=== PATIENT | male | born 1950 | race Caucasian/White ===

== ENCOUNTER 2020-07-20 12:20 | Outpatient (REF) | payer MEDICARE, SELFPAY ==
[2020-07-20 13:53] LABS: MANUAL DIFF FLAG NO
[2020-07-20 14:04] LABS: Basophils Absolute Auto 0.1 X10*3/uL (0.0-0.2); Eosinophils Absolute Auto 0.2 X10*3/uL (0.0-0.4); Eosinophils Percent Auto 3.1 % (0-4); Hematocrit 42.1 % (42-52); Hemoglobin 14.1 g/dl (14.0-18.0); Imm Gran Abs Auto 0.02 X10*3/uL (0.00-0.03); Imm Gran Pct Auto 0.3 % (0.0-0.4); Lymphocytes Absolute Auto 1.7 X10*3/uL (1.2-4.9); Lymphocytes Percent Auto 27.8 % (20-40); Mean Corpuscular HGB Conc 33.5 g/dl (31.0-36.0); Mean Corpuscular Hemoglobin 30.9 pg (27.0-33.0); Mean Corpuscular Volume 92.1 fL (80-98); Mean Platelet Volume 10.7 fL (9.4-12.4); Monocytes Absolute Auto 0.5 X10*3/uL (0.1-1.2); Monocytes Percent Auto 7.8 % (2-11); Neutrophils Absolute Auto 3.7 X10*3/uL (2.0-8.3); Platelet Count 205 X10*3/uL (160-400); Red Blood Count 4.57 X10*6/uL (4.60-5.80); White Blood Count 6.1 X10*3/uL (4.8-10.8)
[2020-07-20 14:38] LABS: Alanine Aminotransferase 12 U/L (0-40); Albumin Level 4.2 g/dL (3.5-5.0); Alkaline Phosphatase 73 U/L (39-117); Anion Gap 13 (12-20); Aspartate Amino Transferase 16 U/L (5-37); Bilirubin Total 0.8 mg/dL (0.0-1.0); Blood Urea Nitrogen 15 mg/dL (9-16); Carbon Dioxide 27 mmol/L (22-29); Chloride 105 mmol/L (96-108); Cholesterol 182 mg/dL; Estimated Glomerular Filt Rate > 60; Glucose Fasting 88 mg/dL (60-99); HDL Cholesterol 40 mg/dL; LDL Cholesterol Calculated 109 mg/dl; Potassium 4.2 mmol/l (3.3-5.1); Sodium 141 mmol/L (135-145); Total Protein 6.3 g/dL (6.5-8.0); Triglycerides 169 mg/dL
== END 2020-07-20 12:21 | disposition home or self-care (01) ==
LOC: HO.HMGCLDS 12:20
PROVIDERS: PCP Internal Medicine Medical Oncology; Visit Provider Internal Medicine Medical Oncology
DX: E78.5 Hyperlipidemia, unspecified (principal); E66.9 Obesity, unspecified
CPT/HCPCS: 36415; 80053; 80061; 84153; 85025

== ENCOUNTER 2020-11-21 12:39 | Outpatient (REF) | payer MEDICARE, SELFPAY ==
[2020-11-21 13:50] LABS: MANUAL DIFF FLAG NO
[2020-11-21 13:56] LABS: Basophils Absolute Auto 0.1 X10*3/uL (0.0-0.2); Basophils Percent Auto 0.9 % (0-2); Eosinophils Absolute Auto 0.3 X10*3/uL (0.0-0.4); Eosinophils Percent Auto 4.4 % (0-4); Hematocrit 42.7 % (42-52); Imm Gran Abs Auto 0.02 X10*3/uL (0.00-0.03); Imm Gran Pct Auto 0.4 % (0.0-0.4); Lymphocytes Absolute Auto 1.8 X10*3/uL (1.2-4.9); Lymphocytes Percent Auto 31.3 % (20-40); Mean Corpuscular HGB Conc 32.8 g/dl (31.0-36.0); Mean Corpuscular Hemoglobin 29.9 pg (27.0-33.0); Mean Corpuscular Volume 91.2 fL (80-98); Mean Platelet Volume 10.2 fL (9.4-12.4); Monocytes Absolute Auto 0.4 X10*3/uL (0.1-1.2); Monocytes Percent Auto 7.2 % (2-11); Neutrophils Absolute Auto 3.2 X10*3/uL (2.0-8.3); Neutrophils Percent Auto 55.8 % (45-73); Platelet Count 213 X10*3/uL (160-400); Red Blood Count 4.68 X10*6/uL (4.60-5.80); White Blood Count 5.7 X10*3/uL (4.8-10.8)
[2020-11-21 15:08] LABS: Alanine Aminotransferase 14 U/L (0-40); Albumin Level 4.3 g/dL (3.5-5.0); Alkaline Phosphatase 72 U/L (39-117); Anion Gap 11 (12-20); Aspartate Amino Transferase 18 U/L (5-37); Bilirubin Total 0.9 mg/dL (0.0-1.0); Blood Urea Nitrogen 14 mg/dL (9-16); Calcium 9.2 mg/dL (8.4-10.2); Carbon Dioxide 28 mmol/L (22-29); Chloride 106 mmol/L (96-108); Cholesterol 200 mg/dL; Estimated Glomerular Filt Rate > 60; Glucose Fasting 99 mg/dL (60-99); HDL Cholesterol 41 mg/dL; LDL Cholesterol Calculated 128 mg/dl; Potassium 4.3 mmol/L (3.3-5.1); Sodium 141 mmol/L (135-145); Total Protein 6.4 g/dL (6.5-8.0); Triglycerides 156 mg/dL
[2020-11-21 15:11] LABS: Prostate Specific Antigen 0.58 ng/mL (<0.05-4.0); Vitamin D 25-OH Total 27.2 ng/mL (>30)
== END 2020-11-21 12:40 | disposition home or self-care (01) ==
LOC: HO.HMGCLDS 12:39
PROVIDERS: PCP Internal Medicine Medical Oncology; Visit Provider Internal Medicine Medical Oncology
DX: E78.5 Hyperlipidemia, unspecified (principal); I10 Essential (primary) hypertension; E66.9 Obesity, unspecified; Z12.5 Encounter for screening for malignant neoplasm of prostate
CPT/HCPCS: 36415; 80053; 80061; 82306; 84153; 85025

== ENCOUNTER 2021-03-23 12:11 | Outpatient (REF) | payer MEDICARE, SELFPAY ==
[2021-03-23 13:59] LABS: MANUAL DIFF FLAG NO
[2021-03-23 14:14] LABS: Basophils Absolute Auto 0.1 X10*3/uL (0.0-0.2); Eosinophils Absolute Auto 0.2 X10*3/uL (0.0-0.4); Eosinophils Percent Auto 3.4 % (0-4); Hematocrit 42.2 % (42-52); Hemoglobin 14.1 g/dl (14.0-18.0); Imm Gran Abs Auto 0.03 X10*3/uL (0.00-0.03); Imm Gran Pct Auto 0.5 % (0.0-0.4); Lymphocytes Absolute Auto 1.7 X10*3/uL (1.2-4.9); Lymphocytes Percent Auto 28.9 % (20-40); Mean Corpuscular HGB Conc 33.4 g/dl (31.0-36.0); Mean Corpuscular Volume 92.7 fL (80-98); Mean Platelet Volume 10.6 fL (9.4-12.4); Monocytes Absolute Auto 0.5 X10*3/uL (0.1-1.2); Monocytes Percent Auto 8.9 % (2-11); Neutrophils Absolute Auto 3.4 X10*3/uL (2.0-8.3); Neutrophils Percent Auto 57.3 % (45-73); Platelet Count 217 X10*3/uL (160-400); Red Blood Count 4.55 X10*6/uL (4.60-5.80); Red Cell Distribution Width 14.5 % (11.0-16.0)
[2021-03-23 14:26] LABS: Alanine Aminotransferase 13 U/L (0-40); Albumin Level 4.2 g/dL (3.5-5.0); Alkaline Phosphatase 76 U/L (39-117); Anion Gap 14 (12-20); Aspartate Amino Transferase 22 U/L (5-37); Blood Urea Nitrogen 15 mg/dL (9-16); Calcium 9.4 mg/dL (8.4-10.2); Carbon Dioxide 26 mmol/L (22-29); Chloride 105 mmol/L (96-108); Cholesterol 216 mg/dL; Estimated Glomerular Filt Rate > 60; Glucose Fasting 96 mg/dL (60-99); HDL Cholesterol 44 mg/dL; LDL Cholesterol Calculated 140 mg/dl; Potassium 4.6 mmol/L (3.3-5.1); Sodium 140 mmol/L (135-145); Total Protein 6.5 g/dL (6.5-8.0); Triglycerides 161 mg/dL
[2021-03-23 14:36] LABS: Vitamin D 25-OH Total 31.5 ng/mL (>30)
== END 2021-03-23 12:12 | disposition home or self-care (01) ==
LOC: HO.HMGCLDS 12:11
PROVIDERS: PCP Internal Medicine Medical Oncology; Visit Provider Internal Medicine Medical Oncology
DX: E78.5 Hyperlipidemia, unspecified (principal); E66.9 Obesity, unspecified; I10 Essential (primary) hypertension
CPT/HCPCS: 36415; 80053; 80061; 82306; 85025

== ENCOUNTER 2021-06-23 11:32 | Outpatient (REF) | payer MEDICARE, SELFPAY ==
[2021-06-23 13:59] LABS: MANUAL DIFF FLAG NO
[2021-06-23 14:04] LABS: Basophils Absolute Auto 0.1 X10*3/uL (0.0-0.2); Basophils Percent Auto 0.9 % (0-2); Eosinophils Absolute Auto 0.2 X10*3/uL (0.0-0.4); Eosinophils Percent Auto 4.1 % (0-4); Hemoglobin 14.5 g/dl (14.0-18.0); Imm Gran Abs Auto 0.02 X10*3/uL (0.00-0.03); Imm Gran Pct Auto 0.3 % (0.0-0.4); Lymphocytes Absolute Auto 1.7 X10*3/uL (1.2-4.9); Lymphocytes Percent Auto 29.4 % (20-40); Mean Corpuscular HGB Conc 33.7 g/dl (31.0-36.0); Mean Corpuscular Volume 92.1 fL (80-98); Mean Platelet Volume 10.4 fL (9.4-12.4); Monocytes Absolute Auto 0.5 X10*3/uL (0.1-1.2); Monocytes Percent Auto 8.6 % (2-11); Neutrophils Absolute Auto 3.3 X10*3/uL (2.0-8.3); Neutrophils Percent Auto 56.7 % (45-73); Platelet Count 209 X10*3/uL (160-400); Red Blood Count 4.67 X10*6/uL (4.60-5.80); Red Cell Distribution Width 14.2 % (11.0-16.0); White Blood Count 5.8 X10*3/uL (4.8-10.8)
[2021-06-23 14:21] LABS: Alanine Aminotransferase 16 U/L (0-40); Albumin Level 4.2 g/dL (3.5-5.0); Alkaline Phosphatase 67 U/L (39-117); Anion Gap 15 (12-20); Aspartate Amino Transferase 18 U/L (5-37); Blood Urea Nitrogen 14 mg/dL (9-16); Calcium 9.1 mg/dL (8.4-10.2); Carbon Dioxide 25 mmol/L (22-29); Chloride 108 mmol/L (96-108); Cholesterol 197 mg/dL; Estimated Glomerular Filt Rate > 60; Glucose Random 100 mg/dL (60-115); HDL Cholesterol 41 mg/dL; LDL Cholesterol Calculated 122 mg/dl; Lactate Dehydrogenase 172 U/L (118-273); Potassium 4.5 mmol/L (3.3-5.1); Sodium 143 mmol/L (135-145); Total Protein 6.3 g/dL (6.5-8.0); Triglycerides 171 mg/dL
== END 2021-06-23 11:33 | disposition home or self-care (01) ==
LOC: HO.HMGCLDS 11:32
PROVIDERS: PCP Internal Medicine Medical Oncology; Visit Provider Internal Medicine Medical Oncology
DX: E78.5 Hyperlipidemia, unspecified (principal); I10 Essential (primary) hypertension; K21.9 Gastro-esophageal reflux disease without esophagitis
CPT/HCPCS: 36415; 80053; 80061; 82550; 83615; 85025

== ENCOUNTER 2021-10-23 11:26 | Outpatient (REF) | payer MEDICARE, SELFPAY ==
[2021-10-23 13:59] LABS: MANUAL DIFF FLAG NO
[2021-10-23 14:02] LABS: Basophils Percent Auto 0.7 % (0-2); Eosinophils Absolute Auto 0.2 X10*3/uL (0.0-0.4); Eosinophils Percent Auto 4.2 % (0-4); Hematocrit 43.3 % (42.0-52.0); Hemoglobin 14.5 g/dl (14.0-18.0); Lymphocytes Absolute Auto 1.6 X10*3/uL (1.2-4.9); Lymphocytes Percent Auto 27.7 % (20-40); Mean Corpuscular HGB Conc 33.5 g/dl (31.0-36.0); Mean Corpuscular Hemoglobin 30.8 pg (27.0-33.0); Mean Corpuscular Volume 91.9 fL (80.0-98.0); Mean Platelet Volume 10.8 fL (9.4-12.4); Monocytes Absolute Auto 0.4 X10*3/uL (0.1-1.2); Monocytes Percent Auto 7.7 % (2-11); Neutrophils Absolute Auto 3.4 x10*3/uL (2.0-8.3); Neutrophils Percent Auto 59.7 % (45-73); Platelet Count 224 X10*3/uL (160-400); Red Blood Count 4.71 X10*6/uL (4.60-5.80); Red Cell Distribution Width 13.6 % (11.0-16.0); White Blood Count 5.7 X10*3/uL (4.8-10.8)
[2021-10-23 14:21] LABS: Alanine Aminotransferase 16 U/L (0-40); Albumin Level 4.3 g/dL (3.5-5.0); Alkaline Phosphatase 76 U/L (39-117); Anion Gap 14 (12-20); Aspartate Amino Transferase 17 U/L (5-37); Bilirubin Total 0.8 mg/dL (0.0-1.0); Blood Urea Nitrogen 12 mg/dL (9-16); Calcium 9.3 mg/dL (8.4-10.2); Carbon Dioxide 26 mmol/L (22-29); Chloride 106 mmol/L (96-108); Cholesterol 180 mg/dL; Estimated Glomerular Filt Rate > 60; Glucose Fasting 92 mg/dL (60-99); HDL Cholesterol 36 mg/dL; LDL Cholesterol Calculated 106 mg/dl; Potassium 4.2 mmol/L (3.3-5.1); Sodium 142 mmol/L (135-145); Total Protein 6.5 g/dL (6.5-8.0); Triglycerides 194 mg/dL
== END 2021-10-23 11:27 | disposition home or self-care (01) ==
LOC: HO.HMGCLDS 11:26
PROVIDERS: PCP Internal Medicine Medical Oncology; Visit Provider Internal Medicine Medical Oncology
DX: Z00.00 Encounter for general adult medical examination without abnormal findings (principal); E66.9 Obesity, unspecified; I10 Essential (primary) hypertension
CPT/HCPCS: 36415; 80053; 80061; 85025

== ENCOUNTER 2021-12-25 11:36 | Outpatient (REF) | payer MEDICARE, SELFPAY ==
--- NOTE | ~2021-12-25 | XR_ITS ---
EXAMINATION: XR LUMBOSACRAL SPINE CLINICAL INFORMATION: Lower back pain. COMPARISON: None. TECHNIQUE: Three views of the lumbosacral spine. FINDINGS: No acute compression deformities. Very minimal up to 2 mm of retrolisthesis of L5 on S1. Otherwise, anatomic alignment. Moderate multilevel lumbar spondylosis with disc space narrowing, osteophytes and facet arthropathy. Sacroiliac joints are symmetric. Nonobstructive bowel gas pattern. XR/XR lumbar spine 2-3V IMPRESSION: No acute compression deformities. Very minimal retrolisthesis of L5 on S1, likely degenerative in etiology. Moderate multilevel lumbar spondylosis which could be further assessed with an MR of the lumbar spine to evaluate for the degree of neural impingement and canal narrowing if indicated.
== END 2021-12-25 11:37 | disposition home or self-care (01) ==
LOC: HO.HMGCX 11:36
PROVIDERS: Visit Provider Internal Medicine Medical Oncology
DX: M54.9 Dorsalgia, unspecified (principal)
CPT/HCPCS: 72100

== ENCOUNTER 2022-02-22 10:39 | Outpatient (REF) | payer MEDICARE, SELFPAY ==
--- NOTE | ~2022-02-22 | US_ITS ---
EXAMINATION: US RETROPERITONEAL COMPLETE (RENAL) CLINICAL INFORMATION: Kidney stone. COMPARISON: None TECHNIQUE: Real-time imaging of the kidneys and bladder. FINDINGS: RIGHT KIDNEY: 11.9 x 5.1 x 5.9 cm (SAG x AP x TRV). The kidney is normal in size, contour, and echogenicity. Renal cortical thickness is normal. No calculi or focal parenchymal lesions. No hydronephrosis. LEFT KIDNEY: 11.7 x 6.0 x 6.3 cm (SAG x AP x TRV). The kidney is normal in size, contour, and echogenicity. Renal cortical thickness is normal. No calculi or focal parenchymal lesions. No hydronephrosis. BLADDER: Well distended and normal. Bilateral ureteral jets are demonstrated. Prevoid bladder volume is 432 mL. Postvoid bladder volume is 34.3 mL. PROSTATE: The prostate gland measures 4 x 5.2 x 3.4 cm, volume 37 mL. US/US retroperitoneal comp IMPRESSION: Normal renal ultrasound. Slightly enlarged prostate gland.
[2022-02-22 13:58] LABS: MANUAL DIFF FLAG NO
[2022-02-22 14:01] LABS: Basophils Absolute Auto 0.1 X10*3/uL (0.0-0.2); Basophils Percent Auto 0.8 % (0-2); Eosinophils Absolute Auto 0.3 X10*3/uL (0.0-0.4); Eosinophils Percent Auto 4.1 % (0-4); Hematocrit 43.4 % (42.0-52.0); Hemoglobin 14.5 g/dl (14.0-18.0); Imm Gran Abs Auto 0.02 X10*3/uL (0.00-0.03); Imm Gran Pct Auto 0.3 % (0.0-0.4); Lymphocytes Absolute Auto 1.6 X10*3/uL (1.2-4.9); Lymphocytes Percent Auto 26.1 % (20-40); Mean Corpuscular HGB Conc 33.4 g/dl (31.0-36.0); Mean Corpuscular Hemoglobin 30.9 pg (27.0-33.0); Mean Corpuscular Volume 92.5 fL (80.0-98.0); Mean Platelet Volume 10.5 fL (9.4-12.4); Monocytes Absolute Auto 0.6 X10*3/uL (0.1-1.2); Monocytes Percent Auto 9.1 % (2-11); Neutrophils Absolute Auto 3.7 x10*3/uL (2.0-8.3); Neutrophils Percent Auto 59.6 % (45-73); Platelet Count 239 X10*3/uL (160-400); Red Blood Count 4.69 X10*6/uL (4.60-5.80); Red Cell Distribution Width 14.8 % (11.0-16.0); White Blood Count 6.3 X10*3/uL (4.8-10.8)
[2022-02-22 14:16] LABS: Alanine Aminotransferase 18 U/L (0-40); Albumin Level 4.1 g/dL (3.5-5.0); Alkaline Phosphatase 74 U/L (39-117); Anion Gap 14 (12-20); Aspartate Amino Transferase 18 U/L (5-37); Bilirubin Total 0.9 mg/dL (0.0-1.0); Blood Urea Nitrogen 13 mg/dL (9-16); Calcium 9.4 mg/dL (8.4-10.2); Carbon Dioxide 26 mmol/L (22-29); Chloride 105 mmol/L (96-108); Cholesterol 210 mg/dL; Estimated Glomerular Filt Rate > 60; Glucose Fasting 91 mg/dL (60-99); HDL Cholesterol 41 mg/dL; LDL Cholesterol Calculated 138 mg/dl; Potassium 4.7 mmol/L (3.3-5.1); Sodium 140 mmol/L (135-145); Total Protein 6.4 g/dL (6.5-8.0); Triglycerides 158 mg/dL
[2022-02-22 14:38] LABS: Free T4 (Free Thyroxine) 0.81 ng/dL (0.71-1.85)
== END 2022-02-22 10:40 | disposition home or self-care (01) ==
LOC: HO.HMGCX 10:39
PROVIDERS: Visit Provider Internal Medicine Medical Oncology
DX: N20.0 Calculus of kidney (principal); E78.5 Hyperlipidemia, unspecified; E66.9 Obesity, unspecified
CPT/HCPCS: 36415; 76770; 80053; 80061; 84439; 84443; 85025

== ENCOUNTER 2022-06-27 10:42 | Outpatient (REF) | payer MEDICARE, SELFPAY ==
[2022-06-27 13:59] LABS: MANUAL DIFF FLAG NO
[2022-06-27 14:03] LABS: Basophils Absolute Auto 0.1 X10*3/uL (0.0-0.2); Basophils Percent Auto 1.1 % (0-2); Eosinophils Absolute Auto 0.2 X10*3/uL (0.0-0.4); Eosinophils Percent Auto 4.3 % (0-4); Hematocrit 41.3 % (42.0-52.0); Hemoglobin 13.9 g/dl (14.0-18.0); Imm Gran Abs Auto 0.02 X10*3/uL (0.00-0.03); Imm Gran Pct Auto 0.4 % (0.0-0.4); Lymphocytes Absolute Auto 1.6 X10*3/uL (1.2-4.9); Lymphocytes Percent Auto 29.3 % (20-40); Mean Corpuscular HGB Conc 33.7 g/dl (31.0-36.0); Mean Corpuscular Hemoglobin 30.8 pg (27.0-33.0); Mean Corpuscular Volume 91.6 fL (80.0-98.0); Mean Platelet Volume 10.7 fL (9.4-12.4); Monocytes Absolute Auto 0.4 X10*3/uL (0.1-1.2); Monocytes Percent Auto 7.7 % (2-11); Neutrophils Percent Auto 57.2 % (45-73); Platelet Count 199 X10*3/uL (160-400); Red Blood Count 4.51 X10*6/uL (4.60-5.80); Red Cell Distribution Width 14.2 % (11.0-16.0); White Blood Count 5.3 X10*3/uL (4.8-10.8)
[2022-06-27 14:41] LABS: Alanine Aminotransferase 15 U/L (0-40); Albumin Level 4.3 g/dL (3.5-5.0); Alkaline Phosphatase 70 U/L (39-117); Anion Gap 18 (12-20); Aspartate Amino Transferase 17 U/L (5-37); Bilirubin Total 0.9 mg/dL (0.0-1.0); Blood Urea Nitrogen 12 mg/dL (9-16); Carbon Dioxide 21 mmol/L (22-29); Chloride 106 mmol/L (96-108); Cholesterol 208 mg/dL; Estimated Glomerular Filt Rate > 60; Glucose Fasting 100 mg/dL (60-99); HDL Cholesterol 41 mg/dL; LDL Cholesterol Calculated 132 mg/dl; Sodium 141 mmol/L (135-145); Total Protein 6.3 g/dL (6.5-8.0); Triglycerides 175 mg/dL; Uric Acid 6.1 mg/dL (3.4-7.0)
[2022-06-27 15:03] LABS: Prostate Specific Antigen 0.51 ng/mL (<0.05-4.0)
== END 2022-06-27 10:43 | disposition home or self-care (01) ==
LOC: HO.HMGCLDS 10:42
PROVIDERS: PCP Internal Medicine Medical Oncology; Visit Provider Internal Medicine Medical Oncology
DX: Z12.5 Encounter for screening for malignant neoplasm of prostate (principal); E78.5 Hyperlipidemia, unspecified; I10 Essential (primary) hypertension; K21.9 Gastro-esophageal reflux disease without esophagitis; R35.1 Nocturia
CPT/HCPCS: 36415; 80053; 80061; 84153; 84550; 85025

== ENCOUNTER 2022-11-29 12:16 | Outpatient (REF) | payer MEDICARE, SELFPAY ==
[2022-11-29 13:58] LABS: MANUAL DIFF FLAG NO
[2022-11-29 14:21] LABS: Basophils Percent Auto 0.7 % (0-2); Eosinophils Absolute Auto 0.3 X10*3/uL (0.0-0.4); Hematocrit 43.5 % (42.0-52.0); Hemoglobin 14.7 g/dl (14.0-18.0); Imm Gran Abs Auto 0.02 X10*3/uL (0.00-0.03); Imm Gran Pct Auto 0.4 % (0.0-0.4); Lymphocytes Absolute Auto 1.6 X10*3/uL (1.2-4.9); Lymphocytes Percent Auto 28.7 % (20-40); Mean Corpuscular HGB Conc 33.8 g/dl (31.0-36.0); Mean Corpuscular Hemoglobin 30.9 pg (27.0-33.0); Mean Corpuscular Volume 91.6 fL (80.0-98.0); Mean Platelet Volume 10.6 fL (9.4-12.4); Monocytes Absolute Auto 0.5 X10*3/uL (0.1-1.2); Monocytes Percent Auto 8.3 % (2-11); Neutrophils Absolute Auto 3.2 x10*3/uL (2.0-8.3); Neutrophils Percent Auto 56.9 % (45-73); Platelet Count 216 X10*3/uL (160-400); Red Blood Count 4.75 X10*6/uL (4.60-5.80); Red Cell Distribution Width 14.3 % (11.0-16.0); White Blood Count 5.6 X10*3/uL (4.8-10.8)
[2022-11-29 16:29] LABS: Alanine Aminotransferase 16 U/L (0-40); Albumin Level 4.1 g/dL (3.5-5.0); Alkaline Phosphatase 70 U/L (39-117); Anion Gap 13 (12-20); Aspartate Amino Transferase 18 U/L (5-37); Bilirubin Total 0.9 mg/dL (0.0-1.0); Blood Urea Nitrogen 13 mg/dL (9-16); Calcium 9.4 mg/dL (8.4-10.2); Carbon Dioxide 27 mmol/L (22-29); Chloride 107 mmol/L (96-108); Cholesterol 199 mg/dL; Estimated Glomerular Filt Rate > 60; Glucose Fasting 108 mg/dL (60-99); HDL Cholesterol 39 mg/dL; LDL Cholesterol Calculated 125 mg/dl; Potassium 4.8 mmol/L (3.3-5.1); Sodium 142 mmol/L (135-145); Total Protein 6.2 g/dL (6.5-8.0); Triglycerides 176 mg/dL
== END 2022-11-29 12:17 | disposition home or self-care (01) ==
LOC: HO.HMGCLDS 12:16
PROVIDERS: PCP Internal Medicine Medical Oncology; Visit Provider Internal Medicine Medical Oncology
DX: I10 Essential (primary) hypertension (principal); E78.5 Hyperlipidemia, unspecified; E66.9 Obesity, unspecified
CPT/HCPCS: 36415; 80053; 80061; 85025

== ENCOUNTER 2023-02-28 10:47 | Outpatient (REF) | payer MEDICARE, SELFPAY ==
[2023-02-28 14:25] LABS: MANUAL DIFF FLAG NO
[2023-02-28 14:42] LABS: Basophils Absolute Auto 0.1 X10*3/uL (0.0-0.2); Basophils Percent Auto 0.9 % (0-2); Eosinophils Absolute Auto 0.3 X10*3/uL (0.0-0.4); Eosinophils Percent Auto 4.6 % (0-4); Hematocrit 42.7 % (42.0-52.0); Hemoglobin 14.2 g/dl (14.0-18.0); Imm Gran Abs Auto 0.02 X10*3/uL (0.00-0.03); Imm Gran Pct Auto 0.4 % (0.0-0.4); Lymphocytes Absolute Auto 1.7 X10*3/uL (1.2-4.9); Lymphocytes Percent Auto 30.1 % (20-40); Mean Corpuscular HGB Conc 33.3 g/dl (31.0-36.0); Mean Corpuscular Hemoglobin 31.1 pg (27.0-33.0); Mean Corpuscular Volume 93.6 fL (80.0-98.0); Mean Platelet Volume 10.8 fL (9.4-12.4); Monocytes Absolute Auto 0.4 X10*3/uL (0.1-1.2); Monocytes Percent Auto 7.7 % (2-11); Neutrophils Absolute Auto 3.2 x10*3/uL (2.0-8.3); Neutrophils Percent Auto 56.3 % (45-73); Platelet Count 222 X10*3/uL (160-400); Red Blood Count 4.56 X10*6/uL (4.60-5.80); Red Cell Distribution Width 14.3 % (11.0-16.0); White Blood Count 5.6 X10*3/uL (4.8-10.8)
[2023-02-28 15:03] LABS: Alanine Aminotransferase 17 U/L (0-40); Alkaline Phosphatase 73 U/L (39-117); Anion Gap 12 (12-20); Aspartate Amino Transferase 20 U/L (5-37); Bilirubin Total 0.9 mg/dL (0.0-1.0); Blood Urea Nitrogen 12 mg/dL (9-16); Calcium 9.2 mg/dL (8.4-10.2); Carbon Dioxide 25 mmol/L (22-29); Chloride 106 mmol/L (96-108); Cholesterol 226 mg/dL; Estimated Glomerular Filt Rate > 60; Glucose Fasting 101 mg/dL (60-99); HDL Cholesterol 43 mg/dL; LDL Cholesterol Calculated 140 mg/dl; Potassium 4.2 mmol/L (3.3-5.1); Sodium 139 mmol/L (135-145); Total Protein 6.2 g/dL (6.5-8.0); Triglycerides 215 mg/dL
== END 2023-02-28 10:48 | disposition home or self-care (01) ==
LOC: HO.HMGCLDS 10:47
PROVIDERS: PCP Internal Medicine Medical Oncology; Visit Provider Internal Medicine Medical Oncology
DX: I10 Essential (primary) hypertension (principal); E78.5 Hyperlipidemia, unspecified; K21.9 Gastro-esophageal reflux disease without esophagitis
CPT/HCPCS: 36415; 80053; 80061; 85025

== ENCOUNTER 2023-07-01 11:09 | Outpatient (REF) | payer MEDICARE, SELFPAY ==
[2023-07-01 13:28] LABS: MANUAL DIFF FLAG NO
[2023-07-01 13:44] LABS: Basophils Absolute Auto 0.1 X10*3/uL (0.0-0.2); Basophils Percent Auto 1.2 % (0-2); Eosinophils Absolute Auto 0.3 X10*3/uL (0.0-0.4); Eosinophils Percent Auto 5.1 % (0-4); Hematocrit 43.3 % (42.0-52.0); Hemoglobin 14.4 g/dl (14.0-18.0); Imm Gran Abs Auto 0.01 X10*3/uL (0.00-0.03); Imm Gran Pct Auto 0.2 % (0.0-0.4); Lymphocytes Absolute Auto 1.7 X10*3/uL (1.2-4.9); Lymphocytes Percent Auto 30.2 % (20-40); Mean Corpuscular HGB Conc 33.3 g/dl (31.0-36.0); Mean Corpuscular Hemoglobin 30.9 pg (27.0-33.0); Mean Corpuscular Volume 92.9 fL (80.0-98.0); Mean Platelet Volume 10.6 fL (9.4-12.4); Monocytes Absolute Auto 0.5 X10*3/uL (0.1-1.2); Monocytes Percent Auto 9.5 % (2-11); Neutrophils Absolute Auto 3.1 x10*3/uL (2.0-8.3); Neutrophils Percent Auto 53.8 % (45-73); Platelet Count 205 X10*3/uL (160-400); Red Blood Count 4.66 X10*6/uL (4.60-5.80); Red Cell Distribution Width 14.2 % (11.0-16.0); White Blood Count 5.7 X10*3/uL (4.8-10.8)
[2023-07-01 13:52] LABS: Alanine Aminotransferase 13 U/L (0-40); Albumin Level 4.2 g/dL (3.5-5.0); Alkaline Phosphatase 72 U/L (39-117); Anion Gap 14 (12-20); Aspartate Amino Transferase 18 U/L (5-37); Bilirubin Total 0.8 mg/dL (0.0-1.0); Blood Urea Nitrogen 15 mg/dL (9-16); Calcium 9.7 mg/dL (8.4-10.2); Carbon Dioxide 27 mmol/L (22-29); Chloride 105 mmol/L (96-108); Cholesterol 220 mg/dL (<200); Estimated Glomerular Filt Rate > 60; Glucose Fasting 93 mg/dL (60-99); HDL Cholesterol 43 mg/dL (>40); LDL Cholesterol Calculated 143 mg/dL (<100); Potassium 4.2 mmol/L (3.3-5.1); Sodium 142 mmol/L (135-145); Total Protein 6.7 g/dL (6.5-8.0); Triglycerides 172 mg/dL (<150)
== END 2023-07-01 11:10 | disposition home or self-care (01) ==
LOC: HO.HMGCLDS 11:09
PROVIDERS: PCP Internal Medicine Medical Oncology; Visit Provider Internal Medicine Medical Oncology
DX: E78.5 Hyperlipidemia, unspecified (principal); I10 Essential (primary) hypertension; E66.9 Obesity, unspecified
CPT/HCPCS: 36415; 80053; 80061; 85025

== ENCOUNTER 2023-10-31 10:30 | Outpatient (REF) | payer MEDICARE, SELFPAY ==
[2023-10-31 13:08] LABS: MANUAL DIFF FLAG NO
[2023-10-31 13:24] LABS: Basophils Absolute Auto 0.1 X10*3/uL (0.0-0.2); Basophils Percent Auto 1.2 % (0-2); Eosinophils Absolute Auto 0.4 X10*3/uL (0.0-0.4); Eosinophils Percent Auto 5.5 % (0-4); Hematocrit 43.3 % (42.0-52.0); Hemoglobin 14.7 g/dl (14.0-18.0); Imm Gran Abs Auto 0.01 X10*3/uL (0.00-0.03); Imm Gran Pct Auto 0.1 % (0.0-0.4); Lymphocytes Absolute Auto 2.2 X10*3/uL (1.2-4.9); Lymphocytes Percent Auto 31.7 % (20-40); Mean Corpuscular HGB Conc 33.9 g/dl (31.0-36.0); Mean Corpuscular Hemoglobin 30.4 pg (27.0-33.0); Mean Corpuscular Volume 89.6 fL (80.0-98.0); Mean Platelet Volume 10.6 fL (9.4-12.4); Monocytes Absolute Auto 0.6 X10*3/uL (0.1-1.2); Monocytes Percent Auto 8.4 % (2-11); Neutrophils Absolute Auto 3.7 x10*3/uL (2.0-8.3); Neutrophils Percent Auto 53.1 % (45-73); Platelet Count 211 X10*3/uL (160-400); Red Blood Count 4.83 X10*6/uL (4.60-5.80); Red Cell Distribution Width 13.8 % (11.0-16.0); White Blood Count 6.9 X10*3/uL (4.8-10.8)
[2023-10-31 13:38] LABS: Alanine Aminotransferase 15 U/L (0-40); Albumin Level 4.1 g/dL (3.5-5.0); Alkaline Phosphatase 77 U/L (39-117); Anion Gap 12 (12-20); Aspartate Amino Transferase 19 U/L (5-37); Bilirubin Total 0.7 mg/dL (0.0-1.0); Blood Urea Nitrogen 15 mg/dL (9-16); Calcium 9.4 mg/dL (8.4-10.2); Carbon Dioxide 27 mmol/L (22-29); Chloride 105 mmol/L (96-108); Cholesterol 216 mg/dL (<200); Estimated Glomerular Filt Rate > 60; Glucose Fasting 97 mg/dL (60-99); HDL Cholesterol 40 mg/dL (>40); LDL Cholesterol Calculated 128 mg/dL (<100); Potassium 3.8 mmol/L (3.3-5.1); Sodium 140 mmol/L (135-145); Total Protein 6.8 g/dL (6.5-8.0); Triglycerides 242 mg/dL (<150)
== END 2023-10-31 10:31 | disposition home or self-care (01) ==
LOC: HO.HMGCLDS 10:30
PROVIDERS: PCP Internal Medicine Medical Oncology; Visit Provider Internal Medicine Medical Oncology
DX: E66.9 Obesity, unspecified (principal); E78.5 Hyperlipidemia, unspecified
CPT/HCPCS: 36415; 80053; 80061; 85025

== ENCOUNTER 2023-12-16 06:12 | Day surgery (SDC) | payer MEDICARE, SELFPAY ==
[2023-12-16 06:41] VITALS: BMI 38.4
--- NOTE | 2023-12-16 06:58 | ECG_ITS ---
Test Reason : preop Blood Pressure : / mmHG Vent. Rate : 070 BPM Atrial Rate : 070 BPM P-R Int : 148 ms QRS Dur : 092 ms QT Int : 432 ms P-R-T Axes : 000 026 017 degrees QTc Int : 466 ms Normal sinus rhythm Nonspecific ST abnormality Abnormal ECG No previous ECGs available Referred By: Jake Figueroa Electronically Signed By:UMBERTO FIELDS
[2023-12-16 07:04] VITALS: BP 123/87; PULSE 67; RESP 18; TEMP 36.6; O2SAT 97
[2023-12-16] MEDS: Lactated Ringers 1,000 ML 80 ML IVCONT (07:10)
--- NOTE | 2023-12-16 07:14 | PC.NURSE ---
upon arrival on monitor patient showed bigeminy pvc. no EKG on file. per dr. birto EKG completed and showed nsr. nsr continues showing on monitor post ekg with occ. pvc now. small fluid bolus being given.
--- NOTE | 2023-12-16 07:17 | HO.ANESPROP2 ---
HPI - Anesthesia Eval Consult details Narrative: 73 yo male patient for EGD, Colonoscopy PMFSH Active Problems Active Problems: HTN GERD Anxiety/ Depression Hypercholesterolaemia PVCs on EKG. Patient denies h/o chest pain. Good exercise tolerance Obesity BMI 38.4 Tremors- patient states due to being nervous Past Medical History Medical History (Updated 12/16/23 @ 07:49 by Yeni Renae MD) History of stress test Detached retina, right Hypercholesteremia GERD (gastroesophageal reflux disease) Depression Anxiety Hypertension Family History Family history of problems with anesthesia: No Surgical History Surgical History (Updated 12/16/23 @ 07:06 by Radha Sue RN) Hx of eye surgery Hx of esophagogastroduodenoscopy Hx of colonoscopy History of Problems with Anesthesia: No Social History Social History Patient Tobacco Use Status: Never used Tobacco Are you DNR?: No Advance Directives: No Advance Directives Information Provided: Yes Nutrition Risks: No Nutritional Risk Meds Allergies Allergy/AdvReac Type Severity Reaction Status Date / Time No Known Allergies Allergy Verified 12/16/23 06:45 Active Medications: Current Medications Lactated Ringer's (Lr) 1,000 mls @ 80 mls/hr IVCONT .[id number] ANA Last Admin: 12/16/23 07:10 Dose: 80 mls/hr Sodium Biphosphate/Sodium Phosphate (Sodium Phosphate,[place]-Dibasic 133 Ml Enema) 133 ml TX ONCE PRN PRN Reason: Poor Colonoscopy Prep Results Home Medications Medication Instructions Recorded Confirmed Last Taken Type citalopram 40 mg tablet 40 mg PO DAILY 12/13/23 12/13/23 Unknown History felodipine 10 mg tablet,extended 10 mg PO DAILY 12/13/23 12/13/23 12/16/23 History release 24 hr lansoprazole 30 mg capsule,delayed 30 mg PO DAILY 12/13/23 12/13/23 Unknown History release metoprolol succinate 25 mg 25 mg PO DAILY 12/13/23 12/13/23 12/16/23 History tablet,extended release 24 hr simvastatin 40 mg tablet 40 mg PO BEDTIME 12/13/23 12/13/23 Unknown History Exam Height,Weight and Vital Signs: Height 6 ft 1 in Weight 131.905 kg Last Vital Signs Temp 97.9 F 12/16/23 07:04 Pulse 67 12/16/23 07:04 Resp 18 12/16/23 07:04 BP 123/87 12/16/23 07:04 Pulse Ox 97 12/16/23 07:04 O2 Del Method Room Air 12/16/23 07:04 Narrative Narrative: 12 lead EKG 12/16/23: NSR 70. NS-ST abnormality Airway Mallampati Class: III TM Dist: >3cm Neck ROM: Full Partial: Upper Loose/Missing/Broken Teeth: Yes (Partial uppers. Denies broken or loose teeth. Teeth look ground down) Heart: RRR Lungs: CTAB Assessment and Plan Assessment Anesthesia Assessment: Anesthesia Plan Discussed and Chart Reviewed Final Anesthetic Review Family History of Problems with Anesthesia: No History of Problems with Anesthesia: No NPO: Yes ASA Class: III Final Preanesthetic Review: No Changes in Pt Med Stat, Meds/Allgs Chart Reviewed, Consent Obtained/Reviewed and Anes Risks/Benef Reviewed Patient Risk: Intermediate Procedure Risk: Low Assessment/Block/Sedation in SS: Assess/Block/Sedation-SS Anesthetic Plan Anesthetic Plan: MAC: and TIVA Disposition: Standard PACU
[2023-12-16 08:26] VITALS: BP 129/62; PULSE 70; RESP 16; TEMP 36.4; O2SAT 96
--- NOTE | 2023-12-16 08:31 | PM.OP ---
Brief Operative Note Date of Service: 12/16/23 Pre-op diagnosis: GERD, Screening Post-op diagnosis: other (Hiatal hernia, Colon polyp) Procedure: EGD with biopsies, Colonoscopy to the cecum and TI with biopsy/removal of polyp Surgeon: Ricky Martinez MD Anesthesia: MAC Was an Electric Cutter Operator used for this Procedure?: No Estimated blood loss (mL): 2.0 Pathology: other (A. EG Junction at 38cm B. Colon polyp at 50cm) Condition: stable Disposition: PACU
--- NOTE | 2023-12-16 09:56 | OP_ITS ---
DATE OF SERVICE: 12/16/2023 SURGEON: Ricky Martinez MD INDICATIONS: The patient presents for evaluation of gastroesophageal reflux and colorectal cancer screening. Full consent has been obtained from him for this, including risks of bleeding and perforation. PREOPERATIVE DIAGNOSIS: Gastroesophageal reflux and colorectal cancer screening. POSTOPERATIVE DIAGNOSIS: PROCEDURE PERFORMED: Esophagogastroduodenoscopy with biopsies, and colonoscopy to the cecum and terminal ileum with biopsy and removal of polyp. ESTIMATED BLOOD LOSS: COMPLICATIONS: ANESTHESIA: Monitored anesthesia care. ASSISTANTS: SPECIMENS: POSTOPERATIVE DIAGNOSES: Gastroesophageal reflux and colorectal cancer screening, small hiatal hernia, small colon polyp, diverticulosis, and internal hemorrhoids. DESCRIPTION OF PROCEDURE: The patient was placed in the left lateral decubitus position. The Olympus video gastroscope was passed in the posterior oropharynx and upper esophagus under direct vision. The scope was passed slowly into the distal esophagus. The gastroesophageal junction appeared at 38 cm. There was some minimal irregularity consistent with some reflux but no evidence of any esophagitis nor any gross evidence of Hernandez mucosa. The scope entered the stomach. There was a small hiatal hernia. The scope was advanced to the pylorus, and the duodenum was cannulated to the descending portion. The duodenum including the bulb appeared normal without mass or ulceration. The scope was withdrawn back in the stomach. The gastric antrum and body appeared normal with good peristalsis. The scope was retroflexed visualizing the proximal stomach carefully, which appeared normal, without any sign of mass or ulceration. Scope was straightened and withdrawn back to the esophagus. Biopsies were obtained at the EG junction at 38 cm. Proximal to this, the esophageal mucosa appeared normal. The scope was withdrawn from the patient. He was turned around for the colonoscopy. The digital rectal exam revealed no abnormalities. The Olympus video pediatric colonoscope was entered into the rectum and advanced easily to the cecum. Once in the cecum, I did identify normal-appearing cecal pouch with appendiceal orifice and a normal-appearing ileocecal valve. The terminal ileum was cannulated and appeared normal. The scope was withdrawn back in the colon. The entire cecum and ileocecal valve appeared normal. The scope was slowly withdrawn assessing all mucosal surfaces carefully. Preparation was excellent. At 50 cm was a flat, 2 or 3 mm polyp, which was biopsied and completely removed with a cold biopsy forceps. I did not visualize any other polyps, colitis, nor angiodysplasia. There was a mild amount of sigmoid diverticulosis. In the rectum, scope was retroflexed visualizing internal hemorrhoids, but no other pathology. The rectal mucosa appeared normal. The scope was straightened and withdrawn from the patient. He tolerated both procedures well and was returned to the recovery area in stable condition. IMPRESSION: 1. Small hiatal hernia, gastroesophageal reflux. 2. Small colon polyp. 3. Diverticulosis. 4. Internal hemorrhoids. PLAN: The results of the biopsies will be checked. Given these minimal findings and his age, I do not think, he would need any further followup endoscopy nor colonoscopy. He was advised to continue his daily lansoprazole 30 mg per day and to use [id number] antacids such as Tums on a p.r.n. basis. He was advised to try to watch his diet and weight carefully. He was advised not to use any aspirin and NSAIDs for 1 week. He had also been instructed to use some fiber supplements with plenty of water for any constipation. This has all been discussed with his . He will see me on a p.r.n. basis. MD TANNER Lopez/ETHAN / [phone]
== END 2023-12-16 09:07 | disposition home or self-care (01) ==
PROVIDERS: PCP Internal Medicine Medical Oncology; Visit Provider Internal Medicine
PROC: (CPT 43239; principal; 2023-12-16 07:30)
DX: K44.9 Diaphragmatic hernia without obstruction or gangrene (principal); K21.9 Gastro-esophageal reflux disease without esophagitis; Z12.11 Encounter for screening for malignant neoplasm of colon; K57.30 Diverticulosis of large intestine without perforation or abscess without bleeding; K64.8 Other hemorrhoids; I10 Essential (primary) hypertension; E78.5 Hyperlipidemia, unspecified; Z79.02 Long term (current) use of antithrombotics/antiplatelets; Z79.899 Other long term (current) drug therapy
CPT/HCPCS: 43239; 45380; 88305; 88313; 93005; J2704; J3010

== ENCOUNTER → 2023-12-16 06:58 | Outpatient (BNV) | payer MEDICARE, SELFPAY | PROVIDERS: PCP Internal Medicine Medical Oncology; Visit Provider Internal Medicine | DX: K21.9 Gastro-esophageal reflux disease without esophagitis (principal); Z01.810 Encounter for preprocedural cardiovascular examination | CPT/HCPCS: 93010 ==

== ENCOUNTER 2024-03-16 13:48 | Outpatient (REF) | payer MEDICARE, SELFPAY ==
[2024-03-16 16:03] LABS: MANUAL DIFF FLAG NO
[2024-03-16 16:10] LABS: Basophils Percent Auto 0.6 % (0-2); Eosinophils Absolute Auto 0.2 X10*3/uL (0.0-0.4); Eosinophils Percent Auto 3.7 % (0-4); Hematocrit 42.5 % (42.0-52.0); Hemoglobin 14.2 g/dl (14.0-18.0); Imm Gran Abs Auto 0.04 X10*3/uL (0.00-0.03); Imm Gran Pct Auto 0.6 % (0.0-0.4); Lymphocytes Absolute Auto 1.7 X10*3/uL (1.2-4.9); Lymphocytes Percent Auto 25.6 % (20-40); Mean Corpuscular HGB Conc 33.4 g/dl (31.0-36.0); Mean Corpuscular Hemoglobin 31.1 pg (27.0-33.0); Mean Platelet Volume 10.5 fL (9.4-12.4); Monocytes Absolute Auto 0.4 X10*3/uL (0.1-1.2); Neutrophils Absolute Auto 4.1 x10*3/uL (2.0-8.3); Neutrophils Percent Auto 63.5 % (45-73); Platelet Count 213 X10*3/uL (160-400); Red Blood Count 4.57 X10*6/uL (4.60-5.80); Red Cell Distribution Width 14.4 % (11.0-16.0); White Blood Count 6.5 X10*3/uL (4.8-10.8)
[2024-03-16 16:32] LABS: Alanine Aminotransferase 14 U/L (0-40); Alkaline Phosphatase 70 U/L (39-117); Anion Gap 13 (12-20); Aspartate Amino Transferase 16 U/L (5-37); Bilirubin Total 0.8 mg/dL (0.0-1.0); Blood Urea Nitrogen 14 mg/dL (9-16); Calcium 9.2 mg/dL (8.4-10.2); Carbon Dioxide 26 mmol/L (22-29); Chloride 109 mmol/L (96-108); Cholesterol 202 mg/dL (<200); Estimated Glomerular Filt Rate > 60; Glucose Fasting 104 mg/dL (60-99); HDL Cholesterol 38 mg/dL (>40); LDL Cholesterol Calculated 123 mg/dL (<100); Sodium 144 mmol/L (135-145); Total Protein 6.6 g/dL (6.5-8.0); Triglycerides 206 mg/dL (<150)
== END 2024-03-16 13:49 | disposition home or self-care (01) ==
LOC: HO.HMGCLDS 13:48
PROVIDERS: Visit Provider Internal Medicine Medical Oncology
DX: E78.5 Hyperlipidemia, unspecified (principal); I10 Essential (primary) hypertension; E66.9 Obesity, unspecified
CPT/HCPCS: 36415; 80053; 80061; 85025

== ENCOUNTER 2024-07-20 07:49 | Outpatient (REF) | payer MEDICARE, SELFPAY ==
[2024-07-20 10:12] LABS: MANUAL DIFF FLAG NO
[2024-07-20 10:26] LABS: Basophils Absolute Auto 0.1 X10*3/uL (0.0-0.2); Eosinophils Absolute Auto 0.4 X10*3/uL (0.0-0.4); Eosinophils Percent Auto 4.9 % (0-4); Hematocrit 40.4 % (42.0-52.0); Hemoglobin 13.9 g/dl (14.0-18.0); Imm Gran Abs Auto 0.03 X10*3/uL (0.00-0.03); Imm Gran Pct Auto 0.4 % (0.0-0.4); Lymphocytes Absolute Auto 2.2 X10*3/uL (1.2-4.9); Lymphocytes Percent Auto 30.3 % (20-40); Mean Corpuscular HGB Conc 34.4 g/dl (31.0-36.0); Mean Corpuscular Hemoglobin 31.6 pg (27.0-33.0); Mean Corpuscular Volume 91.8 fL (80.0-98.0); Mean Platelet Volume 10.5 fL (9.4-12.4); Monocytes Absolute Auto 0.5 X10*3/uL (0.1-1.2); Monocytes Percent Auto 7.3 % (2-11); Neutrophils Percent Auto 56.1 % (45-73); Platelet Count 222 X10*3/uL (160-400); White Blood Count 7.1 X10*3/uL (4.8-10.8)
[2024-07-20 10:39] LABS: Alanine Aminotransferase 14 U/L (0-40); Albumin Level 4.1 g/dL (3.5-5.0); Alkaline Phosphatase 75 U/L (39-117); Anion Gap 11 (12-20); Bilirubin Total 0.7 mg/dL (0.0-1.0); Blood Urea Nitrogen 13 mg/dL (9-16); Calcium 9.5 mg/dL (8.4-10.2); Carbon Dioxide 28 mmol/L (22-29); Chloride 106 mmol/L (96-108); Cholesterol 206 mg/dL (<200); Estimated Glomerular Filt Rate > 60; Glucose Fasting 96 mg/dL (60-99); HDL Cholesterol 38 mg/dL (>40); LDL Cholesterol Calculated 117 mg/dL (<100); Potassium 4.3 mmol/L (3.3-5.1); Sodium 141 mmol/L (135-145); Total Protein 6.4 g/dL (6.5-8.0); Triglycerides 258 mg/dL (<150)
[2024-07-20 10:46] LABS: Estimated Average Glucose 111 mg/dL; Hemoglobin A1C 143.1642 umol/L; Hemoglobin A1c % 5.5 % (<6.0); Total Hemoglobin (HGBA1C) 3964.5942 umol/L
[2024-07-20 11:36] LABS: Prostate Specific Antigen 0.83 ng/mL (<0.05-4.0)
[2024-07-20 12:40] LABS: Aspartate Amino Transferase 22 U/L (5-37)
== END 2024-07-20 07:50 | disposition home or self-care (01) ==
LOC: HO.HMGCLDS 07:49
PROVIDERS: PCP Internal Medicine Medical Oncology; Visit Provider Internal Medicine Medical Oncology
DX: E78.5 Hyperlipidemia, unspecified (principal); E66.9 Obesity, unspecified; N40.0 Benign prostatic hyperplasia without lower urinary tract symptoms; Z12.5 Encounter for screening for malignant neoplasm of prostate; Z13.1 Encounter for screening for diabetes mellitus
CPT/HCPCS: 36415; 80053; 80061; 83036; 84153; 85025

== ENCOUNTER 2024-07-24 12:11 | Outpatient (REF) | payer MEDICARE, SELFPAY | END 2024-07-24 12:12 | disposition home or self-care (01) | LOC: HO.HMGCX 12:11 | PROVIDERS: PCP Internal Medicine Medical Oncology; Visit Provider Internal Medicine Medical Oncology | DX: M25.559 Pain in unspecified hip (principal); M54.50 Low back pain, unspecified | CPT/HCPCS: 72100; 73522 ==

== ENCOUNTER 2024-07-28 10:58 | Outpatient (REF) | payer MEDICARE, SELFPAY ==
[2024-07-28 13:23] LABS: MANUAL DIFF FLAG NO
[2024-07-28 13:50] LABS: Basophils Absolute Auto 0.1 X10*3/uL (0.0-0.2); Basophils Percent Auto 0.7 % (0-2); Eosinophils Absolute Auto 0.3 X10*3/uL (0.0-0.4); Hematocrit 41.8 % (42.0-52.0); Hemoglobin 14.2 g/dl (14.0-18.0); Imm Gran Abs Auto 0.03 X10*3/uL (0.00-0.03); Imm Gran Pct Auto 0.4 % (0.0-0.4); Lymphocytes Absolute Auto 1.6 X10*3/uL (1.2-4.9); Lymphocytes Percent Auto 22.3 % (20-40); Mean Corpuscular Hemoglobin 31.5 pg (27.0-33.0); Mean Corpuscular Volume 92.7 fL (80.0-98.0); Mean Platelet Volume 10.6 fL (9.4-12.4); Monocytes Absolute Auto 0.4 X10*3/uL (0.1-1.2); Monocytes Percent Auto 6.1 % (2-11); Neutrophils Absolute Auto 4.8 x10*3/uL (2.0-8.3); Neutrophils Percent Auto 66.5 % (45-73); Platelet Count 216 X10*3/uL (160-400); Red Blood Count 4.51 X10*6/uL (4.60-5.80); White Blood Count 7.3 X10*3/uL (4.8-10.8)
[2024-07-28 14:10] LABS: Alanine Aminotransferase 14 U/L (0-40); Albumin Level 3.9 g/dL (3.5-5.0); Alkaline Phosphatase 68 U/L (39-117); Anion Gap 13 (12-20); Aspartate Amino Transferase 29 U/L (5-37); Bilirubin Total 0.7 mg/dL (0.0-1.0); Blood Urea Nitrogen 13 mg/dL (9-16); Calcium 9.2 mg/dL (8.4-10.2); Carbon Dioxide 25 mmol/L (22-29); Chloride 108 mmol/L (96-108); Cholesterol 194 mg/dL (<200); Estimated Glomerular Filt Rate > 60; Glucose Fasting 101 mg/dL (60-99); HDL Cholesterol 35 mg/dL (>40); LDL Cholesterol Calculated 120 mg/dL (<100); Lactate Dehydrogenase 231 U/L (118-273); Sodium 142 mmol/L (135-145); Total Protein 6.4 g/dL (6.5-8.0); Triglycerides 199 mg/dL (<150)
== END 2024-07-28 10:59 | disposition home or self-care (01) ==
LOC: HO.HMGCLDS 10:58
PROVIDERS: PCP Internal Medicine Medical Oncology; Visit Provider Internal Medicine Medical Oncology
DX: E78.5 Hyperlipidemia, unspecified (principal); I10 Essential (primary) hypertension; E66.9 Obesity, unspecified
CPT/HCPCS: 36415; 80053; 80061; 82550; 83615; 85025

== ENCOUNTER 2024-09-11 08:43 | Outpatient (AMB) | payer MEDICARE, SELFPAY ==
--- NOTE | 2024-09-11 08:47 | MHC.OFFVIS ---
Intake Visit Reasons: New Pt - B/L hip pain Intake Note: Lev is a 74 year old male who presents today as a new patient for a evaluation of his bilateral hip pain. Pt states the left side is worse than his right. Pt denies any previous injury,treatment, or Surgery.Patient reports the pain stays in his hip and does not radiate. Allergies No Known Allergies Allergy (Verified 09/11/24 08:47) HPI HPI New Pt - B/L hip pain: Details: 74-year-old male who presents in the office today, as a new patient, for an evaluation of bilateral hip pain. The patient was seen by Dr. Ricky Aparicio and complained of bilateral hip pain and lower back pain. The patient has been slightly limping with ambulation. She reported difficulty bending down or lifting his lower extremities due to pain. Upon Ricky's examination, it was noted to have no cartilage in the right hip, leading to frfn-vq-gtpc contact. It was also observed that there was arthritis in the left hip with qidz-ri-kkwt rubbing. A bone spur between the patient?s 12th thoracic vertebra and first lumbar vertebra was also noted.? While in the office today, the patient reports experiencing bilateral hip pain, with the left hip worse than the right hip. He mentions localized pain in the hip that does not radiate. He denies any previous injury, treatment, or surgery to the bilateral hips. FORMERLY [facility], [facility] Medical History (Updated 09/11/24 @ 09:19 by Savannah Coats) History of stress test Detached retina, right Hypercholesteremia GERD (gastroesophageal reflux disease) Depression Anxiety Hypertension Surgical History (Updated 12/16/23 @ 07:06 by Radha Sue RN) Hx of eye surgery Hx of esophagogastroduodenoscopy Hx of colonoscopy Social History Patient Tobacco Use Status: Never used Tobacco Review of Systems Const All systems reviewed & are unremarkable except as noted in HPI and below Physical Exam Const General: cooperative and no acute distress Orientation/consciousness: patient oriented x3 Resp Effort & Inspection: normal respiratory effort and able to speak in complete sentences Cardio Peripheral pulses: Peripheral pulses 2+ throughout Skin General skin exam: no rashes or lesions noted Neuro General: patient oriented x3 Extrem Other: Bilateral hip: Normal to inspection. No ecchymosis, erythema, or edema. Full hip ROM in all planes and denies groind pain with ROM. Slight tenderness to palpation over the left greater trochanteric bursa. 4/5 strength with resisted hip flexion, knee extension, abduction, and abduction. Able to perform straight leg raise bilaterally with radiation of pain from lower back to lateral hip on the left. NVI. Assessment & Plan Assessment & Plan (1) Osteoarthritis, hip, bilateral: Code(s): M16.0 - Bilateral primary osteoarthritis of hip Category: Medical (2) Lumbar spondylosis: Code(s): M47.816 - Spondylosis without myelopathy or radiculopathy, lumbar region Category: Medical Plan Mr. Cosme is a 74-year-old male who presents in the office today, as a new patient, for an evaluation of bilateral hip pain. The patient was seen by Dr. Ricky Aparicio and complained of bilateral hip pain and lower back pain. The patient has been slightly limping with ambulation. She reported difficulty bending down or lifting his lower extremities due to pain. Upon Ricky's examination, it was noted to have no cartilage in the right hip, leading to bthw-rj-xlyp contact. It was also observed that there was arthritis in the left hip with gruj-yu-jwnw rubbing. A bone spur between the patient?s 12th thoracic vertebra and first lumbar vertebra was also noted. While in the office today, the patient reports experiencing bilateral hip pain, with the left hip worse than the right hip. He mentions localized pain in the hip that does not radiate. He denies any previous injury, treatment, or surgery to the bilateral hips. The patient denies any groin pain currently. He does exhibit mild palpation over the left greater troch which could be indicative of greater troch bursitis. We discussed the role of cortisone injection; however, elevated to hold off at this time. The majority of his symptoms are located in his lower back and anterior thigh pain radiating down to his knees. I have placed an order for physical therapy today. He will follow-up with Dr. Tran for further evaluation and treatment of L-spine. Follow-up will be with Dr. Tran for further evaluation and treatment of L-spine. Follow-up with me will be PRN, or sooner if needed. X-rays of the bilateral hip, obtained on 07/24/24, revealed: Bilateral hip osteoarthritis. X-rays of the lumbar spine, obtained on 07/24/24, revealed: Evidence of degenerative changes in spondylosis. Patient Instructions: Scribed by Savannah Coats, medical research scientist, for Halley Flowers PA-C on 09/11/24 at 9:10 am EST. Coding Level of Care Code New Pt Level 4 (60008) Diagnoses Osteoarthritis, hip, bilateral M16.0 Lumbar spondylosis M47.816
--- OUTSIDE RECORDS SUMMARY | 2024-09-11 08:48 | XMS_ITS | Patient Health Record ---
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 Name Role Phone Ricky Levine MD Primary Care Provider UnavailRicky Beavers Unavailable [phone] ALLERGIES No Known Allergies RESULTS Component Value Reference Range Notes Pathology (Not yet reviewed by provider) Interpretation: Performing Lab:[facility], [address] [place] [id number] Notes/Report: REASON FOR REFERRAL No Information MEDICATIONS Medication SIG (Take, Route, Frequency, Duration) Notes Start Date End Date Status Metoprolol Succinate ER 25 MG Oral for 90 Active Citalopram Hydrobromide 40 MG Oral for 90 Active Lansoprazole 30 MG Oral for 90 Active Felodipine ER 10mg A ctive Centrum Silver - as directed Orally Active Simvastatin 40 MG 1 tablet in the even ing Orally Once a day for 30 day(s) Active SOCIAL HISTORY Sex Assigned At : Social History Observation Description Sex Assigned At Unknown Alcohol Screen Question Answer Notes Did you have a drink contain ing alcohol in the past year? Yes How often did you have a dri nk containing alcohol in the past year? Monthly or less (1 point) How many drinks did you have on a typical day when you were drinking in the past year? 1 or 2 drinks (0 point) How often did you have 6 or more drinks on one occasion in the past year? Never (0 point) Points 1 Interpretation Negative PROBLEMS Problem Type ICD Code Onset Dates Problem Status W/U Status Risk SNOMED Code Notes Problem Colon cancer screening (Z12.11) Active confirmed 352619780 Problem Diverticulosis of large intestine without perforation or abscess without bleeding (K57.30) Active confirmed Diverticul ar disease of colon (845946884) Problem Gastroesophageal reflux disease without esophagitis (K21.9) Active confirmed Gastroesophagea l reflux disease without esophagitis (929769684) Problem Constipation, unspecified constipation type (K59.00) Active confirmed 37843231 Problem Gastroesophageal reflux disease, unspecified whether esophagitis present (K21.9) Active confirmed 570947861 VITAL SIGNS Temperature 96.8 degrees Fahrenheit 09/12/2023 Blood pressure diastolic 00 mm Hg 09/12/2023 Height 73 in 09/12/2023 Blood pressure systolic 00 mm Hg 09/12/2023 Weight 293 lbs 09/12/2023 BMI 38.65 kg/m2 09/12/2023 Encounters Encounter Location Date Provider Diagnosis [facility] [address] [place], [place] [id number] 12/16/2023 Ricky Martinez Encounter for screen ing colonoscopy Z12.11 ; Colon polyps K63.5 ; Diverticulosis of large intestine without perforation or abscess without bleeding K57.30 ; Other hemorrhoids K64.8 ; Gastroesophageal reflux disease without esophagitis K21.9 and Hiatal hernia K44.9 [facility] [address] [place] [address] 09/12/2023 Ricky Martinez Constipation, unspecified constipation type K59.00 ; Gastroesophageal reflux disease, unspecified whether esophagitis present K21.9 and Colon cancer screening Z12.11 ASSESSMENTS Encounter Date Diagnosis Assessment Notes Treatment Notes Treatment Clinical Notes 12/16/2023 Encounter for screening colonoscopy (ICD-10 - Z12.11) 12/16/2023 Colon polyps (ICD-10 - K63.5) 09/12/2023 Constipation, unspecified constipation type (ICD-10 - K59.00) Start using 2 Metamucil fiber pills with a lot of water once or twice a day to help with the constipation. You can use some daily Miralax to help with the constipation as well. 09/12/2023 Gastroesophageal reflux disease, unspecified whether esophagitis present (ICD-10 - K21.9) Check with Dr. Sylvester about cancelling the Barium swallow since you will be having the upper endoscopy with ok 12/16/2023 Diverticulosis of large intestine without perforation or abscess without bleeding (ICD-10 - K57.30) 09/12/2023 Colon cancer screeni ng (ICD-10 - Z12.11) 12/16/2023 Other hemorrhoids (ICD-10 - K64.8) 12/16/2023 Gastroesophageal reflux disease without esophagitis (ICD-10 - K21.9) 12/16/2023 Hiatal hernia (ICD-1 0 - K44.9) PLAN OF TREATMENT Pending Test Test Name Order Date Pathology 12/16/2023 Future Test Test Name Order Date COLONOSCOPY 12/09/2013 UPPER GI ENDOSCOPY 09/12/2023 COLONOSCOPY 09/12/2023 Insurance Providers Payer Name Payer Address Payer Phone Subscriber Number Group Number Insured Name Patient Relationship to Insured Coverage Start Date Coverage End Date [address] [place] [phone] [id number] MARISA CHAMPION Self - patient is the insured MEDICAL (GENERAL) HISTORY Medical History History ICD Code Hypertension Denies [place],DM,CVA,Lung disease,renal dise ase Bleeding ulcer > 30 yrs ago--treated med ic[facility] Hyperlipidemia Neg colonoscopy in 07/[address] Schulz en Negative colonoscopy in 01/2014 except fo r a hyperplastic polyp Surgical History Surgery Date(Month/Year) Several eye surgeries on the right
--- OUTSIDE RECORDS SUMMARY | 2024-09-11 08:48 | XMS_ITS ---
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 Name Role Phone Ricky Levine MD Primary Care Provider UnavailRicky Beavers Unavailable [phone] ALLERGIES No Known Allergies REASON FOR VISIT Patient presents today for a colon screening MEDICATIONS Medication SIG (Take, Route, Frequency, Duration) [...] day for 30 day(s) Active SOCIAL HISTORY Tobacco Use: Social History Observation Description Date Details (start date - stop date) Never Smoker NA - NA Sex Assigned At : Social History Observation Description Sex Assigned At Unknown Tobacco Use/Smoking Question Answer Notes Patient is a nonsmoker Alcohol Screen Question Answer Notes Did you [...] W/U Status Risk SNOMED Code Notes Problem Constipation, unspecified constipation type (K59.00) Active confirmed 85134818 Problem Gastroesophageal reflux disease, unspecified whether esophagitis present (K21.9) Active confirmed 011010353 Problem Colon cancer screening (Z12.11) Active confirmed 544089613 VITAL SIGNS BMI 38.65 kg/m2 09/12/2023 Blood pressure systolic 00 mm Hg 09/12/20 23 Blood pressure diastolic 00 mm Hg 023 Height 73 in 09/12/2023 Temperature 96.8 degrees Fahrenheit 09/12/20 23 Weight 293 lbs 09/12/2023 Encounters Encounter Location Date Provider Diagnosis [facility] [address] [place] [address] 09/12/2023 Ricky Martinez Constipation, unspec ified constipation type K59.00 ; Gastroesophageal reflux disease, unspecified whether esophagitis present K21.9 and Colon cancer screening Z12.11 ASSESSMENTS Encounter Date Diagnosis Assessment Notes Treatment Notes Treatment Clinical Notes 09/12/2023 Constipation, unspecified constipation type (ICD-10 - [...] will be having the upper endoscopy with nh 09/12/2023 Colon cancer screeni ng (ICD-10 - Z12.11) PLAN OF TREATMENT Treatment Notes Assessment Notes Constipation, unspecified constipation t ype Start using 2 Metamucil fiber pills with a lot of water once or twice a day to help with the constipation. You can use some daily Miralax to help with the constipation as well. Gastroesophageal reflux dise ase, unspecified whether esophagitis present Check with Dr. Sylvester about cancelling the Barium swallow since you will be having the upper endoscopy with nh Future Test Test Name Order Date UPPER GI ENDOSCOPY 09/12/2023 COLONOSCOPY 09/12/2023 Next Appt Details Follow Up: prn, Reason: Progress Notes * Examination Category Sub-Category Detail Notes General Examination GENERAL APPEARANCE: pleasant , well nourished, well developed, in no acute distress EYES: sclera non-icteric NECK/THYROID: no cervical lymphade nopathy, neck supple HEART: S1, S2 normal LUNGS: clear to auscultatio n bilaterally ABDOMEN: normal bowel sounds, no guarding or rigidity, no hepatosplenomegaly, no masses palpable, soft, nontender, nondistended. NEUROLOGIC: alert and oriented SKIN: nonjaundiced, no spi stephen angiomata. EXTREMITIES: no edema ORAL CAVITY: mucosa moist
--- OUTSIDE RECORDS SUMMARY | 2024-09-11 08:48 | XMS_ITS ---
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 REASON FOR VISIT Annual Exam Medications Medication [...] Date Provider Diagnosis Ricky Levine III, MD [address] [place] [address] [place] [phone] 07/24/2024 Ricky Levine Other and unspecifie d [...] His reflux symptoms are well controlled with [id number]-[id number] medication and no change in his regimen [...] TABLET BY HIRAL TH EVERYDAY AT BEDTIME Pending Test Test Name Order Date PROFILE, FASTING (COMPREHENSIVE METABOLI C) 07/24/2024 LDH 07/24/2024 CPK 07/24/2024 CBC WITH AUTO DIFF 07/24/2024 XR hips CLAUDIO min 3V 07/24/2024 XR lumbar spine 2-3V 07/24/2024 Next Appt Details Follow Up: 3 Weeks, 3 weeks, Reason: OV, To evaluate the results of the blood tests and X-rays and assess the effectiveness of the treatment for muscle aches and hip pain. Provider Name:Ricky Levine, 10/19/2024 10:45:00 AM, [address] [place] [address] [address], [place], [phone], Provider Name:Ricky Levine, 07/29/2025 10:00:00 AM, [address] [place] [address] [address], [place], [phone], Progress Notes * Lev CHAMPION SrDOB: [birth year] (74 yo M)Acc No.[id number]:07/24/2024 Progress Notes Patient:?Lev CHAMPION Sr Provider:?Ricky Levine MD :1950???Age:74 Y???Sex:Male Dustin e:07/24/2024 Address:[address] [place], [place] [id number] Subjective: * Chief Complaints: * ???Annual Exam * HPI: ???Depression Screening:?PHQ-9?Little interest or pleasure in doing things?Not at all ?Feeling down, depressed, or hopeless?Not at all ?Trouble falling or staying asleep, or sleeping too much?Not at all ?Feeling tired or having little energy?Not at all ?Poor appetite or overeating?Not at all ?Feeling bad about yourself or that you are a failure, or have let yourself or your family down?Not at all ?Trouble concentrating on things, such as reading the newspaper or watching television?Not at all ?Moving or speaking so slowly that other people could have noticed; or the opposite, being so fidgety or restless that you have been moving around a lot more than usual?Not at all ?Thoughts that you would be better off or of hurting yourself in some way?Not at all ?Total Score?0 ???COVID-19 Screening:?Questions?Have you experienced fever, chills, cough, sore throat, shortness of breath, difficulty breathing, muscle aches, loss of taste or smell??No ?Have you been exposed to the virus within the last 10 days??No ?Have you travelled internationally in the last 10 days??No ?Have you been exposed to COVID-19 in the past??No ???Fall Risk Screening:?Fall History?Have you had any falls with injury in the past year??No ?Have you had two or more falls in the past year??No ?Fall Risk Assessment:?No falls in the past year ???SDOH Questions:?SDOH Questions?In the past year have you been worried about losing your housing??No ?In the past year have you or any family members you live with been unable to get any of the following when it was really needed? Check all that apply:?Decline to answer ???:? The patient, a 74-year-old male, presented with [...] recent biopsy on his neck by a solar sales ambassador, which was diagnosed as basal cell carcinoma. Blood Sugar Level is Normal. * ROS:?General/Constitutional:?pain?Lumbar spine and both hips with weightbearing and walking.?Chills?denies.?Fatigue?admits.?Fever?denies.?Admits?Weight gain.?ENT:?Decreased hearing?mild.?Respiratory:?Cough?denies.?Cardiovascular:?Chest pain with exertion?denies.?Dyspnea on exertion?denies.?Shortness of breath?denies.?Gastrointestinal:?Constipation?occasional.?Decreased appetite?denies.?Diarrhea?denies.?Heartburn?denies.?Nausea?denies.?Rectal bleeding?denies.?Vomiting?denies.?Hematology:?bruising?denies.?petechiae?denies.?Swollen glands?none have been noted.?Genitourinary:?Frequent urination?once a night.?Musculoskeletal:?Muscle aches?denies.?Painful joints?denies.?Sciatica?denies.?Weakness?denies.?Skin:?Itching?denies.?Rash?denies.?Skin lesion(s)?denies.?Neurologic:?Difficulty speaking?denies.?Dizziness?denies.?Headache?denies.?Low back pain?denies.?Psychiatric:?Depressed mood?which is mild.? * Medical History:? * Surgical History:?Corneal tr ansplant right eye No history * Hospitalization/Major Diagno stic Procedure:?No history * Family History:?Father: dece ased 76 yrs, myocardial infarction.?Mother: 43 yrs, cerebral aneurysm.?1 brother(s) , 2 sister(s) . 1 son(s) - healthy. .? His siblings have had cardiac bypass surgery and hyperlipidemia. This patient has a personal history of anxiety and depression. He is not aware of any other family history of mental illness or substance use disorder or addiction. * Social History:?Tobacco Use:?Tobacco Use/Smoking?Patient is a?nonsmoker ?Additional Findings: Tobacco Non-User?Aggressive non-smoker ?Tobacco Control (Standard)?Tobacco use:?Nonsmoker ?Additional Findings: Tobacco non-user?Aggressive nonsmoker ???Drugs/Alcohol:?Drugs?Have you used drugs other than those for medical reasons in the past 12 months??No ???Miscellaneous:?Children: yes. ?Domestic violence: none. ?Exercise: occasional. ???Drug/Alcohol:?AUDIT-C (Standard)?Did you have a drink containing alcohol in the past year??No ?Points?0 ?Interpretation?Negative ???He has been to [place] for many years. He retired from the [employer] in [place] at age 61. He was born in [place], [place]. He has one son. {'Living situation': 'Lives alone', 'Physical activity': 'Limited due to muscle aches and hip pain', 'Diet': 'Possible high consumption of animal fat and red meat indicated by slightly high triglycerides'}. * Medications:?TakingSimvastat in 40 MG Tablet TAKE 1 TABLET BY [...] reviewed and reconciled with the patient * Allergies:?No Known Drug All ergyno[Allergies Verified] Objective: * Vitals:?Ht: 72, Wt:296, BMI: 40.14, BP:124/57, HR:80, Temp:97.9, Wt-k.26. * ???Past Orders: Lab:Complete Blood Count Aut o Diff * Collection Date 07/20/2024 03/16/2024 10/31/2023 Collection Time 08:17 AM 01:53 PM 10:41 AM Order Date 07/20/2024 03/16/2024 10/31/2023 White Blood Count 7.1 (Ref Range: 4.8-10.8 X10*3/uL) 6.5 (Ref Range: 4.8-10.8 X10*3/uL) 6.9 (Ref Range: 4.8-10.8 X10*3/uL) Red Blood Count 4.40?L (Ref Range: 4.60-5.80 X10*6/uL) 4.57?L (Ref Range: 4.60-5.80 X10*6/uL) 4.83 (Ref Range: 4.60-5.80 X10*6/uL) Hemoglobin 13.9?L (Ref Range: 14.0-18.0 g/dl) 14.2 (Ref Range: 14.0-18.0 g/dl) 14.7 (Ref Range: 14.0-18.0 g/dl) Hematocrit 40.4?L (Ref Range: 42.0-52.0 %) 42.5 (Ref Range: [...] Pct Auto 0.4 (Ref Range: 0.0-0.4 %) 0.6?H (Ref Range: 0.0-0.4 %) 0.1 (Ref Range: 0.0-0.4 %) Lymphocytes Percent Auto 30.3 (Ref Range: 20-40 %) 25.6 (Ref Range: 20-40 %) 31.7 (Ref Range: 20-40 %) Monocytes Percent Auto 7.3 (Ref Range: 2-11 %) 6.0 (Ref Range: 2-11 %) 8.4 (Ref Range: 2-11 %) Eosinophils Percent Auto 4.9?H (Ref Range: 0-4 %) 3.7 (Ref Range: 0-4 %) 5.5?H (Ref Range: 0-4 %) Basophils Percent Auto [...] Abs Auto 0.03 (Ref Range: 0.00-0.03 X10*3/uL) 0.04?H (Ref Range: 0.00-0.03 X10*3/uL) 0.01 (Ref Range: [...] AM)?ValueReference Range?Hemoglobin A1c %5.5<6.0 - %?Estimated Average [id number]- mg/dL * Lab:Prostate Specific Antige n * [...] AM Order Date 07/20/2024 03/16/2024 10/31/2023 Triglycerides 258?H (Ref Range: <150 mg/dL) 206?H (Ref Range: <150 mg/dL) 242?H (Ref Range: <150 mg/dL) Cholesterol 206?H (Ref Range: <200 mg/dL) 202?H (Ref Range: <200 mg/dL) 216?H (Ref Range: <200 mg/dL) LDL Cholesterol Calculated 117?H (Ref Range: <100 mg/dL) 123?H (Ref Range: <100 mg/dL) 128?H (Ref Range: <100 mg/dL) HDL Cholesterol 38?L (Ref Range: >40 mg/dL) 38?L (Ref Range: >40 mg/dL) 40?L (Ref Range: >40 mg/dL) * Lab:[facility] [place]. Pane l Fast * Collection Date 07/20/2024 [...] 15 (Ref Range: 0-40 U/L) Total Protein 6.4?L (Ref Range: 6.5-8.0 g/dL) 6.6 (Ref Range: [...] mmol/L) Chloride 106 (Ref Range: 96-108 mmol/L) 109?H (Ref Range: 96-108 mmol/L) 105 (Ref Range: 96-108 mmol/L) Carbon Dioxide 28 (Ref Range: 22-29 mmol/L) 26 (Ref Range: 22-29 mmol/L) 27 (Ref Range: 22-29 mmol/L) Anion Gap 11?L (Ref Range: 12-20) 13 (Ref Range: 12-20) 12 (Ref Range: 12-20) Blood Urea Nitrogen 13 (Ref Range: 9-16 mg/dL) 14 (Ref Range: 9-16 mg/dL) 15 (Ref Range: 9-16 mg/dL) Creatinine 0.92 (Ref Range: 0.5-1.4 mg/dL) 0.86 (Ref Range: 0.5-1.4 mg/dL) 0.95 (Ref Range: 0.5-1.4 mg/dL) Estimated Glomerular Filt Rate > 60 > 60 > 60 Glucose Fasting 96 (Ref Range: 60-99 mg/dL) 104?H (Ref Range: 60-99 mg/dL) 97 (Ref Range: 60-99 mg/dL) Calcium 9.5 (Ref Range: 8.4-10.2 mg/dL) 9.2 (Ref Range: 8.4-10.2 mg/dL) 9.4 (Ref Range: 8.4-10.2 mg/dL) * Examination: ???General Examination: ?GENERAL APPEARANCE:?pleasant, well nourished, well developed, in no acute distress, calm and relaxed, morbidly obese, man.?HEAD:?atraumatic, normocephalic.?EYES:?eomi, perrla, anicteric, conjugate, 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.?EARS:?normal.?NOSE:?septum intact.?ORAL CAVITY:?normal, unremarkable.?NECK/THYROID:?no jugular venous distention, no carotid bruit, thyroid normal.?LYMPH NODES:?no enlarged lymph nodes,spleen normal.?SKIN:?no suspicious lesions, anicteric.?HEART:?no clicks, gallops, murmurs, or rubs, regular rhythm, S1, S2 normal, no s3, or vascular bruits.?LUNGS:?clear to auscultation .?BREASTS:??no masses palpable bilaterally.?ABDOMEN:?bowel sounds normal, no ascites, no organomegaly, no mass, morbid obesity.?RECTAL EXAM:?not examined, Colonoscopy December 16, 2023.?MUSCULOSKELETAL:?extremities unremarkable, no clubbing, cyanosis or edema.?PERIPHERAL PULSES:?normal.?NEUROLOGIC:?alert and oriented, cranial nerves 2-12 grossly intact, deep tendon reflexes 2+ symmetrical, motor strength normal upper and lower extremities, sensory exam intact.?PSYCH:?alert, oriented.? : ???{'Muscle aches':'Increasing and spreading to various parts of the body', 'Hip pain': 'Severe, particularly in the left hip', 'Throat': 'Persistent scratchiness and dry cough', 'Neck': 'Recent biopsy diagnosed as basal cell carcinoma', 'Blood pressure': 'Normal', 'Blood cells and platelets': 'Normal', 'A1C': '5.5, indicating no diabetes', 'PSA': 'Very low, indicating no sign of prostate cancer', 'Cholesterol': 'At target level', 'Triglycerides': 'Slightly high'}. ??? Assessment: * Assessment: 1.?Morbid obesity - E66.01 ( Primary)???Notes :His body mass index is now slightly over 40 as he has gained 4 pounds.? We reviewed his diet and nutrition.? I recommended aggressive weight loss combined with sodium restriction.? We reviewed the elements of a weight reduction lipid reduction restricted sodium diet.???2.?Other and unspecified hyperlipidemia - E78.5???Notes :His triglycerides are elevated but his total cholesterol is acceptable at 209. ?I recommended a healthy diet and aggressive weight loss combined with exercise. No change in his medication was needed.???3.?Hip pain - M25.559???Notes :He has noted bilateral hip pain with weightbearing and walking which is moderate to severe.? This is a new finding.? X-rays of the joints have been ordered along with the lumbar spine.? He will try a course of ibuprofen.???4.?Lumbar back pain - M54.50???Notes :He has had a flare of lumbar back pain as well as hip pain.? X-rays are pending.? He will try ibuprofen 4 times a day.???5.?Essential hypertension - I10???Notes :His blood prressure is 124/57.? No change in his medication was made.? I recommended aggressive weight loss and sodium restriction combined with regular physical activity and a reduced calorie diet low in sodium and animal fat.???6.?BPH (benign prostatic hyperplasia) - N40.0???Notes :He rises from sleep once and sometimes twice a night to urinate. We have discussed lifestyle modification as a way to reduce nocturia.???7.?Chronic idiopathic constipation - K59.04???Notes :The constipation is well controlled with medications. 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 He says he has no vision in the right eye.???9.?GERD (gastroesophageal reflux disease) - K21.9???Notes :His reflux symptoms are well controlled with tchj-xjv-efjxoxa medication and no change in his regimen as needed.??? Plan: * Treatment: 2.?Hip pain?Imaging: XR hips CLAUDIO min 3V ?Imaging: XR lumbar spine 2-3V 3.?Lumbar back pain?Imaging: XR hips CLAUDIO min 3V ?Imaging: XR lumbar spine 2-3V 4.?Essential hypertension?LAB: PROFILE, FASTING (COMPREHENSIVE METABOLIC) ?LAB: LDH ?LAB: CPK ?LAB: CBC WITH AUTO DIFF ?LAB: Lipid Panel 5.?Others? Continue Citalopram Hydrobromide Tablet, 40 MG, TAKE 1 TABLET BY MOUTH EVERY DAY;?Continue Simvastatin Tablet, 40 MG, TAKE 1 TABLET BY MOUTH EVERYDAY AT BEDTIME;?Continue Felodipine ER Tablet Extended Release 24 Hour, 10 MG, TAKE 1 TABLET BY MOUTH EVERY DAY, Orally, Once a day;?Continue Centrum Silver Tablet, -, Orally;?Continue Triamterene-HCTZ Tablet, 37.5-25 MG, TAKE 1 TABLET BY MOUTH EVERY DAY IN THE MORNING FOR 30 DAYS;?Continue Lansoprazole Capsule Delayed Release, 30 MG, 1 capsule, Orally, twice a day;?Continue Metoprolol Succinate ER Tablet Extended Release 24 Hour, 25 MG, TAKE 1 TABLET BY MOUTH EVERY DAY FOR 90 DAYS.?? * Procedure Codes:? * Preventive Medicine:? ??Counseling:?Care goal follow-up plan:?Counseling for abnormal BMI given?Yes ?Above Normal BMI Follow-up?Dietary management education, guidance, and counseling, Dietary needs education, Exercise promotion: strength training, Exercise promotion: stretching, Feeding regime, Giving encouragement to exercise, Lifestyle education regarding diet, Nutrition / feeding management, Nutrition therapy, Prescribed activity/exercise education, Prescribed diet education, Prescribed dietary intake, Special diet education, Weight monitoring , Intervention, Order not done: Medical or Other reason not done * Follow Up:?3 Weeks, 3 weeks (Reason: OV, To evaluate the results of the blood tests and X-rays and assess the effectiveness of the treatment for muscle aches and hip pain.) * Images: * Sign off status: Completed true * Provider:?Ricky Levine MD Date:?07/01 Generated for Doris mayer/Cassia/eTransmitting on:?09/11/2024 08:47 AM EST History and Physical Notes * HPI (History [...] had two or more falls in the year?: No Fall Risk Assessment:: No falls in the p ast year COVID-19 Screening Questions Have you had any new onset fever, chills, cough, congestion, sore throat, shortness of breath, muscle aches?: No Have you been exposed to the virus withi n the last 10 days?: No Have you travelled internationally in [facility] last 10 days?: No Have you [...] no christa,spleen normal RECTAL EXAM: not examined, Yas knowles December 16, 2023 PSYCH: alert, oriented ORAL CAVITY: normal, unremarkable
--- OUTSIDE RECORDS SUMMARY | 2024-09-11 08:48 | XMS_ITS ---
Author Organization Ricky Levine III, MD Address [address] [address] Care Team Providers Care Commis Chef Name Role Phone Ricky Levine Primary Care [...] Provider Speciality Internal M edicine Referred Provider [facility], Orthopedic Surgeons Referred Provider Specialty Orthopedic [facility] General Notes Maya Castro 08/20/2024 10:44:43 AM > Referral and progress note faxed. Xrays are not read spoke with Radiology they will be trying to get a reading. Referral Priority Routine REASON FOR VISIT Arthritis, Depression, Hypertension, Hyperlipidemia, [...] ast year? No Points 0 Interpretation Negative Problems Problem Type SNOMED Code ICD Code Onset Dates Problem Status W/U Status Risk Notes Problem 704104153 Obesity (BMI 30-39.9) (E66.9) Active confirmed Problem 246387419 Multiple thyroid nodules (E04.2) Active confirmed Problem 136887723 Thyroid nodule (E04.1) Active confirmed This was noted last jenny ultrasound. A repeat ultrasound was ordered and an endocrine consult. Vital Signs Temperature 97.7 degrees Fahrenheit 08/17/20 24 Blood pressure systolic 132 mm Hg 08/17/20 24 Blood pressure diastolic 83 mm Hg 024 Heart Rate 53 /min 08/17/2024 Height 72 in 08/17/2024 Weight 292 lbs 08/17/2024 BMI 39.6 kg/m2 08/17/2024 Encounters Encounter Location Date Provider Diagnosis Ricky Levine III, MD [address] [place] [address] [place] [address] 08/17/2024 Ricky Levine Depressive disorder, not elsewhere [...] His reflux symptoms are well controlled with khog-hck-zebmffo medication and no change in his regimen as needed. 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 His vision is normal in the opposite eye and he sees the senior planner regularly. He reports today that his vision [...] and Treat Bilateral Hip Pain, [facility] Next Appt Details Follow Up: 2 Months, Early J anuary, Reason: OV, Follow up after orthopedist visit Provider Name:Ricky Levine, 10/19/2024 10:45:00 AM, [address] [place] [address] ANILA KULKARNI, [place], [address], Provider Name:Ricky Levine, 07/29/2025 10:00:00 AM, [address] [place] [address] ANILA KULKARNI, [place], [phone], Progress Notes * Lev CHAMPION SrDOB: [birth year] (74 yo M)Acc No.[id number]:08/17/2024 Progress Notes Patient:?Lev CHAMPION Sr Provider:?Ricky Levine MD :1950???Age:74 Y???Sex:Male Dustin e:08/17/2024 Address:[address] [place] [address] Subjective: * Chief Complaints: * ???ArthritisDepressionHypert ensionHyperlipidemiaVision loss right eyeThyroid nodule * HPI: ???COVID-19 Screening:?Questions?Have you experienced fever, chills, cough, sore throat, shortness of breath, difficulty breathing, muscle aches, loss of taste or smell??No ?Have you been exposed to the virus within the last 10 days??No ?Have you travelled internationally in the last 10 days??No ?Have you been exposed to COVID-19 in the past??No ???:?The patient, a 74-year-old male, presented with complaints [...] of medication. He has been diagnosed with age- related macular degeneration (AMD) and has had a [...] noted to have no cartilage, leading to [id number] contact. The doctor recommended the patient to an orthopedist for further evaluation and possible treatment. * ROS:?General/Constitutional:?Admits?pain,?only normal aches and pains.?Chills?denies.?Fatigue?admits.?Fever?denies.?ENT:?Decreased hearing?mild.?Respiratory:?Cough?denies.?Cardiovascular:?Chest pain with exertion?denies.?Dyspnea on exertion?denies.?Shortness of breath?denies.?Gastrointestinal:?Constipation?occasional.?Decreased appetite?denies.?Diarrhea?denies.?Heartburn?denies.?Nausea?denies.?Rectal bleeding?denies.?Vomiting?denies.?Hematology:?bruising?denies.?petechiae?denies.?Swollen glands?none have been noted.?Genitourinary:?Frequent urination?once a night.?Musculoskeletal:?Muscle aches?denies.?Painful joints?denies.?Sciatica?denies.?Weakness?denies.?Skin:?Itching?denies.?Rash?denies.?Skin lesion(s)?denies.?Neurologic:?Difficulty speaking?denies.?Dizziness?denies.?Headache?denies.?Low back pain?denies.?Psychiatric:?Depressed mood?denies.? * Medical History:? * Surgical History:?Corneal tr ansplant right eye No history Corneal transplant * Hospitalization/Major Diagno stic Procedure:?No history * [...] for many years. He retired from the [employer] in [place] at age 61. He was born in [place], [place]. He has one son. {'Living situation': 'Lives alone', 'Physical activity': 'Limited due to muscle aches and hip pain', 'Diet': 'Possible high consumption of animal fat and red meat indicated by slightly high triglycerides'} Drinking: Smoking: Drug use: Exercise: Work environment: Diet: Living situation:. * Medications:?TakingCitalopra m Hydrobromide 40 MG Tablet TAKE 1 TABLET [...] a meal Orally twice a day * Allergies:?No Known Drug All ergy Objective: * Vitals:?Ht: 72, Wt:292, BMI: 39.6, BP:132/83, HR:53, Temp:97.7, Wt-k.45. * ???Past Orders: Lab:Creatine Kinase Total * Collection Date 07/28/2024 06/23/2021 Collection Time 11:42 AM 11:38 AM Order Date 07/28/2024 06/23/2021 Creatine Kinase Total 69 (Ref Range: 38-174 U/L) 142 (Ref Range: 38-174 U/L) * Lab:Lipid Panel * Collection Date 07/28/2024 07/20/2024 03/16/2024 Collection Time 11:42 AM 08:17 AM 01:53 PM Order Date 07/24/2024 07/20/2024 03/16/2024 Triglycerides 199?H (Ref Range: <150 mg/dL) 258?H (Ref Range: <150 mg/dL) 206?H (Ref Range: <150 mg/dL) Cholesterol 194 (Ref Range: <200 mg/dL) 206?H (Ref Range: <200 mg/dL) 202?H (Ref Range: <200 mg/dL) LDL Cholesterol Calculated 120?H (Ref Range: <100 mg/dL) 117?H (Ref Range: <100 mg/dL) 123?H (Ref Range: <100 mg/dL) HDL Cholesterol 35?L (Ref Range: >40 mg/dL) 38?L (Ref Range: >40 mg/dL) 38?L (Ref Range: >40 mg/dL) Clinical Info: Please fast for 12-1 4 hours prior to having this labwork done. You may have black coffee or tea with no milk or sugar. May have water,PLEASE FAX COMPLETED RESULTS TO [phone] * Lab:Lactate Dehydrogenase * Collection Date 07/28/2024 06/23/2021 Collection Time 11:42 AM 11:38 AM Order Date 07/28/2024 06/23/2021 Lactate Dehydrogenase 231 (Ref Range: 118-273 U/L) 172 (Ref Range: 118-273 U/L) * Lab:[facility]. Pane l Fast * Collection Date 07/28/2024 [...] 14 (Ref Range: 0-40 U/L) Total Protein 6.4?L (Ref Range: 6.5-8.0 g/dL) 6.4?L (Ref Range: 6.5-8.0 g/dL) 6.6 (Ref [...] 96-108 mmol/L) 106 (Ref Range: 96-108 mmol/L) 109?H (Ref Range: 96-108 mmol/L) Carbon Dioxide 25 (Ref Range: 22-29 mmol/L) 28 (Ref Range: 22-29 mmol/L) 26 (Ref Range: 22-29 mmol/L) Anion Gap 13 (Ref Range: 12-20) 11?L (Ref Range: 12-20) 13 (Ref Range: 12-20) Blood Urea Nitrogen 13 (Ref Range: 9-16 mg/dL) 13 (Ref Range: 9-16 mg/dL) 14 (Ref Range: 9-16 mg/dL) Creatinine 1.11 (Ref Range: 0.5-1.4 mg/dL) 0.92 (Ref Range: 0.5-1.4 mg/dL) 0.86 (Ref Range: 0.5-1.4 mg/dL) Estimated Glomerular Filt Rate > 60 > 60 > 60 Glucose Fasting 101?H (Ref Range: 60-99 mg/dL) 96 (Ref Range: 60-99 mg/dL) 104?H (Ref Range: 60-99 mg/dL) Calcium 9.2 (Ref [...] (Ref Range: 4.8-10.8 X10*3/uL) Red Blood Count 4.51?L (Ref Range: 4.60-5.80 X10*6/uL) 4.40?L (Ref Range: 4.60-5.80 X10*6/uL) 4.57?L (Ref Range: 4.60-5.80 X10*6/uL) Hemoglobin 14.2 (Ref Range: 14.0-18.0 g/dl) 13.9?L (Ref Range: 14.0-18.0 g/dl) 14.2 (Ref Range: 14.0-18.0 g/dl) Hematocrit 41.8?L (Ref Range: 42.0-52.0 %) 40.4?L (Ref Range: 42.0-52.0 %) 42.5 (Ref [...] 0.0-0.4 %) 0.4 (Ref Range: 0.0-0.4 %) 0.6?H (Ref Range: 0.0-0.4 %) Lymphocytes Percent Auto 22.3 (Ref Range: 20-40 %) 30.3 (Ref Range: 20-40 %) 25.6 (Ref Range: 20-40 %) Monocytes Percent Auto 6.1 (Ref Range: 2-11 %) 7.3 (Ref Range: 2-11 %) 6.0 (Ref Range: 2-11 %) Eosinophils Percent Auto 4.0 (Ref Range: 0-4 %) 4.9?H (Ref Range: 0-4 %) 3.7 (Ref [...] 0.00-0.03 X10*3/uL) 0.03 (Ref Range: 0.00-0.03 X10*3/uL) 0.04?H (Ref Range: 0.00-0.03 X10*3/uL) Lymphocytes Absolute Auto [...] AM)?ValueReference Range?Hemoglobin A1c %5.5<6.0 - %?Estimated Average [id number]- mg/dL * Examination: ??? : ???Ears:Normal Femur:Normal Lumbar spine:Bone spur observed Neck:Normal Eyes:Cataract surgery observed, lens looks different Hip:Arthritis observed, cartilage worn away. ???General Examination: ?GENERAL APPEARANCE:?pleasant, well nourished, well developed, in no acute distress, calm and relaxed.?HEAD:?atraumatic, normocephalic.?EYES:?eomi, perrla, anicteric, conjugate.?EARS:?normal.?NOSE:?septum intact.?ORAL CAVITY:?normal, unremarkable.?NECK/THYROID:?no jugular venous distention, no carotid bruit, thyroid nodules not appreciated.?LYMPH NODES:?no enlarged lymph nodes,spleen normal.?SKIN:?no suspicious lesions, anicteric.?HEART:?no clicks, gallops, murmurs, or rubs, regular rhythm, S1, S2 normal, no s3, or vascular bruits.?LUNGS:?clear to auscultation .?BREASTS:??no masses palpable bilaterally.?ABDOMEN:?bowel sounds normal, no ascites, no organomegaly, no mass.?RECTAL EXAM:?not examined.?MUSCULOSKELETAL:?extremities unremarkable, no clubbing, cyanosis or edema.?PERIPHERAL PULSES:?normal.?NEUROLOGIC:?alert and oriented, cranial nerves 2-12 grossly intact, deep tendon reflexes 2+ symmetrical, motor strength normal upper and lower extremities, sensory exam intact.?PSYCH:?alert, oriented.? Assessment: * Assessment: 1.?Depressive disorder, not elsewhere classified - F32.9 (Primary)???Notes :He is tolerating citalopram well without side effects and will be continued. He feels discouraged about his difficulty losing weight and immobility. We discussed this at length today. He declined a referral to the weight loss program but I will continue in this direction.???2.?Obesity - E66.9???Notes :His body mass index is 39. He has lost 1 pound. We have discussed diet and nutrition. We reviewed his weight loss strategy.???3.?Essential hypertension - I10???Notes :His blood prressure is 124/57. No change in his medication was made. I recommended aggressive weight loss and sodium restriction combined with regular physical activity and a reduced calorie diet low in sodium and animal fat.???4.?Other and unspecified hyperlipidemia - E78.5???Notes :His triglycerides are elevated but his total cholesterol is acceptable at 194. I recommended a healthy diet and aggressive weight loss combined with exercise. 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 His vision is normal in the opposite eye and he sees the senior planner regularly. 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 He says he has no vision in the right eye.???8.?Thyroid nodule - E04.1???Notes :This was noted last jenny ultrasound. A repeat ultrasound was ordered and an endocrine consult.??? Plan: * Treatment: 2.?Others? Referral To:[facility]??Orthopedic Surgery ?Reason:Consult and Treat Bilateral Hip Pain * Procedure Codes:? * Preventive Medicine:? ??Counseling:?Care [...] or Other reason not done * Follow Up:?2 Months, Early J anuary (Reason: OV, Follow up after orthopedist visit) * Images: * Sign off status: Completed true * Provider:?Ricky Levine MD Date:?07/31 Generated for Doris mayer/Cassia/Daríoitting on:?09/11/2024 08:47 AM EST History and Physical Notes * HPI (History of Present Illness) Category Sub-Category Detail Notes COVID-19 Screening Questions Have you had any new onset fever, chills, cough, congestion, sore throat, shortness of breath, muscle aches?: No Have you been exposed to the virus withi n the last 10 days?: No Have you travelled internationally in e last 10 days?: No Have you been [...] Referral Date Referring Provider Referred Provider Not chase 08/17/2024 Ricky Levine [facility], Orthopedic Surgeons Consult and Treat Bilateral Hip Pain
--- OUTSIDE RECORDS SUMMARY | 2024-09-11 08:48 | XMS_ITS ---
Author Organization [facility] Address [address] [place] [address] Care Team Providers Care Editorial Clerk Name Role Phone Ricky Levine MD Primary Care Provider Unavailab Ricky Sheppard Unavailable [phone] REASON FOR VISIT screening,gerd PROBLEMS Problem Type ICD Code Onset Dates Problem Status W/U Status Risk SNOMED Code Notes Problem Diverticulosis of large intestine without perforation or abscess without bleeding (K57.30) Active confirmed Diverticul ar disease of colon (137961375) Problem Gastroesophageal reflux disease without esophagitis (K21.9) Active confirmed Gastroesophagea l reflux disease without esophagitis (460985918) Encounters Encounter Location Date Provider Diagnosis [facility] Outpatient [address] [place] [phone] 12/16/2023 Ricky Martinez Encounter for screen ing colonoscopy Z12.11 ; Colon polyps K63.5 ; Diverticulosis of large intestine without perforation or abscess without bleeding K57.30 ; Other hemorrhoids K64.8 ; Gastroesophageal reflux disease without esophagitis K21.9 and Hiatal hernia K44.9 ASSESSMENTS Encounter Date Diagnosis Assessment Notes Treatment Notes Treatment Clinical Notes 12/16/2023 Encounter for screen ing colonoscopy (ICD-10 - Z12.11) 12/16/2023 Colon polyps (ICD-10 - K63.5) 12/16/2023 Diverticulosis of la rge intestine without perforation or abscess without bleeding (ICD-10 - K57.30) 12/16/2023 Other hemorrhoids (ICD-10 - K64.8) 12/16/2023 Gastroesophageal ref lux disease without esophagitis (ICD-10 - K21.9) 12/16/2023 Hiatal hernia (ICD-1 0 - K44.9) PLAN OF TREATMENT No Information
--- OUTSIDE RECORDS SUMMARY | 2024-09-11 08:48 | XMS_ITS ---
Author Organization Ricky Levine III, MD Address [address] [place] [address] Care Team Providers Care Dip Unit Operator Name Role Phone Ricky Levine Primary Care Provider REASON FOR VISIT Annual Exam Social History Sex Assigned At : Social History Observation Description Sex Assigned At Male Encounters Encounter Location Date Provider Diagnosis Ricky Levine III, MD [address] [place] [address] [place] [address] 07/09/2024 Ricky Levine Plan Of Treatment Next Appt Details Provider Name:Ricky Levine, 10/19/2024 10:45:00 AM, [address] [place] [address] [place], [address], Provider Name:Ricky Levine, 07/29/2025 10:00:00 AM, [address] [place] [address] [place], [address], Progress Notes * Lev CHAMPION SrDOB: [birth year] (74 yo M)Acc No.[id number]:07/09/2024 Progress Notes Patient:?Lev CHAMPION Sr Provider:?Ricky Levine MD :1950???Age:74 Y???Sex:Male Dustin e:07/09/2024 Address:[address] [place], [place] [id number] Subjective: * Chief Complaints: * ???1. Annual Exam. * Medical History:? Objective: * Vitals:? Assessment: Plan: * Treatment: * Images: * The named appointment provid er may or may not be the originator of this progress note, and it is not deemed complete until electronically signed by the appointment provider. Sign off status: Pending * Provider:?Ricky Levine MD Date:?06/30 Generated for Doris mayer/Cassia/Daríoitting on:?09/11/2024 08:47 AM EST
--- OUTSIDE RECORDS SUMMARY | 2024-09-11 08:48 | XMS_ITS | Patient Health Record ---
Author Organization Ricky Levine III, MD Address [address] [place] [address] [place] [address] Care Team Providers Care Equipment Worker Name Role Phone Ricky Levine Primary Care Provider [phone] Allergies Allergen (clinical drug ingredient) Drug/Non Drug Allergy documented on EMR Reaction Allergy Type Onset Date Status No Known Drug Allergy Unknown Drug Allergy Active Results Component Value Reference Range Notes Lipid Panel Reviewed date:08/03/2024 05:36:17 AM Interpretation: Performing Lab:[facility], [address] [place] [phone] Notes/Report: Triglycerides 199 <150 mg/dL Desirable Triglyceride: [...] low results in patients with liver disease. Complete Blood Count Auto Di ff Reviewed date:11/03/2023 08:00:56 AM Interpretation: Performing Lab:[facility], [address] [place] [phone] Notes/Report: White Blood Count 6.9 4.8-10.8 X10*3/uL Red Blood Count 4.83 4.60-5.80 X10*6/uL Hemoglobin 14.7 14.0-18.0 g/dl Hematocrit 43.3 42.0-52.0 % Mean Corpuscular Volume 89.6 80.0-98.0 fL Mean Corpuscular Hemoglobin 30.4 27.0-33.0 pg Mean Corpuscular HGB Conc 33.9 31.0-36.0 g/dl Red Cell Distribution Width 13.8 11.0-16.0 % Platelet Count 211 160-400 X10*3/uL Mean Platelet Volume 10.6 9.4-12.4 fL Neutrophils Percent Auto 53.1 45-73 % Imm Gran Pct Auto 0.1 0.0-0.4 % Lymphocytes Percent Auto 31.7 20-40 % Monocytes Percent Auto 8.4 2-11 % Eosinophils Percent Auto 5.5 0-4 % Basophils Percent Auto 1.2 0-2 % NRBC Pct Auto 0.0 0.0-0.2 /100WBC Neutrophils Absolute Auto 3.7 2.0-8.3 x10*3/u L Imm Gran Abs Auto 0.01 0.00-0.03 X10*3/uL Lymphocytes Absolute Auto 2.2 1.2-4.9 X10*3/u L Monocytes Absolute Auto 0.6 0.1-1.2 X10*3/uL Eosinophils Absolute Auto 0.4 0.0-0.4 X10*3/u L Basophils Absolute Auto 0.1 0.0-0.2 X10*3/uL NRBC Abs Auto 0.000 0.0-0.012 X10*3/uL Comprehensive [place]. Panel Fa st Reviewed date:11/03/2023 08:00:56 AM Interpretation: Performing Lab:[facility], [address] [place] [phone] Notes/Report: Sodium 140 135-145 mmol/L Potassium 3.8 3.3-5.1 mmol/L Chloride 105 96-108 mmol/L Carbon Dioxide 27 22-29 mmol/L Anion Gap 12 12-20 Blood Urea Nitrogen 15 9-16 mg/dL Creatinine 0.95 0.5-1.4 mg/dL Estimated Glomerular Filt Rate > 60 NOTE: For -Gabonese individuals, multiply the result by 1.210. Chronic Kidney Disease: Estimated GFR < 60 mL/min/1.73m2 Severe Kidney Disease: Estimated GFR < 15 mL/min/1.73m2 Glucose Fasting 97 60-99 mg/dL Calcium 9.4 8.4-10.2 mg/dL Bilirubin Total 0.7 0.0-1.0 mg/dL Aspartate Amino Transferase 19 5-37 U/L Alanine Aminotransferase 15 0-40 U/L Total Protein 6.8 6.5-8.0 g/dL Albumin Level 4.1 3.5-5.0 g/dL Alkaline Phosphatase 77 39-117 U/L Lipid Panel Reviewed date:11/03/2023 08:00:56 AM Interpretation: Performing Lab:[facility], [address] [place] [phone] Notes/Report: Triglycerides 242 <150 mg/dL Desirable Triglyceride: less than 150 mg/dL Borderline High Triglyceride 150-199 mg/dL High Triglyceride: 200-499 mg/dL Very High Triglyceride: greater than or equal to 5OO mg/dL Cholesterol 216 <200 mg/dL Desirable Cholesterol: less than 200 mg/dL Borderline High Cholesterol: 200-239 mg/dL High Cholesterol: greater than 239 mg/dL LDL Cholesterol Calculated 128 <100 mg/dL Desirable LDL: less than 100 mg/dL Near Optimal/Above Optimal LDL: 110-129 mg/dL Borderline High LDL: 130-159 mg/dL High LDL: 160-189 mg/dL Very High LDL: greater than or equal to 190 mg/dL HDL Cholesterol 40 >40 mg/dL Desirable HDL: greater than 40 mg/dL Note: This HDL assay may give artificially low results in patients with liver disease. Pathology Reviewed date:12/21/2023 03:47:44 PM Interpretation: Performing Lab:[facility], [address] [place] [phone] Notes/Report: Name: Lev Cosme Age/Sex: 73/M [facility] 1950 [id number] [id number] Attend Dr: Ricky Martinez Re12/16/23 Status: [facility] Location: [facility] Disch: SPEC : [id number] RECD: 12/16/23-918 STATUS: [facility] NUM: [id number] [place]: 12/16/[address] [facility] [address]: Ricky Martinez ENTERED: 12/16/23 SP TYPE: Surgical OTHR DR: Ricky Levine MD ORDERED: HE Stain/6, Gross Micro L4/2, Special st. 2, AB/PAS Diagnosis A. EG junction, 38 cm, biopsy: - Cardiac-type mucosa with moderate chronic inactive inflammation; no intestinal metaplasia seen. - Squamous mucosa within normal limits. B. Colon, 50 cm, polypectomy: Colonic mucosa with prominent lymphoid aggregates. Clinical History Pre-Op Dx: GERD Post-Op Dx: Reflux, hiatal hernia, colon polyp, diverticulosis, hemorrhoids Microscopic Description A, B. Microscopic sections examined. No metaplastic changes are seen, supported by AB/PAS stains (A). Material Received A. EG junction biopsy at 38 cm B. Polyp at 50 cm Gross Description Received in 2 parts. A received in formalin labeled ?EG junction at 38 cm? are 3 fragments of pink white soft tissue ranging from 0.3-0.4 cm in greatest dimension which are wrapped in lens paper and entirely submitted for microscopic examination, 3 pieces in cassette A. B. Received in formalin labeled ?polyp at 50 cm? are 2 fragments of translucent white soft tissue measuring 0.2 and 0.4 cm in greatest dimension which are wrapped in lens paper and entirely submitted for microscopic examination, 2 pieces in cassette B. [facility] Special studies ordered and performed: AB/PAS stains on A Copies To: Ricky Levine MD [address] [place] [address], [address] [place] [id number] CONTINUED ON NEXT PAGE Name: Lev Cosme Age/Sex: 73/M : 1950 Unit#: [id number] Attend Dr: Ricky Martinez Re12/16/23 Status: [facility] Location: [facility] Disch: SPEC : [id number] RECD: 12/16/23 STATUS: [facility] NUM: [id number] [place]: 12/16/[address] [facility] [address]: Ricky Martinez ENTERED: 12/16/23 SP TYPE: Surgical OTHR DR: Ricky Levine MD ORDERED: HE Stain/6, Gross Micro L4/2, Special st. 2, AB/PAS Copies To: (Continued) Ricky Martinez [address] [place] [address] [id number] [place] [address] Signed (signature on file) Chandu Serna MD 12/18/23 1306 END OF REPORT SCREENING COLONOSCOPY Reviewed date:12/19/2023 09:55:32 AM Interpretation:undefined Performing Lab: Notes/Report: undefined Complete Blood Count Auto Di ff Reviewed date:03/20/2024 10:47:19 AM Interpretation: Performing Lab:[facility], [address] [place] [phone] Notes/Report: White Blood Count 6.5 4.8-10.8 X10*3/uL Red Blood Count 4.57 4.60-5.80 X10*6/uL Hemoglobin 14.2 14.0-18.0 g/dl Hematocrit 42.5 42.0-52.0 % Mean Corpuscular Volume 93.0 80.0-98.0 fL Mean Corpuscular Hemoglobin 31.1 27.0-33.0 pg Mean Corpuscular HGB Conc 33.4 31.0-36.0 g/dl Red Cell Distribution Width 14.4 11.0-16.0 % Platelet Count 213 160-400 X10*3/uL Mean Platelet Volume 10.5 9.4-12.4 fL Neutrophils Percent Auto 63.5 45-73 % Imm Gran Pct Auto 0.6 0.0-0.4 % Lymphocytes Percent Auto 25.6 20-40 % Monocytes Percent Auto 6.0 2-11 % Eosinophils Percent Auto 3.7 0-4 % Basophils Percent Auto 0.6 0-2 % NRBC Pct Auto 0.0 0.0-0.2 /100WBC Neutrophils Absolute Auto 4.1 2.0-8.3 x10*3/u L Imm Gran Abs Auto 0.04 0.00-0.03 X10*3/uL Lymphocytes Absolute Auto 1.7 1.2-4.9 X10*3/u L Monocytes Absolute Auto 0.4 0.1-1.2 X10*3/uL Eosinophils Absolute Auto 0.2 0.0-0.4 X10*3/u L Basophils Absolute Auto 0.0 0.0-0.2 X10*3/uL NRBC Abs Auto 0.000 0.0-0.012 X10*3/uL Comprehensive [place]. Panel Fa st Reviewed date:03/20/2024 10:47:19 AM Interpretation: Performing Lab:[facility], [address] [place] [phone] Notes/Report: Sodium 144 135-145 mmol/L Potassium 4.0 3.3-5.1 mmol/L Chloride 109 96-108 mmol/L Carbon Dioxide 26 22-29 mmol/L Anion Gap 13 12-20 Blood Urea Nitrogen 14 9-16 mg/dL Creatinine 0.86 0.5-1.4 mg/dL Estimated Glomerular Filt Rate > 60 NOTE: For -Gabonese individuals, multiply the result by 1.210. Chronic Kidney Disease: Estimated GFR < 60 mL/min/1.73m2 Severe Kidney Disease: Estimated GFR < 15 mL/min/1.73m2 Glucose Fasting 104 60-99 mg/dL A fasting glucose from 100-125 mg/dl is considered impaired (pre-diabetes). Calcium 9.2 8.4-10.2 mg/dL Bilirubin Total 0.8 0.0-1.0 mg/dL Aspartate Amino Transferase 16 5-37 U/L Alanine Aminotransferase 14 0-40 U/L Total Protein 6.6 6.5-8.0 g/dL Albumin Level 4.0 3.5-5.0 g/dL Alkaline Phosphatase 70 39-117 U/L Lipid Panel Reviewed date:03/20/2024 10:47:19 AM Interpretation: Performing Lab:[facility], [address] [place] [phone] Notes/Report: Triglycerides 206 <150 mg/dL Desirable Triglyceride: less than 150 mg/dL Borderline High Triglyceride 150-199 mg/dL High Triglyceride: 200-499 mg/dL Very High Triglyceride: greater than or equal to 5OO mg/dL Cholesterol 202 <200 mg/dL Desirable Cholesterol: less than 200 mg/dL Borderline High Cholesterol: 200-239 mg/dL High Cholesterol: greater than 239 mg/dL LDL Cholesterol Calculated 123 <100 mg/dL Desirable LDL: less than 100 mg/dL Near Optimal/Above Optimal LDL: 110-129 mg/dL Borderline High LDL: 130-159 mg/dL High LDL: 160-189 mg/dL Very High LDL: greater than or equal to 190 mg/dL HDL Cholesterol 38 >40 mg/dL Desirable HDL: greater than 40 mg/dL Note: This HDL assay may give artificially low results in patients with liver disease. Complete Blood Count Auto Di ff Reviewed date:07/24/2024 10:04:08 AM Interpretation: Performing Lab:[facility], [address] [place] [phone] Notes/Report: White Blood Count 7.1 4.8-10.8 X10*3/uL Red Blood Count 4.40 4.60-5.80 X10*6/uL Hemoglobin 13.9 14.0-18.0 g/dl Hematocrit 40.4 42.0-52.0 % Mean Corpuscular Volume 91.8 80.0-98.0 fL Mean Corpuscular Hemoglobin 31.6 27.0-33.0 pg Mean Corpuscular HGB Conc 34.4 31.0-36.0 g/dl Red Cell Distribution Width 14.0 11.0-16.0 % Platelet Count 222 160-400 X10*3/uL Mean Platelet Volume 10.5 9.4-12.4 fL Neutrophils Percent Auto 56.1 45-73 % Imm Gran Pct Auto 0.4 0.0-0.4 % Lymphocytes Percent Auto 30.3 20-40 % Monocytes Percent Auto 7.3 2-11 % Eosinophils Percent Auto 4.9 0-4 % Basophils Percent Auto 1.0 0-2 % NRBC Pct Auto 0.0 0.0-0.2 /100WBC Neutrophils Absolute Auto 4.0 2.0-8.3 x10*3/u L Imm Gran Abs Auto 0.03 0.00-0.03 X10*3/uL Lymphocytes Absolute Auto 2.2 1.2-4.9 X10*3/u L Monocytes Absolute Auto 0.5 0.1-1.2 X10*3/uL Eosinophils Absolute Auto 0.4 0.0-0.4 X10*3/u L Basophils Absolute Auto 0.1 0.0-0.2 X10*3/uL NRBC Abs Auto 0.000 0.0-0.012 X10*3/uL Comprehensive [place]. Panel Fa st Reviewed date:07/24/2024 10:04:08 AM Interpretation: Performing Lab:[facility], [address] [place] [phone] Notes/Report: Sodium 141 135-145 mmol/L Potassium 4.3 3.3-5.1 mmol/L Chloride 106 96-108 mmol/L Carbon Dioxide 28 22-29 mmol/L Anion Gap 11 12-20 Blood Urea Nitrogen 13 9-16 mg/dL Creatinine 0.92 0.5-1.4 mg/dL Estimated Glomerular Filt Rate > 60 NOTE: For -Gabonese individuals, multiply the result by 1.210. Chronic Kidney Disease: Estimated GFR < 60 mL/min/1.73m2 Severe Kidney Disease: Estimated GFR < 15 mL/min/1.73m2 Glucose Fasting 96 60-99 mg/dL Calcium 9.5 8.4-10.2 mg/dL Bilirubin Total 0.7 0.0-1.0 mg/dL Aspartate Amino Transferase 22 5-37 U/L Alanine Aminotransferase 14 0-40 U/L Total Protein 6.4 6.5-8.0 g/dL Albumin Level 4.1 3.5-5.0 g/dL Alkaline Phosphatase 75 39-117 U/L Lipid Panel Reviewed date:07/24/2024 10:04:08 AM Interpretation: Performing Lab:[facility], [address] [place] [phone] Notes/Report: Triglycerides 258 <150 mg/dL Desirable Triglyceride: less than 150 mg/dL Borderline High Triglyceride 150-199 mg/dL High Triglyceride: 200-499 mg/dL Very High Triglyceride: greater than or equal to 5OO mg/dL Cholesterol 206 <200 mg/dL Desirable Cholesterol: less than 200 mg/dL Borderline High Cholesterol: 200-239 mg/dL High Cholesterol: greater than 239 mg/dL LDL Cholesterol Calculated 117 <100 mg/dL Desirable LDL: less than 100 mg/dL Near Optimal/Above Optimal LDL: 110-129 mg/dL Borderline High LDL: 130-159 mg/dL High LDL: 160-189 mg/dL Very High LDL: greater than or equal to 190 mg/dL HDL Cholesterol 38 >40 mg/dL Desirable HDL: greater than 40 mg/dL Note: This HDL assay may give artificially low results in patients with liver disease. Prostate Specific Antigen Reviewed date:07/24/2024 10:04:08 AM Interpretation: Performing Lab:[address] [phone] Notes/Report: Prostate Specific Antigen 0.83 <0.05-4.0 ng/mL PSA methodology: Stark Alinity i Chemiluminescent Microparticle Immunoassay (CMIA) Hemoglobin A1c Reviewed date:07/24/2024 10:04:08 AM Interpretation: Performing Lab:[address] [phone] Notes/Report: Hemoglobin A1c % 5.5 <6.0 % Hemoglobin A1C Reference Range Adults: 4.8 - 6.0 % Non diabetic: < 6.0 % Goal: < 7.0 % Additional Action Suggested: > 8.0 % Note: Hemoglobin A1c results are invalid for patients with abnormal amounts of HbF. Blood transfusions may impact the HbA1c concentration in the patient sample. Estimated Average Glucose 111 eAG = Estimated average glucose which is %A1C expressed as average glucose, using the formula of the V1E-Reegmfz Average Glucose study (ADAG), Diabetes Care, Vol.31,#8, Apr. 2007 Complete Blood Count Auto Di ff Reviewed date:08/03/2024 05:36:17 AM Interpretation: Performing Lab:[address] [phone] Notes/Report: White Blood Count 7.3 4.8-10.8 X10*3/uL Red Blood Count 4.51 4.60-5.80 X10*6/uL Hemoglobin 14.2 14.0-18.0 g/dl Hematocrit 41.8 42.0-52.0 % Mean Corpuscular Volume 92.7 80.0-98.0 fL Mean Corpuscular Hemoglobin 31.5 27.0-33.0 pg Mean Corpuscular HGB Conc 34.0 31.0-36.0 g/dl Red Cell Distribution Width 14.0 11.0-16.0 % Platelet Count 216 160-400 X10*3/uL Mean Platelet Volume 10.6 9.4-12.4 fL Neutrophils Percent Auto 66.5 45-73 % Imm Gran Pct Auto 0.4 0.0-0.4 % Lymphocytes Percent Auto 22.3 20-40 % Monocytes Percent Auto 6.1 2-11 % Eosinophils Percent Auto 4.0 0-4 % Basophils Percent Auto 0.7 0-2 % NRBC Pct Auto 0.0 0.0-0.2 /100WBC Neutrophils Absolute Auto 4.8 2.0-8.3 x10*3/u L Imm Gran Abs Auto 0.03 0.00-0.03 X10*3/uL Lymphocytes Absolute Auto 1.6 1.2-4.9 X10*3/u L Monocytes Absolute Auto 0.4 0.1-1.2 X10*3/uL Eosinophils Absolute Auto 0.3 0.0-0.4 X10*3/u L Basophils Absolute Auto 0.1 0.0-0.2 X10*3/uL NRBC Abs Auto 0.000 0.0-0.012 X10*3/uL Comprehensive [place]. Panel Fa st Reviewed date:08/03/2024 05:36:17 AM Interpretation: Performing Lab:[facility], [address] [place] [phone] Notes/Report: Sodium 142 135-145 mmol/L Potassium 4.0 3.3-5.1 mmol/L Chloride 108 96-108 mmol/L Carbon Dioxide 25 22-29 mmol/L Anion Gap 13 12-20 Blood Urea Nitrogen 13 9-16 mg/dL Creatinine 1.11 0.5-1.4 mg/dL Estimated Glomerular Filt Rate > 60 NOTE: For -Gabonese individuals, multiply the result by 1.210. Chronic Kidney Disease: Estimated GFR < 60 mL/min/1.73m2 Severe Kidney Disease: Estimated GFR < 15 mL/min/1.73m2 Glucose Fasting 101 60-99 mg/dL A fasting glucose from 100-125 mg/dl is considered impaired (pre-diabetes). Calcium 9.2 8.4-10.2 mg/dL Bilirubin Total 0.7 0.0-1.0 mg/dL Aspartate Amino Transferase 29 5-37 U/L Alanine Aminotransferase 14 0-40 U/L Total Protein 6.4 6.5-8.0 g/dL Albumin Level 3.9 3.5-5.0 g/dL Alkaline Phosphatase 68 39-117 U/L Lactate Dehydrogenase Reviewed date:08/03/2024 05:36:17 AM Interpretation: Performing Lab:[facility], [address] [place] [phone] Notes/Report: Lactate Dehydrogenase 231 118-273 U/L Creatine Kinase Total Reviewed date:08/03/2024 05:36:17 AM Interpretation: Performing Lab:[facility], [address] [place] [phone] Notes/Report: Creatine Kinase Total 69 38-174 U/L Reason For Referral Reason Consult and Treat Bilateral Hip Pain Diagnosis 1 Hip pain (M25.559) Referral Organization Ricky Levine III, MD Referring Provider First Name Ricky Referring Provider Last Name Julianna Referring Provider Speciality Internal M edicine Referred Provider [facility], Orthopedic Surgeons Referred Provider Specialty Orthopedic [facility] General Notes DMaya 08/20/2024 10:44:43 AM > Referral and progress note faxed. Xrays are not read spoke with Radiology they will be trying to get a reading. Referral Priority Routine Medications Medication SIG (Take, Route, Frequency, Duration) Notes Start Date End Date Status Centrum Silver - Orally Act nette Simvastatin 40 MG TAKE 1 TABLET BY HIRAL TH EVERYDAY AT BEDTIME Active Felodipine ER 10 MG TAKE 1 TABLET BY HIRAL TH EVERY DAY Orally Once a day Active Citalopram Hydrobromide 40 MG TAKE 1 TABLET BY MOUTH EVERY DAY Active Metoprolol Succinate ER 25 MG TAKE 1 TABLET BY MOUTH EVERY DAY FOR 90 DAYS Active Lansoprazole 30 MG 1 capsule before a m eal Orally twice a day Active Triamterene-HCTZ 37.5-25 MG TAKE 1 TABLE T BY MOUTH EVERY DAY IN THE MORNING FOR 30 DAYS Active Lansoprazole 30 MG 1 capsule Orally twi ce a day Active Immunizations Vaccine Route Administration Date Status Comme nts Influenza no Preserv 3 and > IM Intramuscular 07/18/2017 Administered Tetanus and Diphtheria Toxoids Adsorbed IM Intramuscular 01/02/2019 Administered Td (adult) Unknown 01/02/2019 Administered COVID PFIZER Unknown 12/27/2020 Administered COVID PFIZER Unknown 08/15/2021 Administered COVID PFIZER Unknown 01/18/2021 Administered Social History Tobacco Use: Social History Observation [...] Problem Status W/U Status Risk Notes Problem 303965904 Back pain (M54.9) Active confirmed He was continue d on his current regimen. He will notify me. Once, if it intensifies. Problem 808583729 GERD (gastroesophagea l reflux disease) (K21.9) Active confirmed His reflux symptoms are well controlled with [id number] medication and no change in his regimen as needed. Problem 76419803 Anxiety (F41.9) Active confirmed He continues to use clonazepam given to him by the psychiatrist. Problem 18533741 Labyrinthitis, bilateral (H83.03) Active confirmed The vertigo has resolved and this problem is no longer active. Problem Benign prostatic hyperplasia (131545699) BPH (benign prostatic hyperplasia) (N40.0) Active confirmed He rises from sleep once and sometimes twice a night to urinate. We have discussed lifestyle modification as a way to reduce nocturia. Problem 835053926 Obesity (BMI 30-39.9) (E66.9) Active confirmed Problem 08777379 Essential hypertension (I10) Active confirmed His blood prressure is 124/57. No change in his medication was made. I recommended aggressive weight loss and sodium restriction combined with regular physical activity and a reduced calorie diet low in sodium and animal fat. Problem 274358196 Thyroid nodule (E04.1) Active confirmed This was noted last Junne jenny ultrasound. A repeat ultrasound was ordered and an endocrine consult. Problem 40627016 Other and unspecified hyperlipidemia (E78.5) Active confirmed His triglycerides are elevated but his total cholesterol is acceptable at 194. I recommended a healthy diet and aggressive weight loss combined with exercise. No change in his medication was needed. Problem 01091746 Depressive disorder, not elsewhere classified (F32.9) Active confirmed He is toleratin g citalopram well without side effects and will be continued. He feels discouraged about his difficulty losing weight and immobility. We discussed this at length today. He declined a referral to the weight loss program but I will continue in this direction. 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 His vision is normal in the opposite eye and he sees the appraiser regularly. He reports today that his vision in the left eye is adequate and normal. Problem 04339500 Chronic idiopathic constipation (K59.04) Active confirmed The constipatio n is well controlled with medications. At this time. 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 Vital Signs Heart Rate 53 /min 08/17/2024 Temperature 97.7 degrees Fahrenheit 08/17/2024 Blood pressure diastolic 83 mm Hg 08/17/2024 Height 72 in 08/17/2024 Blood pressure systolic 132 mm Hg 08/17/2024 Weight 292 lbs 08/17/2024 BMI 39.6 kg/m2 08/17/2024 Encounters Encounter Location Date Provider Diagnosis Ricky Levine III, MD [address] [place] [address] [place] [phone] 11/05/2023 Ricky Levine Other and unspecifie d hyperlipidemia E78.5 ; Obesity (BMI 30-39.9) E66.9 ; Essential hypertension I10 ; Depressive disorder, not elsewhere classified F32.9 ; Cornea replaced by transplant Z94.7 and GERD (gastroesophageal reflux disease) K21.9 Ricky Levine III, MD [address] [place] [address] [place] [phone] 12/19/2023 Ricky Reed and unspecifie d hyperlipidemia E78.5 ; Essential hypertension I10 ; Obesity (BMI 30-39.9) E66.9 ; Cornea replaced by transplant Z94.7 ; GERD (gastroesophageal reflux disease) K21.9 ; Back pain M54.9 and Labyrinthitis, bilateral H83.03 Ricky Levine III, MD [address] [place] [address] [place] [phone] 03/20/2024 Ricky Levine Other and unspecifie d hyperlipidemia E78.5 ; Obesity (BMI 30-39.9) E66.9 ; BPH (benign prostatic hyperplasia) N40.0 ; Depressive disorder, not elsewhere classified F32.9 ; Essential hypertension I10 ; GERD (gastroesophageal reflux disease) K21.9 and Vision loss of right eye H54.61 Ricky Levine III, MD [address] [place] [address] [place] [address] 07/24/2024 Ricky Levine Other and unspecifie d hyperlipidemia E78.5 ; Morbid obesity E66.01 ; Hip pain M25.559 ; Lumbar back pain M54.50 ; Essential hypertension I10 ; BPH (benign prostatic hyperplasia) N40.0 ; Chronic idiopathic constipation K59.04 ; Vision loss of right eye H54.61 and GERD (gastroesophageal reflux disease) K21.9 Ricky Levine III, MD [address] [place] [address] [place] [address] 08/17/2024 Ricky Levine Depressive disorder, not elsewhere classified F32.9 ; Obesity E66.9 ; Essential hypertension I10 ; Other and unspecified hyperlipidemia E78.5 ; GERD (gastroesophageal reflux disease) K21.9 ; Cornea replaced by transplant Z94.7 ; Vision loss of right eye H54.61 and Thyroid nodule E04.1 Ricky Levine III, MD [address] [place] [address] [place] [address] 10/17/2023 Ricky Levine Annual physical exam Z00.00 Assessments Encounter Date Diagnosis (ICD Code) Assessment Notes Treat ment Notes Treatment Clinical Notes 11/05/2023 Obesity (BMI 30-39.9) (ICD-10 - E66.9) He has gained 7 pounds. His blood pressure is elevated. We reviewed the elements of a weight loss diet. I recommended aggressive weight loss and sodium restriction. 11/05/2023 Other and unspecified hyperlipidemia (ICD-10 - E78.5) His lipids are slightly out of range but acceptable. I have recommended a dieet low animal fat combined with regular physical activity and aggressive weight loss and sodium restriction. 12/19/2023 Essential hypertension (ICD-10 - I10) His blood pressure is currently in the normal range and stable. Continue on his current regimen. I strongly recommended aggressive weight loss and sodium restriction. 12/19/2023 Other and unspecified hyperlipidemia (ICD-10 - E78.5) His lipids are outside of their target range. He has gained 1 pound. He admits to some dietary indiscretion. We will try lifestyle modification to correct these values. Otherwise we will try medication. 03/20/2024 Obesity (BMI 30-39.9) (ICD-10 - E66.9) We have reviewed his weight loss strategy diet and nutrition. We made a plan to lose weight at a rate of one half of a pound per week. 03/20/2024 Other and unspecified hyperlipidemia (ICD-10 - E78.5) His lipids are near their target range. I recommended a healthy diet and aggressive weight loss combined with exercise. No change in his medication was needed. 07/24/2024 Other and unspecified hyperlipidemia (ICD-10 - E78.5) [...] weight reduction lipid reduction restricted sodium diet. 08/17/2024 Obesity (ICD-10 - E66.9) His body mass index is 39. He has lost 1 pound. We have discussed diet and nutrition. We reviewed his weight loss strategy. 08/17/2024 Depressive disorder, not elsewhere classified (ICD-10 - F32.9) He is tolerating citalopram well without side effects and will be continued. He feels discouraged about his difficulty losing weight and immobility. We discussed this at length today. He declined a referral to the weight loss program but I will continue in this direction. 10/17/2023 Annual physical exam (ICD-10 - Z00.00) He is medically stable. The dry oral cavity is He will see ENT in consultation. No other changes were made in his regimen. 11/05/2023 Essential hypertension (ICD-10 - I10) His blood pressure is now elevated at 150/90. Current therapy was continued. Follow-up was arranged. I have encouraged continued weight loss and sodium restriction. 12/19/2023 Obesity (BMI 30-39.9) (ICD-10 - E66.9) I have recommended aggressive weight reduction. I have offered to refer him to the weight loss. He is consiidering it. We reviewed his diet and nutrition. We made a plan to lose weight at a rate of one half of a pound per week. 03/20/2024 BPH (benign prostatic hyperplasia) (ICD-10 - N40.0) He rises from sleep once and sometimes twice a night to urinate. We have discussed lifestyle modification as a way to reduce nocturia. 07/24/2024 Hip pain (ICD-10 - M25.559) He has noted bilateral hip pain with weightbearing and walking which is moderate to severe. This is a new finding. X-rays of the joints have been ordered along with the lumbar spine. He will try a course of ibuprofen. 08/17/2024 Essential hypertension (ICD-10 - I10) His blood prressure is 124/57. No change in his medication was made. I recommended aggressive weight loss and sodium restriction combined with regular physical activity and a reduced calorie diet low in sodium and animal fat. 11/05/2023 Depressive disorder, not elsewhere classified (ICD-10 - F32.9) He is tolerating citalopram well without side effects and will be continued. He feels discouraged about his difficulty losing weight and immobility. We discussed this at length today. He declined a referral to the weight loss program but I will continue in this direction. 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 His vision is normal in the opposite eye and he sees the appraiser regularly. He reports today that his vision in the left eye is adequate and normal. 03/20/2024 Depressive disorder, not elsewhere classified (ICD-10 - F32.9) He is tolerating citalopram well without side effects and will be continued. He feels discouraged about his difficulty losing weight and immobility. We discussed this at length today. He declined a referral to the weight loss program but I will continue in this direction. 07/24/2024 Lumbar back pain (ICD-10 - M54.50) He has had a flare of lumbar back pain as well as hip pain. X-rays are pending. He will try ibuprofen 4 times a day. 08/17/2024 Other and unspecified hyperlipidemia (ICD-10 - E78.5) His triglycerides are elevated but his total cholesterol is acceptable at 194. I recommended a healthy diet and aggressive weight loss combined with exercise. No change in his medication was needed. 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 His vision is normal in the opposite eye and he sees the appraiser regularly. He reports today that his vision in the left eye is adequate and normal. 12/19/2023 GERD (gastroesophageal reflux disease) (ICD-10 - K21.9) His reflux symptoms are well controlled with dnyc-lfd-pwlqjra medication and no change in his regimen as needed. 03/20/2024 Essential hypertension (ICD-10 - I10) His blood pressure is currently in the normal range and stable. Continue on his current regimen. I strongly recommended aggressive weight loss and sodium restriction. 07/24/2024 Essential hypertension (ICD-10 - I10) His blood prressure is 124/57. No change in his medication was made. I recommended aggressive weight loss and sodium restriction combined with regular physical activity and a reduced calorie diet low in sodium and animal fat. 08/17/2024 GERD (gastroesophageal reflux disease) (ICD-10 - K21.9) His reflux symptoms are well controlled with lnef-gyb-dqfwlxe medication and no change in his regimen as needed. 11/05/2023 GERD (gastroesophageal reflux disease) (ICD-10 - K21.9) His reflux symptoms are well controlled with rnwx-haw-kzvfptz medication and no change in his regimen as needed. 12/19/2023 Back pain (ICD-10 - M54.9) He was continued on his current regimen. He will notify me. Once, if it intensifies. 03/20/2024 GERD (gastroesophageal reflux disease) (ICD-10 - K21.9) His reflux symptoms are well controlled with wtzf-fca-drmlphd medication and no change in his regimen as needed. 07/24/2024 BPH (benign prostatic hyperplasia) (ICD-10 - N40.0) He rises from sleep once and sometimes twice a night to urinate. We have discussed lifestyle modification as a way to reduce nocturia. 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 His vision is normal in the opposite eye and he sees the appraiser regularly. He reports today that his vision in the left eye is adequate and normal. 12/19/2023 Labyrinthitis, bilateral (ICD-10 - H83.03) The vertigo has resolved and this problem is no longer active. 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 07/24/2024 Chronic idiopathic constipation (ICD-10 - K59.04) The constipation is well controlled with medications. At this time. 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 08/17/2024 Thyroid nodule (ICD-10 - E04.1) This was noted last Junne jenny ultrasound. A repeat ultrasound was ordered and an endocrine consult. 07/24/2024 GERD (gastroesophageal reflux disease) (ICD-10 - K21.9) His reflux symptoms are well controlled with bemt-hnt-zbrmywr medication and no change in his regimen as needed. Plan Of Treatment Pending Test Test Name Order Date PROFILE, FASTING (COMPREHENSIVE METABOLI C) 12/03/2022 PROFILE, FASTING (COMPREHENSIVE METABOLI C) 08/25/2019 PROFILE, FASTING (COMPREHENSIVE METABOLI C) 03/07/2018 PROFILE, FASTING (COMPREHENSIVE METABOLI C) 07/05/2023 PROFILE, FASTING (COMPREHENSIVE METABOLI C) 02/14/2022 PROFILE, FASTING (COMPREHENSIVE METABOLI C) 03/24/2020 PROFILE, FASTING (COMPREHENSIVE METABOLI C) 09/05/2018 PROFILE, FASTING (COMPREHENSIVE METABOLI C) 12/19/2023 PROFILE, FASTING (COMPREHENSIVE METABOLI C) 12/05/2017 PROFILE, FASTING (COMPREHENSIVE METABOLI C) 07/18/2017 PROFILE, FASTING (COMPREHENSIVE METABOLI C) 09/03/2022 PROFILE, FASTING (COMPREHENSIVE METABOLI C) 05/08/2019 PROFILE, FASTING (COMPREHENSIVE METABOLI C) 07/24/2024 PROFILE, FASTING (COMPREHENSIVE METABOLI C) 03/28/2023 PROFILE, FASTING (COMPREHENSIVE METABOLI C) 06/27/2021 PROFILE, FASTING (COMPREHENSIVE METABOLI C) 06/12/2022 PROFILE, FASTING (COMPREHENSIVE METABOLI C) 06/06/2018 PROFILE, FASTING (COMPREHENSIVE METABOLI C) 11/05/2023 PROFILE, FASTING (COMPREHENSIVE METABOLI C) 01/06/2019 PROFILE, FASTING (COMPREHENSIVE METABOLI C) 03/20/2024 PROFILE, FASTING (COMPREHENSIVE METABOLI C) 11/25/2020 PROFILE, FASTING (COMPREHENSIVE METABOLI C) 07/25/2020 PROFILE, RANDOM (COMPREHENSIVE METABOLIC ) 07/18/2017 PROFILE, RANDOM (COMPREHENSIVE METABOLIC ) 11/26/2019 PROFILE, RANDOM (COMPREHENSIVE METABOLIC ) 03/27/2021 URIC ACID 06/12/2022 LIPID PANEL 06/12/2022 LIPID PANEL 11/25/2020 LIPID PANEL 07/25/2020 LIPID PANEL 12/03/2022 LIPID PANEL 08/25/2019 LIPID PANEL 03/07/2018 LIPID PANEL 07/05/2023 LIPID PANEL 09/05/2018 LIPID PANEL 03/24/2020 LIPID PANEL 12/05/2017 LIPID PANEL 05/08/2019 LIPID PANEL 03/28/2023 LIPID PANEL 06/27/2021 LIPID PANEL 07/18/2017 LIPID PANEL 11/26/2019 LIPID PANEL 03/27/2021 LIPID PANEL 06/06/2018 LIPID PANEL 01/06/2019 LDH 03/27/2021 LDH 07/24/2024 FREE T4 (FT4) 02/14/2022 TSH (THYROID STIMULATING HORMONE) 2021 CPK 03/27/2021 CPK 07/24/2024 PSA, TOTAL 03/20/2024 PSA, TOTAL 01/06/2019 PSA, TOTAL 06/12/2022 PSA, TOTAL 07/25/2020 PSA, TOTAL 03/24/2020 PSA, TOTAL 07/18/2017 CBC w DIFF 11/26/2019 CBC w DIFF 06/06/2018 CBC w DIFF 07/18/2017 CBC w DIFF 11/25/2020 CBC w DIFF 01/06/2019 CBC w DIFF 03/27/2021 CBC w DIFF 06/12/2022 CBC w DIFF 12/03/2022 CBC w DIFF 08/25/2019 CBC w DIFF 03/07/2018 CBC w DIFF 07/05/2023 CBC w DIFF 07/25/2020 CBC w DIFF 09/05/2018 CBC w DIFF 09/03/2022 CBC w DIFF 02/14/2022 CBC w DIFF 12/05/2017 CBC w DIFF 03/24/2020 CBC w DIFF 05/08/2019 CBC w DIFF 03/28/2023 CBC w DIFF 06/27/2021 XR FOOT LT 12/05/2017 US RENAL BILATERAL 02/14/2022 US URINARY BLADDER 02/14/2022 VITAMIN D 25-OH TOTAL 11/25/2020 VITAMIN D 25-OH TOTAL 07/25/2020 CBC WITH AUTO DIFF 07/24/2024 CBC WITH AUTO DIFF 12/19/2023 CBC WITH AUTO DIFF 11/05/2023 CBC WITH AUTO DIFF 03/20/2024 Lipid Panel 11/05/2023 Lipid Panel 03/20/2024 Lipid Panel 12/19/2023 Lipid Panel 09/03/2022 Lipid Panel 02/14/2022 XR hips CLAUDIO min 3V 07/24/2024 XR lumbar spine 2-3V 07/24/2024 Hemoglobin A1c 03/20/2024 Next Appt Details Provider Name:Ricky Levine, 10/19/2024 10:45:00 AM, 10 [facility] [address], [place], [address], Provider Name:Ricky Levine, 07/29/2025 10:00:00 AM, 10 [facility] [address], [place], [address], Insurance Providers Payer Name Payer Address Payer Phone Subscriber Number Group Number Insured Name Patient Relationship to Insured Coverage Start Date Coverage End Date [address] [place] [phone] [id number] [place], Lev Self - patient is the insured MEDICARE NGS [address] [place] [phone] [id number] Lev Cosme Self - patient is the insured Medical (General) History Medical History History ICD Code hypertension depression obesity hyperlipidemia cataracts right eye corneal transplant/ lens impla nt labrynthitis screening colonoscopy by Dr Lutz at 07/2004 dry macular degeneration {'Endoscopy and colonoscopy' : 'Performed seven months ago, showed no abnormalities', 'Acid reflux': 'Being treated with Omeprazole', 'Basal cell carcinoma': 'Diagnosed recently through a biopsy on the neck'} Age-related macular degeneration Corneal transplant thyroid nodules Surgical History Surgery Date(Month/Year) Corneal transplant right eye No history Corneal transplant Hospitalization History Reason Date(Month/Year) No history
== END 2024-09-11 09:07 | disposition home or self-care (01) ==
PROVIDERS: PCP Internal Medicine Medical Oncology; Visit Provider Physician Assistant
DX: M16.0 Bilateral primary osteoarthritis of hip (principal); M47.816 Spondylosis without myelopathy or radiculopathy, lumbar region
CPT/HCPCS: 99204

== ENCOUNTER → 2024-09-11 08:43 | Outpatient (BNVA) | payer MEDICARE, SELFPAY | PROVIDERS: PCP Internal Medicine Medical Oncology; Visit Provider Physician Assistant | DX: M16.0 Bilateral primary osteoarthritis of hip (principal); M47.816 Spondylosis without myelopathy or radiculopathy, lumbar region | CPT/HCPCS: 99202 ==

== ENCOUNTER 2024-10-28 17:36 | Outpatient (REF) | payer MEDICARE, SELFPAY ==
--- NOTE | ~2024-10-28 | MR_ITS ---
EXAMINATION: MR LUMBAR SPINE WITHOUT CONTRAST CLINICAL INFORMATION: Low back pain into both lower extremities. COMPARISON: None available. TECHNIQUE: MRI of the lumbar spine was obtained using routine sequences without contrast. FINDINGS: Last rib-bearing vertebra labeled T12. Mild bone marrow STIR signal within the endplates of L4-5. Multilevel marginal osteophyte formation, disc desiccation, endplate irregularity more conspicuous at L4-5 and to a lesser extent T11-12 and T12-L1. Bone marrow inhomogeneity. Modic type I and type II endplate changes at L4-5 with associated Schmorl nodes. The alignment is normal. Conus medullaris ends at pedicle of L1 with normal signal. T11-12: Broad-based disc bulging. No neuroforamina stenosis. T12-L1: No disc herniation. No neuroforamina stenosis. L1-2: Broad-based disc bulging. Facet joint hypertrophy. No compression upon neural elements. L2-3: Broad-based disc bulging. Facet joint and ligamentum flavum hypertrophy. Bilateral neuroforamina narrowing, left greater than the right. L3-4: Broad-based disc bulging. Bilateral facet joint and ligamentum flavum hypertrophy. Reduced AP diameter of the thecal sac and the neural foramina likely encroaching the exiting nerve roots. L4-5: Broad-based disc bulging. Facet joint and ligamentum flavum hypertrophy. CSF effacement of the thecal sac decreased AP diameter of the thecal sac and the neural foramina encroaching likely compressing the neural elements both thecal sac and the exiting nerve roots. L5-S1: Broad-based disc bulging. Facet joint and ligamentum flavum hypertrophy. Prominent epidural fat in a circumferential fashion. Decreased AP diameter of the cul-de-sac and the neuroforamina. No prevertebral compartment hematoma, mass or fluid collection. Probable cystic lesions in the parapelvic regions both kidneys. MR/MR lumbar spine wo con IMPRESSION: Multilevel thoracolumbar spondylosis more conspicuous at L4-5 resulting in central spinal canal and neuroforamina stenosis likely compressing the neural elements. Similar findings to a lesser extent L3-4 and L5-S1 levels. Electronically signed by: Enoch Hayes MD 10/29/2024 10:07 AM EST
--- NOTE | ~2024-10-28 | XR_ITS ---
CLINICAL HISTORY: PRE MRI ORBIT XRAYS MRI Screening XR PRE MRI SCREENING Comparison: None Findings: No acute fractures. Paranasal sinuses and mastoids are clear. No radiopaque foreign body. IMPRESSION: 1. No metallic foreign bodies in the orbits. This document has been electronically signed by: Cuong Henderson MD on 10/28/2024 17:26:39
--- OUTSIDE RECORDS SUMMARY | 2024-10-28 17:56 | XMS_ITS ---
Author Organization [facility] Address [address] [place] [address] Care Team Providers Care Ict Developer Name Role Phone Ricky Levine MD Primary Care Provider UnavailRicky Beavers Unavailable [phone] ALLERGIES No Known Allergies REASON FOR VISIT [...] Constipation, unspecified constipation type (K59.00) Active confirmed 01886085 Problem Gastroesophageal reflux disease, unspecified whether esophagitis present (K21.9) Active confirmed 509270831 Problem Colon cancer screening (Z12.11) Active confirmed 950893979 VITAL SIGNS BMI 38.65 kg/m2 09/12/2023 Blood pressure systolic 00 mm Hg 09/12/20 23 Blood pressure diastolic 00 mm Hg 023 Height 73 in 09/12/2023 Temperature 96.8 degrees Fahrenheit 09/12/20 23 Weight 293 lbs 09/12/2023 Encounters Encounter Location Date Provider Diagnosis [facility] [address] [place] [address] 09/12/2023 Ricky Martinez Constipation, unspec ified constipation [...] will be having the upper endoscopy with ri 09/12/2023 Colon cancer screeni ng (ICD-10 - [...] will be having the upper endoscopy with ri Future Test Test Name Order Date UPPER [...]
--- OUTSIDE RECORDS SUMMARY | 2024-10-28 17:56 | XMS_ITS ---
Author Organization [facility] Address [address] [place] [address] Care Team Providers Care Instrumentation Specialist Name Role Phone Ricky Levine MD Primary Care Provider Unavailab Ricky Sheppard Unavailable [phone] REASON FOR VISIT screening,gerd PROBLEMS Problem Type ICD Code Onset Dates Problem Status W/U Status Risk SNOMED Code Notes Problem Diverticulosis of large intestine without perforation or abscess without bleeding (K57.30) Active confirmed Diverticul ar disease of colon (831348087) Problem Gastroesophageal reflux disease without esophagitis (K21.9) Active confirmed Gastroesophagea l reflux disease without esophagitis (234455617) Encounters Encounter Location Date Provider Diagnosis [facility] Outpatient [address] [place] [phone] 12/16/2023 Ricky Martinez Encounter for screen ing [...]
--- OUTSIDE RECORDS SUMMARY | 2024-10-28 17:56 | XMS_ITS | Patient Health Record ---
Author Organization [facility] Address [address] [place] [address] Care Team Providers Care Roofer Name Role Phone Ricky Levine MD Primary Care Provider UnavailRicky Beavers Unavailable [phone] ALLERGIES No Known Allergies RESULTS Component Value Reference Range Notes Pathology (Not yet reviewed by provider) Interpretation: Performing Lab:[facility], [address] [place] [id number] Notes/Report: REASON FOR REFERRAL No Information MEDICATIONS [...] Problem Colon cancer screening (Z12.11) Active confirmed 252587825 Problem Diverticulosis of large intestine without perforation or abscess without bleeding (K57.30) Active confirmed Diverticul ar disease of colon (880423613) Problem Gastroesophageal reflux disease without esophagitis (K21.9) Active confirmed Gastroesophagea l reflux disease without esophagitis (309609683) Problem Constipation, unspecified constipation type (K59.00) Active confirmed 58939999 Problem Gastroesophageal reflux disease, unspecified whether esophagitis present (K21.9) Active confirmed 621804432 Encounters Encounter Location Date Provider Diagnosis [facility] [place] [address] [place] [phone] 12/16/2023 Ricky Martinez Encounter for screen ing [...] Insured Coverage Start Date Coverage End Date [facility] [address] [place] [address] [id number] RHINAMARISA KNIGHT Self - patient is the insured MEDICAL (GENERAL) HISTORY Medical History History ICD Code Hypertension Denies NV,DM,CVA,Lung disease,renal dise ase Bleeding ulcer > 30 yrs ago--treated med ically Hyperlipidemia Neg colonoscopy in 07/[address] Schulz en Negative colonoscopy in 01/2014 except fo r a hyperplastic polyp Surgical History Surgery Date(Month/Year) Several eye surgeries on the right
--- OUTSIDE RECORDS SUMMARY | 2024-10-28 17:57 | XMS_ITS ---
Author Organization Ricky Levine III, MD Address [address] [place] [address] Care Team Providers Care Cleaning Associate Name Role Phone Ricky Levine Primary Care Provider [phone] Allergies Allergen (clinical drug ingredient) Drug/Non Drug [...] Provider Speciality Internal M edicine Referred Provider [facility], Orthopedic Surgeons Referred Provider Specialty Orthopedic [facility] General Notes Maya Castro 08/20/2024 [...] Problem Status W/U Status Risk Notes Problem 905430678 Obesity (BMI 30-39.9) (E66.9) Active confirmed Problem 251382277 Multiple thyroid nodules (E04.2) Active confirmed Problem 252763663 Thyroid nodule (E04.1) Active confirmed This was [...] Date Provider Diagnosis Ricky Levine III, MD [address] [place] [address] [place] [address] 08/17/2024 Ricky Levine Depressive disorder, not elsewhere [...] His reflux symptoms are well controlled with svmn-awb-yremhrs medication and no change in his regimen as needed. 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 His vision is normal in the opposite eye and he sees the cadd technician regularly. He reports today that his vision [...] and Treat Bilateral Hip Pain, [facility] Next Appt Details Follow Up: 2 Months, Early J anuary, Reason: OV, Follow up after orthopedist visit Provider Name:Ricky Nolandrne, 11/11/2024 11:15:00 AM, [address] [place] [address] [address], [place], [address], Provider Name:Ricky Levine, 07/29/2025 10:00:00 AM, [address] [place] [address] [address], [place], [address], Progress Notes * Lev CHAMPION SrDOB: [birth year] (74 yo M)Acc No.[id number]:08/17/2024 Progress Notes Patient:?Lev CHAMPION Sr Provider:?Ricky Levine MD :1950???Age:74 Y???Sex:Male Dustin e:08/17/2024 Address:[address] [place] [address] Subjective: * Chief Complaints: * ???ArthritisDepressionHypert ensionHyperlipidemiaVision [...] noted to have no cartilage, leading to hquk-zg-yvtp contact. The doctor recommended the patient to [...] for many years. He retired from the [employer] in [place] at age 61. He was born in [place], [place]. He has one son. {'Living situation': [...] May have water,PLEASE FAX COMPLETED RESULTS TO [phone] * Lab:Lactate Dehydrogenase * Collection Date 07/28/2024 06/23/2021 Collection Time 11:42 AM 11:38 AM Order Date 07/28/2024 06/23/2021 Lactate Dehydrogenase 231 (Ref Range: 118-273 U/L) 172 (Ref Range: 118-273 U/L) * Lab:[facility] [place]. Pane l Fast * Collection Date 07/28/2024 [...] AM)?ValueReference Range?Hemoglobin A1c %5.5<6.0 - %?Estimated Average Qwolbkj879- mg/dL * Examination: ??? : ???Ears:Normal Femur:Normal [...] :His reflux symptoms are well controlled with zrxu-mzc-dxnxvmy medication and no change in his regimen as needed.???6.?Cornea replaced by transplant - Z94.7???Notes :He has very little vision in the right eye. His vision is normal in the opposite eye and he sees the cadd technician regularly. 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 He says he has no vision in the right eye.???8.?Thyroid nodule - E04.1???Notes :This was noted last Jun jenny ultrasound. A repeat ultrasound was ordered and an endocrine consult.??? Plan: * Treatment: 2.?Others? Referral To:[facility]??Orthopedic Surgery ?Reason:Consult and Treat Bilateral Hip Pain [...] Levine MD Date:?07/31 Generated for Doris mayer/Cassia/Daríoitting on:?10/28/2024 05:56 PM EST History and Physical Notes * HPI [...] Notes Referral Date Referring Provider Referred Provider Guerda stone 08/17/2024 Ricky Levine [facility], Orthopedic Surgeons Consult and Treat Bilateral Hip Pain
--- OUTSIDE RECORDS SUMMARY | 2024-10-28 17:57 | XMS_ITS ---
Author Organization Ricky Levine III, MD Address [address] [place] [address] [place] [address] Care Team Providers Care Optical Sales Associate Name Role Phone Ricky Levine Primary [...] Problem Status W/U Status Risk Notes Problem [id number] Low back pain, unspecified (M54.50) Active confirmed Problem [id number] Pain in right leg (M79.604) Active confirmed Problem 697225440 Pain in left leg (M79.605) Active confirmed Problem 08543760 Degeneration of intervertebral disc of lumbar region, unspecified whether pain present (M51.369) Active confirmed He has bilateral quadriceps pain which are likely from his spine. He was given a trial of dexamethasone.T he pain in his back has become very severe. In addition to the dexamethasone a surgical solution will be sought. I have requested an of the lumbar spine. Problem [id number] Myalgia, multiple sites (M79.18) Active confirmed His CPK and LDH are normal. He will stop his simvastatin for 1 week and then call the office and we will discuss it. Vital Signs Temperature 97.0 degrees Fahrenheit 10/19/19 25 Blood pressure systolic 140 mm Hg 10/19/19 25 Blood pressure diastolic 84 mm Hg 025 Heart Rate 68 /min 10/19/2024 Height 72 in 10/19/2024 Weight 291 lbs 10/19/2024 BMI 39.46 kg/m2 10/19/2024 Encounters Encounter Location Date Provider Diagnosis Ricky Levine III, MD [address] [place] [address] [address] [facility] [place] [address] 10/19/2024 Ricky Levine Degeneration of intervertebral disc [...] the opposite eye and he sees the tip cutter regularly. He reports today that his vision [...] His reflux symptoms are well controlled with cjdm-vzr-drboqxm medication and no change in his regimen [...] 30 MG TAKE 1 CAPSULE BY [facility] TWICE A DAY Simvastatin 40 MG TAKE [...] DAY IN THE MORNING FOR 30 DAYS Pending Test Test Name Order Date MRI LUMBAR SPINE NO CONTRAST 10/19/2024 Next Appt Details Follow Up: 3 Weeks, Three we eks from now, Reason: Telehealth, To discuss the findings and recommendations of the matcher offbearer Provider Name:Ricky Levine, 11/11/2024 11:15:00 AM, [address] [facility] [address], [place], [address], Provider Name:Ricky Levine, 07/29/2025 10:00:00 AM, [address] [place] [address] [address], [place], [address], Progress Notes * Lev CHAMPION SrDOB: [birth year] (74 yo M)Acc No.[id number]:10/19/2024 Progress Notes Patient:?Lev CHAMPION Sr Provider:?Ricky Levine MD :1950???Age:74 Y???Sex:Male Dustin e:10/19/2024 Address:[address] [place] [address] Subjective: * Chief Complaints: * ???Quadriceps muscle painLow back painHypertensionDepressionGERD * HPI: ???COVID-19 Screening:?Questions?Have you had any new onset fever, chills, cough, congestion, sore throat, shortness of breath, muscle aches??No ???:?The patient, a 74-year-old male, presented with chronic [...] muscle aches. His x-rays show mild degenerative changes.? He has been to orthopedics who sent him to a physiatry us, Dr. Liliana Martel at [facility].He has an appointment with her November 05, 2024. * ROS:?General/Constitutional:?pain?Both quadriceps muscles, low back.?Chills?denies.?Fatigue?admits.?Fever?denies.?ENT:?Decreased hearing?denies.?Respiratory:?Cough?denies.?Cardiovascular:?Chest pain with exertion?denies.?Dyspnea on exertion?denies.?Shortness of breath?denies.?Gastrointestinal:?Constipation?occasional.?Decreased appetite?denies.?Diarrhea?denies.?Heartburn?denies.?Nausea?denies.?Rectal bleeding?denies.?Vomiting?denies.?Hematology:?bruising?denies.?petechiae?denies.?Swollen glands?none have been noted.?Genitourinary:?Frequent urination?once a night.?Musculoskeletal:?Muscle aches?denies.?Painful joints?denies.?Sciatica?denies.?Weakness?denies.?Skin:?Itching?denies.?Rash?denies.?Skin lesion(s)?denies.?Neurologic:?Difficulty speaking?denies.?Dizziness?denies.?Headache?denies.?Low back pain?that is chronic.?Psychiatric:?Depressed mood?which is mild.? * Medical History:? * [...] disorder or addiction. * Social History:?Tobacco Use:?Tobacco Control (Standard)?Tobacco use:?Nonsmoker ?Additional Findings: Tobacco non-user?Aggressive nonsmoker ???He has been to [place] for many years. He retired from the [employer] in [place] at age 61. He was born in [place], [place]. He has one son. {'Living situation': [...] All ergyno[Allergies Verified] Objective: * Vitals:?Ht: 72, Wt:291, BMI: 39.46, BP:140/84, HR:68, Temp:97.0, Wt-k. * ???Past Orders: ???Lab:Hemoglobin A1c (Order Date - 07/20/2024) (Collection Date & Time - 07/20/2024 08:17 AM) ? Value Reference Range ?Hemoglobin A1c % 5.5 <6. 0 - % ?Estimated Average Glucose 111 - mg/dL Lab:Prostate Specific [...] May have water,PLEASE FAX COMPLETED RESULTS TO [phone] * Lab:[facility] * Collection Date 07/28/2024 07/20/2024 [...] 172 (Ref Range: 118-273 U/L) * Examination: ???General Examination: ?GENERAL APPEARANCE:?pleasant, well nourished, well developed, in no acute distress, calm and relaxed, obese, man.?HEAD:?atraumatic, normocephalic.?EYES:?eomi, perrla, anicteric, conjugate, Left cornea heavily scarred and vision impaired.?EARS:?normal.?NOSE:?septum intact.?ORAL CAVITY:?normal, unremarkable.?NECK/THYROID:?no jugular venous distention, no carotid bruit, thyroid normal.?LYMPH NODES:?no enlarged lymph nodes,spleen normal.?SKIN:?no suspicious lesions, anicteric.?HEART:?no clicks, gallops, murmurs, or rubs, regular rhythm, S1, S2 normal, no s3, or vascular bruits.?LUNGS:?clear to auscultation .?BREASTS:??no masses palpable bilaterally.?ABDOMEN:?bowel sounds normal, no ascites, no organomegaly, no mass.?RECTAL EXAM:?not examined.?MUSCULOSKELETAL:?extremities unremarkable, no clubbing, cyanosis or edema, Quadriceps muscles are unremarkable, severedecreased range of motion lumbar spine with significant bilateral muscle spasm.?PERIPHERAL PULSES:?normal.?NEUROLOGIC:?alert and oriented, cranial nerves 2-12 grossly intact, deep tendon reflexes 2+ symmetrical, motor strength normal upper and lower extremities, sensory exam intact.?PSYCH:?alert, oriented, anxious appearing, mood depressed, cognitive function intact.? Assessment: * Assessment: 1.?Degeneration of intervert ebral disc of lumbar region, unspecified whether pain present - M51.369 (Primary)???Notes :He has bilateral quadriceps pain which are likely from his spine.? He was given a trial of dexamethasone.The pain in his back has become very severe.? In addition to the dexamethasone a surgical solution will be sought.? I have requested an of the lumbar spine.???2.?Other and unspecified hyperlipidemia - E78.5???Notes :His triglycerides are elevated but his total cholesterol is acceptable at 194. I recommended a healthy diet and aggressive weight loss combined with exercise. 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 His vision is normal in the opposite eye and he sees the tip cutter regularly. He reports today that his vision in the left eye is adequate and normal.???4.?Depressive disorder, not elsewhere classified - F32.9???Notes :He is tolerating citalopram well without side effects and will be continued. He feels discouraged about his difficulty losing weight and immobility. We discussed this at length today. He declined a referral to the weight loss program but I will continue in this direction.???5.?Essential hypertension - I10???Notes :His blood prressure is 140/84. No change in his medication was made. I recommended aggressive weight loss and sodium restriction combined with regular physical activity and a reduced calorie diet low in sodium and animal fat.???6.?GERD (gastroesophageal reflux disease) - K21.9???Notes :His reflux symptoms are well controlled with vbxv-yqt-rqmguic medication and no change in his regimen as needed.???7.?BPH (benign prostatic hyperplasia) - N40.0???Notes :He rises from sleep once and sometimes twice a night to urinate. We have discussed lifestyle modification as a way to reduce nocturia.???8.?Myalgia, multiple sites - M79.18???Notes :His CPK and LDH are normal.? He will stop his simvastatin for 1 week and then call the office and we will discuss it.??? Plan: * Treatment: 2.?Others? Continue Citalopram Hydrobromide Tablet, 40 MG, TAKE 1 TABLET BY MOUTH EVERY DAY;?Continue Centrum Silver Tablet, -, Orally;?Continue Triamterene-HCTZ Tablet, 37.5-25 MG, TAKE 1 TABLET BY MOUTH EVERY DAY IN THE MORNING FOR 30 DAYS;?Continue Metoprolol Succinate ER Tablet Extended Release 24 Hour, 25 MG, TAKE 1 TABLET BY MOUTH EVERY DAY FOR 90 DAYS;?Continue Felodipine ER Tablet Extended Release 24 Hour, 10 MG, TAKE 1 TABLET BY MOUTH EVERY DAY FOR 90 DAYS;?Continue Lansoprazole Capsule Delayed Release, 30 MG, TAKE 1 CAPSULE BY MOUTH TWICE A DAY;?Continue Simvastatin Tablet, 40 MG, TAKE 1 TABLET BY MOUTH EVERYDAY AT BEDTIME.?? * Procedure Codes:? * Preventive Medicine:? ??Counseling:?Care [...] reason not done * Follow Up:?3 Weeks, Three we eks from now (Reason: Telehealth, To discuss the findings and recommendations of the matcher offbearer) * Images: * Sign off status: Completed true * Provider:?Ricky Levine MD Date:?10/01 Generated for Doris mayer/Cassia/Daríoitting on:?10/28/2024 05:57 PM EST History and Physical Notes * [...]
--- OUTSIDE RECORDS SUMMARY | 2024-10-28 17:57 | XMS_ITS ---
Author Organization Ricky Levien III, MD Address [address] [place] [address] [place] [address] Care Team Providers Care Furnace Attendant Name Role Phone Ricky Levine Primary Care Provider Allergies Allergen (clinical drug ingredient) Drug/Non Drug Allergy documented on EMR Reaction Allergy Type Onset Date Status No Known Drug Allergy Unknown Drug Allergy Active Results Component Value Reference Range Notes Lipid Panel Reviewed date:08/03/2024 05:36:17 AM Interpretation: Performing Lab:[facility], [address] [place] [id number] Notes/Report: Triglycerides 199 <150 mg/dL Desirable Triglyceride: [...] date:10/06/2024 04:07:01 PM Interpretation: Performing Lab: Notes/Report: [facility] [address] [place] [address] [place] [address] XRay Report Signed Patient: Lev Champion MR#: [id number] 7 : 1950 Acct:[id number] Age/Sex: 74 / M ADM Date: 07/24/24 Loc: HO.HMGCX Attending Dr: Ricky Levine MD Ordering Physician: Ricky Levine MD Date of Service: 07/24/24 Procedure(s): XR hip CLAUDIO min 3V w/wo pel Accession Number(s): [id number] cc: Ricky Levine MD EXAMINATION: XR BILATERAL [...] the RIGHT humeral neck. Electronically signed by: eSra Smith MD 10/06/2024 05:55 AM EST Dictated By: Sear Smith MD Signed By: <Electronically signed by Sera Smith MD in OV> 10/06/24 0555 DD/ 1216 TD/TT: 07/24/24 1226 Pediatric Physical Therapy Assistant: [facility] Adult [facility] [address] [place] [address] [place] [address] XRay Report Signed Patient: Lizzette Champion MR#: [id number] 7 : 1950 Acct:[id number] Age/Sex: 74 / M ADM Date: 07/24/24 Loc: HO.HMGCX Attending Dr: Ricky Levine MD Ordering Physician: Ricky Levine MD Date of Service: 07/24/24 Procedure(s): XR hip CLAUDIO min 3V w/wo pel Accession Number(s): [id number] cc: Ricky Levine MD EXAMINATION: XR BILATERAL [...] by: Sera Smith MD 10/06/2024 05:55 AM [facility] Dictated By: Sera Smith MD Signed By: <Electronically signed by Sera Smith MD in OV> 10/06/24 0555 DD/ 1216 TD/TT: 07/24/24 1226 Pediatric Physical Therapy Assistant: XR lumbar spine 2-3V Reviewed date:10/06/2024 04:07:01 PM Interpretation: Performing Lab: Notes/Report: [facility] Adult [facility] [address] [facility] [place] [address] XRay Report Signed Patient: Lev Champion MR#: [id number] 7 : 1950 Acct:[id number] Age/Sex: 74 / M ADM Date: 07/24/24 Loc: HO.HMGCX Attending Dr: Ricky Levine MD Ordering Physician: Ricky Levine MD Date of Service: 07/24/24 Procedure(s): XR lumbar spine 2-3V Accession Number(s): [id number] cc: Ricky Levine MD EXAMINATION: XR LUMBAR [...] Smith MD in OV> 10/06/24 0542 DD/ 15 TD/TT: 07/24/24 1226 Pediatric Physical Therapy Assistant: [facility] [address] [place] [address] [place] [address] XRay Report Signed Patient: Lizzette Champion MR#: [id number] 7 : 1950 Acct:[id number] Age/Sex: 74 / M ADM Date: 07/24/24 Loc: HO.HMGCX Attending Dr: Ricky Levine MD Ordering Physician: Ricky Levine MD Date of Service: 07/24/24 Procedure(s): XR lum bar spine 2-3V Accession Number(s): [id number] cc: Ricky Levine MD EXAMINATION: XR LUMBAR [...] 10/06/24 0542 DD/ 1216 TD/TT: 07/24/24 1226 Pediatric Physical Therapy Assistant: REASON FOR VISIT Annual Exam Medications Medication [...] Date Provider Diagnosis Ricky Levine III, MD [address] [place] [address] [place] [address] 07/24/2024 Ricky Levine Other and unspecifie d [...] His reflux symptoms are well controlled with rcwc-dlr-gdvpfxo medication and no change in his regimen [...] aches and hip pain. Provider Name:Ricky Levine, 11/11/2024 11:15:00 AM, [address] [place] [address] [address], [place], [address], Provider Name:Ricky Levine, 07/29/2025 10:00:00 AM, [address] [place] [address] [address], [place], [address], Progress Notes * RHINAEUGENE Lev SrDOB: [birth year] (74 yo M)Acc No.[id number]:07/24/2024 Progress Notes Patient:?Lev CHAMPION Sr Provider:?Ricky Levine MD :1950???Age:74 Y???Sex:Male Dustin e:07/24/2024 Address:[address] [place], [place] [id number] Subjective: * Chief Complaints: * ???Annual Exam [...] recent biopsy on his neck by a construction electrician, which was diagnosed as basal cell carcinoma. [...] for many years. He retired from the [employer] in [place] at age 61. He was born in [place], [place]. He has one son. {'Living situation': [...] AM)?ValueReference Range?Hemoglobin A1c %5.5<6.0 - %?Estimated Average Ijdtkro304- mg/dL * Lab:Prostate Specific Antige n * [...] 40?L (Ref Range: >40 mg/dL) * Lab:[facility] [place] * Collection Date 07/20/2024 [...] :His reflux symptoms are well controlled with gpph-qqr-okadlgo medication and no change in his regimen [...] Levine MD Date:?07/01 Generated for Doris mayer/Cassia/eTransmitting on:?10/28/2024 05:56 PM EST History and Physical [...] had two or more falls in the st year?: No Fall Risk Assessment:: No falls in the p year COVID-19 Screening Questions Have you had [...] christa,spleen normal RECTAL EXAM: not examined, Colono scoptomi December 16, 2023 PSYCH: alert, oriented ORAL CAVITY: normal, unremarkable
== END 2024-10-28 17:37 | disposition home or self-care (01) ==
LOC: HO.MRI 17:36
PROVIDERS: PCP Internal Medicine Medical Oncology; Visit Provider Internal Medicine Medical Oncology
DX: M51.86 Other intervertebral disc disorders, lumbar region (principal)
CPT/HCPCS: 72148

== ENCOUNTER → 2024-10-28 17:43 | Outpatient (BNV) | payer MEDICARE, SELFPAY | PROVIDERS: PCP Internal Medicine Medical Oncology; Visit Provider Radiology Diagnostic Radiology | DX: M47.895 Other spondylosis, thoracolumbar region (principal) | CPT/HCPCS: 72148 ==

== ENCOUNTER 2024-11-05 08:26 | Outpatient (AMB) | payer MEDICARE, SELFPAY ==
--- NOTE | 2024-11-05 08:27 | MHC.OFFVIS ---
Vital Signs 11/05/24 08:28 Height 6 ft 1 in Weight 290 lb BMI 38.3 Intake Visit Reasons: New Pt - Lower Back Pain Intake Note: Lev is a 74 year old male who presents today as a new patient with complaints of lower back pain. This patient was last seen and evaluated with Halley Flowers for his lower back and bilateral hip pain. A bone spur between the patient?s 12th thoracic vertebra and first lumbar vertebra. She has referred him to Physiatry to treat the lumbar spine as she believes his pain stems from the lower back. Patient reports that he has had ongoing pain for years now. Denies previous injury. His pain is felt across the bilateral lower back, with pain radiating down the hips to the knees. His pain increases with activity. Denies numbness and tingling. IMPRESSION: Multilevel thoracolumbar spondylosis more conspicuous at L4-5 resulting in central spinal canal and neuroforamina stenosis likely compressing the neural elements. Similar findings to a lesser extent L3-4 and L5-S1 levels. Allergies No Known Allergies Allergy (Verified 09/11/24 08:47) Medication List - Last Reconciled 11/05/24 by Liliana Arthur MD citalopram 40 mg PO DAILY felodipine ER 10 mg PO DAILY lansoprazole 30 mg PO DAILY metoprolol succinate ER 25 mg PO DAILY simvastatin 40 mg PO BEDTIME HPI Comments Details: Lower back pain, belt line, across the back and in the muscles , goes down more to left hip area lateral side down to thigh and knee. Does not go down lower the knee. No groin pain. Denies numbness. Denies weakness. No bladder/bowel changes. Worse with prolonged walking and relieved by sitting. Had lumbar MRI, ordered by PCP, by Dr. Levine. No PT recently. REPLACED BY [facility] Medical History History of stress test Detached retina, right Hypercholesteremia GERD (gastroesophageal reflux disease) Depression Anxiety Hypertension Surgical History Hx of eye surgery Hx of esophagogastroduodenoscopy Hx of colonoscopy Social History Patient Tobacco Use Status: Never used Tobacco Review of Systems Const All systems reviewed & are unremarkable except as noted in HPI and below Physical Exam Vital Signs: BMI result Body Mass Index 38.3 Constitutional: Patient appears to be in no acute distress, well nourished and well developed. Patient was appropriately conversant and oriented. Good historian. MSK: No specific abnormalities found on inspection of the spine and all extremities. No pain with palpation over the lumbar area. But indicated that most of his tenderness or lumbar paraspinals and quadratus lumborum. Right SI joint was tender. Left GT was slightly tender. Lumbar ROM was relatively full. Slump sit negative. FABERE test negative. Strength is 5/5 in all muscle groups tested. No increased tone noted. Neurological: Neurologic examination of the upper and lower extremities was nonfocal with intact sensation, muscle stretch reflexes and without focal motor deficits . Bowers?s negative bilaterally. Babinski was down going bilaterally. Clonus was negative. Gait is non-antalgic without loss of balance. Results Reviewed Results Reviewed: I independently reviewed the results of the following: Lumbar MRI reviewed with patient, moderate-mild stenosis L4-5 from lumbar facet and mild disc bulge. Ordering Physician: Ricky Levine MD Date of Service: 10/28/24 Procedure(s): MR lumbar spine wo con Accession Number(s): [id number] cc: Ricky Levine MD~ EXAMINATION: MR LUMBAR SPINE WITHOUT CONTRAST CLINICAL INFORMATION: Low back pain into both lower extremities. COMPARISON: None available. TECHNIQUE: MRI of the lumbar spine was obtained using routine sequences without contrast. FINDINGS: Last rib-bearing vertebra labeled T12. Mild bone marrow STIR signal within the endplates of L4-5. Multilevel marginal osteophyte formation, disc desiccation, endplate irregularity more conspicuous at L4-5 and to a lesser extent T11-12 and T12-L1. Bone marrow inhomogeneity. Modic type I and type II endplate changes at L4-5 with associated Schmorl nodes. The alignment is normal. Conus medullaris ends at pedicle of L1 with normal signal. T11-12: Broad-based disc bulging. No neuroforamina stenosis. T12-L1: No disc herniation. No neuroforamina stenosis. L1-2: Broad-based disc bulging. Facet joint hypertrophy. No compression upon neural elements. L2-3: Broad-based disc bulging. Facet joint and ligamentum flavum hypertrophy. Bilateral neuroforamina narrowing, left greater than the right. L3-4: Broad-based disc bulging. Bilateral facet joint and ligamentum flavum hypertrophy. Reduced AP diameter of the thecal sac and the neural foramina likely encroaching the exiting nerve roots. L4-5: Broad-based disc bulging. Facet joint and ligamentum flavum hypertrophy. CSF effacement of the thecal sac decreased AP diameter of the thecal sac and the neural foramina encroaching likely compressing the neural elements both thecal sac and the exiting nerve roots. L5-S1: Broad-based disc bulging. Facet joint and ligamentum flavum hypertrophy. Prominent epidural fat in a circumferential fashion. Decreased AP diameter of the cul-de-sac and the neuroforamina. No prevertebral compartment hematoma, mass or fluid collection. Probable cystic lesions in the parapelvic regions both kidneys. MR/MR lumbar spine wo con IMPRESSION: Multilevel thoracolumbar spondylosis more conspicuous at L4-5 resulting in central spinal canal and neuroforamina stenosis likely compressing the neural elements. Similar findings to a lesser extent L3-4 and L5-S1 levels. Electronically signed by: Enoch Hayes MD 10/29/2024 10:07 AM [facility] Ordering Physician: Ricky Levine MD Date of Service: 07/24/24 Procedure(s): XR hip CLAUDIO min 3V w/wo pel Accession Number(s): [id number] cc: Ricky Levine MD~ EXAMINATION: XR BILATERAL HIPS 4 VIEWS CLINICAL INFORMATION: Pain in unspecified hip M25.559. COMPARISON: None available TECHNIQUE: AP view of the pelvis and single views of each hip were obtained. FINDINGS: Diffuse demineralization. Advanced degenerative changes in the LEFT hip with joint space narrowing and hypertrophic change. RIGHT hip: Advanced degenerative changes in the RIGHT hip with joint space narrowing and hypertrophic change. Amorphous calcifications in the soft tissues with examples inferior to the RIGHT ischial tuberosity and lateral to the RIGHT humeral neck. Small pelvic calcifications are possibly phleboliths. XR/XR hip CLAUDIO min 3V w/wo pel IMPRESSION: 1. Advanced degenerative changes bilateral hips. 2. Amorphous calcifications in the soft tissues with examples inferior to the RIGHT ischial tuberosity and lateral to the RIGHT humeral neck. Electronically signed by: Sera Smith MD 10/06/2024 05:55 AM EST I reviewed records from the following: Ortho Assessment & Plan Assessment & Plan (1) Myofascial pain: Code(s): M79.18 - Myalgia, other site Category: Medical (2) Sacroiliac joint dysfunction of both sides: Code(s): M53.3 - Sacrococcygeal disorders, not elsewhere classified Category: Medical (3) Trochanteric bursitis, left hip: Code(s): M70.62 - Trochanteric bursitis, left hip Category: Medical (4) Lumbar spondylosis: Code(s): M47.816 - Spondylosis without myelopathy or radiculopathy, lumbar region Category: Medical (5) Osteoarthritis, hip, bilateral: Code(s): M16.0 - Bilateral primary osteoarthritis of hip Category: Medical Qualifiers: Osteoarthritis type: primary Qualified Code(s): M16.0 - Bilateral primary osteoarthritis of hip Plan He has underlining lumbar spinal stenosis although denies claudication symptoms. Underlying advanced hip DJD bilateral. But most of his complaints are myofascial. Exam shows tenderness over SI joint and left GT. This prevents him from being much more active. We did talk about balancing activity versus rest. He is interested in physical therapy, referral placed. We talked briefly about possible local injections such as trigger point injection or trochanteric bursitis injection, if he is not improve with physical therapy. He is willing to consider. Assessment and plan discussed with patient, and patient was agreeable. All questions were answered thoroughly. Follow up 6-8 weeks, or after PT. Liliana Arthur MD, DICK Board Certified, [place] [employer] and Rehabilitation (ABPMR) Board Certified, [place] [employer] Electro[employer] (ABEM) Orders: Orders PT Evaluation and Treatment Today M16.0 - Bilateral primary osteoarthritis of hip, M47.816 - Spondylosis without myelopathy or radiculopathy, lumbar region, M53.3 - Sacrococcygeal disorders, not elsewhere classified, M70.62 - Trochanteric bursitis, left hip, M79.18 - Myalgia, other site Coding Level of Care Code New Pt Level 4 (04399) Diagnoses Myofascial pain M79.18 Sacroiliac joint dysfunction of both sides M53.3 Trochanteric bursitis, left hip M70.62 Lumbar spondylosis M47.816 Primary osteoarthritis of both hips M16.0 Osteoarthritis type: primary
[2024-11-05 08:28] VITALS: BMI 38.3
== END 2024-11-05 09:12 | disposition home or self-care (01) ==
PROVIDERS: PCP Internal Medicine Medical Oncology; Visit Provider Physical Medicine & Rehabilitation
DX: M79.18 Myalgia, other site (principal); M53.3 Sacrococcygeal disorders, not elsewhere classified; M70.62 Trochanteric bursitis, left hip; M47.816 Spondylosis without myelopathy or radiculopathy, lumbar region; M16.0 Bilateral primary osteoarthritis of hip
CPT/HCPCS: 99203

== ENCOUNTER → 2024-11-05 08:26 | Outpatient (BNVA) | payer MEDICARE, SELFPAY | PROVIDERS: PCP Internal Medicine Medical Oncology; Visit Provider Physical Medicine & Rehabilitation | DX: M79.18 Myalgia, other site (principal); M53.3 Sacrococcygeal disorders, not elsewhere classified; M70.62 Trochanteric bursitis, left hip; M47.816 Spondylosis without myelopathy or radiculopathy, lumbar region; M16.0 Bilateral primary osteoarthritis of hip | CPT/HCPCS: 99202 ==

== ENCOUNTER 2024-12-11 08:58 | Outpatient (AMB) | payer MEDICARE, SELFPAY ==
--- NOTE | 2024-12-11 09:00 | HO.SPINEOV ---
Vital Signs 12/11/24 09:07 Height 6 ft 1 in Weight 285 lb BMI 37.6 Intake Visit Reasons: LBP Intake Note: Mr. washington is here today c/o low back pain that radiates down the legs. Java Developer Architect Required: No Allergies No Known Allergies Allergy (Verified 12/11/24 09:08) Physical Exam Vital Signs: BMI result Body Mass Index 37.6 Assessment & Plan Assessment & Plan (1) Trochanteric bursitis, left hip: Code(s): M70.62 - Trochanteric bursitis, left hip Category: Medical (2) Lumbar stenosis with neurogenic claudication: Code(s): M48.062 - Spinal stenosis, lumbar region with neurogenic claudication Category: Medical Plan Dear colleague Thank you for referring Lev Washington to the office today with a chief complaint of low back pain. 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 The pain has been going on for years in his progressive. The pain is located around the waist belt. The pain can radiate down the front of his thighs, left more than right with walking and standing. He can stand 10 minutes or walk less than a mi before he has to sit down. He tosses and turns in bed from left hip discomfort. He says he has a lot of arthritis in his left hip. He was seen by pain you spinous sports we started meloxicam and physical therapy. He maybe a candidate for lumbar injections in the future. He denies weakness or numbness PMH: Hypertension, hypercholesterolemia Medications: Felodipine, metoprolol, lansoprazole, citalopram, simvastatin, meloxicam Allergies: NKDA Social history: , retired. Nonsmoker Physical Exam: Pleasant male. Height 6'1 weight 285 lb. Hip examination shows pain of the left hip joint with endo and exorotation. There is pain on palpation over the left hip. Neurological exam is intact her motor sensation and reflexes. Radiological Studies: MRI done at [facility] on 10/28/2024 shows moderate L4-5 central and foraminal stenosis. This level also has Modic changes of the vertebral bodies. Impression/Plan: This gentleman seems to be suffering from neurogenic claudication with the left side more affected than the right side. However, there are also signs of left hip pathology. He is currently the care of pain you spinous sports to exhaust conservative management. I advised the patient to return to my clinic if these methods do not provide significant relief. Thank you for allowing me to participate in your patients care. total time spent was 50 minutes in counseling ,coordination of plan, personal review of imaging, surgical decision making and subsequent plan Ulysses Lyles MD, PhD Spine Fellowship Trained Neurosurgeon Director, [facility] Coding Level of Care Code New Pt Level 4 (68733) Diagnoses Trochanteric bursitis, left hip M70.62 Lumbar stenosis with neurogenic claudication M48.062
[2024-12-11 09:07] VITALS: BMI 37.6
--- OUTSIDE RECORDS SUMMARY | 2024-12-11 09:26 | XMS_ITS ---
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 He reports today that his vision in the left eye is adequate and normal. 11/11/2024 GERD (gastroesophageal reflux disease) (ICD-10 - K21.9) His reflux symptoms are well controlled with [id number]-[id number] medication and no change in his regimen [...] up on the patient's condition Provider Name:Ricky Levine, 12/15/2024 09:45:00 AM, [address] [place] [address] [address], [place], [address], Provider Name:Ricky Levine, 07/29/2025 10:00:00 AM, [address] [place] [address] [address], [place], [address], Progress Notes * Lev CHAMPION SrDOB: [birth year] (74 yo M)Acc No.[id number]:11/11/2024 Patient:?Lev CHAMPION Sr Provider:?Ricky Levine MD :1950???Age:74 Y???Sex:Male Dustin e:11/11/2024 Address:[address] [place] [address] Subjective: * Chief Complaints: * ???Worsening back painHypert ensionHyperlipidemiaDepressionCorneal transplant right eyeObesityThyroid nodules * HPI: ???:?Telehealth?Location of provider rendering services:?{...} [address] [place] [address] ?Location of patient:?address listed in demographics for today's visit ?Patient identification confirmed using:?Name, ?Telehealth method:?Telephone only. Patient not visible to care provider. ?Consent:?Patient verbally consented to treatment, Patient verbally consented to billing insurance company, Patient informed of any privacy concerns related to method of visit ?Total time spent with patient (mins)?15 ?The patient, a 74-year-old male, reported having seen [...] showed multilevel spondylosis and foraminal stenoses. * ROS:?General/Constitutional:?pain?Lumbar spine.?Chills?denies.?Fatigue?admits.?Fever?denies.?ENT:?Decreased hearing?denies.?Respiratory:?Cough?denies.?Cardiovascular:?Chest pain with exertion?denies.?Dyspnea on exertion?denies.?Shortness of breath?denies.?Gastrointestinal:?Constipation?occasional.?Decreased appetite?denies.?Diarrhea?denies.?Heartburn?denies.?Nausea?denies.?Rectal bleeding?denies.?Vomiting?denies.?Hematology:?bruising?denies.?petechiae?denies.?Swollen glands?none have been noted.?Genitourinary:?Frequent urination?twice a night.?Musculoskeletal:?Muscle aches?denies.?Painful joints?denies.?Sciatica?denies.?Weakness?denies.?Skin:?Itching?denies.?Rash?denies.?Skin lesion(s)?denies.?Neurologic:?Difficulty speaking?denies.?Dizziness?denies.?Headache?denies.?Low back pain?that is chronic.?Psychiatric:?Depressed mood?which is moderate.? * Medical History:? * Surgical History:?Corneal tr [...] for many years. He retired from the [employer] in [place] at age 61. He was born in [place], [place]. He has one son. {'Living situation': [...] Objective: * Vitals:?Ht: 72, Wt:291, BMI: 39.46, Ht-cm: 182.88, Wt-k. Assessment: * Assessment: 1.?Lumbar spondylosis - M47. 816 (Primary)???Notes :He continues to have worsening low back pain.? An MRI has shown multilevel spondylosis and degenerative changes.? There are multiple levels of foraminal narrowing. He has seen a neurosurgeon who found no surgical approach.? He has been referred to physiatry and pain management.???2.?Other and unspecified hyperlipidemia - E78.5???Notes :His triglycerides are elevated but his total cholesterol is acceptable at 194. I recommended a healthy diet and aggressive weight loss combined with exercise. No change in his medication was needed.???3.?Essential hypertension - I10???Notes :His blood prressure is 140/84. No change in his medication was made. I recommended aggressive weight loss and sodium restriction combined with regular physical activity and a reduced calorie diet low in sodium and animal fat.???4.?Depressive disorder, not elsewhere classified - F32.9???Notes :He is tolerating citalopram well without side effects and will be continued. He feels discouraged about his difficulty losing weight and immobility. We discussed this at length today. 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 His vision is normal in the opposite eye and he sees the machine icer regularly. 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 He says he has no vision in the right eye.???8.?Chronic idiopathic constipation - K59.04???Notes :The constipation is well controlled with medications. At this time.???9.?BPH (benign prostatic hyperplasia) - N40.0???Notes :He rises from sleep once and sometimes twice a night to urinate. We have discussed lifestyle modification as a way to reduce nocturia.???10.?Thyroid nodule - E04.1???Notes :This was noted last Junne jenny ultrasound. A repeat ultrasound was ordered and an endocrine consult.??? Plan: * Treatment: * Procedure Codes:? * Preventive Medicine:? ??Counseling:?Care goal follow-up plan:?Counseling for abnormal BMI given?Yes ?Above Normal BMI Follow-up?Dietary management education, guidance, and counseling, Dietary needs education, Exercise promotion: strength training * Follow Up:?3 Weeks, 3 weeks (Reason: ov no tests, Follow up on the patient's condition) * Images: * Sign off status: Completed true * Provider:?Ricky Levine MD Date:?10/31 Generated for Doris mayer/Cassia/eTransmitting on:?12/11/2024 09:26 AM EDT History and Physical Notes * HPI (History of Present Illness) Category Sub-Category Detail Notes Telehealth Location [facility]:: {...} [address] [facility] [address] Location of patient:: address listed in demographics [...]
--- OUTSIDE RECORDS SUMMARY | 2024-12-11 09:26 | XMS_ITS ---
Author Organization [facility] Address [address] [place] [address] Care Team Providers Care Launch Steward Name Role Phone Ricky Levine MD Primary Care Provider Unavailab Ricky Sheppard Unavailable [phone] REASON FOR VISIT screening,gerd Problems Problem Type SNOMED Code ICD Code Onset Dates Problem Status W/U Status Risk Notes Problem Diverticular disease of colon (573074839) Diverticulosis of large intestine without perforation or abscess without bleeding (K57.30) Active confirmed Problem Gastroesophageal reflux disease without esophagitis (344574904) Gastroesophageal reflux disease without esophagitis (K21.9) Active confirmed Encounters Encounter Location Date Provider Diagnosis [facility] [facility] [address] [place] [phone] 12/16/2023 Ricky Martinez Encounter for screen ing colonoscopy Z12.11 ; Colon polyps K63.5 ; Diverticulosis of large intestine without perforation or abscess without bleeding K57.30 ; Other hemorrhoids K64.8 ; Gastroesophageal reflux disease without esophagitis K21.9 and Hiatal hernia K44.9 Assessments Encounter Date Diagnosis (ICD Code) Assessment Notes Treatment Notes Treatment Clinical Notes Section Notes 12/16/2023 Encounter for screening colonoscopy (ICD-10 - Z12.11) 12/16/2023 Colon polyps (ICD-10 - K63.5) 12/16/2023 Diverticulosis of large intestine without perforation or abscess without bleeding (ICD-10 - K57.30) 12/16/2023 Other hemorrhoids (ICD-10 - K64.8) 12/16/2023 Gastroesophageal reflux disease without esophagitis (ICD-10 - K21.9) 12/16/2023 Hiatal hernia (ICD-10 - K44.9) Plan Of Treatment No Information Progress Notes * MARISA CHAMPION SrDOB: [birth year] (74 yo M)Acc No.[id number]:12/16/2023 EGD and COL/MAC Patient:?MARISA CHAMPION Sr Provider:?Ricky Martinez MD :1950???Age:73 Y???Sex:Male Dustin e:12/16/2023 Address:[address] [place], [place] [id number] Pcp:Ricky Levine MD Subjective: * Chief Complaints: * ???1. Screening,gerd. * Medical History:? Objective: * Vitals:? Assessment: * Assessment: 1.?Encounter for screening c olonoscopy - Z12.11 (Primary)???2.?Colon polyps - K63.5???3.?Diverticulosis of large intestine without perforation or abscess without bleeding - K57.30???4.?Other hemorrhoids - K64.8???5. Gastroesophageal reflux disease without esophagitis - K21.9???6.?Hiatal hernia - K44.9??? Plan: * Treatment: * Procedure Codes:?19289 COLON OSCOPY AND BIOPSY, Modifiers: 33 , 81029 UPPER GI ENDOSCOPY, BIOPSY * * The named appointment provid er may or may not be the originator of this progress note, and it is not deemed complete until electronically signed by the appointment provider. Sign off status: Pending * Provider:?Ricky Martinez MD Date:? 024 Generated for Doris mayer/Cassia/eTransmitting on:?12/11/2024 09:26 AM EDT
--- OUTSIDE RECORDS SUMMARY | 2024-12-11 09:26 | XMS_ITS ---
Author Organization Ricky Levine III, MD Address [address] [place] [address] [place] [address] Care Team Providers Care Back Strip Machine Operator Name Role Phone Ricky Levine Primary Care Provider Reason For Referral Reason [...] QUINONES Referred Provider Specialty Neurosurgery General Notes Maya Castro 12/04/2024 01:37:56 PM > Spoke with Aisha [...] Date Provider Diagnosis Ricky Levine III, MD [address] [place] [address] [place] [address] 12/04/2024 Ricky Levine Plan Of Treatment Referrals Referral Date Details 12/04/2024 12/04/2024, Urgent A ppointment Request Evaluate and Treat, MELODY QUINONES Next Appt Details Provider Name:Ricky Levine, 12/15/2024 09:45:00 AM, [address] [place] [address] [address], [place], [address], Provider Name:Ricky Levine, 07/29/2025 10:00:00 AM, [address] [place] [address] [address], [place], [address], Progress Notes * Lev CHAMPION SrDOB: [birth year] (74 yo M)Acc No.[id number]:12/04/2024 Patient:?Lev CHAMPION Sr :1950???Age:74 Y???Sex:Male Address:[address] [place] [address] Subjective: * Chief Complaints: * ???Referral to Dr. Quinones * Medical History:? * Surgical History:? * Hospitalization/Major Diagno stic Procedure:? * Medications:? Objective: * Vitals:? * Physical Examination:? Assessment: Plan: * Treatment: * Procedure Codes:? * * Date:? Consultation Request Notes Referral Date Referring Provider Referred Provider Not chase 12/04/2024 Ricky Levine FREDERIK Urgent A ppointment Request Evaluate and Treat
--- OUTSIDE RECORDS SUMMARY | 2024-12-11 09:26 | XMS_ITS ---
Author Organization [facility] Address [address] [place] [address] Care Team Providers [employer] Name Role Phone Ricky Levine MD Primary Care Provider UnavailRicky Beavers Unavailable [phone] Allergies No Known Allergies REASON FOR VISIT Patient presents today for a colon screening Medications Medication SIG (Take, Route, Frequency, Duration) [...] Once a day for 30 day(s) Active Social History Tobacco Use: Social History Observation Description Date Details (start date - stop date) Never Smoker NA - NA Tobacco Use/Smoking Question Answer Notes Patient is [...] Never (0 point) Points 1 Interpretation Negative Section Notes: Nonsmoker; no sig alcohol Problems Problem Type SNOMED Code ICD Code Onset Dates Problem Status W/U Status Risk Notes Problem 86460352 Constipation, unspecified constipation type (K59.00) Active confirmed Problem 617788751 Gastroesophageal reflux disease, unspecified whether esophagitis present (K21.9) Active confirmed Problem 927303559 Colon cancer screening (Z12.11) Active confirmed Vital Signs Temperature 96.8 degrees Fahrenheit 09/12/20 23 Blood pressure systolic 00 mm Hg 09/12/20 23 Blood pressure diastolic 00 mm Hg 023 Height 73 in 09/12/2023 Weight 293 lbs 09/12/2023 BMI 38.65 kg/m2 09/12/2023 Encounters Encounter Location Date Provider Diagnosis [facility] [address] [place] [address] 09/12/2023 Ricky Martinez Constipation, unspec ified constipation type K59.00 ; Gastroesophageal reflux disease, unspecified whether esophagitis present K21.9 and Colon cancer screening Z12.11 Assessments Encounter Date Diagnosis (ICD Code) Assessment Notes Treatment Notes Treatment Clinical Notes Section Notes 09/12/2023 Constipation, unspecified constipation type (ICD-10 - K59.00) Start using 2 Metamucil fiber pills with a lot of water once or twice a day to help with the constipation. You can use some daily Miralax to help with the constipation as well. Overall, Marisa appears well. He is not having any particularly worrisome symptoms from a GI standpoint. However, in regard to the chronic constipation and abdominal bloating I did recommend the addition of some fiber supplement such as Metamucil with plenty of water once or twice a day to see if I could help improve his bowel regimen and cut down on his symptoms of abdominal bloating. I also recommended he could add MiraLax regularly to help with his bowel movements as well. I did advise him to switch to a lactose-free milk to see if that helps cut down on his bloating and gas also. I did recommend a colonoscopy for 2023 given that it will be almost 10 years since his last exam. We did review the rationale for that in regard to colon cancer prevention. I also recommended an upper endoscopy on the same day given his long-standing history of reflux and need for a PPI so as to rule out a component of significant esophagitis, Hernandez's esophagus, and/or a hiatal hernia. Full consent was obtained from him for both procedures, including risks of bleeding and perforation. The procedures will be done with monitored anesthesia care. Of note, Marisa advised me that he recently saw Dr. Sylvester for evaluation of some discomfort at the level of the sternal notch. He advised me that Dr. Sylvester told him that this was probably from reflux and scheduled him for barium swallow. Since he'll be having the upper endoscopy with me I advised him to speak with Dr. Sylvester and see if it would be okay if he canceled the barium swallow. Marisa and his were comfortable with this plan. Thank you again for allowing me to participate in Marisa's care. I shall continue to keep you advised of his progress. 09/12/2023 Gastroesophageal reflux disease, unspecified whether esophagitis present (ICD-10 - K21.9) Check with Dr. Sylvester about cancelling the Barium swallow since you will be having the upper endoscopy with me Overall, Marisa appears well. He is not having any particularly worrisome symptoms from a GI standpoint. However, in regard to the chronic constipation and abdominal bloating I did recommend the addition of some fiber supplement such as Metamucil with plenty of water once or twice a day to see if I could help improve his bowel regimen and cut down on his symptoms of abdominal bloating. I also recommended he could add MiraLax regularly to help with his bowel movements as well. I did advise him to switch to a lactose-free milk to see if that helps cut down on his bloating and gas also. I did recommend a colonoscopy for 2023 given that it will be almost 10 years since his last exam. We did review the rationale for that in regard to colon cancer prevention. I also recommended an upper endoscopy on the same day given his long-standing history of reflux and need for a PPI so as to rule out a component of significant esophagitis, Hernandez's esophagus, and/or a hiatal hernia. Full consent was obtained from him for both procedures, including risks of bleeding and perforation. The procedures will be done with monitored anesthesia care. Of note, Marisa advised me that he recently saw Dr. Sylvester for evaluation of some discomfort at the level of the sternal notch. He advised me that Dr. Sylvester told him that this was probably from reflux and scheduled him for barium swallow. Since he'll be having the upper endoscopy with me I advised him to speak with Dr. Sylvester and see if it would be okay if he canceled the barium swallow. Marisa and his were comfortable with this plan. Thank you again for allowing me to participate in Marisa's care. I shall continue to keep you advised of his progress. 09/12/2023 Colon cancer screening (ICD-10 - Z12.11) Overall, Marisa appears well. He is not having any particularly worrisome symptoms from a GI standpoint. However, in regard to the chronic constipation and abdominal bloating I did recommend the addition of some fiber supplement such as Metamucil with plenty of water once or twice a day to see if I could help improve his bowel regimen and cut down on his symptoms of abdominal bloating. I also recommended he could add MiraLax regularly to help with his bowel movements as well. I did advise him to switch to a lactose-free milk to see if that helps cut down on his bloating and gas also. I did recommend a colonoscopy for 2023 given that it will be almost 10 years since his last exam. We did review the rationale for that in regard to colon cancer prevention. I also recommended an upper endoscopy on the same day given his long-standing history of reflux and need for a PPI so as to rule out a component of significant esophagitis, Hernandez's esophagus, and/or a hiatal hernia. Full consent was obtained from him for both procedures, including risks of bleeding and perforation. The procedures will be done with monitored anesthesia care. Of note, Marisa advised me that he recently saw Dr. Sylvester for evaluation of some discomfort at the level of the sternal notch. He advised me that Dr. Sylvester told him that this was probably from reflux and scheduled him for barium swallow. Since he'll be having the upper endoscopy with me I advised him to speak with Dr. Sylvester and see if it would be okay if he canceled the barium swallow. Marisa and his were comfortable with this plan. Thank you again for allowing me to participate in Marisa's care. I shall continue to keep you advised of his progress. Plan Of Treatment Treatment Notes Assessment Notes Constipation, unspecified constipation [...] will be having the upper endoscopy with me Future Test Test Name Order Date UPPER GI ENDOSCOPY 09/12/2023 COLONOSCOPY 09/12/2023 Next Appt Details Follow Up: prn, Reason: Progress Notes * MARISA CHAMPION SrDOB: [birth year] (73 yo M)Acc No.[id number]:09/12/2023 Progress Notes Patient:MARISA TYLER Provider:?Ricky Martinez MD :1950???Age:73 Y???Sex:Male Dustin e:09/12/2023 Address:[address] [place] [address] Pcp:Ricky Levine MD Subjective: * Chief Complaints: * ???Patient presents today fo r a colon screening * HPI: ???incontinence:? I saw Marisa in consultation today in regard to further evaluation of his chronic gastroesophageal reflux, constipation, and discussion of colorectal cancer screening. He was accompanied by his . ?I last saw Marisa in January of 2014, at which time he underwent a negative screening colonoscopy other than a hyperplastic polyp. He presently feels well in general. However, he has been troubled by a long-standing history of constipation with small and hard bowel movements. He describes a fair amount of bloating during the day as well. He denies any hematochezia nor melena. ?He has been using a PPI for at least 2 or 3 years in regard to chronic reflux and heartburn. He does report that this works fairly well for him. He denies any dysphagia, anorexia, nausea, vomiting, nor early satiety. ?Other than abdominal bloating, he denies any other abdominal pains. He denies any jaundice nor weight loss. He denies any known family history of colon cancer. ?Laboratories in June revealed a normal CBC, chemistries, and LFTs. * ROS:?General/Constitutional:?Change in appetite?denies.?Chills?denies.?Fatigue?denies.?Ophthalmologic:?Patient denies? Negative..?ENT:?Patient denies?Negative..?Respiratory:?Patient denies?No coughing/hemoptysis..?Cardiovascular:?Patient denies? No chest pain/orthopnea..?Gastrointestinal:?Comments?See HPI for details.?Genitourinary:?Patient denies? No dysuria/hematuria..?Musculoskeletal:?Patient denies? No specific arthralgias/myalgias..?Skin:?Patient denies?No rash/pruritus..?Neurologic:?Patient denies? No headaches/seizures..?Psychiatric:?Patient denies?Negative..? * Medical History:? * Surgical History:?Several ey e surgeries on the right * Hospitalization/Major Diagno stic Procedure:?No Hospitalization History. * Family History:?Father: dece ased.?Mother: .? No colrectal cancer. * Social History:?Tobacco Use:?Tobacco Use/Smoking?Patient is a?nonsmoker.?Drugs/Alcohol:?Alcohol Screen?Did you have a drink containing alcohol in the past year??Yes,?How often did you have a drink containing alcohol in the past year??Monthly or less (1 point), How many drinks did you have on a typical day when you were drinking in the past year??1 or 2 drinks (0 point),?How often did you have 6 or more drinks on one occasion in the past year??Never (0 point),?Points?1,?Interpretation?Negative.?Miscellaneous:?Marital status: . Occupation: retired. ???Nonsmoker; no sig alcohol. * Medications:?TakingSimvastat in 40 MG Tablet 1 tablet in the evening Orally Once a dayCentrum Silver - Tablet as directed Orally Felodipine ER 10mg Lansoprazole 30 MG Capsule Delayed Release Oral Citalopram Hydrobromide 40 MG Tablet Oral Metoprolol Succinate ER 25 MG Tablet Extended Release 24 Hour Oral Taking Simvastatin 40 MG Tablet 1 tablet in the evening Orally Once a dayTaking Centrum Silver - Tablet as directed Orally Taking Felodipine ER 10mg Taking Lansoprazole 30 MG Capsule Delayed Release Oral Taking Citalopram Hydrobromide 40 MG Tablet Oral Taking Metoprolol Succinate ER 25 MG Tablet Extended Release 24 Hour Oral DiscontinuedSimvastatin 40mg Citalopram & Diet Manage Prod 20mg Omeprazole 20 mg OTC 1 prn Suprep Bowel Prep 1 kit Solution as directed Orally as directedMedication List reviewed and reconciled with the patientDiscontinued Simvastatin 40mg Discontinued Citalopram & Diet Manage Prod 20mg Discontinued Omeprazole 20 mg OTC 1 prn Discontinued Suprep Bowel Prep 1 kit Solution as directed Orally as directedMedication List reviewed and reconciled with the patient * Allergies:?N.K.D.A.yes[Aller gies Verified] Objective: * Vitals:?Wt: 293 lbs, Ht: 73 in, BMI:38.65 Index, BP: 00/00 mm Hg, Temp: 96.8. * Examination: ???General Examination: ?GENERAL APPEARANCE:?pleasant, well nourished, well developed, in no acute distress.?EYES:?sclera non-icteric.?ORAL CAVITY:?mucosa moist.?NECK/THYROID:?no cervical lymphadenopathy, neck supple.?SKIN:?nonjaundiced, no spider angiomata..?HEART:?S1, S2 normal.?LUNGS:?clear to auscultation bilaterally.?ABDOMEN:?normal bowel sounds, no guarding or rigidity, no hepatosplenomegaly, no masses palpable, soft, nontender, nondistended..?EXTREMITIES:?no edema.?NEUROLOGIC:?alert and oriented.? Assessment: * Assessment: 1.?Constipation, unspecified constipation type - K59.00 (Primary)?2.?Gastroesophageal reflux disease, unspecified whether esophagitis present - K21.9?3.?Colon cancer screening - Z12.11? Overall, Marisa appears well . He is not having any particularly worrisome symptoms from a GI standpoint. However, in regard to the chronic constipation and abdominal bloating I did recommend the addition of some fiber supplement such as Metamucil with plenty of water once or twice a day to see if I could help improve his bowel regimen and cut down on his symptoms of abdominal bloating. I also recommended he could add MiraLax regularly to help with his bowel movements as well. I did advise him to switch to a lactose-free milk to see if that helps cut down on his bloating and gas also. I did recommend a colonoscopy for 2023 given that it will be almost 10 years since his last exam. We did review the rationale for that in regard to colon cancer prevention. I also recommended an upper endoscopy on the same day given his long-standing history of reflux and need for a PPI so as to rule out a component of significant esophagitis, Hernandez's esophagus, and/or a hiatal hernia. Full consent was obtained from him for both procedures, including risks of bleeding and perforation. The procedures will be done with monitored anesthesia care. Of note, Marisa advised me that he recently saw Dr. Sylvester for evaluation of some discomfort at the level of the sternal notch. He advised me that Dr. Sylvester told him that this was probably from reflux and scheduled him for barium swallow. Since he'll be having the upper endoscopy with me I advised him to speak with Dr. Sylvester and see if it would be okay if he canceled the barium swallow. Marisa and his were comfortable with this plan. Thank you again for allowing me to participate in Marisa's care. I shall continue to keep you advised of his progress. Plan: * Treatment: 2.?Gastroesophageal reflux d isease, unspecified whether esophagitis present?Procedure: UPPER GI ENDOSCOPY (Ordered for 09/12/2023) Notes: Check with Dr. Sylvester about cancelling the Barium swallow since you will be having the upper endoscopy with me.??3.?Colon cancer screening?Procedure: COLONOSCOPY (Ordered for 09/12/2023)* with MACsched for 12/16/23 at 8:30 ammiralax , 6 dulcolax * Procedure Codes:?3017F COLOR ECTAL CA SCREEN DOC [id number] TOBACCO [id number] BP SCR NOT PRFRM REC REASON NOS * Follow Up:?prn * * Sign off status: Completed true * Provider:?Ricky Martinez MD Date:? 023 Generated for Arpitai leyla/Cassia/eTransmitting on:?12/11/2024 09:26 AM EDT History and Physical Notes * HPI (History of Present Illness) Category Sub-Category Detail Notes Category Not es incontinence I saw Marisa in consultation today in regard to further evaluation of his chronic gastroesophageal reflux, constipation, and discussion of colorectal cancer screening. He was accompanied by his . I last saw Marisa in January of 2014, at which time he underwent a negative screening colonoscopy other than a hyperplastic polyp. He presently feels well in general. However, he has been troubled by a long-standing history of constipation with small and hard bowel movements. He describes a fair amount of bloating during the day as well. He denies any hematochezia nor melena. He has been using a PPI for at least 2 or 3 years in regard to chronic reflux and heartburn. He does report that this works fairly well for him. He denies any dysphagia, anorexia, nausea, vomiting, nor early satiety. Other than abdominal bloating, he denies any other abdominal pains. He denies any jaundice nor weight loss. He denies any known family history of colon cancer. Laboratories in June revealed a normal CBC, chemistries, and LFTs. Examination Category Sub-Category Detail Notes Category Not es General Examination GENERAL APPEARANCE: pleasant , well [...]
--- OUTSIDE RECORDS SUMMARY | 2024-12-11 09:27 | XMS_ITS ---
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 Name Role Phone Ricky Levine Primary Care Provider [phone] Allergies Allergen (clinical drug ingredient) Drug/Non Drug [...] Provider Speciality Internal M edicine Referred Provider [facility] Referred Provider Specialty Physical Med icine General Notes Leora Lion CMA 12/03 09:14:04 AM > ref/demo/x rays faxed to [facility] and pt made aware of this, Leora Lion [facility] 12/07/2024 09:37:02 AM > Office called patient [...] ER 10 MG TAKE 1 TABLET BY [facility] EVERY DAY FOR 90 DAYS Active Simvastatin [...] Problem Status W/U Status Risk Notes Problem 148413131 Obesity (E66.9) Active confirmed His body mass index is 38. He has lost 4 pounds. We have discussed diet and nutrition. We reviewed his weight loss strategy. Vital Signs Temperature 97.2 degrees Fahrenheit 12/02/19 25 Blood pressure systolic 133 mm Hg 12/02/19 25 Blood pressure diastolic 76 mm Hg 025 Heart Rate 61 /min 12/01/2024 Height 72 in 12/01/2024 Weight 287 lbs 12/01/2024 BMI 38.92 kg/m2 12/01/2024 Encounters Encounter Location Date Provider Diagnosis Ricky Levine III, MD [address] [place] [address] [place] [address] 12/01/2024 Ricky Levine Obesity E66.9 ; Depressive [...] His reflux symptoms are well controlled with wpeu-zts-vvedrnk medication and no change in his regimen [...] the opposite eye and he sees the radiology supervisor regularly. He reports today that his vision [...] 30 MG TAKE 1 CAPSULE BY [facility] TWICE A DAY Felodipine ER 10 MG [...] back pain MRI showed DJD and osteophytes, [facility] Next Appt Details Follow Up: 2 Weeks, Reason: ov no tests ref to [facility] Provider Name:Ricky Levine, 12/15/2024 09:45:00 AM, [address] [place] [address] [address], [place], [address], Provider Name:Ricky Nolandrne, 07/29/2025 10:00:00 AM, [address] [place] [address] [address], [place], [address], Progress Notes * Lev CHAMPION SrDOB: [birth year] (74 yo M)Acc No.[id number]:12/01/2024 Progress Notes Patient:?Lev CHAMPION Sr Provider:?Ricky Levine MD :1950???Age:74 Y???Sex:Male Dustin e:12/01/2024 Address:[address] [place] [address] Subjective: * Chief Complaints: * ???Chronic low back painDege nerative disc disease lumbar spineHypertensionDepressionGERDLoss of vision rightObesityBenign prostatic hypertrophyThyroid nodule * HPI: ???COVID-19 Screening:?Questions?Have you had any new onset fever, chills, cough, congestion, sore throat, shortness of breath, muscle aches??No ???:? The patient, Lev, a 74-year-old male, presented with a history of chronic back pain. He reported experiencing muscle spasms along his spine, which he described as quite painful. The pain is constant and is not associated with any specific activity. 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 The patient had an MRI of his back a few weeks ago, which revealed age-related changes in the bones, worn-out discs, and bone spurs. However, there was nothing that warranted surgery. The patient also reported having a bad hip and knee, which further limit his mobility. * ROS:?General/Constitutional:?pain?Lumbar spine.?Chills?denies.?Fatigue?admits.?Fever?denies.?ENT:?Decreased hearing?denies.?Respiratory:?Cough?denies.?Cardiovascular:?Chest pain with exertion?denies.?Dyspnea on exertion?denies.?Shortness of breath?denies.?Gastrointestinal:?Constipation?occasional.?Decreased appetite?denies.?Diarrhea?denies.?Heartburn?controlled with medications.?Nausea?denies.?Rectal bleeding?denies.?Vomiting?denies.?Hematology:?bruising?denies.?petechiae?denies.?Swollen glands?none have been noted.?Genitourinary:?Frequent urination?once a night.?Musculoskeletal:?Muscle aches?denies.?Painful joints?Lumbar spine.?Sciatica?denies.?Weakness?denies.?Skin:?Itching?denies.?Rash?denies.?Skin lesion(s)?denies.?Neurologic:?Difficulty speaking?denies.?Dizziness?denies.?Headache?denies.?Low back pain?denies.?Psychiatric:?Depressed mood?which is mild.? * Medical History:? 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 * Examination: ???General Examination: ?GENERAL APPEARANCE:?pleasant, well nourished, well developed, in no acute distress, calm and relaxed, obese, man.?HEAD:?atraumatic, normocephalic.?EYES:?eomi, perrla, anicteric, conjugate, RRight cornea is scarred, right vision loss.?EARS:?normal.?NOSE:?septum intact.?ORAL CAVITY:?normal, unremarkable.?NECK/THYROID:?no jugular venous distention, no carotid bruit, thyroid normal.?LYMPH NODES:?no enlarged lymph nodes,spleen normal.?SKIN:?no suspicious lesions, anicteric.?HEART:?no clicks, gallops, murmurs, or rubs, regular rhythm, S1, S2 normal, no s3, or vascular bruits.?LUNGS:?clear to auscultation .?BREASTS:??no masses palpable bilaterally.?ABDOMEN:?bowel sounds normal, no ascites, no organomegaly, no mass.?RECTAL EXAM:?not examined.?MUSCULOSKELETAL:?extremities unremarkable, no clubbing, cyanosis or edema, Muscle spasm lumbar spine with decreased range of motion.?PERIPHERAL PULSES:?normal.?NEUROLOGIC:?alert and oriented, cranial nerves 2-12 grossly intact, deep tendon reflexes 2+ symmetrical, motor strength normal upper and lower extremities, sensory exam intact.?PSYCH:?alert, oriented.? Assessment: * Assessment: 1.?Obesity - E66.9 (Primary) ???Notes :His body mass index is 38. He has lost 4 pounds.? We have discussed diet and nutrition. We reviewed his weight loss strategy.???2.?Depressive disorder, not elsewhere classified - F32.9???Notes :He is tolerating citalopram well without side effects and will be continued. He feels discouraged about his difficulty losing weight and immobility. We discussed this at length today. He declined a referral to the weight loss program but I will continue in this direction.???3.?Essential hypertension - I10???Notes :His blood prressure is 140/84. No change in his medication was made. I recommended aggressive weight loss and sodium restriction combined with regular physical activity and a reduced calorie diet low in sodium and animal fat.???4.?GERD (gastroesophageal reflux disease) - K21.9???Notes :His reflux symptoms are well controlled with sgst-acn-gsmvnjt medication and no change in his regimen as needed.???5.?Other and unspecified hyperlipidemia - E78.5???Notes :His triglycerides are elevated but his total cholesterol is acceptable at 194. I recommended a healthy diet and aggressive weight loss combined with exercise. 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 His vision is normal in the opposite eye and he sees the radiology supervisor regularly. He reports today that his vision in the left eye is adequate and normal.???7.?Back pain - M54.9???Notes :He will continue on conservative therapy.? His x-rays do not show a surgical solution.? He was referred to pain management to consider injections.??? Plan: * Treatment: * Procedure Codes:? * [...] Other reason not done * Follow Up:?2 Weeks (Reason: ov no tests ref to [facility]) * Images: * Sign off status: Completed true * Provider:?Ricky Levine MD Date:?12/2024 Generated for Doris mayer/Cassia/eTransmitting on:?12/11/2024 09:26 AM [...] Date Referring Provider Referred Provider Guerda stone 12/01/2024 [facility]acic lumbar back pain MRI showed DJD and osteophytes
--- OUTSIDE RECORDS SUMMARY | 2024-12-11 09:27 | XMS_ITS | Patient Health Record ---
Author Organization [facility] Address [address] [place] [address] Care Team Providers Care Surgical Processor Name Role Phone Ricky Levine MD Primary Care Provider Unavailab Ricky Sheppard Unavailable [phone] Allergies No Known Allergies Results Component Value Reference Range Notes Pathology (Not yet reviewed by provider) Interpretation: Performing Lab:[facility], [address] [place] [address] Notes/Report: Name: Marisa Champion Age/Sex: 73/M : 1950 Unit#: [id number] Attend Dr: Ricky Martinez Re12/16/23 Status : [facility] Location: [facility] Disch: SPEC : [id number] RECD : 12/16/23 STATUS: MONICA BARRY NUM: [id number] [place]: 12/16/23 [facility] [address]: Ricky Martinez ENTERED: 12/16/23 SP TYPE: Surgical OTHR DR: Ricky Levine MD ORDERED: HE Stain/6, Gross Micro L4/2, Special st. 2, AB/PAS Diagnosis A. EG junction, 38 cm, biopsy: - Cardiac-type mucos a with moderate chronic inactive inflammation; no intestinal metaplasia seen. - Squamous mucosa wi thin normal limits. B. Colon, 50 cm, vini ypectomy: Colonic mucosa with prominent lymphoid aggregates. Clinical History Pre-Op Dx: GERD Post-Op Dx: Reflux, hiatal hernia, colon polyp, diverticulosis, hemorrhoids Microscopic Description A, B. Microscopic se ctions examined. No metaplastic changes are seen, supported by AB/PAS stains (A). Material Received A. EG junction biopsy at 38 cm B. Polyp at 50 cm Gross Description Received in 2 parts. A received in formal in labeled ?EG junction at 38 cm? are 3 fragments of pink white soft tissue ranging from 0.3-0.4 cm in greatest dimension which are wrapped in lens paper and entirely submitted f or microscopic examination, 3 pieces in cassette A. B. Received in forma bin labeled ?polyp at 50 cm? are 2 fragments of translucent white soft tissue measuring 0.2 and 0.4 cm in greatest dimension which are wrapped in lens paper and entirely submitted f or microscopic examination, 2 pieces in cassette B. [facility] Special studies orde red and performed: AB/PAS stains on A Copies To: Ricky Levine MD [address] [place] [address], [address] [place] [id number] CONTINUED ON NEXT PAGE Name: Marisa Champion Age/Sex: 73/M : 1950 Unit#: [id number] Attend Dr: Ricky Martinez Re12/16/23 Status : [facility] Location: [facility] Disch: SPEC : [id number] RECD : 12/16/23 STATUS: MONICA BARRY NUM: [id number] [place]: 12/16/23 [facility] DR: Ricky Martinez ENTERED: 12/16/23 SP TYPE: Surgical OTHR DR: Ricky Levine MD ORDERED: ANNI Stain/6, Gross Micro L4/2, Special st. 2, AB/PAS Copies To: (Continued) Ricky Martinez [address] [place] [address] [address] [place] [address] Signed (si jen on file) Chandu Serna MD 12/18/23 1306 END OF REPORT Reason For Referral No Information Medications Medication SIG (Take, Route, Frequency, Duration) [...] day for 30 day(s) Active Social History Alcohol Screen Question Answer Notes Did you [...] Negative Section Notes: Nonsmoker; no sig alcohol Nonsmoker; no sig alcohol Problems Problem Type SNOMED Code ICD Code Onset Dates Problem Status W/U Status Risk Notes Problem 736597643 Colon cancer screening (Z12.11) Active confirmed Problem Diverticular disease of colon (404548946) Diverticulosis of large intestine without perforation or abscess without bleeding (K57.30) Active confirmed Problem Gastroesophageal reflux disease without esophagitis (035360134) Gastroesophageal reflux disease without esophagitis (K21.9) Active confirmed Problem 47985480 Constipation, unspecified constipation type (K59.00) Active confirmed Problem 467080955 Gastroesophageal reflux disease, unspecified whether esophagitis present (K21.9) Active confirmed Encounters Encounter Location Date Provider Diagnosis [facility] Outpatient [address] [place] [address] [phone] 12/16/2023 Ricky Martinez Encounter for screen ing [...] hernia (ICD-10 - K44.9) Plan Of Treatment Pending Test Test Name Order Date Pathology 12/16/2023 Future Test Test Name Order Date COLONOSCOPY 12/09/2013 UPPER GI ENDOSCOPY 09/12/2023 COLONOSCOPY 09/12/2023 Insurance Providers Payer Name Payer Address Payer Phone Subscriber Number Group Number Insured Name Patient Relationship to Insured Coverage Start Date Coverage End Date [facility] [address] [address] [place] [phone] [id number] MARISA CHAMPION Self - patient is the insured Medical (General) History Medical History History ICD Code Hypertension Denies ME,DM,CVA,Lung disease,renal dise ase Bleeding ulcer > 30 yrs ago--treated med ically Hyperlipidemia Neg colonoscopy in 07/[address] Schulz en Negative colonoscopy in 01/2014 except fo r a hyperplastic polyp Surgical History Surgery Date(Month/Year) Several eye surgeries on the right
== END 2024-12-11 09:43 | disposition home or self-care (01) ==
LOC: HO.HNS 08:59
PROVIDERS: PCP Internal Medicine Medical Oncology; Referring Provider Internal Medicine Medical Oncology; Visit Provider Neurological Surgery
DX: M70.62 Trochanteric bursitis, left hip (principal); M48.062 Spinal stenosis, lumbar region with neurogenic claudication
CPT/HCPCS: 99204

== ENCOUNTER → 2024-12-11 08:58 | Outpatient (BNVA) | payer MEDICARE, SELFPAY | PROVIDERS: PCP Internal Medicine Medical Oncology; Referring Provider Internal Medicine Medical Oncology; Visit Provider Neurological Surgery | DX: M70.62 Trochanteric bursitis, left hip (principal); M48.062 Spinal stenosis, lumbar region with neurogenic claudication | CPT/HCPCS: 99202 ==

== ENCOUNTER 2025-02-25 13:05 | Outpatient (REF) | payer MEDICARE, SELFPAY ==
--- OUTSIDE RECORDS SUMMARY | 2025-02-25 13:08 | XMS_ITS | Patient Health Record ---
Author Organization Ricky Levine III, MD Address [address] [place] [address] [place] [address] Care Team Providers Care Breakfast Attendant Name Role Phone Ricky Levine Primary Care Provider Allergies Allergen (clinical drug ingredient) Drug/Non Drug Allergy documented on EMR Reaction Allergy Type Onset Date Status No Known Drug Allergy Unknown Drug Allergy Active Results Component Value Reference Range Notes Lipid Panel Reviewed date:08/03/2024 05:36:17 AM Interpretation: Performing Lab:[facility], [address] [place] [address] Notes/Report: Triglycerides 199 <150 mg/dL Desirable Triglyceride: [...] date:10/06/2024 04:07:01 PM Interpretation: Performing Lab: Notes/Report: [facility] [address] [place] [address] [place] [address] XRay Report Signed Patient: Lev Cosme MR#: [id number] 7 : 1950 Acct:[id number] Age/Sex: 74 / M ADM Date: 07/24/24 Loc: HO.HMGCX Attending Dr: Ricky Levine MD Ordering Physician: Ricky Levine MD Date of Service: 07/24/24 Procedure(s): XR hip CLAUDIO min 3V w/wo pel Accession Number(s): [id number] cc: Ricky Levine MD EXAMINATION: XR BILATERAL [...] by: Sera Smith MD 10/06/2024 05:55 AM EST Dictated By: Sera Smith MD Signed By: <Electronically signed by Sera Smith MD in OV> 10/06/24 0555 DD/ 1216 TD/TT: 07/24/24 1226 Mechanical System Technician: [facility] [address] [place] [address] [place] [address] XRay Report Signed Patient: Lizzette Cosme MR#: [id number] 7 : 1950 Acct:[id number] Age/Sex: 74 / M ADM Date: 07/24/24 Loc: HO.HMGCX Attending Dr: Ricky Levine MD Ordering Physician: Ricky Levine MD Date of Service: 07/24/24 Procedure(s): XR hip CLAUDIO min 3V w/wo pel Accession Number(s): [id number] cc: Ricky Levine MD EXAMINATION: XR BILATERAL [...] by: Sera Smith MD 10/06/2024 05:55 AM [facility] Dictated By: Sera Smith MD Signed By: <Electronically signed by Sera Smith MD in OV> 10/06/24 0555 DD/ 1216 TD/TT: 07/24/24 1226 Mechanical System Technician: XR lumbar spine 2-3V Reviewed date:10/06/2024 04:07:01 PM Interpretation: Performing Lab: Notes/Report: [facility] [place] [address] XRay Report Signed Patient: Lev Cosme MR#: [id number] 7 : 1950 Acct:[id number] Age/Sex: 74 / M ADM Date: 07/24/24 Loc: HO.HMGCX Attending Dr: Ricky Levine MD Ordering Physician: Ricky Levine MD Date of Service: 07/24/24 Procedure(s): XR lumbar spine 2-3V Accession Number(s): [id number] cc: Ricky Levine MD EXAMINATION: XR LUMBAR [...] Smith MD in OV> 10/06/24 0542 DD/ TD/TT: 07/24/24 1226 Mechanical System Technician: [facility] [address] [place] [address] [place] [address] XRay Report Signed Patient: Lizzette Cosme MR#: [id number] 7 : 1950 Acct:[id number] Age/Sex: 74 / M ADM Date: 07/24/24 Loc: .HMGCX Attending Dr: Ricky Levine MD Ordering Physician: Ricky Levine MD Date of Service: 07/24/24 Procedure(s): XR lum bar spine 2-3V Accession Number(s): [id number] cc: Ricky Levine MD EXAMINATION: XR LUMBAR [...] 10/06/24 0542 DD/ 1216 TD/TT: 07/24/24 1226 Mechanical System Technician: Complete Blood Count Auto Di ff Reviewed date:03/20/2024 10:47:19 AM Interpretation: Performing Lab:[facility], [address] [place] [phone] Notes/Report: White Blood Count 6.5 4.8-10.8 X10*3/uL [...] 0.0-0.2 /100WBC Neutrophils Absolute Auto 4.1 2.0-8.3 x10*3/uL Imm Gran Abs Auto 0.04 0.00-0.03 X10*3/uL Lymphocytes Absolute Auto 1.7 1.2-4.9 X10*3/uL Monocytes Absolute Auto 0.4 0.1-1.2 X10*3/uL Eosinophils Absolute Auto 0.2 0.0-0.4 X10*3/uL Basophils Absolute Auto 0.0 0.0-0.2 X10*3/uL NRBC Abs Auto 0.000 0.0-0.012 X10*3/uL Comprehensive Sher[place]. Panel Fa st Reviewed date:03/20/2024 10:47:19 AM Interpretation: Performing Lab:[facility], [address] [place] [phone] Notes/Report: Sodium 144 135-145 mmol/L Potassium 4.0 3.3-5.1 mmol/L Chloride 109 96-108 mmol/L Carbon Dioxide 26 22-29 mmol/L Anion Gap 13 12-20 Blood Urea Nitrogen 14 9-16 mg/dL Creatinine 0.86 0.5-1.4 mg/dL Estimated Glomerular Filt Rate > 60 NOTE: For -Stateless individuals, multiply the result by 1.210. Chronic [...] Panel Reviewed date:03/20/2024 10:47:19 AM Interpretation: Performing Lab:[facility], [address] [place] [phone] Notes/Report: Triglycerides 206 <150 mg/dL Desirable Triglyceride: [...] ff Reviewed date:07/24/2024 10:04:08 AM Interpretation: Performing Lab:[facility], [address] [place] [phone] Notes/Report: White Blood Count 7.1 4.8-10.8 X10*3/uL [...] 0.0-0.2 /100WBC Neutrophils Absolute Auto 4.0 2.0-8.3 x10*3/uL Imm Gran Abs Auto 0.03 0.00-0.03 X10*3/uL Lymphocytes Absolute Auto 2.2 1.2-4.9 X10*3/uL Monocytes Absolute Auto 0.5 0.1-1.2 X10*3/uL Eosinophils Absolute Auto 0.4 0.0-0.4 X10*3/uL Basophils Absolute Auto 0.1 0.0-0.2 X10*3/uL NRBC Abs Auto 0.000 0.0-0.012 X10*3/uL Comprehensive Sher[place]. Panel Fa st Reviewed date:07/24/2024 10:04:08 AM Interpretation: Performing Lab:[facility], [address] [place] [phone] Notes/Report: Sodium 141 135-145 mmol/L Potassium 4.3 3.3-5.1 mmol/L Chloride 106 96-108 mmol/L Carbon Dioxide 28 22-29 mmol/L Anion Gap 11 12-20 Blood Urea Nitrogen 13 9-16 mg/dL Creatinine 0.92 0.5-1.4 mg/dL Estimated Glomerular Filt Rate > 60 NOTE: For -Stateless individuals, multiply the result by 1.210. Chronic [...] Panel Reviewed date:07/24/2024 10:04:08 AM Interpretation: Performing Lab:[facility], [address] [place] [phone] Notes/Report: Triglycerides 258 <150 mg/dL Desirable Triglyceride: [...] Antigen Reviewed date:07/24/2024 10:04:08 AM Interpretation: Performing Lab:[facility], [address] [place] [phone] Notes/Report: Prostate Specific Antigen 0.83 <0.05-4.0 ng/mL PSA methodology: Stark Alinity i Chemiluminescent Microparticle Immunoassay (CMIA) Hemoglobin A1c Reviewed date:07/24/2024 10:04:08 AM Interpretation: Performing Lab:[facility], [address] [place] [address] Notes/Report: Hemoglobin A1c % 5.5 <6.0 % [...] average glucose, using the formula of the [id number] Average Glucose study (ADAG), Diabetes Care, Vol.31,#8, 2007 Complete Blood Count Auto Di ff Reviewed date:08/03/2024 05:36:17 AM Interpretation: Performing Lab:[facility], [address] [place] [phone] Notes/Report: White Blood Count 7.3 4.8-10.8 X10*3/uL [...] 0.0-0.2 /100WBC Neutrophils Absolute Auto 4.8 2.0-8.3 x10*3/uL Imm Gran Abs Auto 0.03 0.00-0.03 X10*3/uL Lymphocytes Absolute Auto 1.6 1.2-4.9 X10*3/uL Monocytes Absolute Auto 0.4 0.1-1.2 X10*3/uL Eosinophils Absolute Auto 0.3 0.0-0.4 X10*3/uL Basophils Absolute Auto 0.1 0.0-0.2 X10*3/uL NRBC Abs Auto 0.000 0.0-0.012 X10*3/uL Comprehensive [place]wood. Panel Fa Reviewed date:08/03/2024 05:36:17 AM Interpretation: Performing Lab:[facility], [address] [place] [phone] Notes/Report: Sodium 142 135-145 mmol/L Potassium 4.0 3.3-5.1 mmol/L Chloride 108 96-108 mmol/L Carbon Dioxide 25 22-29 mmol/L Anion Gap 13 12-20 Blood Urea Nitrogen 13 9-16 mg/dL Creatinine 1.11 0.5-1.4 mg/dL Estimated Glomerular Filt Rate > 60 NOTE: For -Stateless individuals, multiply the result by 1.210. Chronic [...] Dehydrogenase Reviewed date:08/03/2024 05:36:17 AM Interpretation: Performing Lab:[facility], [address] [place] [phone] Notes/Report: Lactate Dehydrogenase 231 118-273 U/L Creatine Kinase Total Reviewed date:08/03/2024 05:36:17 AM Interpretation: Performing Lab:[facility], [address] [place] [phone] Notes/Report: Creatine Kinase Total 69 38-174 U/L MR lumbar spine wo con Reviewed date:12/05/2024 09:21:38 AM Interpretation: Performing Lab: Notes/Report: [address] [address] Magnetic Resonance Report Signed Patient: Lev Cosme MR#: [id number] 7 : 1950 Acct:[id number] Age/Sex: 74 / M ADM Date: 10/28/24 Loc: HO.MRI Attending Dr: Ricky Levine MD Ordering Physician: Ricky Levine MD Date of Service: 10/28/24 Procedure(s): MR lumbar spine wo con Accession Number(s): [id number] cc: Ricky Levine MD EXAMINATION: MR LUMBAR SPINE WITHOUT CONTRAST CLINICAL INFORMATION: Low back pain into both lower extremities. COMPARISON: None available. TECHNIQUE: MRI of the lumbar spine was obtained using routine sequences without contrast. FINDINGS: Last rib-bearing vertebra labeled T12. Mild bone marrow STIR signal within the endplates of L4-5. Multilevel marginal osteophyte formation, disc desiccation, endplate irregularity more conspicuous at L4-5 and to a lesser extent T11-12 and T12-L1. Bone marrow inhomogeneity. Modic type I and type II endplate changes at L4-5 with associated Schmorl nodes. The alignment is normal. Conus medullaris ends at pedicle of L1 with normal signal. T11-12: Broad-based disc bulging. No neuroforamina stenosis. T12-L1: No disc herniation. No neuroforamina stenosis. L1-2: Broad-based disc bulging. Facet joint hypertrophy. No compression upon neural elements. L2-3: Broad-based disc bulging. Facet joint and ligamentum flavum hypertrophy. Bilateral neuroforamina narrowing, left greater than the right. L3-4: Broad-based disc bulging. Bilateral facet joint and ligamentum flavum hypertrophy. Reduced AP diameter of the thecal sac and the neural foramina likely encroaching the exiting nerve roots. L4-5: Broad-based disc bulging. Facet joint and ligamentum flavum hypertrophy. CSF effacement of the thecal sac decreased AP diameter of the thecal sac and the neural foramina encroaching likely compressing the neural elements both thecal sac and the exiting nerve roots. L5-S1: Broad-based disc bulging. Facet joint and ligamentum flavum hypertrophy. Prominent epidural fat in a circumferential fashion. Decreased AP diameter of the cul-de-sac and the neuroforamina. No prevertebral compartment hematoma, mass or fluid collection. Probable cystic lesions in the parapelvic regions both kidneys. MR/MR lumbar spine wo con IMPRESSION: Multilevel thoracolumbar spondylosis more conspicuous at L4-5 resulting in central spinal canal and neuroforamina stenosis likely compressing the neural elements. Similar findings to a lesser extent L3-4 and L5-S1 levels. Electronically signed by: Enoch Hayes MD 10/29/2024 10:07 AM EST Dictated By: Enoch Webster MD Signed By: <Electronically signed by Enoch Chávez MD in OV> 10/29/24 1007 DD/ 174 TD/TT: 10/28/24 175 Mechanical System Technician: [place] [address] Magnetic Resonance Report Signed Patient: Lizzette Cosme MR#: [id number] 7 : 1950 Acct:[id number] Age/Sex: 74 / M ADM Date: 10/28/24 Loc: HO.MRI Attending Dr: Ricky Levine MD Ordering Physician: Ricky Levine MD Date of Service: 10/28/24 Procedure(s): MR lum bar spine wo con Accession Number(s): [id number] cc: Ricky Levine MD EXAMINATION: MR LUMBAR SPINE WITH OUT CONTRAST CLINICAL INFORMATION: Low back pain into b oth lower extremities. COMPARISON: None available. TECHNIQUE: MRI of the lumbar sp ine was obtained using routine sequences without contrast. FINDINGS: Last rib-bearing vertebra labeled T12. Mild bone marrow STI R signal within the endplates of L4-5. Multilevel marginal osteophyte formation, disc desiccation, endplate irregularity more conspicuous at L4-5 and to a lesser extent T11-12 and T12-L1. Bone marrow inhomogeneity. Modic type I and typ e II endplate changes at L4-5 with associated Schmorl nodes. The alignment is normal. Conus medullaris end s at pedicle of L1 with normal signal. T11-12: Broad-based disc bulging. No neuroforamina stenosis. T12-L1: No disc herniation. No neuroforamina stenosis. L1-2: Broad-based disc bulging. Facet joint hypertrophy. No compression upon neural elements. L2-3: Broad-based disc bulging. Facet joint and ligamentum flavum hypertrophy. Bilater al neuroforamina narrowing, left greater than the right. L3-4: Broad-based disc bulging. Bilateral facet joint and ligamentum flavum hypertrophy. Reduced AP diameter of the thecal sac and the neural foramina likely encroaching the exiting nerve roots. L4-5: Broad-based disc bulging. Facet joint and ligamentum flavum hypertrophy. CSF effacement of the thecal sac decreased AP diameter of the thecal sac and t he neural foramina encroaching likely compressing the neural elements both thecal sac and the exiting nerve roots. L5-S1: Broad-based disc bulging. Facet joint and ligamentum flavum hypertrophy. Promine nt epidural fat in a circumferential fashion. Decreased AP diamete r of the cul-de-sac and the neuroforamina. No prevertebral compartment hematoma, mass or fluid collection. Probable cystic lesi ons in the parapelvic regions both kidneys. MR/MR lumbar spine wo con IMPRESSION: Multilevel thoracolumbar spondylosis more conspicuous at L4-5 resulting in central spinal ca nal and neuroforamina stenosis likely compressing the neural elements. Similar findings to a lesser extent L3-4 and L5-S1 levels. Electronically bj d by: Enoch [place] MD 10/29/2024 10:07 AM [facility] Dictated By: Enoch Glass MD Signed By: <Electronically signed by Enoch Chávez MD in OV> 10/29/24 1007 DD/ 1743 TD/TT: 10/28/24 1755 Mechanical System Technician: MANOLO pre mri screening Reviewed date:12/05/2024 09:21:38 AM Interpretation: Performing Lab: Notes/Report: [address] [address] XRay Report Signed Patient: Lev Cosme MR#: [id number] 7 : 1950 Acct:[id number] Age/Sex: 74 / M ADM Date: 10/22/24 Loc: HO.MRI Attending Dr: Ricky Levine MD Ordering Physician: Waqas Tucker MD Date of Service: 10/28/24 Procedure(s): XR pre mri screening Accession Number(s): [id number] cc: Ricky Levine MD; Waqas Tucker MD CLINICAL HISTORY: PRE MRI ORBIT XRAYS MRI Screening XR PRE MRI SCREENING Comparison: None Findings: No acute fractures. Paranasal sinuses and mastoids are clear. No radiopaque foreign body. IMPRESSION: 1. No metallic foreign bodies in the orbits. This document has been electronically signed by: Cuong Henderson MD on 10/28/2024 17:26:39 Dictated By: Cuong Henderson MD Signed By: <Electronically signed by Cuong Henderson MD in OV> 10/28/248 DD/ 25 TD/TT: 10/28/241725 Mechanical System Technician: [place] [address] XRay Report Signed Patient: Lizzette Cosme MR#: [id number] 7 : 1950 Acct:[id number] Age/Sex: 74 / M ADM Date: 10/22/24 Loc: HO.MRI Attending Dr: Ricky Levine MD Ordering Physician: Waqas Tucker MD Date of Service: 10/28/24 Procedure(s): XR pre mri screening Accession Number(s): [id number] cc: Ricky Levine MD; Waqas Tucker MD CLINICAL HISTORY: OK E MRI ORBIT XRAYS MRI Screening XR PRE MRI SCREENING Comparison: None Findings: No acute fractures. Paranasal sinuses an d mastoids are clear. No radiopaque foreig n body. IMPRESSION: 1. No metallic forei gn bodies in the orbits. This document has be en electronically signed by: Cuong Henderson MD on 10/28/2024 17:26:39 Dictated By: Cuong Henderson MD Signed By: <Electronically signed by Cuong Henderson MD in OV> 10/28/24 1728 DD/ 1726 TD/TT: 10/28/24 1726 Mechanical System Technician: Reason For Referral Reason Consult and Treat Bilateral Hip Pain Diagnosis 1 Hip pain (M25.559) Referral Organization Ricky Levine III, MD Referring Provider First Name Ricky Referring Provider Last Name Julianna [facility]erred Provider [facility], Orthopedic Surgeons Referred Provider Specialty Orthopedic S urgery General Notes DMaya 08/20/2024 10:44:43 AM > Referral and progress note faxed. Xrays are not read spoke with Radiology they will be trying to get a reading. Referral Priority Routine Referral Appointment Date 09/11/2024 Reason consultation and maki atment Thoracic lumbar back pain MRI showed DJD and osteophytes Diagnosis 1 Lumbar back pain (M5 4.50) Diagnosis 2 Acute thoracic back pain, unspecified back pain laterality (M54.6) Referral Organization Ricky Levine III, MD Referring Provider First Name Ricky Referring Provider Last Name Julianna Referring Provider Speciality [facility] Referred Provider [facility] Referred Provider Specialty Physical Med [facility] General Notes Ayad Leora CMA 12/03 09:14:04 AM > ref/demo/x rays faxed to [facility] and pt made aware of this, Leora Lion [facility] 12/07/2024 09:37:02 AM > Office called patient has appt with physical therapy dept for 12/08/2024 9:30am pt aware of this appt Referral Priority Routine Referral Appointment Date 12/08/2024 Reason Urgent Appointment R equest Evaluate and Treat Diagnosis 1 Back pain (M54.9) Diagnosis 2 Degeneration of inte rvertebral disc of lumbar region, unspecified whether pain present (M51.369) Diagnosis 3 Lumbar spondylosis ( M47.816) Referral Organization Ricky Levine III, MD Referring Provider First Name Ricky Referring Provider Last Name Julianna Referring Provider Speciality Internal edicine Referred Provider MELODY QUINONES Referred Provider [...] Referral Priority Routine Referral Appointment Date 12/11/2024 Medications Medication SIG (Take, Route, Frequency, Duration) Notes Start Date End Date Status Citalopram Hydrobromide 40 MG TAKE 1 TABLET BY MOUTH EVERY DAY Active Metoprolol Succinate ER 25 MG TAKE 1 TABLET BY MOUTH EVERY DAY for 90 Active Simvastatin 40 MG TAKE 1 TABLET BY HIRAL TH EVERYDAY AT BEDTIME Active Lansoprazole 30 MG TAKE 1 CAPSULE BY MO UTH TWICE A DAY Active Meloxicam 15 MG TAKE 1 TABLET BY HIRAL TH EVERY MORNING WITH BREAKFAST Oral Active Felodipine ER 10 MG TAKE 1 TABLET BY HIRAL TH EVERY DAY FOR 90 DAYS Active Centrum Silver - Orally Act nette Immunizations Vaccine Route Administration Date Status Comme [...] Problem Status W/U Status Risk Notes Problem 941485561 Obesity (E66.9) Active confirmed His body mass index is 38. He has lost 4 pounds. We have discussed diet and nutrition. We reviewed his weight loss strategy. Problem 882421271 Back pain (M54.9) Active confirmed He has been to pain management in neurosurgery. He is currently going to rehabilitation medicine for physical therapy. His pain has improved. Problem 248178362 GERD (gastroesophagea l reflux disease) (K21.9) Active confirmed His reflux symptoms are well controlled with [id number] medication and no change in his regimen as needed. Problem 87545556 Anxiety (F41.9) Active confirmed He continues to use clonazepam given to him by the psychiatrist. Problem 13095478 Labyrinthitis, bilateral (H83.03) Active confirmed The vertigo has resolved and this problem is no longer active. Problem BPH (benign prostatic hyperplasia) (N40.0) Active confirmed He rises from sleep once and sometimes twice a night to urinate. We have discussed lifestyle modification as a way to reduce nocturia. Problem 76484807 Essential hypertension (I10) Active confirmed His blood prressure is 136/81. No change in his medication was made. I recommended aggressive weight loss and sodium restriction combined with regular physical activity and a reduced calorie diet low in sodium and animal fat. Problem 42130118 Other and unspecified hyperlipidemia (E78.5) Active confirmed His triglycerid es are elevated but his total cholesterol is acceptable at 194. I recommended a healthy diet and aggressive weight loss combined with exercise. No change in his medication was needed. Problem 94671112 Depressive disorder, not elsewhere classified (F32.9) Active confirmed He is toleratin g citalopram well without side effects and will be continued. He feels discouraged about his difficulty losing weight and immobility. We discussed this at length today. He declined a referral to the weight loss program but I will continue in this direction. 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 His vision is normal in the opposite eye and he sees the structural analysis engineer regularly. He reports today that his vision in the left eye is adequate and normal. Problem 19713339 Chronic idiopathic constipation (K59.04) Active confirmed The constipatio n is well controlled with medications. At this time. Problem 335546103 Lumbar spondylosis (M47.816) Active confirmed He continues to have worsening low back pain. An MRI has shown multilevel spondylosis and degenerative changes. There are multiple levels of foraminal narrowing. He has seen a neurosurgeon who found no surgical approach. He has been referred to physiatry and pain management. 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 Problem 908915246 Low back pain, unspecified (M54.50) Active confirmed Problem 17817791 Degeneration of intervertebral disc of lumbar region, unspecified whether pain present (M51.369) Active confirmed He has bilatera l quadriceps pain which are likely from his spine. He was given a trial of dexamethasone.The pain in his back has become very severe. In addition to the dexamethasone a surgical solution will be sought. I have requested an of the lumbar spine. Vital Signs Heart Rate 68 /min 12/15/2024 Volume of Temperature 97.2 degrees Fahrenheit 12/15/2024 Volu me of Blood pressure diastolic 71 mm Hg 12/15/2024 Vol ume of Height 72 in 12/15/2024 Volume of Blood pressure systolic 136 mm Hg 12/15/2024 Volu me of Weight 289 lbs 12/15/2024 Volume of BMI 39.19 kg/m2 12/15/2024 Volume of Encounters Encounter Location Date Provider Diagnosis Ricky Levine III, MD [address] [place] [address] [place] [address] 03/20/2024 Ricky Levine Other and unspecifie d hyperlipidemia E78.5 ; Obesity (BMI 30-39.9) E66.9 ; BPH (benign prostatic hyperplasia) N40.0 ; Depressive disorder, not elsewhere classified F32.9 ; Essential hypertension I10 ; GERD (gastroesophageal reflux disease) K21.9 and Vision loss of right eye H54.61 Ricky Levine III, MD [address] [place] [address] [place] [address] 07/24/2024 Ricky Levine Other and unspecifie d hyperlipidemia E78.5 ; Morbid obesity E66.01 ; Hip pain M25.559 ; Lumbar back pain M54.50 ; Essential hypertension I10 ; BPH (benign prostatic hyperplasia) N40.0 ; Chronic idiopathic constipation K59.04 ; Vision loss of right eye H54.61 and GERD (gastroesophageal reflux disease) K21.9 Ricky Levine III, MD [address] [place] [address] [place] [address] 08/17/2024 Ricky Levine Depressive disorder, not elsewhere classified F32.9 ; Obesity E66.9 ; Essential hypertension I10 ; Other and unspecified hyperlipidemia E78.5 ; GERD (gastroesophageal reflux disease) K21.9 ; Cornea replaced by transplant Z94.7 ; Vision loss of right eye H54.61 and Thyroid nodule E04.1 Ricky Levine III, MD [address] [place] [address] [place] [address] 10/19/2024 Ricky Levine Degeneration of intervertebral disc of lumbar region, unspecified whether pain present M51.369 ; Other and unspecified hyperlipidemia E78.5 ; Cornea replaced by transplant Z94.7 ; Depressive disorder, not elsewhere classified F32.9 ; Essential hypertension I10 ; GERD (gastroesophageal reflux disease) K21.9 ; BPH (benign prostatic hyperplasia) N40.0 and Myalgia, multiple sites M79.18 Ricky Levine III, MD [address] [place] [address] [place] [address] 11/11/2024 Ricky Levine Lumbar spondylosis M47.816 ; Other and unspecified hyperlipidemia E78.5 ; Essential hypertension I10 ; Depressive disorder, not elsewhere classified F32.9 ; Cornea replaced by transplant Z94.7 ; GERD (gastroesophageal reflux disease) K21.9 ; Vision loss of right eye H54.61 ; Chronic idiopathic constipation K59.04 ; BPH (benign prostatic hyperplasia) N40.0 and Thyroid nodule E04.1 Ricky Levine III, MD [address] [place] [address] [place] [address] 12/01/2024 Ricky Levine Obesity E66.9 ; Depressive disorder, not elsewhere classified F32.9 ; Essential hypertension I10 ; GERD (gastroesophageal reflux disease) K21.9 ; Other and unspecified hyperlipidemia E78.5 ; Cornea replaced by transplant Z94.7 and Back pain M54.9 Ricky Levine III, MD [address] [place] [address] [place] [id number] 12/15/2024 Ricky Levine Other and unspecifie d hyperlipidemia E78.5 ; Essential hypertension I10 ; Depressive disorder, not elsewhere classified F32.9 ; Cornea replaced by transplant Z94.7 ; GERD (gastroesophageal reflux disease) K21.9 ; BPH (benign prostatic hyperplasia) N40.0 and Back pain M54.9 Ricky Levine III, MD [address] [place] [address] [place] [id number] 12/04/2024 Ricky Levine III, MD [address] [place] [address] [place] [id number] 12/14/2024 Ricky Julianna Assessments Encounter Date Diagnosis (ICD Code) Assessment Notes Treat ment Notes Treatment Clinical Notes 03/20/2024 Obesity (BMI 30-39.9) (ICD-10 - E66.9) [...] I will continue in this direction. 10/19/2024 Other and unspecified hyperlipidemia (ICD-10 - E78.5) His triglycerides are elevated but his total cholesterol is acceptable at 194. I recommended a healthy diet and aggressive weight loss combined with exercise. No change in his medication was needed. 10/19/2024 Degeneration of intervertebral disc of lumbar region, unspecified whether pain present (ICD-10 - M51.369) He has bilateral quadriceps pain which are likely from his spine. He was given a trial of dexamethasone.The pain in his back has become very severe. In addition to the dexamethasone a surgical solution will be sought. I have requested an of the lumbar spine. 11/11/2024 Other and unspecified hyperlipidemia (ICD-10 - E78.5) His triglycerides are elevated but his total cholesterol is acceptable at 194. I recommended a healthy diet and aggressive weight loss combined with exercise. No change in his medication was needed. 11/11/2024 Lumbar spondylosis (ICD-10 - M47.816) He continues to have worsening low back pain. An MRI has shown multilevel spondylosis and degenerative changes. There are multiple levels of foraminal narrowing. He has seen a neurosurgeon who found no surgical approach. He has been referred to physiatry and pain management. 12/01/2024 Obesity (ICD-10 - E66.9) His body [...] I will continue in this direction. 12/15/2024 Essential hypertension (ICD-10 - I10) His blood prressure is 136/81. No change in his medication was made. I recommended aggressive weight loss and sodium restriction combined with regular physical activity and a reduced calorie diet low in sodium and animal fat. 12/15/2024 Other and unspecified hyperlipidemia (ICD-10 - E78.5) His triglycerides are elevated but his total cholesterol is acceptable at 194. I recommended a healthy diet and aggressive weight loss combined with exercise. No change in his medication was needed. 03/20/2024 BPH (benign prostatic hyperplasia) (ICD-10 - [...] low in sodium and animal fat. 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 His vision is normal in the opposite eye and he sees the structural analysis engineer regularly. He reports today that his vision in the left eye is adequate and normal. 11/11/2024 Essential hypertension (ICD-10 - I10) His blood prressure is 140/84. No change in his medication was made. I recommended aggressive weight loss and sodium restriction combined with regular physical activity and a reduced calorie diet low in sodium and animal fat. 12/01/2024 Essential hypertension (ICD-10 - I10) His [...] but I will continue in this direction. 03/20/2024 Depressive disorder, not elsewhere classified (ICD-10 [...] change in his medication was needed. 10/19/2024 Depressive disorder, not elsewhere classified (ICD-10 - F32.9) He is tolerating citalopram well without side effects and will be continued. He feels discouraged about his difficulty losing weight and immobility. We discussed this at length today. He declined a referral to the weight loss program but I will continue in this direction. 11/11/2024 Depressive disorder, not elsewhere classified (ICD-10 - F32.9) He is tolerating citalopram well without side effects and will be continued. He feels discouraged about his difficulty losing weight and immobility. We discussed this at length today. He declined a referral to the weight loss program but I will continue in this direction. 12/01/2024 GERD (gastroesophageal reflux disease) (ICD-10 - K21.9) His reflux symptoms are well controlled with baea-wtb-hwemsiw medication and no change in his regimen as needed. 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 His vision is normal in the opposite eye and he sees the structural analysis engineer regularly. He reports today that his vision in the left eye is adequate and normal. 03/20/2024 Essential hypertension (ICD-10 - I10) His [...] His reflux symptoms are well controlled with ugwa-bbw-xjxrusg medication and no change in his regimen as needed. 10/19/2024 Essential hypertension (ICD-10 - I10) His blood prressure is 140/84. No change in his medication was made. I recommended aggressive weight loss and sodium restriction combined with regular physical activity and a reduced calorie diet low in sodium and animal fat. 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 His vision is normal in the opposite eye and he sees the structural analysis engineer regularly. He reports today that his vision in the left eye is adequate and normal. 12/01/2024 Other and unspecified hyperlipidemia (ICD-10 - E78.5) His triglycerides are elevated but his total cholesterol is acceptable at 194. I recommended a healthy diet and aggressive weight loss combined with exercise. No change in his medication was needed. 12/15/2024 GERD (gastroesophageal reflux disease) (ICD-10 - K21.9) His reflux symptoms are well controlled with ysgo-ztv-gtipnsj medication and no change in his regimen as needed. 03/20/2024 GERD (gastroesophageal reflux disease) (ICD-10 - K21.9) His reflux symptoms are well controlled with vvay-pzi-tqrqgly medication and no change in his regimen [...] the opposite eye and he sees the structural analysis engineer regularly. He reports today that his vision in the left eye is adequate and normal. 10/19/2024 GERD (gastroesophageal reflux disease) (ICD-10 - K21.9) His reflux symptoms are well controlled with ssyt-pau-cbhptqm medication and no change in his regimen as needed. 11/11/2024 GERD (gastroesophageal reflux disease) (ICD-10 - K21.9) His reflux symptoms are well controlled with togx-ikw-pwrbano medication and no change in his regimen as needed. 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 His vision is normal in the opposite eye and he sees the structural analysis engineer regularly. He reports today that his vision in the left eye is adequate and normal. 12/15/2024 BPH (benign prostatic hyperplasia) (ICD-10 - N40.0) He rises from sleep once and sometimes twice a night to urinate. We have discussed lifestyle modification as a way to reduce nocturia. 03/20/2024 Vision loss of right eye (ICD-10 [...] has no vision in the right eye. 10/19/2024 BPH (benign prostatic hyperplasia) (ICD-10 - N40.0) He rises from sleep once and sometimes twice a night to urinate. We have discussed lifestyle modification as a way to reduce nocturia. 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 12/01/2024 Back pain (ICD-10 - M54.9) He will continue on conservative therapy. His x-rays do not show a surgical solution. He was referred to pain management to consider injections. 12/15/2024 Back pain (ICD-10 - M54.9) He has been to pain management in neurosurgery. He is currently going to rehabilitation medicine for physical therapy. His pain has improved. 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 08/17/2024 Thyroid nodule (ICD-10 - E04.1) This was noted last Junne jenny ultrasound. A repeat ultrasound was ordered and an endocrine consult. 10/19/2024 Myalgia, multiple sites (ICD-10 - M79.18) His CPK and LDH are normal. He will stop his simvastatin for 1 week and then call the office and we will discuss it. 11/11/2024 Chronic idiopathic constipation (ICD-10 - K59.04) The constipation is well controlled with medications. At this time. 07/24/2024 GERD (gastroesophageal reflux disease) (ICD-10 - K21.9) His reflux symptoms are well controlled with atsw-ewm-ynjuvai medication and no change in his regimen as needed. 11/11/2024 BPH (benign prostatic hyperplasia) (ICD-10 - N40.0) He rises from sleep once and sometimes twice a night to urinate. We have discussed lifestyle modification as a way to reduce nocturia. 11/11/2024 Thyroid nodule (ICD-10 - E04.1) This was noted last Junne jenny ultrasound. A repeat ultrasound was ordered and an endocrine consult. Plan Of Treatment Pending Test Test Name Order Date PROFILE, FASTING (COMPREHENSIVE METABOLI C) 03/24/2020 PROFILE, FASTING (COMPREHENSIVE METABOLI C) 03/28/2023 PROFILE, FASTING (COMPREHENSIVE METABOLI C) 09/05/2018 PROFILE, FASTING (COMPREHENSIVE METABOLI C) 12/05/2017 PROFILE, FASTING (COMPREHENSIVE METABOLI C) 12/15/2024 PROFILE, FASTING (COMPREHENSIVE METABOLI C) 07/18/2017 PROFILE, FASTING (COMPREHENSIVE METABOLI C) 05/08/2019 PROFILE, FASTING (COMPREHENSIVE METABOLI C) 06/27/2021 PROFILE, FASTING (COMPREHENSIVE METABOLI C) 12/03/2022 PROFILE, FASTING (COMPREHENSIVE METABOLI C) 06/06/2018 PROFILE, FASTING (COMPREHENSIVE METABOLI C) 07/05/2023 PROFILE, FASTING (COMPREHENSIVE METABOLI C) 01/06/2019 PROFILE, FASTING (COMPREHENSIVE METABOLI C) 11/25/2020 PROFILE, FASTING (COMPREHENSIVE METABOLI C) 06/12/2022 PROFILE, FASTING (COMPREHENSIVE METABOLI C) 07/25/2020 PROFILE, FASTING (COMPREHENSIVE METABOLI C) 09/03/2022 PROFILE, FASTING (COMPREHENSIVE METABOLI C) 03/07/2018 PROFILE, FASTING (COMPREHENSIVE METABOLI C) 08/25/2019 PROFILE, FASTING (COMPREHENSIVE METABOLI C) 02/14/2022 PROFILE, RANDOM (COMPREHENSIVE METABOLIC ) 07/18/2017 PROFILE, RANDOM (COMPREHENSIVE METABOLIC ) 03/27/2021 PROFILE, RANDOM (COMPREHENSIVE METABOLIC ) 11/26/2019 URIC ACID 06/12/2022 LIPID PANEL 03/07/2018 LIPID PANEL 06/12/2022 LIPID PANEL 08/25/2019 LIPID PANEL 03/24/2020 LIPID PANEL 03/28/2023 LIPID PANEL 09/05/2018 LIPID PANEL 12/05/2017 LIPID PANEL 05/08/2019 LIPID PANEL 06/27/2021 LIPID PANEL 07/18/2017 LIPID PANEL 03/27/2021 LIPID PANEL 12/03/2022 LIPID PANEL 06/06/2018 LIPID PANEL 11/26/2019 LIPID PANEL 07/05/2023 LIPID PANEL 01/06/2019 LIPID PANEL 11/25/2020 LIPID PANEL 07/25/2020 LDH 03/27/2021 FREE T4 (FT4) 02/14/2022 TSH (THYROID STIMULATING HORMONE) 2021 CPK 03/27/2021 PSA, TOTAL 07/25/2020 PSA, TOTAL 06/12/2022 PSA, TOTAL 03/24/2020 PSA, TOTAL 07/18/2017 PSA, TOTAL 01/06/2019 CBC w DIFF 11/25/2020 CBC w DIFF 09/03/2022 CBC w DIFF 01/06/2019 CBC w DIFF 03/27/2021 CBC w DIFF 03/07/2018 CBC w DIFF 08/25/2019 CBC w DIFF 07/25/2020 CBC w DIFF 12/15/2024 CBC w DIFF 03/28/2023 CBC w DIFF 09/05/2018 CBC w DIFF 06/12/2022 CBC w DIFF 02/14/2022 CBC w DIFF 12/05/2017 CBC w DIFF 03/24/2020 CBC w DIFF 05/08/2019 CBC w DIFF 06/27/2021 CBC w DIFF 12/03/2022 CBC w DIFF 06/06/2018 CBC w DIFF 11/26/2019 CBC w DIFF 07/18/2017 CBC w DIFF 07/05/2023 XR FOOT LT 12/05/2017 VITAMIN D 25-OH TOTAL 11/25/2020 VITAMIN D 25-OH TOTAL 07/25/2020 Lipid Panel 09/03/2022 Lipid Panel 12/15/2024 Lipid Panel 02/14/2022 Next Appt Details Provider Name:Ricky Levine, 03/02/2025 09:45:00 AM, 10 [facility] [address] [place], [place], [phone], Provider Name:Ricky Levine, 07/29/2025 10:00:00 AM, 10 [facility] [address]IL[address] [place]ULKARNI, [place], [id number], Insurance Providers Payer Name Payer Address Payer Phone Subscriber Number Group Number Insured Name Patient Relationship to Insured Coverage Start Date Coverage End Date [address] [place] [phone] [id number] Lev Cosme Self - patient is the insured MEDICARE NGS [address] [place] [phone] [id number] Lev Cosme Self - patient is the insured Medical (General) History Medical History History ICD Code hypertension depression obesity hyperlipidemia cataracts right eye corneal transplant/ lens impla nt labrynthitis screening colonoscopy by Dr Lutz at 07/2004 dry macular degeneration Age-related macular degeneration Corneal transplant Surgical History Surgery Date(Month/Year) Corneal transplant Corneal transplant right eye Hospitalization History Reason Date(Month/Year) No history
[2025-02-25 13:21] LABS: MANUAL DIFF FLAG NO
[2025-02-25 13:56] LABS: Basophils Absolute Auto 0.1 X10*3/uL (0.0-0.2); Basophils Percent Auto 0.9 % (0-2); Eosinophils Absolute Auto 0.3 X10*3/uL (0.0-0.4); Eosinophils Percent Auto 5.2 % (0-4); Hematocrit 39.3 % (42.0-52.0); Hemoglobin 13.8 g/dl (14.0-18.0); Imm Gran Abs Auto 0.02 X10*3/uL (0.00-0.03); Imm Gran Pct Auto 0.3 % (0.0-0.4); Lymphocytes Absolute Auto 1.7 X10*3/uL (1.2-4.9); Lymphocytes Percent Auto 29.1 % (20-40); Mean Corpuscular HGB Conc 35.1 g/dl (31.0-36.0); Mean Corpuscular Hemoglobin 31.5 pg (27.0-33.0); Mean Corpuscular Volume 89.7 fL (80.0-98.0); Mean Platelet Volume 10.7 fL (9.4-12.4); Monocytes Absolute Auto 0.5 X10*3/uL (0.1-1.2); Neutrophils Absolute Auto 3.2 x10*3/uL (2.0-8.3); Neutrophils Percent Auto 55.5 % (45-73); Platelet Count 204 X10*3/uL (160-400); Red Blood Count 4.38 X10*6/uL (4.60-5.80); White Blood Count 5.8 X10*3/uL (4.8-10.8)
[2025-02-25 14:45] LABS: Alanine Aminotransferase 23 U/L (0-40); Albumin Level 4.2 g/dL (3.5-5.0); Alkaline Phosphatase 80 U/L (39-117); Anion Gap 11 (12-20); Aspartate Amino Transferase 24 U/L (5-37); Bilirubin Total 0.5 mg/dL (0.0-1.0); Blood Urea Nitrogen 13 mg/dL (9-16); Calcium 9.2 mg/dL (8.4-10.2); Carbon Dioxide 27 mmol/L (22-29); Chloride 109 mmol/L (96-108); Cholesterol 197 mg/dL (<200); Estimated Glomerular Filt Rate > 60; Glucose Fasting 97 mg/dL (60-99); HDL Cholesterol 40 mg/dL (>40); LDL Cholesterol Calculated 118 mg/dL (<100); Potassium 4.2 mmol/L (3.3-5.1); Sodium 143 mmol/L (135-145); Total Protein 6.4 g/dL (6.5-8.0); Triglycerides 198 mg/dL (<150)
== END 2025-02-25 13:06 | disposition home or self-care (01) ==
LOC: HO.LAB 13:05
PROVIDERS: PCP Internal Medicine Medical Oncology; Visit Provider Internal Medicine Medical Oncology
DX: E78.5 Hyperlipidemia, unspecified (principal); I10 Essential (primary) hypertension; E66.9 Obesity, unspecified
CPT/HCPCS: 36415; 80053; 80061; 85025

== ENCOUNTER 2025-06-21 10:04 | Outpatient (REF) | payer MEDICARE, SELFPAY ==
--- OUTSIDE RECORDS SUMMARY | 2024-12-01 05:30 | XMS_ITS ---
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 Ricky Levine III [...] M edicine Referred Provider Spine and Sp [facility] Referred Provider Specialty Physical Med icine [...] Problem Status W/U Status Risk Notes Problem [id number] Obesity (E66.9) Active confirmed His body mass [...] Date Provider Diagnosis Ricky Levine III, MD [address] [place] [address] [address] [place], [place] [address] 12/01/2024 Ricky Levine Obesity E66.9 ; Depressive [...] His reflux symptoms are well controlled with egpv-kja-pziodzn medication and no change in his regimen [...] the opposite eye and he sees the lead pony rider regularly. He reports today that his vision [...] 30 MG TAKE 1 CAPSULE BY MO [facility] TWICE A DAY Felodipine ER 10 [...] back pain MRI showed DJD and osteophytes, [facility] Next Appt Details Follow Up: 2 Weeks, Reason: ov no tests ref to [facility] Provider Name:Ricky Sanchezne , 07/29/2025 10:00:00 AM, [address] [place] [address], [place] [address], [place], [address], Progress Notes * Lev CHAMPION SrDOB: [birth year] (74 yo M)Acc No.[id number]:12/01/2024 Progress Notes Patient: Lev HILARIO Sr Provider: Shira Levine MD :1950 A ge:74 Y S ex:Male Date:12/01/2024 Address:[address] [place] [address] Subjective: * Chief Complaints: * C hronic [...] certain movements, such as bending over to brick picker 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 The patient had [...] :His reflux symptoms are well controlled with jodo-tnr-rnydcrk medication and no change in his regimen [...] the opposite eye and he sees the lead pony rider regularly. He reports today that his vision [...] Levine MD Date: 0 12/01/2024 Generated for Doris mayer/Cassia/eTransmitting on: 0 06/21/2025 12:22 PM EDT History and Physical Notes * [...] es 12/01/2024 [facility] Thoracic lumbar back pain MRI showed DJD and osteophytes
--- OUTSIDE RECORDS SUMMARY | 2024-12-04 09:14 | XMS_ITS ---
Author Organization Ricky Levine III, MD Address [address] [place] [address] [place] [address] Care Team Providers Care Telesales Supervisor Name Role Phone Dr. Ricky Levine III Primary Care Provider [phone] Reason For Referral Reason Urgent Appointment R [...] Date Provider Diagnosis Ricky Levine III, MD [address] [place] [address] [place] [address] 12/04/2024 Ricky Levine Plan Of Treatment Referrals Referral Date Details 12/04/2024 12/04/2024, Urgent A ppointment Request Evaluate and Treat, MELODY QUINONES Next Appt Details Provider Name:Ricky Levine , 07/29/2025 10:00:00 AM, [address] [place] [address] [address] [place], [place], [address], Progress Notes * Lev CHAMPION SrDOB: [birth year] (74 yo M)Acc No.[id number]:12/04/2024 Patient: Lev HILARIO Sr :1950 A ge:74 Y S ex:Male Address:[address] [place] [address] Subjective: * Chief Complaints: * R eferral to Dr. Quinones * Medical History: * Surgical History: * Hospitalization/Major Diagno stic Procedure: * Medications: Objective: * Vitals: * Physical Examination: Assessment: Plan: * Treatment: * Procedure Codes: * true * Date: Generated for Printi ng/Facharlig/eTransmitting on: 0 06/21/2025 12:23 PM EDT Consultation Request Notes Referral Date Referring Provider Referred Provider Not es 12/04/2024 Ricky Levine FREDERIK Urgent A ppointment Request Evaluate and Treat
--- OUTSIDE RECORDS SUMMARY | 2024-12-14 06:56 | XMS_ITS ---
Author Organization Ricky Levine III, MD Address [address] [place] [address] [address] [place] [address] Care Team Providers Care Mender Knit Goods Name Role Phone Dr. Ricky Levine III Primary Care Provider REASON FOR VISIT HCC Risk Codes Social History Sex Assigned At : Social History Observation Description Sex Assigned At Male Encounters Encounter Location Date Provider Diagnosis Ricky Levine III, MD [address] [place] [address] [address] [place] [address] 12/14/2024 Ricky Levine Plan Of Treatment Next Appt Details Provider Name:Ricky Levine , 07/29/2025 10:00:00 AM, [address] [place] [address] [place], [address], Progress Notes * Lev CHAMPION SrDOB: [birth year] (74 yo M)Acc No.[id number]:12/14/2024 Patient: Lev HILARIO Sr :1950 A ge:74 Y S ex:Male Address:[address] [place] [id number] * true * Date: Generated for Arpitai ng/Facharlig/eTransmitting on: 0 06/21/2025 12:24 PM EDT
--- OUTSIDE RECORDS SUMMARY | 2025-03-02 05:45 | XMS_ITS ---
Author Organization Ricky Levine III, MD Address [address] [place] [address] [place] [address] Care Team Providers Care Sustainability Communicator Name Role Phone Dr. Ricky Levine III [...] BEDTIME Active Centrum Silver - Orally Act entte Lansoprazole 30 MG TAKE 1 CAPSULE BY [...] Problem Status W/U Status Risk Notes Problem [id number] Left hip pain (M25.552 ) Active confirmed [...] Date Provider Diagnosis Ricky Levine III, MD [address] [place] [address] [place], [place] [address] 03/02/2025 Ricky Levine Other and unspecifie d [...] His reflux symptoms are well controlled with mbmr-opy-bwmkqrc medication and no change in his regimen as needed. 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 His vision is normal in the opposite eye and he sees the fine grade operator regularly. He reports today that his [...] Next Appt Details Follow Up: As Scheduled, [place] son: Annual Exam Provider Name:Ricky Levine , 07/29/2025 10:00:00 AM, [address] [place] [address] , [place] [address], [place], [address], Progress Notes * Lev CHAMPION SrDOB: [birth year] (74 yo M)Acc No.[id number]:03/02/2025 Progress Notes Patient: Lev HILARIO Sr Provider: Shira Levine MD :1950 A ge:74 Y S ex:Male Date:03/02/2025 Address:[address] [place], [place] [id number] Subjective: * Chief Complaints: * L eft hip painLow back painBenign prostatic hypertrophyObesityScarring right corneaDepression * HPI: C OVID-19 Screening: Zo[place] mederos returns for medical management. His main complaint is left pain. He has finished physical therapy at [facility] spine [facility]. The physical [...] May have water,PLEASE FAX COMPLETED RESULTS TO [phone] * Lab:Complete Blood Count Aut o Diff [...] :His reflux symptoms are well controlled with wreh-ifp-juzwvym medication and no change in his regimen as needed. 7 . 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 His vision is normal in the opposite eye and he sees the fine grade operator regularly. He reports today that his [...] MD Date: 0 03/02/2025 Generated for Doris mayer/Cassia/Daríoitting on: 0 06/21/2025 12:23 PM EDT History and Physical Notes * [...]
--- NOTE | ~2025-06-21 | XR_ITS ---
EXAMINATION: XR HIP, LEFT CLINICAL INFORMATION: PRIMARY OA, LEFT HIP COMPARISON: None available. TECHNIQUE: AP pelvis, and 2 views of the left hip. FINDINGS: There is no fracture, dislocation, or suspicious bone lesion. There is normal alignment. Moderate to severe degenerative arthrosis of the left hip joint, with significant joint space narrowing, subchondral sclerosis and small marginal osteophytic spurs. No evidence of AVN. Normal femoral head contour. Moderate arthritic changes in the right hip joint. No soft tissue abnormalities. XR/XR hip LT w PEL1V IMPRESSION: Bilateral hip joint osteoarthrosis, moderate to severe in the left hip. Electronically signed by: Waqas Tucker MD 06/21/2025 10:42 AM EDT
--- OUTSIDE RECORDS SUMMARY | 2025-06-21 12:22 | XMS_ITS | Patient Health Record ---
Author Organization [facility] Address [address] [place] [address] Care Team Providers Care Academic Computing Director Name Role Phone Ricky Levine MD Primary Care Provider Unavailab Jerardo Bella Unavailable [phone] Reason For Referral No Information Medications Medication SIG (Take, Route, Frequency, Duration) Notes Start Date End Date Status Simvastatin 40 MG TAKE 1 TABLET BY HIRAL TH AT BEDTIME. Oral; Duration: 30 Active prednisoLONE Acetate 1 % INSTILL 1 DROP IN THE RIGHT EYE ONCE DAILY Ophthalmic; Duration: 20 Active Lansoprazole 30 MG TAKE ONE CAPSULE BY MOUTH TWICE A DAY Oral; Duration: 30 Active Citalopram Hydrobromide 40 MG TAKE 1 TABLET BY MOUTH EVERY DAY Oral; Duration: 30 Active Felodipine ER 10 MG TAKE 1 TABLET BY HIRAL TH EVERY DAY Oral; Duration: 30 Active Centrum Silver Activ e Social History Tobacco Use: Social History Observation Description Date Details (start date - stop date) Never Smoker NA - NA Tobacco Use/Smoking Question Answer Notes Are you a: nonsmoker Additional Findings: Tobacco Non-User Current no n-smoker Alcohol Screen Question Answer Notes Did you have a drink containing alcohol in the p ast year? Yes Points 0 Interpretation Negative Tobacco use other than smoking: Question Answer Notes Are you an other tobacco user? No Problems Problem Type SNOMED Code ICD Code Onset Dates Problem Status W/U Status Risk Notes Problem Localized, primary osteoarthritis of the ankle and/or foot (624205268) Primary osteoarthrit is, left ankle and foot (M19.072) Active confirmed Problem Acquired hammer toe of left foot ([id number]) Other hammer toe(s) (acquired), left foot (M20.42) Active confirmed Plan Of Treatment Pending Test Test Name Order Date X ray : Foot, left 3V 12/13/2017 Insurance Providers Payer Name Payer Address Payer Phone Subscriber Number Group Number Insured Name Patient Relationship to Insured Coverage Start Date Coverage End Date [employer] [facility] [address] [place] [address] [phone] [id number] Lev Cosme Self - patient is the insured Medical (General) History Medical History History ICD Code Anxiety disorder Back,Hip,and Knee pain Cataracts Depression Hiatal hernia Hypertension Macular degeneration Reflux ( GERD) chronic sinusitis Stomach ulcer Warts Transfusions Surgical History Surgery Date(Month/Year) eye surgery-several
--- OUTSIDE RECORDS SUMMARY | 2025-06-21 12:22 | XMS_ITS | Patient Health Record ---
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 Ricky Levine III Primary Care Provider [phone] Allergies Allergen (clinical drug ingredient) Drug/Non Drug Allergy documented on EMR Reaction Allergy Type Onset Date Status No Known Drug Allergy Unknown Drug Allergy Active Results Component Value Reference Range Notes Lipid Panel Reviewed date:08/03/2024 05:36:17 AM Interpretation: Performing Lab:[facility], [address] [place] [phone] Notes/Report: Triglycerides 199 <150 mg/dL Desirable Triglyceride: [...] date:10/06/2024 04:07:01 PM Interpretation: Performing Lab: Notes/Report: [facility] Adult Primary Care [address] [place] [address] [place] [address] XRay Report Signed Patient: Lev Cosme MR#: [id number] 7 : 1950 Acct:[id number] Age/Sex: 74 / M ADM Date: 07/24/24 Loc: HO.HMGCX Attending Dr: Ricky Levine MD Ordering Physician: Ricky Levine MD Date of Service: 07/24/24 Procedure(s): XR hip CLAUDIO min 3V w/wo pel Accession Number(s): [id number] cc: Ricky Levine MD EXAMINATION: XR BILATERAL [...] 10/06/24 0555 DD/ 1216 TD/TT: 07/24/24 1226 Face Man: [facility] Adult Primary Care [address] [place] [address] [place] [address] XRay Report Signed Patient: Lizzette Cosme MR#: [id number] 7 : 1950 Acct:[id number] Age/Sex: 74 / M ADM Date: 07/24/24 Loc: HO.HMGCX Attending Dr: Ricky Levine MD Ordering Physician: Ricky Levine MD Date of Service: 07/24/24 Procedure(s): XR hip CLAUDIO min 3V w/wo pel Accession Number(s): [id number] cc: Ricky Levine MD EXAMINATION: XR BILATERAL [...] by: Sera Smith MD 10/06/2024 05:55 AM [facility] [place] Dictated By: Sera Smith MD Signed By: <Electronically signed by Sera Smith MD in OV> 10/06/24 0555 DD/ 1216 TD/TT: 07/24/24 1226 Face Man: XR lumbar spine 2-3V Reviewed date:10/06/2024 04:07:01 PM Interpretation: Performing Lab: Notes/Report: [facility] Primary Care [address] [place] [address] [place] [address] XRay Report Signed Patient: Lev Cosme MR#: [id number] 7 : 1950 Acct:[id number] Age/Sex: 74 / M ADM Date: 07/24/24 Loc: HO.HMGCX Attending Dr: Ricky Levine MD Ordering Physician: Ricky Levine MD Date of Service: 07/24/24 Procedure(s): XR lumbar spine 2-3V Accession Number(s): [id number] cc: Ricky Levine MD EXAMINATION: XR LUMBAR [...] OV> 10/06/24 0542 DD/ TD/TT: 07/24/24 1226 Face Man: [facility] Adult Primary Care [address] [place] [address] [place] [address] XRay Report Signed Patient: Lizzette Cosme MR#: [id number] 7 : 1950 Acct:[id number] Age/Sex: 74 / M ADM Date: 07/24/24 Loc: .HMGCX Attending Dr: Ricky Levine MD Ordering Physician: Ricky Levine MD Date of Service: 07/24/24 Procedure(s): XR lum bar spine 2-3V Accession Number(s): [id number] cc: Ricky Levine MD EXAMINATION: XR LUMBAR [...] 10/06/24 0542 DD/ 1216 TD/TT: 07/24/24 1226 Face Man: Complete Blood Count Auto Di ff Reviewed date:07/24/2024 10:04:08 AM Interpretation: Performing Lab:[facility], [address] [place] [phone] Notes/Report: White Blood Count 7.1 4.8-10.8 X10*3/uL [...] NRBC Abs Auto 0.000 0.0-0.012 X10*3/uL Comprehensive [place]. Panel Fa st Reviewed date:07/24/2024 10:04:08 AM Interpretation: Performing Lab:[facility], [address] [place] [phone] Notes/Report: Sodium 141 135-145 mmol/L Potassium 4.3 3.3-5.1 mmol/L Chloride 106 96-108 mmol/L Carbon Dioxide 28 22-29 mmol/L Anion Gap 11 12-20 Blood Urea Nitrogen 13 9-16 mg/dL Creatinine 0.92 0.5-1.4 mg/dL Estimated Glomerular Filt Rate > 60 NOTE: For -[place] individuals, multiply the result by 1.210. Chronic [...] Panel Reviewed date:07/24/2024 10:04:08 AM Interpretation: Performing Lab:[facility], [address] [place] [phone] Notes/Report: Triglycerides 258 <150 mg/dL Desirable Triglyceride: [...] Antigen Reviewed date:07/24/2024 10:04:08 AM Interpretation: Performing Lab:[facility], [address] [place] [phone] Notes/Report: Prostate Specific Antigen 0.83 <0.05-4.0 ng/mL PSA methodology: Stark Alinity i Chemiluminescent Microparticle Immunoassay (CMIA) Hemoglobin A1c Reviewed date:07/24/2024 10:04:08 AM Interpretation: Performing Lab:[facility], [address] [place] [phone] Notes/Report: Hemoglobin A1c % 5.5 <6.0 % [...] average glucose, using the formula of the G4H-Gnqeppk Average Glucose study (ADAG), Diabetes Care, Vol.31,#8, Apr. 2007 Complete Blood Count Auto Di ff Reviewed date:08/03/2024 05:36:17 AM Interpretation: Performing Lab:[facility], [address] [place] [phone] Notes/Report: White Blood Count 7.3 4.8-10.8 X10*3/uL [...] NRBC Abs Auto 0.000 0.0-0.012 X10*3/uL Comprehensive [place]. Panel Fa st Reviewed date:08/03/2024 05:36:17 AM Interpretation: Performing Lab:[facility], [address] [place] [phone] Notes/Report: Sodium 142 135-145 mmol/L Potassium 4.0 3.3-5.1 mmol/L Chloride 108 96-108 mmol/L Carbon Dioxide 25 22-29 mmol/L Anion Gap 13 12-20 Blood Urea Nitrogen 13 9-16 mg/dL Creatinine 1.11 0.5-1.4 mg/dL Estimated Glomerular Filt Rate > 60 NOTE: For -[place] individuals, multiply the result by 1.210. Chronic [...] Dehydrogenase Reviewed date:08/03/2024 05:36:17 AM Interpretation: Performing Lab:[facility], [address] [place] [phone] Notes/Report: Lactate Dehydrogenase 231 118-273 U/L Creatine Kinase Total Reviewed date:08/03/2024 05:36:17 AM Interpretation: Performing Lab:[facility], [address] [place] [address] Notes/Report: Creatine Kinase Total 69 38-174 U/L MR lumbar spine wo con Reviewed date:12/05/2024 09:21:38 AM Interpretation: Performing Lab: Notes/Report: [facility] [address] [place] [address] Magnetic Resonance Report Signed Patient: Lev Cosme MR#: [id number] 7 : 1950 Acct:[id number] Age/Sex: 74 / M ADM Date: 10/28/24 Loc: HO.MRI Attending Dr: Ricky Levine MD Ordering Physician: Ricky Levine MD Date of Service: 10/28/24 Procedure(s): MR lumbar spine wo con Accession Number(s): [id number] cc: Ricky Levine MD EXAMINATION: MR LUMBAR [...] by: Enoch Hayes MD 10/29/2024 10:07 AM [facility] [place] Dictated By: Enoch Webster MD Signed By: <Electronically signed by Enoch Chávez MD in OV> 10/29/24 1007 DD/ 1743 TD/TT: 10/28/24 1755 Face Man: [place] [address] Magnetic Resonance Report Signed Patient: Lizzette Cosme MR#: [id number] 7 : 1950 Acct:[id number] Age/Sex: 74 / M ADM Date: 10/28/24 Loc: HO.MRI Attending Dr: Ricky Levine MD Ordering Physician: Ricky Levine MD Date of Service: 10/28/24 Procedure(s): MR lum bar spine wo con Accession Number(s): [id number] cc: Ricky Levine MD EXAMINATION: MR LUMBAR [...] 10/29/2024 10:07 AM EST Dictated By: Enoch Glass MD Signed By: <Electronically signed by Enoch Chávez MD in OV> 10/29/24 1007 DD/ 1743 TD/TT: 01/29/25 1755 Face Man: XR pre mri screening Reviewed date:12/05/2024 09:21:38 AM Interpretation: Performing Lab: Notes/Report: [address] [address] XRay Report Signed Patient: Lev Cosme MR#: [id number] 7 : 1950 Acct:[id number] Age/Sex: 74 / M ADM Date: 10/22/24 Loc: HO.MRI Attending Dr: Ricky Levine MD Ordering Physician: Waqas Tucker MD Date of Service: 10/28/24 Procedure(s): XR pre mri screening Accession Number(s): [id number] cc: Ricky Levine MD; Waqas Tucker MD [...] Henderson MD in OV> 10/28/24 1728 DD/ 25 TD/TT: 10/28/241725 Face Man: [address] [address] XRay Report Signed Patient: Lizzette Cosme MR#: [id number] 7 : 1950 Acct:[id number] Age/Sex: 74 / M ADM Date: 10/22/24 Loc: HO.MRI Attending Dr: Ricky Levine MD Ordering Physician: Waqas Tucker MD Date of Service: 10/28/24 Procedure(s): XR pre mri screening Accession Number(s): [id number] cc: Ricky Levine MD; Waqas Tucker MD CLINICAL HISTORY: NV E MRI ORBIT XRAYS MRI Screening XR [...] signed by Cuong Henderson MD in OV> 10/28/241727 DD/ 25 TD/TT: 10/28/241725 Face Man: Complete Blood Count Auto Di ff Reviewed date:02/28/2025 07:56:40 PM Interpretation: Performing Lab:[facility], [address] [place] [phone] Notes/Report: White Blood Count 5.8 4.8-10.8 X10*3/uL Red Blood Count 4.38 4.60-5.80 X10*6/uL Hemoglobin 13.8 14.0-18.0 g/dl Hematocrit 39.3 42.0-52.0 % Mean Corpuscular Volume 89.7 80.0-98.0 fL Mean Corpuscular Hemoglobin 31.5 27.0-33.0 pg Mean Corpuscular HGB Conc 35.1 31.0-36.0 g/dl Red Cell Distribution Width 14.0 11.0-16.0 % Platelet Count 204 160-400 X10*3/uL Mean Platelet Volume 10.7 9.4-12.4 fL Neutrophils Percent Auto 55.5 45-73 % Imm Gran Pct Auto 0.3 0.0-0.4 % Lymphocytes Percent Auto 29.1 20-40 % Monocytes Percent Auto 9.0 2-11 % Eosinophils Percent Auto 5.2 0-4 % Basophils Percent Auto 0.9 0-2 % NRBC Pct Auto 0.0 0.0-0.2 /100WBC Neutrophils Absolute Auto 3.2 2.0-8.3 x10*3/uL Imm Gran Abs Auto 0.02 0.00-0.03 X10*3/uL Lymphocytes Absolute Auto 1.7 1.2-4.9 X10*3/uL Monocytes Absolute Auto 0.5 0.1-1.2 X10*3/uL Eosinophils Absolute Auto 0.3 0.0-0.4 X10*3/uL Basophils Absolute Auto 0.1 0.0-0.2 X10*3/uL NRBC Abs Auto 0.000 0.0-0.012 X10*3/uL Comprehensive [place]. Panel Fa st Reviewed date:02/28/2025 07:56:40 PM Interpretation: Performing Lab:[facility], [address] [place] [phone] Notes/Report: Sodium 143 135-145 mmol/L Potassium 4.2 3.3-5.1 mmol/L Chloride 109 96-108 mmol/L Carbon Dioxide 27 22-29 mmol/L Anion Gap 11 12-20 Blood Urea Nitrogen 13 9-16 mg/dL Creatinine 0.86 0.5-1.4 mg/dL Estimated Glomerular Filt Rate > 60 Chronic Kidney Disease: Estimated GFR < 60 mL/min/1.73m2 Severe Kidney Disease: Estimated GFR < 15 mL/min/1.73m2 Glucose Fasting 97 60-99 mg/dL Calcium 9.2 8.4-10.2 mg/dL Bilirubin Total 0.5 0.0-1.0 mg/dL Aspartate Amino Transferase 24 5-37 U/L Alanine Aminotransferase 23 0-40 U/L Total Protein 6.4 6.5-8.0 g/dL Albumin Level 4.2 3.5-5.0 g/dL Alkaline Phosphatase 80 39-117 U/L Lipid Panel Reviewed date:02/28/2025 07:56:40 PM Interpretation: Performing Lab:[facility], [address] [place] [phone] Notes/Report: Triglycerides 198 <150 mg/dL Desirable Triglyceride: less than 150 mg/dL Borderline High Triglyceride 150-199 mg/dL High Triglyceride: 200-499 mg/dL Very High Triglyceride: greater than or equal to 5OO mg/dL Cholesterol 197 <200 mg/dL Desirable Cholesterol: less than 200 mg/dL Borderline High Cholesterol: 200-239 mg/dL High Cholesterol: greater than 239 mg/dL LDL Cholesterol Calculated 118 <100 mg/dL Desirable LDL: less than 100 mg/dL Near Optimal/Above Optimal LDL: 110-129 mg/dL Borderline High LDL: 130-159 mg/dL High LDL: 160-189 mg/dL Very High LDL: greater than or equal to 190 mg/dL HDL Cholesterol 40 >40 mg/dL Desirable HDL: greater than 40 mg/dL Note: This HDL assay may give artificially low results in patients with liver disease. XR hip LT w PEL1V (Not yet r eviewed by provider) Interpretation: Performing Lab: Notes/Report: [facility] Adult Primary Care [address] [place] [address] [place] [address] XRay Report Signed Patient: Lev Cosme MR#: [id number] 7 : 1950 Acct:[id number] Age/Sex: 75 / M ADM Date: 06/21/25 Loc: HO.HMGCX Attending Dr: Brissa Mendoza PA-C Ordering Physician: Brissa Mendoza PA-C Date of Service: 06/21/25 Procedure(s): XR hip LT w PEL1V Accession Number(s): [id number] cc: Ricky Levine MD; Brissa Mendoza PA-C Reason for Exam: PRIMARY OA, LEFT HIP EXAMINATION: XR HIP, LEFT CLINICAL INFORMATION: PRIMARY OA, LEFT HIP COMPARISON: None available. TECHNIQUE: AP pelvis, and 2 views of the left hip. FINDINGS: There is no fracture, dislocation, or suspicious bone lesion. There is normal alignment. Moderate to severe degenerative arthrosis of the left hip joint, with significant joint space narrowing, subchondral sclerosis and small marginal osteophytic spurs. No evidence of AVN. Normal femoral head contour. Moderate arthritic changes in the right hip joint. No soft tissue abnormalities. XR/XR hip LT w PEL1V IMPRESSION: Bilateral hip joint osteoarthrosis, moderate to severe in the left hip. Electronically signed by: Waqas Tucker MD 06/21/2025 10:42 AM EDT Dictated By: Waqas Tucker MD Signed By: <Electronically signed by Waqas Tucker MD in OV> 06/21/25 1042 DD/ 1011 TD/TT: 06/21/25 1018 Face Man: [facility] Adult Primary [facility] [address] [place] [address] [place] [address] XRay Report Signed Patient: Lizzette Cosme MR#: [id number] 7 : 1950 Acct:[id number] Age/Sex: 75 / M ADM Date: 06/21/25 Loc: HO.HMGCX Attending Dr: Terri Mendoza PA-C Ordering Physician: Brissa Mendoza PA-C Date of Service: 06/21/25 Procedure(s): XR hip LT w PEL1V Accession Number(s): [id number] cc: Ricky Levine MD; Brissa Mendoza PA-C Reason for Exam: PRIMARY OA, LEFT HIP EXAMINATION: XR HIP, LEFT CLINICAL INFORMATION: PRIMARY OA, LEFT HIP COMPARISON: None available. TECHNIQUE: AP pelvis, and 2 vie ws of the left hip. FINDINGS: There is no fracture , dislocation, or suspicious bone lesion. There is normal alignment. Moderate to severe degenerative arthrosis of the left hip joint, with significant joint sp sridhar narrowing, subchondral sclerosis and small marginal osteophytic spurs. No evidence of AVN. Normal femoral head contour. Moderate arthritic changes in the right hip joint. No soft tissue abnormalities. XR/XR hip LT w PEL1V IMPRESSION: Bilateral hip joint osteoarthrosis, moderate to severe in the left hip. Electronically bj d by: Waqas Tucker MD 06/21/2025 10:42 AM EDT Dictated By: Waqas Tucker MD Signed By: <Electronically signed by Waqas Tucker MD in OV> 06/21/25 1042 DD/ 1011 TD/TT: 06/21/25 1018 Face Man: Reason For Referral Reason Consult and Treat Bilateral Hip Pain Diagnosis 1 Hip pain (M25.559) Referral Organization Ricky Levine III, MD Referring Provider First Name Ricky Referring Provider Last Name Julianna Referring Provider Speciality Internal M edicine Referred Provider [facility], [facility] Sur[facility] Referred Provider Specialty Orthopedic S urgery General Notes D, Maya 08/20/2024 10:44:43 AM > Referral and [...] Referring Provider Speciality Internal edicine [facility] Provider Specialty Physical Med icine General Notes Leora Lion MICHAELLE 12/03 09:14:04 AM > ref/demo/x rays faxed to [facility] and pt made aware of this, Leora Lion MICHAELLE 12/07/2024 09:37:02 AM > Office called patient [...] Active Centrum Silver - Orally Act nette Felodipine ER 10 MG TAKE 1 TABLET BY HIRAL TH EVERY DAY FOR 90 DAYS Active Immunizations Vaccine Route Administration Date Status [...] Problem Status W/U Status Risk Notes Problem 088004511 Obesity (E66.9) Active confirmed His body mass index is 39.33. We discussed diet and nutrition and made a plan to lose weight at 1 pound per week. Problem 573102991 Back pain (M54.9) Active confirmed He has been to pain management in neurosurgery. He is currently going to rehabilitation medicine for physical therapy. His pain has improved. Problem 589279747 GERD (gastroesophagea l reflux disease) (K21.9) Active confirmed His reflux symptoms are well controlled with erqm-wws-vrenwrz medication and no change in his regimen as needed. Problem 28356614 Anxiety (F41.9) Active confirmed He continues to use clonazepam given to him by the psychiatrist. Problem 23053025 Left hip pain (M25.552) Active confirmed His physical therapist has referred him back to the rehabilitation doctor for injections. Problem 88483766 Labyrinthitis, bilateral (H83.03) Active confirmed The vertigo has resolved and this problem is no longer active. Problem Benign prostatic hyperplasia (837320704) BPH (benign prostatic hyperplasia) (N40.0) Active confirmed He rises from sleep once and sometimes twice a night to urinate. We have discussed lifestyle modification as a way to reduce nocturia. Problem 55898334 Essential hypertension (I10) Active confirmed His blood prressure is controlled. No change in his medication was made. I recommended aggressive weight loss and sodium restriction combined with regular physical activity and a reduced calorie diet low in sodium and animal fat. Problem 31800952 Other and unspecified hyperlipidemia (E78.5) Active confirmed His lipids are well controlled and no change in his regimen was necessary today. Problem 35735078 Depressive disorder, not elsewhere classified (F32.9) Active confirmed He is toleratin g citalopram well without side effects and will be continued. He feels discouraged about his difficulty losing weight and immobility. We discussed this at length today. He declined a referral to the weight loss program but I will continue in this direction. 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 His vision is normal in the opposite eye and he sees the medical housekeeper regularly. He reports today that his vision in the left eye is adequate and normal. Problem 43287428 Chronic idiopathic constipation (K59.04) Active confirmed The constipatio n is well controlled with medications. At this time. Problem 629264195 Lumbar spondylosis (M47.816) Active confirmed He continues to have worsening low back pain. An MRI has shown multilevel spondylosis and degenerative changes. There are multiple levels of foraminal narrowing. He has seen a neurosurgeon who found no surgical approach. He has been referred to physiatry and pain management. 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 Problem 010929129 Low back pain, unspecified (M54.50) Active confirmed His back pain i s being manage. He has had surgery. It is mild to moderate at this time. Problem 37041951 Degeneration of intervertebral disc of lumbar region, unspecified whether pain present (M51.369) Active confirmed He has bilatera l quadriceps pain which are likely from his spine. He was given a trial of dexamethasone.Th pain in his back has become very severe. In addition to the dexamethasone a surgical solution will be sought. I have requested an of the lumbar spine. Vital Signs Heart Rate 66 /min 03/02/2025 Temperature 97.6 degrees Fahrenheit 03/02/2025 Blood pressure diastolic 77 mm Hg 03/02/2025 Height 72 in 03/02/2025 Blood pressure systolic 139 mm Hg 03/02/2025 Weight 290 lbs 03/02/2025 BMI 39.33 kg/m2 03/02/2025 Encounters Encounter Location Date Provider Diagnosis Ricky Levine III, MD [address] [place] [address] [place] [address] 07/24/2024 Ricky Levine Other and unspecifie d hyperlipidemia E78.5 ; Morbid obesity E66.01 ; Hip pain M25.559 ; Lumbar back pain M54.50 ; Essential hypertension I10 ; BPH (benign prostatic hyperplasia) N40.0 ; Chronic idiopathic constipation K59.04 ; Vision loss of right eye H54.61 and GERD (gastroesophageal reflux disease) K21.9 Ricky Levine III, MD [address] [place] [address] [place] [address] 08/17/2024 Ricky Levine Depressive disorder, not elsewhere classified F32.9 ; Obesity E66.9 ; Essential hypertension I10 ; Other and unspecified hyperlipidemia E78.5 ; GERD (gastroesophageal reflux disease) K21.9 ; Cornea replaced by transplant Z94.7 ; Vision loss of right eye H54.61 and Thyroid nodule E04.1 Ricky Levine III, MD [address] [place] [address] [place] [address] 10/19/2024 Ricky Levine Degeneration of intervertebral disc of lumbar region, unspecified whether pain present M51.369 ; Other and unspecified hyperlipidemia E78.5 ; Cornea replaced by transplant Z94.7 ; Depressive disorder, not elsewhere classified F32.9 ; Essential hypertension I10 ; GERD (gastroesophageal reflux disease) K21.9 ; BPH (benign prostatic hyperplasia) N40.0 and Myalgia, multiple sites M79.18 Ricky Levine III, MD [address] [place] [address] [place] [address] 11/11/2024 Ricky Levine Lumbar spondylosis M47.816 ; Other and unspecified hyperlipidemia E78.5 ; Essential hypertension I10 ; Depressive disorder, not elsewhere classified F32.9 ; Cornea replaced by transplant Z94.7 ; GERD (gastroesophageal reflux disease) K21.9 ; Vision loss of right eye H54.61 ; Chronic idiopathic constipation K59.04 ; BPH (benign prostatic hyperplasia) N40.0 and Thyroid nodule E04.1 Ricky Levine III, MD [address] [place] [address] [place] [address] 12/01/2024 Ricky Levine Obesity E66.9 ; Depressive disorder, not elsewhere classified F32.9 ; Essential hypertension I10 ; GERD (gastroesophageal reflux disease) K21.9 ; Other and unspecified hyperlipidemia E78.5 ; Cornea replaced by transplant Z94.7 and Back pain M54.9 Ricky Levine III, MD [address] [place] [address] [place] [address] 12/15/2024 Ricky Levine Other and unspecifie d hyperlipidemia E78.5 ; Essential hypertension I10 ; Depressive disorder, not elsewhere classified F32.9 ; Cornea replaced by transplant Z94.7 ; GERD (gastroesophageal reflux disease) K21.9 ; BPH (benign prostatic hyperplasia) N40.0 and Back pain M54.9 Ricky Levine III, MD [address] [place] [address] [place] [address] 03/02/2025 Ricky Levine Other and unspecifie d hyperlipidemia E78.5 ; Low back pain, unspecified M54.50 ; Obesity E66.9 ; Essential hypertension I10 ; Depressive disorder, not elsewhere classified F32.9 ; GERD (gastroesophageal reflux disease) K21.9 ; Cornea replaced by transplant Z94.7 ; BPH (benign prostatic hyperplasia) N40.0 and Left hip pain M25.552 Ricky Levine III, MD [address] [place] [address] [place] [address] 12/04/2024 Ricky Levine III, MD [address] [place] [address] [place] [address] 12/14/2024 Ricky Levine Assessments Encounter Date Diagnosis (ICD Code) Assessment Notes Treat ment Notes Treatment Clinical Notes 07/24/2024 Other and unspecified hyperlipidemia (ICD-10 - [...] No change in his medication was needed. 03/02/2025 Other and unspecified hyperlipidemia (ICD-10 - E78.5) His lipids are well controlled and no change in his regimen was necessary today. 03/02/2025 Low back pain, unspecified (ICD-10 - M54.50) His back pain is being manage. He has had surgery. It is mild to moderate at this time. 07/24/2024 Hip pain (ICD-10 - M25.559) He [...] the opposite eye and he sees the medical housekeeper regularly. He reports today that his vision [...] I will continue in this direction. 03/02/2025 Obesity (ICD-10 - E66.9) His body mass index is 39.33. We discussed diet and nutrition and made a plan to lose weight at 1 pound per week. 07/24/2024 Lumbar back pain (ICD-10 - M54.50) [...] His reflux symptoms are well controlled with ahkw-vbj-rqeelgu medication and no change in his regimen as needed. 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 His vision is normal in the opposite eye and he sees the medical housekeeper regularly. He reports today that his vision in the left eye is adequate and normal. 03/02/2025 Essential hypertension (ICD-10 - I10) His blood prressure is controlled. No change in his medication was made. I recommended aggressive weight loss and sodium restriction combined with regular physical activity and a reduced calorie diet low in sodium and animal fat. 07/24/2024 Essential hypertension (ICD-10 - I10) His blood prressure is 124/57. No change in his medication was made. I recommended aggressive weight loss and sodium restriction combined with regular physical activity and a reduced calorie diet low in sodium and animal fat. 08/17/2024 GERD (gastroesophageal reflux disease) (ICD-10 - K21.9) His reflux symptoms are well controlled with hsnz-bfw-vhplyle medication and no change in his regimen [...] the opposite eye and he sees the medical housekeeper regularly. He reports today that his vision [...] His reflux symptoms are well controlled with jizi-zfn-zaxrhit medication and no change in his regimen as needed. 03/02/2025 Depressive disorder, not elsewhere classified (ICD-10 - F32.9) He is tolerating citalopram well without side effects and will be continued. He feels discouraged about his difficulty losing weight and immobility. We discussed this at length today. He declined a referral to the weight loss program but I will continue in this direction. 07/24/2024 BPH (benign prostatic hyperplasia) (ICD-10 - N40.0) He rises from sleep once and sometimes twice a night to urinate. We have discussed lifestyle modification as a way to reduce nocturia. 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 His vision is normal in the opposite eye and he sees the medical housekeeper regularly. He reports today that his vision in the left eye is adequate and normal. 10/19/2024 GERD (gastroesophageal reflux disease) (ICD-10 - K21.9) His reflux symptoms are well controlled with kkxs-axq-hlwufop medication and no change in his regimen as needed. 11/11/2024 GERD (gastroesophageal reflux disease) (ICD-10 - K21.9) His reflux symptoms are well controlled with sahu-apa-altpioi medication and no change in his regimen as needed. 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 His vision is normal in the opposite eye and he sees the medical housekeeper regularly. He reports today that his vision in the left eye is adequate and normal. 12/15/2024 BPH (benign prostatic hyperplasia) (ICD-10 - N40.0) He rises from sleep once and sometimes twice a night to urinate. We have discussed lifestyle modification as a way to reduce nocturia. 03/02/2025 GERD (gastroesophageal reflux disease) (ICD-10 - K21.9) His reflux symptoms are well controlled with kauw-kds-gjrpykt medication and no change in his regimen as needed. 07/24/2024 Chronic idiopathic constipation (ICD-10 - K59.04) [...] for physical therapy. His pain has improved. 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 His vision is normal in the opposite eye and he sees the medical housekeeper regularly. He reports today that his vision in the left eye is adequate and normal. 07/24/2024 Vision loss of right eye (ICD-10 [...] well controlled with medications. At this time. 03/02/2025 BPH (benign prostatic hyperplasia) (ICD-10 - N40.0) He rises from sleep once and sometimes twice a night to urinate. We have discussed lifestyle modification as a way to reduce nocturia. 07/24/2024 GERD (gastroesophageal reflux disease) (ICD-10 - K21.9) His reflux symptoms are well controlled with mzre-wrh-htlemzz medication and no change in his regimen as needed. 11/11/2024 BPH (benign prostatic hyperplasia) (ICD-10 - N40.0) He rises from sleep once and sometimes twice a night to urinate. We have discussed lifestyle modification as a way to reduce nocturia. 03/02/2025 Left hip pain (ICD-10 - M25.552) His physical therapist has referred him back to the rehabilitation doctor for injections. 11/11/2024 Thyroid nodule (ICD-10 - E04.1) This [...] C) 01/06/2019 PROFILE, FASTING (COMPREHENSIVE METABOLI C) 06/12/2022 PROFILE, FASTING (COMPREHENSIVE METABOLI C) 11/25/2020 PROFILE, FASTING (COMPREHENSIVE METABOLI C) 03/02/2025 PROFILE, FASTING (COMPREHENSIVE METABOLI C) 07/25/2020 PROFILE, FASTING (COMPREHENSIVE METABOLI C) 09/03/2022 PROFILE, FASTING (COMPREHENSIVE METABOLI C) 03/07/2018 PROFILE, FASTING (COMPREHENSIVE METABOLI C) 08/25/2019 PROFILE, FASTING (COMPREHENSIVE METABOLI C) 02/14/2022 PROFILE, RANDOM (COMPREHENSIVE METABOLIC ) 07/18/2017 PROFILE, RANDOM (COMPREHENSIVE METABOLIC ) 03/27/2021 PROFILE, RANDOM (COMPREHENSIVE METABOLIC ) 11/26/2019 URIC ACID 06/12/2022 LIPID PANEL 03/07/2018 LIPID PANEL 08/25/2019 LIPID PANEL 03/24/2020 LIPID PANEL 03/28/2023 LIPID PANEL 09/05/2018 LIPID PANEL 06/12/2022 LIPID PANEL 12/05/2017 LIPID PANEL 05/08/2019 LIPID PANEL 06/27/2021 LIPID PANEL 07/18/2017 LIPID PANEL 03/27/2021 LIPID PANEL 12/03/2022 LIPID PANEL 06/06/2018 LIPID PANEL 11/26/2019 LIPID PANEL 07/05/2023 LIPID PANEL 01/06/2019 LIPID PANEL 11/25/2020 LIPID PANEL 07/25/2020 LDH 03/27/2021 FREE T4 (FT4) 02/14/2022 TSH (THYROID STIMULATING HORMONE) 2021 CPK 03/27/2021 PSA, TOTAL 07/25/2020 PSA, TOTAL 03/24/2020 PSA, TOTAL 06/12/2022 PSA, TOTAL 07/18/2017 PSA, TOTAL 01/06/2019 CBC w DIFF 11/25/2020 CBC w DIFF 09/03/2022 CBC w DIFF 01/06/2019 CBC w DIFF 03/27/2021 CBC w DIFF 03/07/2018 CBC w DIFF 08/25/2019 CBC w DIFF 07/25/2020 CBC w DIFF 12/15/2024 CBC w DIFF 03/28/2023 CBC w DIFF 09/05/2018 CBC w DIFF 02/14/2022 CBC w DIFF 12/05/2017 CBC w DIFF 03/24/2020 CBC w DIFF 06/12/2022 CBC w DIFF 05/08/2019 CBC w DIFF 06/27/2021 CBC w DIFF 12/03/2022 CBC w DIFF 06/06/2018 CBC w DIFF 11/26/2019 CBC w DIFF 03/02/2025 CBC w DIFF 07/18/2017 CBC w DIFF 07/05/2023 XR FOOT LT 12/05/2017 VITAMIN D 25-OH TOTAL 11/25/2020 VITAMIN D 25-OH TOTAL 07/25/2020 Lipid Panel 03/02/2025 Lipid Panel 09/03/2022 Lipid Panel 12/15/2024 Lipid Panel 02/14/2022 Microalbumin, Random 03/02/2025 XR hip LT w PEL1V 06/21/2025 Hemoglobin A1c 03/02/2025 Next Appt Details Provider Name:Ricky Levine , 07/29/2025 10:00:00 AM, [address] [place] [address] ANILA [place]ULKARNI, [place], [address], Insurance Providers Payer Name Payer Address Payer Phone Subscriber Number Group Number Insured Name Patient Relationship to Insured Coverage Start Date Coverage End Date [address] [place] [phone] [id number] TomLev mendoza Self - patient is the insured MEDICARE NGS [address] [place] [phone] [id number] Lev Cosme Self - patient is the [...]
== END 2025-06-21 10:05 | disposition home or self-care (01) ==
LOC: HO.HMGCX 10:04
PROVIDERS: PCP Internal Medicine Medical Oncology; Visit Provider Physician Assistant
DX: M16.12 Unilateral primary osteoarthritis, left hip (principal)
CPT/HCPCS: 73502

== ENCOUNTER → 2025-06-21 10:11 | Outpatient (BNV) | payer MEDICARE, SELFPAY | PROVIDERS: PCP Internal Medicine Medical Oncology; Visit Provider Radiology Diagnostic Radiology | DX: M16.0 Bilateral primary osteoarthritis of hip (principal) | CPT/HCPCS: 73502 ==

== ENCOUNTER 2025-07-26 13:01 | Outpatient (REF) | payer MEDICARE, SELFPAY ==
--- OUTSIDE RECORDS SUMMARY | 2024-07-09 10:30 | XMS_ITS ---
Author Organization Ricky Levine III, MD Address [address] [place] [address] [address] [place] [address] Care Team Providers Care Exercise Physiologist Certified Name Role Phone Dr. Ricky Levine III Primary Care Provider REASON FOR VISIT Annual Exam Social History Sex Assigned At : Social History Observation Description Sex Assigned At Male Encounters Encounter Location Date Provider Diagnosis Ricky Levine III, MD [address] [address] [place] [address] 07/09/2024 Ricky Levine Plan Of Treatment Next Appt Details Provider Name:Ricky Levine , 07/29/2025 10:00:00 AM, [address] [place] [address] [place], [address], Progress Notes * Lev CHAMPION SrDOB: [birth year] (75 yo M)Acc No.[id number]:07/09/2024 Progress Notes Patient: Lev HILARIO Sr Provider: Shira Levine MD :1950 A ge:74 Y S ex:Male Date:07/09/2024 Address:[address] [place], [place] [id number] Subjective: * Chief Complaints: * 1 . Annual Exam. * Medical History: Objective: * Vitals: Assessment: Plan: * Treatment: * Images: * The named appointment provid er may or may not be the originator of this progress note, and it is not deemed complete until electronically signed by the appointment provider. Sign off status: Pending * Provider: Shira Levine MD Date: 1 Generated for Doris mayer/Cassia/Jed on: 04:31 PM EDT
--- OUTSIDE RECORDS SUMMARY | 2024-07-24 06:00 | XMS_ITS ---
Author Organization Ricky Levine III, MD Address [address] [place] [address] [place] [address] Care Team Providers Care Clinical Biochemist Name Role Phone Dr. Ricky Levine III Primary Care Provider Allergies Allergen (clinical drug ingredient) Drug/Non Drug Allergy documented on EMR Reaction Allergy Type Onset Date Status No Known Drug Allergy Unknown Drug Allergy Active Results Component Value Reference Range Notes Lipid Panel Reviewed date:08/03/2024 05:36:17 AM Interpretation: Performing Lab:[facility], [address] [place] [id number] Notes/Report: Triglycerides 199 <150 mg/dL Desirable Triglyceride: less than 150 mg/dL Borderline High Triglyceride 150-199 mg/dL High Triglyceride: 200-499 mg/dL Very High Triglyceride: greater than or equal to 5OO mg/dL Cholesterol 194 <200 mg/dL Desirable Cholesterol: less than 200 mg/dL Borderline High Cholesterol: 200-239 mg/dL High Cholesterol: greater than 239 mg/dL LDL Cholesterol Calculated 120 <100 mg/dL Desirable LDL: less than 100 mg/dL Near Optimal/Above Optimal LDL: 110-129 mg/dL Borderline High LDL: 130-159 mg/dL High LDL: 160-189 mg/dL Very High LDL: greater than or equal to 190 mg/dL HDL Cholesterol 35 >40 mg/dL Desirable HDL: greater than 40 mg/dL Note: This HDL assay may give artificially low results in patients with liver disease. XR hips CLAUDIO min 3V Reviewed date:10/06/2024 04:07:01 PM Interpretation: Performing Lab: Notes/Report: [facility] [address] [place] [address] [place] [address] XRay Report Signed Patient: Lev Champion MR#: [id number] 7 : 1950 Acct:[id number] Age/Sex: 74 / M ADM Date: 07/24/24 Loc: HO.HMGCX Attending Dr: Ricky Levine MD Ordering Physician: Ricky Levine MD Date of Service: 07/24/24 Procedure(s): XR hip CLAUDIO min 3V w/wo pel Accession Number(s): [id number] cc: iRcky Levine MD EXAMINATION: XR BILATERAL HIPS 4 VIEWS CLINICAL INFORMATION: Pain in unspecified hip M25.559. COMPARISON: None available TECHNIQUE: AP view of the pelvis and single views of each hip were obtained. FINDINGS: Diffuse demineralization. Advanced degenerative changes in the LEFT hip with joint space narrowing and hypertrophic change. RIGHT hip: Advanced degenerative changes in the RIGHT hip with joint space narrowing and hypertrophic change. Amorphous calcifications in the soft tissues with examples inferior to the RIGHT ischial tuberosity and lateral to the RIGHT humeral neck. Small pelvic calcifications are possibly phleboliths. XR/XR hip CLAUDIO min 3V w/wo pel IMPRESSION: 1. Advanced degenerative changes bilateral hips. 2. Amorphous calcifications in the soft tissues with examples inferior to the RIGHT ischial tuberosity and lateral to the RIGHT humeral neck. 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 [address] XRay Report Signed Patient: Lizzette Champion MR#: [id number] 7 : 1950 Acct:[id number] Age/Sex: 74 / M ADM Date: 07/24/24 Loc: HO.HMGCX Attending Dr: Ricky Levine MD Ordering Physician: Ricky Levine MD Date of Service: 07/24/24 Procedure(s): XR hip CLAUDIO min 3V w/wo pel Accession Number(s): [id number] cc: Ricky Levine MD EXAMINATION: XR BILATERAL HIPS 4 VIEWS CLINICAL INFORMATION: Pain in unspecified hip M25.559. COMPARISON: None available TECHNIQUE: AP view of the pelvi s and single views of each hip were obtained. FINDINGS: Diffuse demineralization. Advanced degenerative changes in the LEFT hip with joint space narrowing and hypertrophic change. RIGHT hip: Advanced degenerative changes in the RIGHT hip with joint space narrowing and hypertrophic change. Amorphous calcificat ions in the soft tissues with examples inferior to the RIGHT ischial tuberosity and lateral to the RIGHT humeral neck. Small pelvic calcifications are possibly phleboliths. X R/XR hip CLAUDIO min 3V w/wo pel IMPRESSION: 1. Advanced degenera tive changes bilateral hips. 2. Amorphous calcifications in the soft tissues with examples inferior to the RIGHT ischial tuberosity and lateral to the RIGHT humeral neck. Electronically bj d by: Sera Smith MD 10/06/2024 05:55 AM [facility] Dictated By: Sear Smith MD Signed By: <Electronically signed by Sera Smith MD in OV> 10/06/24 0555 DD/ 1216 TD/TT: 07/24/24 1226 Amusement Equipment Operator: XR lumbar spine 2-3V Reviewed date:10/06/2024 04:07:01 PM Interpretation: Performing Lab: Notes/Report: [facility] [address] [place] [address] XRay Report Signed Patient: Lev Champion MR#: [id number] 7 : 1950 Acct:[id number] Age/Sex: 74 / M ADM Date: 07/24/24 Loc: HO.HMGCX Attending Dr: Ricky Levine MD Ordering Physician: Ricky Levine MD Date of Service: 07/24/24 Procedure(s): XR lumbar spine 2-3V Accession Number(s): [id number] cc: Ricky Levine MD EXAMINATION: XR LUMBAR SPINE 3 VIEWS CLINICAL INFORMATION: Low back pain, unspecified M54.50. COMPARISON: XR Lumbar spine 12/25/2021 TECHNIQUE: Three views of the lumbosacral spine. FINDINGS: Dextroscoliosis of the lumbar spine. Facet arthritis in the lower lumbar spine. Diffuse demineralization. Multilevel lumbar spondylosis with moderate loss of disc space height at L3-L4 and L4-L5. Mild loss of disc space height at L5-S1. XR/XR lumbar spine 2-3V IMPRESSION: Multilevel lumbar spondylosis most notable at L3-L4 and L4-L5. Electronically signed by: Sera Smith MD 10/06/2024 05:42 AM EST RP Dictated By: Sera Smith MD Signed By: <Electronically signed by Sera Smith MD in OV> 10/06/24 0542 DD/ 1216 TD/TT: 07/24/24 1226 Amusement Equipment Operator: [facility] [address] [place] [address] [place] [address] XRay Report Signed Patient: Lizzette Champion MR#: [id number] 7 : 1950 Acct:[id number] Age/Sex: 74 / M ADM Date: 07/24/24 Loc: HO.HMGCX Attending Dr: Ricky Levine MD Ordering Physician: Ricky Levine MD Date of Service: 07/24/24 Procedure(s): XR lum bar spine 2-3V Accession Number(s): [id number] cc: Ricky Levine MD EXAMINATION: XR LUMBAR SPINE 3 VIEWS CLINICAL INFORMATION: Low back pain, unspecified M54.50. COMPARISON: XR Lumbar spine 12/25/2021 TECHNIQUE: Three views of the lumbosacral spine. FINDINGS: Dextroscoliosis of t he lumbar spine. Facet arthritis in the lower lumbar spine. Diffus e demineralization. Multilevel lumbar spondylosis with moderate loss of disc space height at L3-L4 and L4-L5. Mild loss of disc space height at L5-S1. X R/XR lumbar spine 2-3V IMPRESSION: Multilevel lumbar spondylosis most notable at L3-L4 and L4-L5. Electronically bj d by: Sera Smith MD 10/06/2024 05:42 AM EST RP Dictated By: Sera Smith MD Signed By: <Electronically signed by Sera Smith MD in OV> 10/06/24 0542 DD/ 1216 TD/TT: 07/24/24 1226 Amusement Equipment Operator: REASON FOR VISIT Annual Exam Medications Medication SIG (Take, Route, Frequency, Duration) Notes Start Date End Date Status Centrum Silver - Orally Act nette Metoprolol Succinate ER 25 MG TAKE 1 TABLET BY MOUTH EVERY DAY FOR 90 DAYS Active Lansoprazole 30 MG 1 capsule before a m eal Orally twice a day Active Triamterene-HCTZ 37.5-25 MG TAKE 1 TABLE T BY MOUTH EVERY DAY IN THE MORNING FOR 30 DAYS Active Lansoprazole 30 MG 1 capsule Orally twi ce a day Active Felodipine ER 10 MG TAKE 1 TABLET BY HIRAL TH EVERY DAY Orally Once a day Active Citalopram Hydrobromide 40 MG TAKE 1 TABLET BY MOUTH EVERY DAY Active Simvastatin 40 MG TAKE 1 TABLET BY HIRAL TH EVERYDAY AT BEDTIME Active Social History Tobacco Use: Social History Observation Description Date Details (start date - stop date) Never Smoker NA - NA Sex Assigned At : Social History Observation Description Sex Assigned At Male Tobacco Use/Smoking Question Answer Notes Patient is a nonsmoker Additional Findings: Tobacco Non-User Aggressive non-smoker Tobacco Control (Standard) Question Answer Notes Tobacco use: Nonsmoker Additional Findings: Tobacco non-user Aggressive nonsmoker AUDIT-C (Standard) Question Answer Notes Did you have a drink containing alcohol in the p ast year? No Points 0 Interpretation Negative Vital Signs Temperature 97.9 degrees Fahrenheit 07/24/20 24 Blood pressure systolic 124 mm Hg 07/24/20 24 Blood pressure diastolic 57 mm Hg 024 Heart Rate 80 /min 07/24/2024 Height 72 in 07/24/2024 Weight 296 lbs 07/24/2024 BMI 40.14 kg/m2 07/24/2024 Encounters Encounter Location Date Provider Diagnosis Ricky Levine III, MD [address] [place] [address] DR [place], [place] [id number] 07/24/2024 Ricky Levine Other and unspecifie d hyperlipidemia E78.5 ; Morbid obesity E66.01 ; Hip pain M25.559 ; Lumbar back pain M54.50 ; Essential hypertension I10 ; BPH (benign prostatic hyperplasia) N40.0 ; Chronic idiopathic constipation K59.04 ; Vision loss of right eye H54.61 and GERD (gastroesophageal reflux disease) K21.9 Assessments Encounter Date Diagnosis (ICD Code) Assessment Notes Treat ment Notes Treatment Clinical Notes 07/24/2024 Other and unspecifie d hyperlipidemia (ICD-10 - E78.5) His triglycerides are elevated but his total cholesterol is acceptable at 209. I recommended a healthy diet and aggressive weight loss combined with exercise. No change in his medication was needed. 07/24/2024 Morbid obesity (ICD-10 - E66.01) His body mass index is now slightly over 40 as he has gained 4 pounds. We reviewed his diet and nutrition. I recommended aggressive weight loss combined with sodium restriction. We reviewed the elements of a weight reduction lipid reduction restricted sodium diet. 07/24/2024 Hip pain (ICD-10 - M25.559) He has noted bilateral hip pain with weightbearing and walking which is moderate to severe. This is a new finding. X-rays of the joints have been ordered along with the lumbar spine. He will try a course of ibuprofen. 07/24/2024 Lumbar back pain (ICD-10 - M54.50) He has had a flare of lumbar back pain as well as hip pain. X-rays are pending. He will try ibuprofen 4 times a day. 07/24/2024 Essential hypertension (ICD-10 - I10) His blood prressure is 124/57. No change in his medication was made. I recommended aggressive weight loss and sodium restriction combined with regular physical activity and a reduced calorie diet low in sodium and animal fat. 07/24/2024 BPH (benign prostati c hyperplasia) (ICD-10 - N40.0) He rises from sleep once and sometimes twice a night to urinate. We have discussed lifestyle modification as a way to reduce nocturia. 07/24/2024 Chronic idiopathic constipation (ICD-10 - K59.04) The constipation is well controlled with medications. At this time. 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 07/24/2024 GERD (gastroesophageal reflux disease) (ICD-10 - K21.9) His reflux symptoms are well controlled with usyn-qiz-nrimnzz medication and no change in his regimen as needed. Plan Of Treatment Medication Medication Name Sig Start Date Stop Date Notes Centrum Silver - Orally Metoprolol Succinate ER 25 MG TAKE 1 TAB LET BY MOUTH EVERY DAY FOR 90 DAYS Lansoprazole 30 MG 1 capsule before a m eal Orally twice a day Triamterene-HCTZ 37.5-25 MG TAKE 1 TABLE T BY MOUTH EVERY DAY IN THE MORNING FOR 30 DAYS Lansoprazole 30 MG 1 capsule Orally twice a day Felodipine ER 10 MG TAKE 1 TABLET BY HIRAL TH EVERY DAY Orally Once a day Citalopram Hydrobromide 40 MG TAKE 1 TAB LET BY MOUTH EVERY DAY Simvastatin 40 MG TAKE 1 TABLET BY HIRAL TH EVERYDAY AT BEDTIME Next Appt Details Follow Up: 3 Weeks, 3 weeks, Reason: OV, To evaluate the results of the blood tests and X-rays and assess the effectiveness of the treatment for muscle aches and hip pain. Provider Name:Ricky Levine , 07/29/2025 10:00:00 AM, [address] [place] [address], [address], [phone], Progress Notes * Lev CHAMPION SrDOB: [birth year] (74 yo M)Acc No.[id number]:07/24/2024 Progress Notes Patient: Lev HILARIO Sr Provider: Shira Levine MD :1950 A ge:74 Y S ex:Male Date:07/24/2024 Address:[address] [place] [address] Subjective: * Chief Complaints: * A nnual Exam * HPI: D epression Screening: PHQ-9 L ittle interest or pleasure in doing things?Not at all F eeling down, depressed, or hopeless N ot at all T rouble falling or staying asleep, or sleeping too much N ot at all F eeling tired or having little energy N ot at all P oor appetite or overeating N ot at all F eeling bad about yourself or that you are a failure, or have let yourself or your family down N ot at all T rouble concentrating on things, such as reading the newspaper or watching television N ot at all M oving or speaking so slowly that other people could have noticed; or the opposite, being so fidgety or restless that you have been moving around a lot more than usual N ot at all T houghts that you would be better off or of hurting yourself in some way N ot at all T otal Score 0 C OVID-19 Screening: Questions H ave you experienced fever, chills, cough, sore throat, shortness of breath, difficulty breathing, muscle aches, loss of taste or smell? N o H ave you been exposed to the virus within the last 10 days? N o H ave you travelled internationally in the last 10 days? N o H ave you been exposed to COVID-19 in the past? N o F all Risk Screening: Fall History H ave you had any falls with injury in the past year? N o H ave you had two or more falls in the past year? N o F all Risk Assessment: N o falls in the past year S CRISTOFER Questions: SDOH Questions I n the past year have you been worried about losing your housing? N o I n the past year have you or any family members you live with been unable to get any of the following when it was really needed? Check all that apply: Matthew mccoy to answer * : The patient, a 74-year-old male, presented with a chief complaint of increasing muscle aches and hip pain, particularly in the left hip. The pain has been severe enough to cause a limp and has been progressively worsening over time. The muscle aches, initially localized to the lower back, have now spread to the front of the legs and other areas. The patient reported that these symptoms have been interfering with his daily activities, causing him to spend more time in his recliner and leading to a weight gain of 4 lbs since February. The patient also reported a persistent scratchy throat and dry cough, despite undergoing an endoscopy and colonoscopy seven months ago, which revealed no abnormalities. The patient has been taking Omeprazole for acid reflux, which he believes is contributing to his throat symptoms. The patient also mentioned a recent biopsy on his neck by a surgical dressing maker, which was diagnosed as basal cell carcinoma. Blood Sugar Level is Normal. * ROS: G eneral/Constitutional: pain L umbar spine and both hips with weightbearing and walking. C hills d enies. F atigue a dmits. F ever d enies. A dmits W eight gain. E NT: Decreased hearing m ild. R espiratory: Cough d enies. C ardiovascular: Chest pain with exertion d enies. D yspnea on exertion?denies. S hortness of breath d enies. G astrointestinal: Constipation o ccasional. D ecreased appetite d enies. D iarrhea d enies. H eartburn d enies. N ausea d enies. R ectal bleeding d enies. V omiting d enies. H ematology: bruising d enies. p etechiae d enies. S wollen glands n one have been noted. G enitourinary: Frequent urination o nce a night. M usculoskeletal: Muscle aches d enies. P ainful joints d enies. S ciatica d enies. W eakness d enies. S kin: Itching d enies. R yon d enies. S kin lesion(s)?denies. N eurologic: Difficulty speaking d enies. D izziness d enies.?Headache d enies. L ow back pain d enies. P sychiatric: Depressed mood w hich is mild. * Medical History: * Surgical History: C orneal transplant right eye No history * Hospitalization/Major Diagno stic Procedure: N o history * Family History: F ather: 76 yrs, myocardial infarction. M other: 43 yrs, cerebral aneurysm. 1 brother(s) , 2 sister(s) . 1 son(s) - healthy. . His siblings have had cardiac bypass surgery and hyperlipidemia. This patient has a personal history of anxiety and depression. He is not aware of any other family history of mental illness or substance use disorder or addiction. * Social History: T obacco Use: T obacco Use/Smoking P atient is a n onsmoker A dditional Findings: Tobacco Non-User A ggressive non-smoker Tobacco Control (Standard) T obacco use: N onsmoker A dditional Findings: Tobacco non-user A ggressive nonsmoker D rugs/Alcohol: D rugs H ave you used drugs other than those for medical reasons in the past 12 months? N o M iscellaneous: Nishant kline: yes. Domestic violence: none. Exercise: occasional. D rug/Alcohol: A LILIANA-C (Standard) D id you have a drink containing alcohol in the past year? N o P oints 0 I nterpretation N egmj mederos has been to [place] for many years. He retired from the [employer] in [place] [employer] at age 61. He was born in [place], [place]. He has one son. {'Living situation': 'Lives alone', 'Physical activity': 'Limited due to muscle aches and hip pain', 'Diet': 'Possible high consumption of animal fat and red meat indicated by slightly high triglycerides'}. * Medications: T akingSimvastatin 40 MG Tablet TAKE 1 TABLET BY MOUTH EVERYDAY AT BEDTIME Felodipine ER 10 MG Tablet Extended Release 24 Hour TAKE 1 TABLET BY MOUTH EVERY DAY Orally Once a day Centrum Silver - Tablet Orally Triamterene-HCTZ 37.5-25 MG Tablet TAKE 1 TABLET BY MOUTH EVERY DAY IN THE MORNING FOR 30 DAYS Lansoprazole 30 MG Capsule Delayed Release 1 capsule Orally twice a day Metoprolol Succinate ER 25 MG Tablet Extended Release 24 Hour TAKE 1 TABLET BY MOUTH EVERY DAY FOR 90 DAYS Lansoprazole 30 MG Capsule Delayed Release 1 capsule before a meal Orally twice a day Citalopram Hydrobromide 40 MG Tablet TAKE 1 TABLET BY MOUTH EVERY DAY Medication List reviewed and reconciled with the patientTaking Simvastatin 40 MG Tablet TAKE 1 TABLET BY MOUTH EVERYDAY AT BEDTIME Taking Felodipine ER 10 MG Tablet Extended Release 24 Hour TAKE 1 TABLET BY MOUTH EVERY DAY Orally Once a day Taking Centrum Silver - Tablet Orally Taking Triamterene-HCTZ 37.5-25 MG Tablet TAKE 1 TABLET BY MOUTH EVERY DAY IN THE MORNING FOR 30 DAYS Taking Lansoprazole 30 MG Capsule Delayed Release 1 capsule Orally twice a day Taking Metoprolol Succinate ER 25 MG Tablet Extended Release 24 Hour TAKE 1 TABLET BY MOUTH EVERY DAY FOR 90 DAYS Taking Lansoprazole 30 MG Capsule Delayed Release 1 capsule before a meal Orally twice a day Taking Citalopram Hydrobromide 40 MG Tablet TAKE 1 TABLET BY MOUTH EVERY DAY Medication List reviewed and reconciled with the patient * Allergies: N o Known Drug Allergyno[Allergies Verified] Objective: * Vitals: H t: 72, Wt:296, BMI:40.14, BP:124/57, HR:80, Temp:97.9, Wt-k.26. * P ast Orders: Lab:Complete Blood Count Aut o Diff * Collection Date 07/20/2024 03/16/2024 10/31/2023 Collection Time 08:17 AM 01:53 PM 10:41 AM Order Date 07/20/2024 03/16/2024 10/31/2023 White Blood Count 7.1 (Ref Range: 4.8-10.8 X10*3/uL) 6.5 (Ref Range: 4.8-10.8 X10*3/uL) 6.9 (Ref Range: 4.8-10.8 X10*3/uL) Red Blood Count 4.40 L (Ref Range: 4.60-5.80 X10*6/uL) 4.57 L (Ref Range: 4.60-5.80 X10*6/uL) 4.83 (Ref Range: 4.60-5.80 X10*6/uL) Hemoglobin 13.9 L (Ref Range: 14.0-18.0 g/dl) 14.2 (Ref Range: 14.0-18.0 g/dl) 14.7 (Ref Range: 14.0-18.0 g/dl) Hematocrit 40.4 L (Ref Range: 42.0-52.0 %) 42.5 (Ref Range: 42.0-52.0 %) 43.3 (Ref Range: 42.0-52.0 %) Mean Corpuscular Volume 91.8 (Ref Range: 80.0-98.0 fL) 93.0 (Ref Range: 80.0-98.0 fL) 89.6 (Ref Range: 80.0-98.0 fL) Mean Corpuscular Hemoglobin 31.6 (Ref Range: 27.0-33.0 pg) 31.1 (Ref Range: 27.0-33.0 pg) 30.4 (Ref Range: 27.0-33.0 pg) Mean Corpuscular HGB Conc 34.4 (Ref Range: 31.0-36.0 g/dl) 33.4 (Ref Range: 31.0-36.0 g/dl) 33.9 (Ref Range: 31.0-36.0 g/dl) Red Cell Distribution Width 14.0 (Ref Range: 11.0-16.0 %) 14.4 (Ref Range: 11.0-16.0 %) 13.8 (Ref Range: 11.0-16.0 %) Platelet Count 222 (Ref Range: 160-400 X10*3/uL) 213 (Ref Range: 160-400 X10*3/uL) 211 (Ref Range: 160-400 X10*3/uL) Mean Platelet Volume 10.5 (Ref Range: 9.4-12.4 fL) 10.5 (Ref Range: 9.4-12.4 fL) 10.6 (Ref Range: 9.4-12.4 fL) Neutrophils Percent Auto 56.1 (Ref Range: 45-73 %) 63.5 (Ref Range: 45-73 %) 53.1 (Ref Range: 45-73 %) Imm Gran Pct Auto 0.4 (Ref Range: 0.0-0.4 %) 0.6 H (Ref Range: 0.0-0.4 %) 0.1 (Ref Range: 0.0-0.4 %) Lymphocytes Percent Auto 30.3 (Ref Range: 20-40 %) 25.6 (Ref Range: 20-40 %) 31.7 (Ref Range: 20-40 %) Monocytes Percent Auto 7.3 (Ref Range: 2-11 %) 6.0 (Ref Range: 2-11 %) 8.4 (Ref Range: 2-11 %) Eosinophils Percent Auto 4.9 H (Ref Range: 0-4 %) 3.7 (Ref Range: 0-4 %) 5.5 H (Ref Range: 0-4 %) Basophils Percent Auto 1.0 (Ref Range: 0-2 %) 0.6 (Ref Range: 0-2 %) 1.2 (Ref Range: 0-2 %) NRBC Pct Auto 0.0 (Ref Range: 0.0-0.2 /100WBC) 0.0 (Ref Range: 0.0-0.2 /100WBC) 0.0 (Ref Range: 0.0-0.2 /100WBC) Neutrophils Absolute Auto 4.0 (Ref Range: 2.0-8.3 x10*3/uL) 4.1 (Ref Range: 2.0-8.3 x10*3/uL) 3.7 (Ref Range: 2.0-8.3 x10*3/uL) Imm Gran Abs Auto 0.03 (Ref Range: 0.00-0.03 X10*3/uL) 0.04 H (Ref Range: 0.00-0.03 X10*3/uL) 0.01 (Ref Range: 0.00-0.03 X10*3/uL) Lymphocytes Absolute Auto 2.2 (Ref Range: 1.2-4.9 X10*3/uL) 1.7 (Ref Range: 1.2-4.9 X10*3/uL) 2.2 (Ref Range: 1.2-4.9 X10*3/uL) Monocytes Absolute Auto 0.5 (Ref Range: 0.1-1.2 X10*3/uL) 0.4 (Ref Range: 0.1-1.2 X10*3/uL) 0.6 (Ref Range: 0.1-1.2 X10*3/uL) Eosinophils Absolute Auto 0.4 (Ref Range: 0.0-0.4 X10*3/uL) 0.2 (Ref Range: 0.0-0.4 X10*3/uL) 0.4 (Ref Range: 0.0-0.4 X10*3/uL) Basophils Absolute Auto 0.1 (Ref Range: 0.0-0.2 X10*3/uL) 0.0 (Ref Range: 0.0-0.2 X10*3/uL) 0.1 (Ref Range: 0.0-0.2 X10*3/uL) NRBC Abs Auto 0.000 (Ref Range: 0.0-0.012 X10*3/uL) 0.000 (Ref Range: 0.0-0.012 X10*3/uL) 0.000 (Ref Range: 0.0-0.012 X10*3/uL) ???Lab:Hemoglobin A1c (Order Date - 07/20/2024) (Collection Date & Time - 07/20/2024 08:17 AM)?ValueReference Range?Hemoglobin A1c %5.5<6.0 - %?Estimated Average [id number]- mg/dL * Lab:Prostate Specific Antige n * Collection Date 07/20/2024 06/27/2022 11/21/2020 Collection Time 08:17 AM 10:53 AM 12:47 PM Order Date 07/20/2024 06/27/2022 11/21/2020 Prostate Specific Antigen 0.83 (Ref Range: <0.05-4.0 ng/mL) 0.51 (Ref Range: <0.05-4.0 ng/mL) 0.58 (Ref Range: <0.05-4.0 ng/mL) * Lab:Lipid Panel * Collection Date 07/20/2024 03/16/2024 10/31/2023 Collection Time 08:17 AM 01:53 PM 10:41 AM Order Date 07/20/2024 03/16/2024 10/31/2023 Triglycerides 258 H (Ref Range: <150 mg/dL) 206 H (Ref Range: <150 mg/dL) 242 H (Ref Range: <150 mg/dL) Cholesterol 206 H (Ref Range: <200 mg/dL) 202 H (Ref Range: <200 mg/dL) 216 H (Ref Range: <200 mg/dL) LDL Cholesterol Calculated 117 H (Ref Range: <100 mg/dL) 123 H (Ref Range: <100 mg/dL) 128 H (Ref Range: <100 mg/dL) HDL Cholesterol 38 L (Ref Range: >40 mg/dL) 38 L (Ref Range: >40 mg/dL) 40 L (Ref Range: >40 mg/dL) * Lab:Comprehensive [place]. Pane l Fast * Collection Date 07/20/2024 03/16/2024 10/31/2023 Collection Time 08:17 AM 01:53 PM 10:41 AM Order Date 07/20/2024 03/16/2024 10/31/2023 Sodium 141 (Ref Range: 135-145 mmol/L) 144 (Ref Range: 135-145 mmol/L) 140 (Ref Range: 135-145 mmol/L) Bilirubin Total 0.7 (Ref Range: 0.0-1.0 mg/dL) 0.8 (Ref Range: 0.0-1.0 mg/dL) 0.7 (Ref Range: 0.0-1.0 mg/dL) Aspartate Amino Transferase 22 (Ref Range: 5-37 U/L) 16 (Ref Range: 5-37 U/L) 19 (Ref Range: 5-37 U/L) Alanine Aminotransferase 14 (Ref Range: 0-40 U/L) 14 (Ref Range: 0-40 U/L) 15 (Ref Range: 0-40 U/L) Total Protein 6.4 L (Ref Range: 6.5-8.0 g/dL) 6.6 (Ref Range: 6.5-8.0 g/dL) 6.8 (Ref Range: 6.5-8.0 g/dL) Albumin Level 4.1 (Ref Range: 3.5-5.0 g/dL) 4.0 (Ref Range: 3.5-5.0 g/dL) 4.1 (Ref Range: 3.5-5.0 g/dL) Alkaline Phosphatase 75 (Ref Range: 39-117 U/L) 70 (Ref Range: 39-117 U/L) 77 (Ref Range: 39-117 U/L) Potassium 4.3 (Ref Range: 3.3-5.1 mmol/L) 4.0 (Ref Range: 3.3-5.1 mmol/L) 3.8 (Ref Range: 3.3-5.1 mmol/L) Chloride 106 (Ref Range: 96-108 mmol/L) 109 H (Ref Range: 96-108 mmol/L) 105 (Ref Range: 96-108 mmol/L) Carbon Dioxide 28 (Ref Range: 22-29 mmol/L) 26 (Ref Range: 22-29 mmol/L) 27 (Ref Range: 22-29 mmol/L) Anion Gap 11 L (Ref Range: 12-20) 13 (Ref Range: 12-20) 12 (Ref Range: 12-20) Blood Urea Nitrogen 13 (Ref Range: 9-16 mg/dL) 14 (Ref Range: 9-16 mg/dL) 15 (Ref Range: 9-16 mg/dL) Creatinine 0.92 (Ref Range: 0.5-1.4 mg/dL) 0.86 (Ref Range: 0.5-1.4 mg/dL) 0.95 (Ref Range: 0.5-1.4 mg/dL) Estimated Glomerular Filt Rate > 60 > 60 > 60 Glucose Fasting 96 (Ref Range: 60-99 mg/dL) 104 H (Ref Range: 60-99 mg/dL) 97 (Ref Range: 60-99 mg/dL) Calcium 9.5 (Ref Range: 8.4-10.2 mg/dL) 9.2 (Ref Range: 8.4-10.2 mg/dL) 9.4 (Ref Range: 8.4-10.2 mg/dL) * Examination: G eneral Examination: GENERAL APPEARANCE: p greg, well nourished, well developed, in no acute distress, calm and relaxed, morbidly obese, man. HEAD: a traumatic, normocephalic. 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 EARS: n ormal. NOSE: s eptum intact. ORAL CAVITY: n ormal, unremarkable. NECK/THYROID: n o jugular venous distention, no carotid bruit, thyroid normal. LYMPH NODES: n o enlarged lymph nodes,spleen normal. SKIN: n o suspicious lesions, anicteric. HEART: n o clicks, gallops, murmurs, or rubs, regular rhythm, S1, S2 normal, no s3, or vascular bruits. LUNGS: c lear to auscultation . BREASTS: no masses palpable bilaterally. ABDOMEN: b owel sounds normal, no ascites, no organomegaly, no mass, morbid obesity. RECTAL EXAM: n ot examined, Colonoscopy December 16, 2023.? MUSCULOSKELETAL: e xtremities unremarkable, no clubbing, cyanosis or edema. PERIPHERAL PULSES: n ormal. NEUROLOGIC: a lert and oriented, cranial nerves 2-12 grossly intact, deep tendon reflexes 2+ symmetrical, motor strength normal upper and lower extremities, sensory exam intact. PSYCH: a lert, oriented. - : { 'Muscle aches':'Increasing and spreading to various parts of the body', 'Hip pain': 'Severe, particularly in the left hip', 'Throat': 'Persistent scratchiness and dry cough', 'Neck': 'Recent biopsy diagnosed as basal cell carcinoma', 'Blood pressure': 'Normal', 'Blood cells and platelets': 'Normal', 'A1C': '5.5, indicating no diabetes', 'PSA': 'Very low, indicating no sign of prostate cancer', 'Cholesterol': 'At target level', 'Triglycerides': 'Slightly high'}. Assessment: * Assessment: 1. M orbid obesity - E66.01 (Primary) N otes :His body mass index is now slightly over 40 as he has gained 4 pounds. We reviewed his diet and nutrition. I recommended aggressive weight loss combined with sodium restriction. We reviewed the elements of a weight reduction lipid reduction restricted sodium diet. 2 . O ther and unspecified hyperlipidemia - E78.5 N otes :His triglycerides are elevated but his total cholesterol is acceptable at 209. I recommended a healthy diet and aggressive weight loss combined with exercise. No change in his medication was needed. 3 . H ip pain - M25.559 N otes :He has noted bilateral hip pain with weightbearing and walking which is moderate to severe. This is a new finding. X-rays of the joints have been ordered along with the lumbar spine. He will try a course of ibuprofen. 4 . L umbar back pain - M54.50 N otes :He has had a flare of lumbar back pain as well as hip pain. X-rays are pending. He will try ibuprofen 4 times a day. 5 . E ssential hypertension - I10 N otes :His blood prressure is 124/57. No change in his medication was made. I recommended aggressive weight loss and sodium restriction combined with regular physical activity and a reduced calorie diet low in sodium and animal fat. 6 . B PH (benign prostatic hyperplasia) - N40.0 N otes :He rises from sleep once and sometimes twice a night to urinate. We have discussed lifestyle modification as a way to reduce nocturia. 7 . C hronic idiopathic constipation - K59.04 N otes :The constipation is well controlled with medications. At this time. 8 . 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 9 . G ERD (gastroesophageal reflux disease) - K21.9 N otes :His reflux symptoms are well controlled with [id number] medication and no change in his regimen as needed. Plan: * Treatment: 2. H ip pain I maging: XR hips CLAUDIO min 3V I maging: XR lumbar spine 2-3V 3. L umbar back pain I maging: XR hips CLAUDIO min 3V I maging: XR lumbar spine 2-3V 4. E ssential hypertension L AB: PROFILE, FASTING (COMPREHENSIVE METABOLIC) L AB: LDH L AB: CPK L AB: CBC WITH AUTO DIFF L AB: Lipid Panel 5. O thers Continue Citalopram Hydrobromide Tablet, 40 MG, TAKE 1 TABLET BY MOUTH EVERY DAY; C ontinue Simvastatin Tablet, 40 MG, TAKE 1 TABLET BY MOUTH EVERYDAY AT BEDTIME; C ontinue Felodipine ER Tablet Extended Release 24 Hour, 10 MG, TAKE 1 TABLET BY MOUTH EVERY DAY, Orally, Once a day; C ontinue Centrum Silver Tablet, -, Orally; C ontinue Triamterene-HCTZ Tablet, 37.5-25 MG, TAKE 1 TABLET BY MOUTH EVERY DAY IN THE MORNING FOR 30 DAYS; C ontinue Lansoprazole Capsule Delayed Release, 30 MG, 1 capsule, Orally, twice a day; C ontinue Metoprolol Succinate ER Tablet Extended Release 24 Hour, 25 MG, TAKE 1 TABLET BY MOUTH EVERY DAY FOR 90 DAYS. * Procedure Codes: * Preventive Medicine: Counseling: C are goal follow-up plan: Counseling for abnormal BMI given Y es Above Normal BMI Follow-up D ietary management education, guidance, and counseling, Dietary needs education, Exercise promotion: strength training, Exercise promotion: stretching, Feeding regime, Giving encouragement to exercise, Lifestyle education regarding diet, Nutrition / feeding management, Nutrition therapy, Prescribed activity/exercise education, Prescribed diet education, Prescribed dietary intake, Special diet education, Weight monitoring , Intervention, Order not done: Medical or Other reason not done * Follow Up: 3 Weeks, 3 weeks (Reason: OV, To evaluate the results of the blood tests and X- rays and assess the effectiveness of the treatment for muscle aches and hip pain.) * Images: * Sign off status: Completed true * Provider: Shira Levine MD Date: Generated for Doris mayer/Cassia/Jed on: 04:32 PM EDT History and Physical Notes * HPI (History of Present Illness) Category Sub-Category Detail Notes Depression Screening PHQ-9 Little inte rest or pleasure in doing things: Not at all Feeling down, depressed, or hopeless: No t at all Trouble falling or staying asleep, or sl eeping too much: Not at all Feeling tired or having little energy: N ot at all Poor appetite or overeating: Not at all Feeling bad about yourself o r that you are a failure, or have let yourself or your family down: Not at all Trouble concentrating on thi ngs, such as reading the newspaper or watching television: Not at all Moving or speaking so slowly that other people could have noticed; or the opposite, being so fidgety or restless that you have been moving around a lot more than usual: Not at all Thoughts that you would be b buck off or of hurting yourself in some way: Not at all Total Score: 0 Fall Risk Screening Fall History Have you had any falls with injury in the past year?: No Have you had two or more falls in the ?: No Fall Risk Assessment:: No falls in the year COVID-19 Screening Questions Have you had any new onset fever, chills, cough, congestion, sore throat, shortness of breath, muscle aches?: No Have you been exposed to the virus withi n the last 10 days?: No Have you travelled internationally in last 10 days?: No Have you been exposed to COVID-19 in the past?: No SDOH Questions SDOH Questions In the past year have you been worried about losing your housing?: No In the past year have you or any family members you live with been unable to get any of the following when it was really needed? 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 EARS: normal NOSE: septum intact NECK/THYROID: no jugular venous di stention, no carotid bruit, thyroid normal HEART: no clicks, gallops, murmurs, or rubs, regular rhythm, S1, S2 normal, no s3, or vascular bruits LUNGS: clear to auscultatio n ABDOMEN: bowel sounds normal, no ascites, no organomegaly, no mass, morbid obesity NEUROLOGIC: alert and oriented, cranial nerves 2-12 grossly intact, deep tendon reflexes 2+ symmetrical, motor strength normal upper and lower extremities, sensory exam intact SKIN: no suspicious lesion s, anicteric PERIPHERAL PULSES: normal BREASTS: no masses palpable b ilaterally MUSCULOSKELETAL: extremities unremark able, no clubbing, cyanosis or edema LYMPH NODES: no enlarged lymph no christa,spleen normal RECTAL EXAM: not examined, Colono scopy December 16, 2023 PSYCH: alert, oriented ORAL CAVITY: normal, unremarkable
--- OUTSIDE RECORDS SUMMARY | 2024-08-17 07:15 | XMS_ITS ---
Author Organization Ricky Levine III, MD Address [address] [place] [address] [place] [address] Care Team Providers Care French Binding Folder Name Role Phone Dr. Ricky Levine III Primary Care Provider Allergies Allergen (clinical drug ingredient) Drug/Non Drug Allergy documented on EMR Reaction Allergy Type Onset Date Status No Known Drug Allergy Unknown Drug Allergy Active Reason For Referral Reason Consult and Treat Bilateral Hip Pain Diagnosis 1 Hip pain (M25.559) Referral Organization Ricky Levine III, MD Referring Provider First Name Ricky Referring Provider Last Name Julianna Referring Provider Speciality Internal M edicine Referred Provider [facility], Orthopedic Surgeons Referred Provider Specialty Orthopedic [facility] General Notes D Maya 08/20/2024 10:44:43 AM > Referral and progress note faxed. Xrays are not read spoke with Radiology they will be trying to get a reading. Referral Priority Routine Referral Appointment Date 09/11/2024 REASON FOR VISIT Arthritis, Depression, Hypertension, Hyperlipidemia, Vision loss right eye, thyroid nodule Medications Medication SIG (Take, Route, Frequency, Duration) Notes Start Date End Date Status Centrum Silver - Orally Act nette Felodipine ER 10 MG TAKE 1 TABLET BY HIRAL TH EVERY DAY Orally Once a day Active Metoprolol Succinate ER 25 MG TAKE 1 TABLET BY MOUTH EVERY DAY FOR 90 DAYS Active Triamterene-HCTZ 37.5-25 MG TAKE 1 TABLE T BY MOUTH EVERY DAY IN THE MORNING FOR 30 DAYS Active Lansoprazole 30 MG 1 capsule Orally twi ce a day Active Simvastatin 40 MG TAKE 1 TABLET BY HIRAL TH EVERYDAY AT BEDTIME Active Citalopram Hydrobromide 40 MG TAKE 1 TABLET BY MOUTH EVERY DAY Active Lansoprazole 30 MG 1 capsule before a m eal Orally twice a day Active Social History Tobacco Use: Social History [...] Points 0 Interpretation Negative Vital Signs Temperature 97.7 degrees Fahrenheit 08/17/20 24 Blood pressure systolic 132 mm Hg 08/17/20 24 Blood pressure diastolic 83 mm Hg 024 Heart Rate 53 /min 08/17/2024 Height 72 in 08/17/2024 Weight 292 lbs 08/17/2024 BMI 39.6 kg/m2 08/17/2024 Encounters Encounter Location Date Provider Diagnosis Ricky Levine III, MD [address] [place] [address] [place] [address] 08/17/2024 Ricky Levine Depressive disorder, not elsewhere classified F32.9 ; Obesity E66.9 ; Essential hypertension I10 ; Other and unspecified hyperlipidemia E78.5 ; GERD (gastroesophageal reflux disease) K21.9 ; 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 He feels discouraged about his difficulty losing weight and immobility. We discussed this at length today. He declined a referral to the weight loss program but I will continue in this direction. 08/17/2024 Obesity (ICD-10 - E66.9) His body mass index is 39. He has lost 1 pound. We have discussed diet and nutrition. We reviewed his weight loss strategy. 08/17/2024 Essential hypertension (ICD-10 - I10) His blood prressure is 124/57. No change in his medication was made. I recommended aggressive weight loss and sodium restriction combined with regular physical activity and a reduced calorie diet low in sodium and animal fat. 08/17/2024 Other and unspecified hyperlipidemia (ICD-10 - E78.5) His triglycerides are elevated but his total cholesterol is acceptable at 194. I recommended a healthy diet and aggressive weight loss combined with exercise. No change in his medication was needed. 08/17/2024 GERD (gastroesophageal reflux disease) (ICD-10 - K21.9) His reflux symptoms are well controlled with [id number] medication and no change in his regimen as needed. 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 His vision is normal in the opposite eye and he sees the stress analyst regularly. He reports today that his vision in the left eye is adequate and normal. 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 08/17/2024 Thyroid nodule (ICD-10 - E04.1) This was noted last Junne jenny ultrasound. A repeat ultrasound was ordered and an endocrine consult. Plan Of Treatment Medication Medication Name Sig Start Date Stop Date Notes Centrum Silver - Orally Felodipine ER 10 MG TAKE 1 TABLET BY HIRAL TH EVERY DAY Orally Once a day Metoprolol Succinate ER 25 MG TAKE 1 TAB LET BY MOUTH EVERY DAY FOR 90 DAYS Triamterene-HCTZ 37.5-25 MG TAKE 1 TABLE T BY MOUTH EVERY DAY IN THE MORNING FOR 30 DAYS Lansoprazole 30 MG 1 capsule Orally twice a day Simvastatin 40 MG TAKE 1 TABLET BY HIRAL TH EVERYDAY AT BEDTIME Citalopram Hydrobromide 40 MG TAKE 1 TAB LET BY MOUTH EVERY DAY Lansoprazole 30 MG 1 capsule before a m eal Orally twice a day Referrals Referral Date Details 08/17/2024 08/17/2024, Consult and Treat Bilateral Hip Pain, [facility] Next Appt Details Follow Up: 2 Months, Early J anuary, Reason: OV, Follow up after orthopedist visit Provider Name:Ricky Levine , 07/29/2025 10:00:00 AM, [address] [place] [address] , [place], [place], [address], Progress Notes * Lev CHAMPION SrDOB: [birth year] (74 yo M)Acc No.[id number]:08/17/2024 Progress Notes Patient: Lev HILARIO Sr Provider: Shira Levine MD :1950 A ge:74 Y S ex:Male Date:08/17/2024 Address:[address] [place], [place] [id number] Subjective: * Chief Complaints: * A rthritisDepressionHypertensionHyperlipidemiaVision loss right eyeThyroid nodule * HPI: C OVID-19 Screening: Questions H ave you [...] to COVID-19 in the past? N o * : The patient, a 74-year-old male, presented with complaints of difficulty in mobility due to pain in his lower back and hips. He reported that he has been limping a bit when he walks and has trouble bending down or lifting his leg due to the pain. The patient also mentioned that he has been experiencing heartburn, which is mostly under control with the help of medication. He has been diagnosed with age-related macular degeneration (AMD) and has had a corneal transplant in the past. The patient also reported family problems on his 's side, but did not elaborate further. Upon examination, the doctor noted a bone spur between the patient's 12th thoracic vertebra and first lumbar. The doctor also observed arthritis in the patient's left hip, with some bone rubbing on bone. The patient's right hip was also noted to have no cartilage, leading to [id number] contact. The doctor recommended the patient to an orthopedist for further evaluation and possible treatment. * ROS: G eneral/Constitutional: Admits p ain, o nly normal aches and pains. C hills?denies. F atigue a dmits. F ever d enies. E NT: Decreased hearing m ild. R [...] pain d enies. P sychiatric: Depressed mood d enies. * Medical History: * Surgical History: C orneal transplant right eye No history Corneal transplant * Hospitalization/Major Diagno stic Procedure: N o [...] past 12 months? N o M iscellaneous: C hildren: yes. Domestic violence: none. Exercise: occasional. D rug/Alcohol: A LILIANA-C (Standard) D id you have a drink containing alcohol in the past year? N o P oints 0 I nterpretation N egative Zoila mederos has been to [place] for many years. He retired from the [employer] in [place] at age 61. He was born in [place], [place]. He has one son. {'Living situation': 'Lives alone', 'Physical activity': 'Limited due to muscle aches and hip pain', 'Diet': 'Possible high consumption of animal fat and red meat indicated by slightly high triglycerides'} Drinking: Smoking: Drug use: Exercise: Work environment: Diet: Living situation:. * Medications: T akingCitalopram Hydrobromide 40 MG Tablet TAKE 1 TABLET BY MOUTH EVERY DAY Simvastatin 40 MG Tablet TAKE 1 TABLET [...] TAKE 1 TABLET BY MOUTH EVERY DAY Taking Simvastatin 40 MG Tablet TAKE 1 TABLET [...] before a meal Orally twice a day * Allergies: N o Known Drug Allergy Objective: * Vitals: H t: 72, Wt:292, BMI:39.6, BP:132/83, HR:53, Temp:97.7, Wt-k.45. * P ast Orders: Lab:Creatine Kinase Total * Collection Date 07/28/2024 06/23/2021 Collection Time 11:42 AM 11:38 AM Order Date 07/28/2024 06/23/2021 Creatine Kinase Total 69 (Ref Range: 38-174 U/L) 142 (Ref Range: 38-174 U/L) * Lab:Lipid Panel * Collection Date 07/28/2024 07/20/2024 03/16/2024 Collection Time 11:42 AM 08:17 AM 01:53 PM Order Date 07/24/2024 07/20/2024 03/16/2024 Triglycerides 199 H (Ref Range: <150 mg/dL) 258 H (Ref Range: <150 mg/dL) 206 H (Ref Range: <150 mg/dL) Cholesterol 194 (Ref Range: <200 mg/dL) 206 H (Ref Range: <200 mg/dL) 202 H (Ref Range: <200 mg/dL) LDL Cholesterol Calculated 120 H (Ref Range: <100 mg/dL) 117 H (Ref Range: <100 mg/dL) 123 H (Ref Range: <100 mg/dL) HDL Cholesterol 35 L (Ref Range: >40 mg/dL) 38 L (Ref Range: >40 mg/dL) 38 L (Ref Range: >40 mg/dL) Clinical Info: Please fast for 12-1 4 hours prior to having this labwork done. You may have black coffee or tea with no milk or sugar. May have water,PLEASE FAX COMPLETED RESULTS TO [phone] * Lab:Lactate Dehydrogenase * Collection Date 07/28/2024 06/23/2021 Collection Time 11:42 AM 11:38 AM Order Date 07/28/2024 06/23/2021 Lactate Dehydrogenase 231 (Ref Range: 118-273 U/L) 172 (Ref Range: 118-273 U/L) * Lab:Comprehensive [place]. Pane l Fast * Collection Date 07/28/2024 07/20/2024 03/16/2024 Collection Time 11:42 AM 08:17 AM 01:53 PM Order Date 07/28/2024 07/20/2024 03/16/2024 Sodium 142 (Ref Range: 135-145 mmol/L) 141 (Ref Range: 135-145 mmol/L) 144 (Ref Range: 135-145 mmol/L) Bilirubin Total 0.7 (Ref Range: 0.0-1.0 mg/dL) 0.7 (Ref Range: 0.0-1.0 mg/dL) 0.8 (Ref Range: 0.0-1.0 mg/dL) Aspartate Amino Transferase 29 (Ref Range: 5-37 U/L) 22 (Ref Range: 5-37 U/L) 16 (Ref Range: 5-37 U/L) Alanine Aminotransferase 14 (Ref Range: 0-40 U/L) 14 (Ref Range: 0-40 U/L) 14 (Ref Range: 0-40 U/L) Total Protein 6.4 L (Ref Range: 6.5-8.0 g/dL) 6.4 L (Ref Range: 6.5-8.0 g/dL) 6.6 (Ref Range: 6.5-8.0 g/dL) Albumin Level 3.9 (Ref Range: 3.5-5.0 g/dL) 4.1 (Ref Range: 3.5-5.0 g/dL) 4.0 (Ref Range: 3.5-5.0 g/dL) Alkaline Phosphatase 68 (Ref Range: 39-117 U/L) 75 (Ref Range: 39-117 U/L) 70 (Ref Range: 39-117 U/L) Potassium 4.0 (Ref Range: 3.3-5.1 mmol/L) 4.3 (Ref Range: 3.3-5.1 mmol/L) 4.0 (Ref Range: 3.3-5.1 mmol/L) Chloride 108 (Ref Range: 96-108 mmol/L) 106 (Ref Range: 96-108 mmol/L) 109 H (Ref Range: 96-108 mmol/L) Carbon Dioxide 25 (Ref Range: 22-29 mmol/L) 28 (Ref Range: 22-29 mmol/L) 26 (Ref Range: 22-29 mmol/L) Anion Gap 13 (Ref Range: 12-20) 11 L (Ref Range: 12-20) 13 (Ref Range: 12-20) Blood Urea Nitrogen 13 (Ref Range: 9-16 mg/dL) 13 (Ref Range: 9-16 mg/dL) 14 (Ref Range: 9-16 mg/dL) Creatinine 1.11 (Ref Range: 0.5-1.4 mg/dL) 0.92 (Ref Range: 0.5-1.4 mg/dL) 0.86 (Ref Range: 0.5-1.4 mg/dL) Estimated Glomerular Filt Rate > 60 > 60 > 60 Glucose Fasting 101 H (Ref Range: 60-99 mg/dL) 96 (Ref Range: 60-99 mg/dL) 104 H (Ref Range: 60-99 mg/dL) Calcium 9.2 (Ref Range: 8.4-10.2 mg/dL) 9.5 (Ref Range: 8.4-10.2 mg/dL) 9.2 (Ref Range: 8.4-10.2 mg/dL) * Lab:Complete Blood Count Aut o Diff * Collection Date 07/28/2024 07/20/2024 03/16/2024 Collection Time 11:18 AM 08:17 AM 01:53 PM Order Date 07/28/2024 07/20/2024 03/16/2024 White Blood Count 7.3 (Ref Range: 4.8-10.8 X10*3/uL) 7.1 (Ref Range: 4.8-10.8 X10*3/uL) 6.5 (Ref Range: 4.8-10.8 X10*3/uL) Red Blood Count 4.51 L (Ref Range: 4.60-5.80 X10*6/uL) 4.40 L (Ref Range: 4.60-5.80 X10*6/uL) 4.57 L (Ref Range: 4.60-5.80 X10*6/uL) Hemoglobin 14.2 (Ref Range: 14.0-18.0 g/dl) 13.9 L (Ref Range: 14.0-18.0 g/dl) 14.2 (Ref Range: 14.0-18.0 g/dl) Hematocrit 41.8 L (Ref Range: 42.0-52.0 %) 40.4 L (Ref Range: 42.0-52.0 %) 42.5 (Ref Range: 42.0-52.0 %) Mean Corpuscular Volume 92.7 (Ref Range: 80.0-98.0 fL) 91.8 (Ref Range: 80.0-98.0 fL) 93.0 (Ref Range: 80.0-98.0 fL) Mean Corpuscular Hemoglobin 31.5 (Ref Range: 27.0-33.0 pg) 31.6 (Ref Range: 27.0-33.0 pg) 31.1 (Ref Range: 27.0-33.0 pg) Mean Corpuscular HGB Conc 34.0 (Ref Range: 31.0-36.0 g/dl) 34.4 (Ref Range: 31.0-36.0 g/dl) 33.4 (Ref Range: 31.0-36.0 g/dl) Red Cell Distribution Width 14.0 (Ref Range: 11.0-16.0 %) 14.0 (Ref Range: 11.0-16.0 %) 14.4 (Ref Range: 11.0-16.0 %) Platelet Count 216 (Ref Range: 160-400 X10*3/uL) 222 (Ref Range: 160-400 X10*3/uL) 213 (Ref Range: 160-400 X10*3/uL) Mean Platelet Volume 10.6 (Ref Range: 9.4-12.4 fL) 10.5 (Ref Range: 9.4-12.4 fL) 10.5 (Ref Range: 9.4-12.4 fL) Neutrophils Percent Auto 66.5 (Ref Range: 45-73 %) 56.1 (Ref Range: 45-73 %) 63.5 (Ref Range: 45-73 %) Imm Gran Pct Auto 0.4 (Ref Range: 0.0-0.4 %) 0.4 (Ref Range: 0.0-0.4 %) 0.6 H (Ref Range: 0.0-0.4 %) Lymphocytes Percent Auto 22.3 (Ref Range: 20-40 %) 30.3 (Ref Range: 20-40 %) 25.6 (Ref Range: 20-40 %) Monocytes Percent Auto 6.1 (Ref Range: 2-11 %) 7.3 (Ref Range: 2-11 %) 6.0 (Ref Range: 2-11 %) Eosinophils Percent Auto 4.0 (Ref Range: 0-4 %) 4.9 H (Ref Range: 0-4 %) 3.7 (Ref Range: 0-4 %) Basophils Percent Auto 0.7 (Ref Range: 0-2 %) 1.0 (Ref Range: 0-2 %) 0.6 (Ref Range: 0-2 %) NRBC Pct Auto 0.0 (Ref Range: 0.0-0.2 /100WBC) 0.0 (Ref Range: 0.0-0.2 /100WBC) 0.0 (Ref Range: 0.0-0.2 /100WBC) Neutrophils Absolute Auto 4.8 (Ref Range: 2.0-8.3 x10*3/uL) 4.0 (Ref Range: 2.0-8.3 x10*3/uL) 4.1 (Ref Range: 2.0-8.3 x10*3/uL) Imm Gran Abs Auto 0.03 (Ref Range: 0.00-0.03 X10*3/uL) 0.03 (Ref Range: 0.00-0.03 X10*3/uL) 0.04 H (Ref Range: 0.00-0.03 X10*3/uL) Lymphocytes Absolute Auto 1.6 (Ref Range: 1.2-4.9 X10*3/uL) 2.2 (Ref Range: 1.2-4.9 X10*3/uL) 1.7 (Ref Range: 1.2-4.9 X10*3/uL) Monocytes Absolute Auto 0.4 (Ref Range: 0.1-1.2 X10*3/uL) 0.5 (Ref Range: 0.1-1.2 X10*3/uL) 0.4 (Ref Range: 0.1-1.2 X10*3/uL) Eosinophils Absolute Auto 0.3 (Ref Range: 0.0-0.4 X10*3/uL) 0.4 (Ref Range: 0.0-0.4 X10*3/uL) 0.2 (Ref Range: 0.0-0.4 X10*3/uL) Basophils Absolute Auto 0.1 (Ref Range: 0.0-0.2 X10*3/uL) 0.1 (Ref Range: 0.0-0.2 X10*3/uL) 0.0 (Ref Range: 0.0-0.2 X10*3/uL) NRBC Abs Auto 0.000 (Ref Range: 0.0-0.012 X10*3/uL) 0.000 (Ref Range: 0.0-0.012 X10*3/uL) 0.000 (Ref Range: 0.0-0.012 X10*3/uL) * Lab:Prostate Specific Antige n * Collection Date 07/20/2024 06/27/2022 11/21/2020 Collection Time 08:17 AM 10:53 AM 12:47 PM Order Date 07/20/2024 06/27/2022 11/21/2020 Prostate Specific Antigen 0.83 (Ref Range: <0.05-4.0 ng/mL) 0.51 (Ref Range: <0.05-4.0 ng/mL) 0.58 (Ref Range: <0.05-4.0 ng/mL) ???Lab:Hemoglobin A1c (Order Date - 07/20/2024) (Collection Date & Time - 07/20/2024 08:17 AM)?ValueReference Range?Hemoglobin A1c %5.5<6.0 - %?Estimated Average [id number]- mg/dL * Examination: - : E ars:Normal Femur:Normal Lumbar spine:Bone spur observed Neck:Normal Eyes:Cataract surgery observed, lens looks different Hip:Arthritis observed, cartilage worn away. G eneral Examination: GENERAL APPEARANCE: p leasant, well nourished, well developed, in no acute distress, calm and relaxed. HEAD: a traumatic, normocephalic. EYES: e keri, perrla, anicteric, conjugate. EARS: n ormal. NOSE: s eptum intact. ORAL CAVITY: n ormal, unremarkable. NECK/THYROID: n o jugular venous distention, no carotid bruit, thyroid nodules not appreciated. LYMPH NODES: n o enlarged lymph nodes,spleen normal. SKIN: n o suspicious lesions, anicteric. HEART: n o clicks, gallops, murmurs, or rubs, regular rhythm, S1, S2 normal, no s3, or vascular bruits. LUNGS: c lear to auscultation . BREASTS: no masses palpable bilaterally. ABDOMEN: b owel sounds normal, no ascites, no organomegaly, no mass. RECTAL EXAM: n ot examined. MUSCULOSKELETAL: e xtremities unremarkable, no clubbing, cyanosis or edema. PERIPHERAL PULSES: n ormal. NEUROLOGIC: a lert and oriented, cranial nerves 2-12 grossly intact, deep tendon reflexes 2+ symmetrical, motor strength normal upper and lower extremities, sensory exam intact. PSYCH: a lert, oriented. Assessment: * Assessment: 1. D epressive disorder, not elsewhere classified - F32.9 (Primary) N otes :He is tolerating citalopram well without side effects and will be continued. He feels discouraged about his difficulty losing weight and immobility. We discussed this at length today. He declined a referral to the weight loss program but I will continue in this direction. 2 . O besity - E66.9 N otes :His body mass index is 39. He has lost 1 pound. We have discussed diet and nutrition. We reviewed his weight loss strategy. 3 . E ssential hypertension - I10 N otes :His blood prressure is 124/57. No change in his medication was made. I recommended aggressive weight loss and sodium restriction combined with regular physical activity and a reduced calorie diet low in sodium and animal fat. 4 . O ther and unspecified hyperlipidemia - E78.5 N otes :His triglycerides are elevated but his total cholesterol is acceptable at 194. I recommended a healthy diet and aggressive weight loss combined with exercise. No change in his medication was needed. 5 . G ERD (gastroesophageal reflux disease) - K21.9 N otes :His reflux symptoms are well controlled with nbvk-xfu-gfzcbid medication and no change in his regimen as needed. 6 . 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 His vision is normal in the opposite eye and he sees the stress analyst regularly. He reports today that his vision in the left eye is adequate and normal. 7 . 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 8 . T hyroid nodule - E04.1 N otes :This was noted last Junne jenny ultrasound. A repeat ultrasound was ordered and an endocrine consult. Plan: * Treatment: 2. O thers Referral To:[facility] Orthopedic Surgery Reason:Consult and Treat Bilateral Hip Pain * Procedure Codes: * Preventive Medicine: Counseling: [...] Other reason not done * Follow Up: 2 Months, Early September (Reason: OV, Follow up after orthopedist visit) * Images: * Sign off status: Completed true * Provider: Shira Levine MD Date: 10/17/2023 Generated for Printi ng/Cassia/eTransmitting on: 04:31 PM EDT History and Physical Notes * HPI (History of Present Illness) Category Sub-Category Detail Notes COVID-19 Screening Questions Have you had any new onset fever, chills, cough, congestion, sore throat, shortness of breath, muscle aches?: No Have you been exposed to the virus withi n the last 10 days?: No Have you travelled internationally in [facility] last 10 days?: No Have you been exposed to COVID-19 in the past?: No Examination Category Sub-Category Detail Notes General Examination GENERAL APPEARANCE: pleasant , well nourished, well developed, in no acute distress, calm and relaxed HEAD: atraumatic, normocep halic EYES: eomi, perrla, anicte abdelrahman, conjugate EARS: normal NOSE: septum intact NECK/THYROID: no jugular venous di stention, no carotid bruit, thyroid nodules not appreciated HEART: no clicks, gallops, murmurs, or rubs, regular rhythm, S1, S2 normal, no s3, or vascular bruits LUNGS: clear to auscultatio n ABDOMEN: bowel sounds normal, no ascites, no organomegaly, no mass NEUROLOGIC: alert and oriented, cranial nerves 2-12 grossly intact, deep tendon reflexes 2+ symmetrical, motor strength normal upper and lower extremities, sensory exam intact SKIN: no suspicious lesion s, anicteric PERIPHERAL PULSES: normal BREASTS: no masses palpable b ilaterally MUSCULOSKELETAL: extremities unremark able, no clubbing, cyanosis or edema LYMPH NODES: no enlarged lymph no christa,spleen normal RECTAL EXAM: not examined PSYCH: alert, oriented ORAL CAVITY: normal, unremarkable Consultation Request Notes Referral Date Referring Provider Referred Provider Not es 08/17/2024 Julianna [facility], [facility] Surgeons Consult and Treat Bilateral Hip Pain
--- OUTSIDE RECORDS SUMMARY | 2024-10-19 06:45 | XMS_ITS ---
Author Organization Ricky Levine III, MD Address [address] [place] [address] [place] [address] Care Team Providers Care Coding Auditor Name Role Phone Dr. Ricky Levine III Primary Care Provider Allergies Allergen (clinical drug ingredient) Drug/Non Drug Allergy documented on EMR Reaction Allergy Type Onset Date Status No Known Drug Allergy Unknown Drug Allergy Active REASON FOR VISIT Quadriceps muscle pain, Low back pain, Hypertension, Depression, GERD Medications Medication SIG (Take, Route, Frequency, Duration) Notes Start Date End Date Status Lansoprazole 30 MG TAKE 1 CAPSULE BY MO UTH TWICE A DAY Active Simvastatin 40 MG TAKE 1 TABLET BY HIRAL TH EVERYDAY AT BEDTIME Active Felodipine ER 10 MG TAKE 1 TABLET BY HIRAL TH EVERY DAY FOR 90 DAYS Active Centrum Silver - Orally Act nette Citalopram Hydrobromide 40 MG TAKE 1 TABLET BY MOUTH EVERY DAY Active Metoprolol Succinate ER 25 MG TAKE 1 TABLET BY MOUTH EVERY DAY FOR 90 DAYS Active Triamterene-HCTZ 37.5-25 MG TAKE 1 TABLE T BY MOUTH EVERY DAY IN THE MORNING FOR 30 DAYS Active Social History Tobacco Use: Social History Observation Description Date Details (start date - stop date) Never Smoker NA - NA Sex Assigned At : Social History Observation Description Sex Assigned At Male Tobacco Control (Standard) Question Answer Notes Tobacco use: Nonsmoker Additional Findings: Tobacco non-user Aggressive nonsmoker Problems Problem Type SNOMED Code ICD Code Onset Dates Problem Status W/U Status Risk Notes Problem 111194517 Low back pain, unspecified (M54.50) Active confirmed His back pain is being manage. He has had surgery. It is mild to moderate at this time. Problem 76278353 Degeneration of intervertebral disc of lumbar region, unspecified whether pain present (M51.369) Active confirmed He has bilateral quadriceps pain which are likely from his spine. He was given a trial of dexamethasone.T he pain in his back has become very severe. In addition to the dexamethasone a surgical solution will be sought. I have requested an of the lumbar spine. 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 He was given a trial of dexamethasone.The pain in his back has become very severe. In addition to the dexamethasone a surgical solution will be sought. I have requested an of the lumbar spine. 10/19/2024 Other and unspecified hyperlipidemia (ICD-10 - E78.5) His triglycerides are elevated but his total cholesterol is acceptable at 194. I recommended a healthy diet and aggressive weight loss combined with exercise. No change in his medication was needed. 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 His vision is normal in the opposite eye and he sees the threading machine operator regularly. He reports today that his vision in the left eye is adequate and normal. 10/19/2024 Depressive disorder, not elsewhere classified (ICD-10 - F32.9) He is tolerating citalopram well without side effects and will be continued. He feels discouraged about his difficulty losing weight and immobility. We discussed this at length today. He declined a referral to the weight loss program but I will continue in this direction. 10/19/2024 Essential hypertension (ICD-10 - I10) His blood prressure is 140/84. No change in his medication was made. I recommended aggressive weight loss and sodium restriction combined with regular physical activity and a reduced calorie diet low in sodium and animal fat. 10/19/2024 GERD (gastroesophageal reflux disease) (ICD-10 - K21.9) His reflux symptoms are well controlled with whxz-bcj-smlljbs medication and no change in his regimen as needed. 10/19/2024 BPH (benign prostatic hyperplasia) (ICD-10 - N40.0) He rises from sleep once and sometimes twice a night to urinate. We have discussed lifestyle modification as a way to reduce nocturia. 10/19/2024 Myalgia, multiple sites (ICD-10 - M79.18) His CPK and LDH are normal. He will stop his simvastatin for 1 week and then call the office and we will discuss it. Plan Of Treatment Medication Medication Name Sig Start Date Stop Date Notes Lansoprazole 30 MG TAKE 1 CAPSULE BY MO UTH TWICE A DAY Simvastatin 40 MG TAKE 1 TABLET BY HIRAL TH EVERYDAY AT BEDTIME Felodipine ER 10 MG TAKE 1 TABLET BY HIRAL TH EVERY DAY FOR 90 DAYS Centrum Silver - Orally Citalopram Hydrobromide 40 MG TAKE 1 TAB LET BY MOUTH EVERY DAY Metoprolol Succinate ER 25 MG TAKE 1 TAB LET BY MOUTH EVERY DAY FOR 90 DAYS Triamterene-HCTZ 37.5-25 MG TAKE 1 TABLE T BY MOUTH EVERY DAY IN THE MORNING FOR 30 DAYS Next Appt Details Follow Up: 3 Weeks, Three we eks from now, Reason: Telehealth, To discuss the findings and recommendations of the probate lawyer Provider Name:Ricky Mederos Julianna , 07/29/2025 10:00:00 AM, [address] [place] [address] , [place] [address], [place], [address], Progress Notes * Lev CHAMPION SrDOB: [birth year] (74 yo M)Acc No.[id number]:10/19/2024 Progress Notes Patient: Lev HILARIO Sr Provider: Shira Levine MD :1950 A ge:74 Y S ex:Male Date:10/19/2024 Address:[address] [place] [address] Subjective: * Chief Complaints: * Q uadriceps muscle painLow back painHypertensionDepressionGERD * HPI: C OVID-19 Screening: Questions H ave you had any new onset fever, chills, cough, congestion, sore throat, shortness of breath, muscle aches? N o * : The patient, a 74-year-old male, presented with chronic pain and aching in his muscles, particularly from his back to his knees. The pain is constant and has been ongoing for a long time. The patient also reported muscle spasms in his lower back. The pain is severe enough to cause discomfort when pressure is applied to the affected areas. The patient has been experiencing these symptoms for a long time and they seem to be getting worse. The patient also reported having arthritis in his hips, with the left hip causing more discomfort than the right. The patient has been taking Simvastatin for a long time, which could potentially be contributing to his muscle aches. His x-rays show mild degenerative changes. He has been to orthopedics who sent him to a physiatry us, Dr. Liliana Castro at [facility].He has an appointment with her November 05, 2024. * ROS: G eneral/Constitutional: pain B oth quadriceps muscles, low back. C hills d enies. F atigue a dmits. F ever d enies. E NT: Decreased hearing d enies. R espiratory: Cough d enies. C ardiovascular: [...] enies.?Headache d enies. L ow back pain t hat is chronic. P sychiatric: Depressed mood w hich is [...] Social History: T obacco Use: T obacco Control (Standard) T obacco use: N onsmoker A dditional Findings: Tobacco non-user A ggressive nonsmoker Zoila mederos has been to [employer] for many years. He retired from the [employer] in [place] at age 61. He was born in [place], [place]. He has one son. {'Living situation': 'Lives alone', 'Physical activity': 'Limited due to muscle aches and hip pain', 'Diet': 'Possible high consumption of animal fat and red meat indicated by slightly high triglycerides'} Drinking: Smoking: Drug use: Exercise: Work environment: Diet: Living situation:. * Medications: T akingCitalopram Hydrobromide 40 MG Tablet TAKE 1 TABLET BY MOUTH EVERY DAY Centrum Silver - Tablet Orally Triamterene-HCTZ 37.5-25 MG Tablet TAKE 1 TABLET BY MOUTH EVERY DAY IN THE MORNING FOR 30 DAYS Metoprolol Succinate ER 25 MG Tablet Extended Release 24 Hour TAKE 1 TABLET BY MOUTH EVERY DAY FOR 90 DAYS Felodipine ER 10 MG Tablet Extended Release 24 Hour TAKE 1 TABLET BY MOUTH EVERY DAY FOR 90 DAYS Lansoprazole 30 MG Capsule Delayed Release TAKE 1 CAPSULE BY MOUTH TWICE A DAY Simvastatin 40 MG Tablet TAKE 1 TABLET BY MOUTH EVERYDAY AT BEDTIME Medication List reviewed and reconciled with the patientTaking Citalopram Hydrobromide 40 MG Tablet TAKE 1 TABLET BY MOUTH EVERY DAY Taking Centrum Silver - Tablet Orally Taking Triamterene-HCTZ 37.5-25 MG Tablet TAKE 1 TABLET BY MOUTH EVERY DAY IN THE MORNING FOR 30 DAYS Taking Metoprolol Succinate ER 25 MG Tablet Extended Release 24 Hour TAKE 1 TABLET BY MOUTH EVERY DAY FOR 90 DAYS Taking Felodipine ER 10 MG Tablet Extended Release 24 Hour TAKE 1 TABLET BY MOUTH EVERY DAY FOR 90 DAYS Taking Lansoprazole 30 MG Capsule Delayed Release TAKE 1 CAPSULE BY MOUTH TWICE A DAY Taking Simvastatin 40 MG Tablet TAKE 1 TABLET BY MOUTH EVERYDAY AT BEDTIME Medication List reviewed and reconciled with the patient * Allergies: N o Known Drug Allergyno[Allergies Verified] Objective: * Vitals: H t: 72, Wt:291, BMI:39.46, BP:140/84, HR:68, Temp:97.0, Wt-k. * P ast Orders: L ab:Hemoglobin A1c (Order Date - 07/20/2024) (Collection Date & Time - 07/20/2024 08:17 AM) Value Reference Range Hemoglobin A1c % 5.5 <6.0 - % Estimated Average Glucose 111 - mg/dL Lab:Prostate Specific Antige n * Collection Date 07/20/2024 06/27/2022 11/21/2020 Collection Time 08:17 AM 10:53 AM 12:47 PM Order Date 07/20/2024 06/27/2022 11/21/2020 Prostate Specific Antigen 0.83 (Ref Range: <0.05-4.0 ng/mL) 0.51 (Ref Range: <0.05-4.0 ng/mL) 0.58 (Ref Range: <0.05-4.0 ng/mL) * Imaging:XR lumbar spine 2-3V * Performed Date 07/24/2024 12/25/2021 12:16 PM 11:56 AM Order Date 07/24/2024 12/25/2021 ???Imaging:XR hips CLAUDIO min 3V (Order Date - 07/24/2024) (Performed Date - 07/24/2024) * Lab:Lipid Panel * Collection Date 07/28/2024 [...] May have water,PLEASE FAX COMPLETED RESULTS TO [phone] * Lab:Joey Bee l Fast * Collection Date 07/28/2024 07/20/2024 [...] X10*3/uL) 0.000 (Ref Range: 0.0-0.012 X10*3/uL) * Lab:Creatine Kinase Total * Collection Date 07/28/2024 06/23/2021 Collection Time 11:42 AM 11:38 AM Order Date 07/28/2024 06/23/2021 Creatine Kinase Total 69 (Ref Range: 38-174 U/L) 142 (Ref Range: 38-174 U/L) * Lab:Lactate Dehydrogenase * Collection Date 07/28/2024 06/23/2021 Collection Time 11:42 AM 11:38 AM Order Date 07/28/2024 06/23/2021 Lactate Dehydrogenase 231 (Ref Range: 118-273 U/L) 172 (Ref Range: 118-273 U/L) * Examination: G eneral Examination: GENERAL APPEARANCE: p leasant, well nourished, well developed, in no acute distress, calm and relaxed, obese, man. HEAD: a traumatic, normocephalic. EYES: e keri, perrla, anicteric, conjugate, Left cornea heavily scarred and vision impaired. EARS: n ormal. NOSE: s eptum intact. [...] e xtremities unremarkable, no clubbing, cyanosis or edema, Quadriceps muscles are unremarkable, severedecreased range of motion lumbar spine with significant bilateral muscle spasm. PERIPHERAL PULSES: n ormal. NEUROLOGIC: a lert and oriented, cranial nerves 2-12 grossly intact, deep tendon reflexes 2+ symmetrical, motor strength normal upper and lower extremities, sensory exam intact. PSYCH: a lert, oriented, anxious appearing, mood depressed, cognitive function intact. Assessment: * Assessment: 1. D egeneration of intervertebral disc of lumbar region, unspecified whether pain present - M51.369 (Primary) N otes :He has bilateral quadriceps pain which are likely from his spine. He was given a trial of dexamethasone.The pain in his back has become very severe. In addition to the dexamethasone a surgical solution will be sought. I have requested an of the lumbar spine. 2 . O ther and unspecified hyperlipidemia - E78.5 N otes :His triglycerides are elevated but his total cholesterol is acceptable at 194. I recommended a healthy diet and aggressive weight loss combined with exercise. No change in his medication was needed. 3 . 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 His vision is normal in the opposite eye and he sees the threading machine operator regularly. He reports today that his vision in the left eye is adequate and normal. 4 . D epressive disorder, not elsewhere classified - F32.9 N otes :He is tolerating citalopram well without side effects and will be continued. He feels discouraged about his difficulty losing weight and immobility. We discussed this at length today. He declined a referral to the weight loss program but I will continue in this direction. 5 . E ssential hypertension - I10 N otes :His blood prressure is 140/84. No change in his medication was made. I recommended aggressive weight loss and sodium restriction combined with regular physical activity and a reduced calorie diet low in sodium and animal fat. 6 . G ERD (gastroesophageal reflux disease) - K21.9 N otes :His reflux symptoms are well controlled with xddo-qfm-aqisuck medication and no change in his regimen as needed. 7 . B PH (benign prostatic hyperplasia) - N40.0 N otes :He rises from sleep once and sometimes twice a night to urinate. We have discussed lifestyle modification as a way to reduce nocturia. 8 . M khoi, multiple sites - M79.18 N otes :His CPK and LDH are normal. He will stop his simvastatin for 1 week and then call the office and we will discuss it. Plan: * Treatment: 2. O thers Continue Citalopram Hydrobromide Tablet, 40 MG, TAKE 1 TABLET BY MOUTH EVERY DAY; C ontinue Centrum Silver Tablet, -, Orally; C ontinue Triamterene-HCTZ Tablet, 37.5-25 MG, TAKE 1 TABLET BY MOUTH EVERY DAY IN THE MORNING FOR 30 DAYS; C ontinue Metoprolol Succinate ER Tablet Extended Release 24 Hour, 25 MG, TAKE 1 TABLET BY MOUTH EVERY DAY FOR 90 DAYS; C ontinue Felodipine ER Tablet Extended Release 24 Hour, 10 MG, TAKE 1 TABLET BY MOUTH EVERY DAY FOR 90 DAYS; C ontinue Lansoprazole Capsule Delayed Release, 30 MG, TAKE 1 CAPSULE BY MOUTH TWICE A DAY; C ontinue Simvastatin Tablet, 40 MG, TAKE 1 TABLET BY MOUTH EVERYDAY AT BEDTIME. * Procedure Codes: * Preventive Medicine: Counseling: [...] not done * Follow Up: 3 Weeks, Three weeks from now (Reason: Telehealth, To discuss the findings and recommendations of the probate lawyer) * Images: * Sign off status: Completed true * Provider: Shira Levine MD Date: 0 10/19/2024 Generated for Doris mayer/Cassia/Daríoitting on: 04:32 PM EDT History and Physical Notes * HPI (History of Present Illness) Category Sub-Category Detail Notes COVID-19 Screening Questions Have you had any new onset fever, chills, cough, congestion, sore throat, shortness of breath, muscle aches?: No Examination Category Sub-Category Detail Notes General Examination GENERAL APPEARANCE: pleasant , well nourished, well developed, in no acute distress, calm and relaxed, obese, man HEAD: atraumatic, normocep halic EYES: eomi, perrla, anicte abdelrahman, conjugate, Left cornea heavily scarred and vision impaired EARS: normal NOSE: septum intact NECK/THYROID: no [...] extremities unremark able, no clubbing, cyanosis or edema, Quadriceps muscles are unremarkable, severedecreased range of motion lumbar spine with significant bilateral muscle spasm LYMPH NODES: no enlarged lymph no christa,spleen normal RECTAL EXAM: not examined PSYCH: alert, oriented, anx ious appearing, mood depressed, cognitive function intact ORAL CAVITY: normal, unremarkable
--- OUTSIDE RECORDS SUMMARY | 2024-11-11 07:00 | XMS_ITS ---
Author Organization Ricky Levine III, MD Address [address] [place] [address] [place] [address] Care Team Providers Care Behavior Specialist Name Role Phone Dr. Ricky Levine III Primary Care Provider [phone] Allergies Allergen (clinical drug ingredient) Drug/Non Drug Allergy documented on EMR Reaction Allergy Type Onset Date Status No Known Drug Allergy Unknown Drug Allergy Active REASON FOR VISIT Worsening back pain, Hypertension, Hyperlipidemia, Depression, Corneal transplant right eye, Obesity, Thyroid nodules Medications Medication SIG (Take, Route, Frequency, Duration) Notes Start Date End Date Status Metoprolol Succinate ER 25 MG TAKE 1 TABLET BY MOUTH EVERY DAY FOR 90 DAYS Active Triamterene-HCTZ 37.5-25 MG TAKE 1 TABLE T BY MOUTH EVERY DAY IN THE MORNING FOR 30 DAYS Active Felodipine ER 10 MG TAKE 1 TABLET BY HIRAL TH EVERY DAY FOR 90 DAYS Active Centrum Silver - Orally Act nette Citalopram Hydrobromide 40 MG TAKE 1 TABLET BY MOUTH EVERY DAY Active Lansoprazole 30 MG TAKE 1 CAPSULE BY [...] Problem Status W/U Status Risk Notes Problem [id number] Lumbar spondylosis (M47.816) Active confirmed He continues to have worsening low back pain. An MRI has shown multilevel spondylosis and degenerative changes. There are multiple levels of foraminal narrowing. He has seen a neurosurgeon who found no surgical approach. He has been referred to physiatry and pain management. 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 An MRI has shown multilevel spondylosis and degenerative changes. There are multiple levels of foraminal narrowing. He has seen a neurosurgeon who found no surgical approach. He has been referred to physiatry and pain management. 11/11/2024 Other and unspecified hyperlipidemia (ICD-10 - E78.5) His triglycerides are elevated but his total cholesterol is acceptable at 194. I recommended a healthy diet and aggressive weight loss combined with exercise. No change in his medication was needed. 11/11/2024 Essential hypertension (ICD-10 - I10) His blood prressure is 140/84. No change in his medication was made. I recommended aggressive weight loss and sodium restriction combined with regular physical activity and a reduced calorie diet low in sodium and animal fat. 11/11/2024 Depressive disorder, not elsewhere classified (ICD-10 - F32.9) He is tolerating citalopram well without side effects and will be continued. He feels discouraged about his difficulty losing weight and immobility. We discussed this at length today. He declined a referral to the weight loss program but I will continue in this direction. 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 His vision is normal in the opposite eye and he sees the instructional services librarian regularly. He reports today that his vision in the left eye is adequate and normal. 11/11/2024 GERD (gastroesophageal reflux disease) (ICD-10 - K21.9) His reflux symptoms are well controlled with [id number] medication and no change in his regimen as needed. 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 11/11/2024 Chronic idiopathic constipation (ICD-10 - K59.04) The constipation is well controlled with medications. At this time. 11/11/2024 BPH (benign prostatic hyperplasia) (ICD-10 - N40.0) He rises from sleep once and sometimes twice a night to urinate. We have discussed lifestyle modification as a way to reduce nocturia. 11/11/2024 Thyroid nodule (ICD-10 - E04.1) This was noted last Junne jenny ultrasound. A repeat ultrasound was ordered and an endocrine consult. Plan Of Treatment Medication Medication Name Sig Start Date Stop Date Notes Metoprolol Succinate ER 25 MG TAKE 1 TAB LET BY MOUTH EVERY DAY FOR 90 DAYS Triamterene-HCTZ 37.5-25 MG TAKE 1 TABLE T BY MOUTH EVERY DAY IN THE MORNING FOR 30 DAYS Felodipine ER 10 MG TAKE 1 TABLET BY HIRAL TH EVERY DAY FOR 90 DAYS Centrum Silver - Orally Citalopram Hydrobromide 40 MG TAKE 1 TAB LET BY MOUTH EVERY DAY Lansoprazole 30 MG TAKE 1 CAPSULE BY MO UTH TWICE A DAY Simvastatin 40 MG TAKE 1 TABLET BY HIRAL TH EVERYDAY AT BEDTIME Next Appt Details Follow Up: 3 Weeks, 3 weeks, Reason: ov no tests, Follow up on the patient's condition Provider Name:Ricky Levine , 07/29/2025 10:00:00 AM, [address] [place] [address] , [place] [address], [place], [address], Progress Notes * Lev CHAMPION SrDOB: [birth year] (74 yo M)Acc No.[id number]:11/11/2024 Patient: Lev HILARIO Sr Provider: Shira Levine MD :1950 A ge:74 Y S ex:Male Date:11/11/2024 Address:[address] [place], [place] [id number] Subjective: * Chief Complaints: * W orsening back painHypertensionHyperlipidemiaDepressionCorneal transplant right eyeObesityThyroid nodules * HPI: * : Telehealth L ocation of provider rendering services: { ...} [address] [facility] [address] L ocation of patient: diandra ddress listed in demographics for today's visit P atient identification confirmed using: JOSÉ LUIS Merritt ame T elehealth method: T elephone only. Patient not visible to care provider. C onsent: P atient verbally consented to treatment, Patient verbally consented to billing insurance company, Patient informed of any privacy concerns related to method of visit T otal time spent with patient (mins) 1 5 The patient, a 74-year-old male, reported having seen a neurosurgeon last week who reviewed his MRI results. The doctor did not find any conditions that required surgery. The patient was recommended to try physical therapy, but he has not heard from the physical therapy department yet. The patient also mentioned that he has arthritis in his hips, with the left side being more severe. The doctor noted that the patient has mild to moderate lumbar stenosis between the 4th and 5th lumbar vertebra and a slightly bulging disc, which is irritating the nerves that go down to his legs and bring pain sensation down there. The patient's pain varies in intensity, with some days being worse than others. The pain is located in the lower back, hips, and even the knees. The MRI showed multilevel spondylosis and foraminal stenoses. * ROS: G eneral/Constitutional: pain L umbar spine. C hills d enies. F atigue?admits. F ever d enies. E NT: Decreased [...] have been noted. G enitourinary: Frequent urination t wice a night. M usculoskeletal: Muscle aches d enies. P ainful joints d enies. S ciatica d enies. W eakness d enies. S kin: Itching d enies. R yon d enies. S kin lesion(s)?denies. N eurologic: Difficulty speaking d enies. D izziness d enies.?Headache d enies. L ow back pain t hat is chronic. P sychiatric: Depressed mood w hich is moderate. * Medical History: * Surgical History: C [...] ggressive nonsmoker Zoila mederos has been to [place] for many years. He retired from the [employer] in [place] at age 61. He was born in [place], [place]. He has one son. {'Living situation': [...] * Vitals: H t: 72, Wt:291, BMI:39.46, Ht-cm: 182.88, Wt-k. Assessment: * Assessment: 1. L umbar spondylosis - M47.816 (Primary) N otes :He continues to have worsening low back pain. An MRI has shown multilevel spondylosis and degenerative changes. There are multiple levels of foraminal narrowing. He has seen a neurosurgeon who found no surgical approach. He has been referred to physiatry and pain management. 2 . O ther and unspecified hyperlipidemia - E78.5 N otes :His triglycerides are elevated but his total cholesterol is acceptable at 194. I recommended a healthy diet and aggressive weight loss combined with exercise. No change in his medication was needed. 3 . E ssential hypertension - I10 N otes :His blood prressure is 140/84. No change in his medication was made. I recommended aggressive weight loss and sodium restriction combined with regular physical activity and a reduced calorie diet low in sodium and animal fat. 4 . D epressive disorder, not elsewhere classified - F32.9 N otes :He is tolerating citalopram well without side effects and will be continued. He feels discouraged about his difficulty losing weight and immobility. We discussed this at length today. He declined a referral to the weight loss program but I will continue in this direction. 5 . 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 His vision is normal in the opposite eye and he sees the instructional services librarian regularly. He reports today that his vision in the left eye is adequate and normal. 6 . G ERD (gastroesophageal reflux disease) - K21.9 N otes :His reflux symptoms are well controlled with [id number]-[id number] medication and no change in his regimen as needed. 7 . 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 8 . C hronic idiopathic constipation - K59.04 N otes :The constipation is well controlled with medications. At this time. 9 . B PH (benign prostatic hyperplasia) - N40.0 N otes :He rises from sleep once and sometimes twice a night to urinate. We have discussed lifestyle modification as a way to reduce nocturia. 1 0. T hyroid nodule - E04.1 N otes :This was noted last Junne jenny ultrasound. A repeat ultrasound was ordered and an endocrine consult. Plan: * Treatment: * Procedure Codes: * Preventive Medicine: Counseling: C are goal follow-up plan: Counseling for abnormal BMI given Y es Above Normal BMI Follow-up D ietary management education, guidance, and counseling, Dietary needs education, Exercise promotion: strength training * Follow Up: 3 Weeks, 3 weeks (Reason: ov no tests, Follow up on the patient's condition) * Images: * Sign off status: Completed true * Provider: Shira Levine MD Date: 0 11/11/2024 Generated for Doris mayer/Cassia/Jed on: 1 04:31 PM EDT History and Physical Notes * HPI (History of Present Illness) Category Sub-Category Detail Notes Telehealth Location of [facility] rendering services:: {...} [address] [facility] [address] Location of patient:: address listed in demographics for today's visit Patient identification confirmed using:: Name, Telehealth method:: Telephone only. Sarah ent not visible to care provider. Consent:: Patient verbally c onsented to treatment, Patient verbally consented to billing insurance company, Patient informed of any privacy concerns related to method of visit Total time spent with patient (mins): 15
--- OUTSIDE RECORDS SUMMARY | 2024-12-01 05:30 | XMS_ITS ---
Author Organization Ricky Levine III, MD Address [address] [place] [address] [place] [address] Care Team Providers Care Gun Stock Maker Name Role Phone Dr. Ricky Levine III Primary Care Provider [phone] Allergies Allergen (clinical drug ingredient) Drug/Non Drug Allergy documented on EMR Reaction Allergy Type Onset Date Status No Known Drug Allergy Unknown Drug Allergy Active Reason For Referral Reason consultation and maki atment Thoracic lumbar back pain MRI showed DJD and osteophytes Diagnosis 1 Lumbar back pain (M5 4.50) Diagnosis 2 Acute thoracic back pain, unspecified back pain laterality (M54.6) Referral Organization Ricky Levine III, MD Referring Provider First Name Ricky Referring Provider Last Name Julianna Referring Provider Speciality Internal M edicine Referred Provider Spine and Sp [facility] Referred Provider Specialty Physical Med icine General Notes Leora Lion CMA 12/03 09:14:04 AM > ref/demo/x rays faxed to [facility] and pt made aware of this, Leora Lion CMA 12/07/2024 09:37:02 AM > Office called patient has appt with physical therapy dept for 12/08/2024 9:30am pt aware of this appt Referral Priority Routine Referral Appointment Date 12/08/2024 REASON FOR VISIT Chronic low back pain, Degenerative disc disease lumbar spine, Hypertension, Depression, GERD, [place] vision right, Obesity, Benign prostatic hypertrophy, Thyroid nodule Medications Medication SIG (Take, Route, Frequency, Duration) Notes Start Date End Date Status Lansoprazole 30 MG TAKE 1 CAPSULE BY MOUTH TWICE A DAY Active Felodipine ER 10 MG TAKE 1 TABLET BY HIRAL TH EVERY DAY FOR 90 DAYS Active Simvastatin 40 MG TAKE 1 TABLET BY HIRAL TH EVERYDAY AT BEDTIME Active Metoprolol Succinate ER 25 MG TAKE 1 TABLET BY MOUTH EVERY DAY FOR 90 DAYS Active Cyclobenzaprine HCl 10 MG 1 tablet at be dtime as needed Orally twice a day for 10 days 12/01/2024 12/21/2024 Active Triamterene-HCTZ 37.5-25 MG TAKE 1 TABLE T BY MOUTH EVERY DAY IN THE MORNING FOR 30 DAYS Active Centrum Silver - Orally Act nette Citalopram Hydrobromide 40 MG TAKE 1 TABLET BY MOUTH EVERY DAY Active Social History Tobacco Use: Social History [...] Problem Status W/U Status Risk Notes Problem [id number] Obesity (E66.9) Active confirmed His body mass index is 39.33. We discussed diet and nutrition and made a plan to lose weight at 1 pound per week. Vital Signs Temperature 97.2 degrees Fahrenheit 12/02/19 25 Blood pressure systolic 133 mm Hg 12/02/19 25 Blood pressure diastolic 76 mm Hg 025 Heart Rate 61 /min 12/01/2024 Height 72 in 12/01/2024 Weight 287 lbs 12/01/2024 BMI 38.92 kg/m2 12/01/2024 Encounters Encounter Location Date Provider Diagnosis Ricky Levine III, MD [address] [place] [address] [address] [place], [place] [phone] 12/01/2024 Ricky Levine Obesity E66.9 ; Depressive disorder, not elsewhere classified F32.9 ; Essential hypertension I10 ; GERD (gastroesophageal reflux disease) K21.9 ; Other and unspecified hyperlipidemia E78.5 ; 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 He has lost 4 pounds. We have discussed diet and nutrition. We reviewed his weight loss strategy. 12/01/2024 Depressive disorder, not elsewhere classified (ICD-10 - F32.9) He is tolerating citalopram well without side effects and will be continued. He feels discouraged about his difficulty losing weight and immobility. We discussed this at length today. He declined a referral to the weight loss program but I will continue in this direction. 12/01/2024 Essential hypertension (ICD-10 - I10) His blood prressure is 140/84. No change in his medication was made. I recommended aggressive weight loss and sodium restriction combined with regular physical activity and a reduced calorie diet low in sodium and animal fat. 12/01/2024 GERD (gastroesophageal reflux disease) (ICD-10 - K21.9) His reflux symptoms are well controlled with kmmm-cqh-ooqqvlm medication and no change in his regimen as needed. 12/01/2024 Other and unspecified hyperlipidemia (ICD-10 - E78.5) His triglycerides are elevated but his total cholesterol is acceptable at 194. I recommended a healthy diet and aggressive weight loss combined with exercise. No change in his medication was needed. 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 His vision is normal in the opposite eye and he sees the topper press operator automatic regularly. He reports today that his vision in the left eye is adequate and normal. 12/01/2024 Back pain (ICD-10 - M54.9) He will continue on conservative therapy. His x-rays do not show a surgical solution. He was referred to pain management to consider injections. Plan Of Treatment Medication Medication Name Sig Start Date Stop Date Notes Lansoprazole 30 MG TAKE 1 CAPSULE BY MO [facility] TWICE A DAY Felodipine ER 10 MG TAKE 1 TABLET BY HIRAL TH EVERY DAY FOR 90 DAYS Simvastatin 40 MG TAKE 1 TABLET BY HIRAL TH EVERYDAY AT BEDTIME Metoprolol Succinate ER 25 MG TAKE 1 TAB LET BY MOUTH EVERY DAY FOR 90 DAYS Cyclobenzaprine HCl 10 MG 1 tablet at be dtime as needed Orally twice a day for 10 days 12/01/2024 12/21/2024 Triamterene-HCTZ 37.5-25 MG TAKE 1 TABLE T BY MOUTH EVERY DAY IN THE MORNING FOR 30 DAYS Centrum Silver - Orally Citalopram Hydrobromide 40 MG TAKE 1 TAB LET BY MOUTH EVERY DAY Referrals Referral Date Details 12/01/2024 12/01/2024, consulta tion and treatment Thoracic lumbar back pain MRI showed DJD and osteophytes, [facility] Next Appt Details Follow Up: 2 Weeks, Reason: ov no tests ref to [facility] Provider Name:Ricky Sanchezne , 07/29/2025 10:00:00 AM, [address] [place] [address], [place] [address], [place], [address], Progress Notes * Lev CHAMPION SrDOB: [birth year] (74 yo M)Acc No.[id number]:12/01/2024 Progress Notes Patient: Lev HILARIO Sr Provider: Shira Levine MD :1950 A ge:74 Y S ex:Male Date:12/01/2024 Address:[address] [place] [address] Subjective: * Chief Complaints: * C hronic low back painDegenerative disc disease lumbar spineHypertensionDepressionGERDLoss of vision rightObesityBenign prostatic hypertrophyThyroid nodule * HPI: C OVID-19 Screening: Questions H ave you had any new onset fever, chills, cough, congestion, sore throat, shortness of breath, muscle aches? N o * : The patient, Lev, a 74-year-old male, presented with a history of chronic back pain. He reported experiencing muscle spasms along his spine, which he described as quite painful. The pain is constant and is not associated with any specific activity. 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 The patient had an MRI of his back a few weeks ago, which revealed age-related changes in the bones, worn-out discs, and bone spurs. However, there was nothing that warranted surgery. The patient also reported having a bad hip and knee, which further limit his mobility. * ROS: G eneral/Constitutional: pain L umbar spine. C hills d enies. F atigue?admits. F ever d enies. E NT: Decreased hearing d enies. R espiratory: Cough d enies. C ardiovascular: Chest pain with exertion d enies. D yspnea on exertion?denies. S hortness of breath d enies. G astrointestinal: Constipation o ccasional. D ecreased appetite d enies. D iarrhea d enies. H eartburn c ontrolled with medications. N ausea d enies. R ectal bleeding d enies. V omiting d enies. H ematology: bruising d enies. p etechiae d enies. S wollen glands n one have been noted. G enitourinary: Frequent urination o nce a night. M usculoskeletal: Muscle aches d enies. P ainful joints L umbar spine. S ciatica d enies. W eakness d enies. S kin: Itching d enies. R yon d enies. S kin lesion(s)?denies. N eurologic: Difficulty speaking d enies. D izziness d enies.?Headache d enies. L ow back pain d enies. P sychiatric: Depressed mood w hich is mild. * Medical History: * Surgical History: C orneal transplant right eye Corneal transplant * Hospitalization/Major Diagno stic Procedure: [...] dditional Findings: Tobacco non-user A ggressive nonsmoker * Medications: T akingCitalopram Hydrobromide 40 MG [...] Verified] Objective: * Vitals: H t: 72, Wt:287, BMI:38.92, BP:133/76, HR:61, Temp:97.2, Ht-cm: 182.88, Wt-k.18. * Examination: G eneral Examination: GENERAL APPEARANCE: p leasant, well nourished, well developed, in no acute distress, calm and relaxed, obese, man. HEAD: a traumatic, normocephalic. EYES: e keri, perrla, anicteric, conjugate, RRight cornea is scarred, right vision loss. EARS: n ormal. NOSE: s eptum intact. [...] xtremities unremarkable, no clubbing, cyanosis or edema, Muscle spasm lumbar spine with decreased range of motion. PERIPHERAL PULSES: n ormal. NEUROLOGIC: a lert and oriented, cranial nerves 2-12 grossly intact, deep tendon reflexes 2+ symmetrical, motor strength normal upper and lower extremities, sensory exam intact. PSYCH: a lert, oriented. Assessment: * Assessment: 1. O besity - E66.9 (Primary) N otes :His body mass index is 38. He has lost 4 pounds. We have discussed diet and nutrition. We reviewed his weight loss strategy. 2 . D epressive disorder, not elsewhere classified - F32.9 N otes :He is tolerating citalopram well without side effects and will be continued. He feels discouraged about his difficulty losing weight and immobility. We discussed this at length today. He declined a referral to the weight loss program but I will continue in this direction. 3 . E ssential hypertension - I10 N otes :His blood prressure is 140/84. No change in his medication was made. I recommended aggressive weight loss and sodium restriction combined with regular physical activity and a reduced calorie diet low in sodium and animal fat. 4 . G ERD (gastroesophageal reflux disease) - K21.9 N otes :His reflux symptoms are well controlled with xfsu-kdj-uaejels medication and no change in his regimen as needed. 5 . O ther and unspecified hyperlipidemia - E78.5 N otes :His triglycerides are elevated but his total cholesterol is acceptable at 194. I recommended a healthy diet and aggressive weight loss combined with exercise. No change in his medication was needed. 6 . 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 His vision is normal in the opposite eye and he sees the topper press operator automatic regularly. He reports today that his vision in the left eye is adequate and normal. 7 . B ack pain - M54.9 N otes :He will continue on conservative therapy. His x-rays do not show a surgical solution. He was referred to pain management to consider injections. Plan: * Treatment: * Procedure Codes: * [...] reason not done * Follow Up: 2 Weeks (Reason: ov no tests ref to [facility]) * Images: * Sign off status: Completed true * Provider: Shira Levine MD Date: 0 12/01/2024 Generated for Arpitai leyal/Cassia/eTransmitting on: 04:32 PM EDT History and Physical [...] halic EYES: eomi, perrla, anicte abdelrahman, conjugate, RRight cornea is scarred, right vision loss EARS: normal NOSE: septum intact NECK/THYROID: no [...] unremark able, no clubbing, cyanosis or edema, Muscle spasm lumbar spine with decreased range of motion LYMPH NODES: no enlarged lymph no christa,spleen normal RECTAL EXAM: not examined PSYCH: alert, oriented ORAL CAVITY: normal, unremarkable Consultation Request Notes Referral Date Referring Provider Referred Provider Not es 12/01/2024 [facility] lumbar back pain MRI showed DJD and osteophytes
--- OUTSIDE RECORDS SUMMARY | 2024-12-04 09:14 | XMS_ITS ---
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 Ricky Levine III Primary Care Provider Reason For Referral Reason Urgent Appointment R equest Evaluate and Treat Diagnosis 1 Back pain (M54.9) Diagnosis 2 Degeneration of inte rvertebral disc of lumbar region, unspecified whether pain present (M51.369) Diagnosis 3 Lumbar spondylosis ( M47.816) Referral Organization Ricky Levine III, MD Referring Provider First Name Ricky Referring Provider Last Name Julianna Referring Provider Speciality Internal M edicine Referred Provider MELODY QUINONES Referred Provider Specialty Neurosurgery General Notes DMaya 12/04/2024 01:37:56 PM > Spoke with Aisha at Dr. Quinones. She stated they would have to schedule the patient to be seen in order for them to review the documents for this patient. I was able to schedule an appointment with them for 12/11 @ 9am for an Urgent appointment. Patient was called and notified Referral Priority Routine Referral Appointment Date 12/11/2024 REASON FOR VISIT Referral to Dr. Quinones Social History Sex Assigned At : Social History Observation Description Sex Assigned At Male Encounters Encounter Location Date Provider Diagnosis Ricky Levine III, MD [address] [place] [address] [place] [address] 12/04/2024 Ricky Levine Plan Of Treatment Referrals Referral Date Details 12/04/2024 12/04/2024, Urgent A ppointment Request Evaluate and Treat, MELODY QUINONES Next Appt Details Provider Name:Ricky Levine , 07/29/2025 10:00:00 AM, [address] [place] [address] [address] [place], [place], [address], Progress Notes * Lev CHAMPION SrDOB: [birth year] (74 yo M)Acc No.[id number]:12/04/2024 Patient: Lev HILARIO Sr :1950 A ge:74 Y S ex:Male Address:[address] [place] [id number] Subjective: * Chief Complaints: * R eferral to Dr. Quinones * Medical History: * Surgical History: * Hospitalization/Major Diagno stic Procedure: * Medications: Objective: * Vitals: * Physical Examination: Assessment: Plan: * Treatment: * Procedure Codes: * true * Date: Generated for Printi leyla/Emelyg/eTransmitting on: 04:32 PM EDT Consultation Request Notes Referral Date Referring Provider Referred Provider Not es 12/04/2024 Ricky Levine FREDERIK Urgent A ppointment Request Evaluate and Treat
--- OUTSIDE RECORDS SUMMARY | 2024-12-14 06:56 | XMS_ITS ---
Author Organization Ricky Levine III, MD Address [address] [place] [address] [address] [facility] [place] [address] Care Team Providers Care Sulfonation Equipment Operator Name Role Phone Dr. Ricky Levine III Primary Care Provider REASON FOR VISIT HCC Risk Codes Social History Sex Assigned At : Social History Observation Description Sex Assigned At Male Encounters Encounter Location Date Provider Diagnosis Ricky Levine III, MD [address] [place] [address] [address] [facility] [facility] [place] [address] 12/14/2024 Ricky Levine Plan Of Treatment Next Appt Details Provider Name:Ricky Levine , 07/29/2025 10:00:00 AM, [address] [place] [address] [place], [address], Progress Notes * Lev CHAMPION SrDOB: [birth year] (74 yo M)Acc No.[id number]:12/14/2024 Patient: Lev HILARIO Sr :1950 A ge:74 Y S ex:Male Address:[address] [place] [id number] * true * Date: Generated for Arpitai leyla/Facharlig/eTransmitting on: 04:32 PM EDT
--- OUTSIDE RECORDS SUMMARY | 2024-12-15 05:45 | XMS_ITS ---
Author Organization Ricky Levine III, MD Address [address] [place] [address] [place] [address] Care Team Providers Care Upholstery Restorer Name Role Phone Dr. Ricky Levine III Primary Care Provider Allergies Allergen (clinical drug ingredient) Drug/Non Drug Allergy documented on EMR Reaction Allergy Type Onset Date Status No Known Drug Allergy Unknown Drug Allergy Active REASON FOR VISIT Lumbar radiculopathy, Spinal stenosis, Hypertension, Hyperlipidemia, Depression, Benign prostatic hypertrophy Medications Medication SIG (Take, Route, Frequency, Duration) Notes Start Date End Date Status Citalopram Hydrobromide 40 MG TAKE 1 TABLET BY MOUTH EVERY DAY Active Simvastatin 40 MG TAKE 1 TABLET BY HIRAL TH EVERYDAY AT BEDTIME Active Lansoprazole 30 MG TAKE 1 CAPSULE BY MO UTH TWICE A DAY Active Meloxicam 15 MG TAKE 1 TABLET BY HIRAL TH EVERY MORNING WITH BREAKFAST Oral Active Centrum Silver - Orally Act nette Metoprolol Succinate ER 25 MG TAKE 1 TABLET BY MOUTH EVERY DAY FOR 90 DAYS Active Felodipine ER 10 MG TAKE 1 TABLET BY HIRAL TH EVERY DAY FOR 90 DAYS Active Social History Tobacco Use: Social History Observation Description Date Details (start date - stop date) Never Smoker NA - NA Sex Assigned At : Social History Observation Description Sex Assigned At Male Tobacco Control (Standard) Question Answer Notes Tobacco use: Nonsmoker Additional Findings: Tobacco non-user Aggressive nonsmoker Vital Signs Temperature 97.2 degrees Fahrenheit 12/16/19 25 Blood pressure systolic 136 mm Hg 12/16/19 25 Blood pressure diastolic 71 mm Hg 025 Heart Rate 68 /min 12/15/2024 Height 72 in 12/15/2024 Weight 289 lbs 12/15/2024 BMI 39.19 kg/m2 12/15/2024 Volume of Encounters Encounter Location Date Provider Diagnosis Ricky Levine III, MD [address] [place] [address] [address] [place], [place] [id number] 12/15/2024 Ricky Levine Other and unspecifie d hyperlipidemia E78.5 ; Essential hypertension I10 ; Depressive disorder, not elsewhere classified F32.9 ; 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 I recommended a healthy diet and aggressive weight loss combined with exercise. No change in his medication was needed. 12/15/2024 Essential hypertension (ICD-10 - I10) His blood prressure is 136/81. No change in his medication was made. I recommended aggressive weight loss and sodium restriction combined with regular physical activity and a reduced calorie diet low in sodium and animal fat. 12/15/2024 Depressive disorder, not elsewhere classified (ICD-10 - F32.9) He is tolerating citalopram well without side effects and will be continued. He feels discouraged about his difficulty losing weight and immobility. We discussed this at length today. He declined a referral to the weight loss program but I will continue in this direction. 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 His vision is normal in the opposite eye and he sees the clerk checker regularly. He reports today that his vision in the left eye is adequate and normal. 12/15/2024 GERD (gastroesophageal reflux disease) (ICD-10 - K21.9) His reflux symptoms are well controlled with [id number] medication and no change in his regimen as needed. 12/15/2024 BPH (benign prostatic hyperplasia) (ICD-10 - N40.0) He rises from sleep once and sometimes twice a night to urinate. We have discussed lifestyle modification as a way to reduce nocturia. 12/15/2024 Back pain (ICD-10 - M54.9) He has been to pain management in neurosurgery. He is currently going to rehabilitation medicine for physical therapy. His pain has improved. Plan Of Treatment Medication Medication Name Sig Start Date Stop Date Notes Citalopram Hydrobromide 40 MG TAKE 1 TAB LET BY MOUTH EVERY DAY Simvastatin 40 MG TAKE 1 TABLET BY HIRAL TH EVERYDAY AT BEDTIME Lansoprazole 30 MG TAKE 1 CAPSULE BY MO UTH TWICE A DAY Meloxicam 15 MG TAKE 1 TABLET BY HIRAL TH EVERY MORNING WITH BREAKFAST Oral Centrum Silver - Orally Metoprolol Succinate ER 25 MG TAKE 1 TAB LET BY MOUTH EVERY DAY FOR 90 DAYS Felodipine ER 10 MG TAKE 1 TABLET BY HIRAL TH EVERY DAY FOR 90 DAYS Pending Test Test Name Order Date PROFILE, FASTING (COMPREHENSIVE METABOLI C) 12/15/2024 CBC w DIFF 12/15/2024 Lipid Panel 12/15/2024 Next Appt Details Follow Up: 2 Months, Reason: OV Provider Name:Ricky Levine , 07/29/2025 10:00:00 AM, [address] [place] [address], [id number], Progress Notes * Lev CHAMPION SrDOB: [birth year] (74 yo M)Acc No.[id number]:12/15/2024 Progress Notes Patient: Lev HILARIO Sr Provider: Shira Levine MD :1950 A ge:74 Y S ex:Male Date:12/15/2024 Address:[address] [place] [address] Subjective: * Chief Complaints: * L umbar radiculopathySpinal stenosisHypertensionHyperlipidemiaDepressionBenign prostatic hypertrophy * HPI: C OVID-19 Screening: He has recently been evaluated for chronic low back pain. An MRI of his lumbar spine showed spinal stenosis and bilateral foraminal impingement and bulging discs. He has seen the neurosurgeon who recommends conservative therapy at this point. His lumbar pathology is primarily low L5 S1.? He has had a recent MRI. He is being treated with pain management and rehabilitation medicine.He says he cannot fall asleep lying on his left side, but he can if he lies on his back or his right side. He denies any muscle weakness in his lower extremities. Questions H ave you had any new onset fever, chills, cough, congestion, sore throat, shortness of breath, muscle aches? N o * ROS: G eneral/Constitutional: pain L ow back pain that radiates down his legs. C hills d enies. F atigue a [...] EVERY DAY Centrum Silver - Tablet Orally Metoprolol Succinate ER 25 MG Tablet Extended [...] 1 TABLET BY MOUTH EVERYDAY AT BEDTIME Meloxicam 15 MG Tablet TAKE 1 TABLET BY MOUTH EVERY MORNING WITH BREAKFAST Oral Taking Citalopram Hydrobromide 40 MG Tablet TAKE 1 TABLET BY MOUTH EVERY DAY Taking Centrum Silver - Tablet Orally Taking Metoprolol Succinate ER 25 MG Tablet [...] TABLET BY MOUTH EVERYDAY AT BEDTIME Taking Meloxicam 15 MG Tablet TAKE 1 TABLET BY MOUTH EVERY MORNING WITH BREAKFAST Oral DiscontinuedTriamterene-HCTZ 37.5-25 MG Tablet TAKE 1 TABLET BY MOUTH EVERY DAY IN THE MORNING FOR 30 DAYS Cyclobenzaprine HCl 10 MG Tablet 1 tablet at bedtime as needed Orally twice a day , stop date 12/21/2024Medication List reviewed and reconciled with the patientDiscontinued Triamterene-HCTZ 37.5-25 MG Tablet TAKE 1 TABLET BY MOUTH EVERY DAY IN THE MORNING FOR 30 DAYS Discontinued Cyclobenzaprine HCl 10 MG Tablet 1 tablet at bedtime as needed Orally twice a day , stop date 12/21/2024Medication List reviewed and reconciled with the patient * Allergies: N o Known Drug Allergyno[Allergies Verified] Objective: * Vitals: H t: 72, Wt:289, BMI:39.19, BP:136/71, HR:68, Temp:97.2, Ht-cm: 182.88, Wt-k.09. Volume of. * P ast Orders: I maging:MR lumbar spine wo con (Order Date - 10/28/2024) (Performed Date - 10/28/2024) I maging:XR pre mri screening (Order Date - 10/28/2024) (Performed Date - 10/28/2024) * Examination: G eneral Examination: GENERAL APPEARANCE: p leasant, well nourished, well developed, in no acute distress, calm and relaxed, obese, man. HEAD: a traumatic, normocephalic. EYES: e keri, perrla, anicteric, conjugate, Right cornea scarred. EARS: n ormal. NOSE: s eptum intact. [...] normal, no ascites, no organomegaly, no mass, centripital obesity. RECTAL EXAM: n ot examined. MUSCULOSKELETAL: e xtremities unremarkable, no clubbing, cyanosis or edema, Mild muscle spasm along lumbar spine with decreased range of motion. PERIPHERAL PULSES: n ormal. NEUROLOGIC: a lert and oriented, cranial nerves 2-12 grossly intact, deep tendon reflexes 2+ symmetrical, motor strength normal upper and lower extremities, sensory exam intact. PSYCH: a lert, oriented. Assessment: * Assessment: 1. E ssential hypertension - I10 (Primary) N otes :His blood prressure is 136/81. No change in his medication was made. I recommended aggressive weight loss and sodium restriction combined with regular physical activity and a reduced calorie diet low in sodium and animal fat. 2 . O ther and unspecified hyperlipidemia - E78.5 N otes :His triglycerides are elevated but his total cholesterol is acceptable at 194. I recommended a healthy diet and aggressive weight loss combined with exercise. No change in his medication was needed. 3 . D epressive disorder, not elsewhere classified - F32.9 N otes :He is tolerating citalopram well without side effects and will be continued. He feels discouraged about his difficulty losing weight and immobility. We discussed this at length today. He declined a referral to the weight loss program but I will continue in this direction. 4 . 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 His vision is normal in the opposite eye and he sees the clerk checker regularly. He reports today that his vision in the left eye is adequate and normal. 5 . G ERD (gastroesophageal reflux disease) - K21.9 N otes :His reflux symptoms are well controlled with [id number] medication and no change in his regimen as needed. 6 . B PH (benign prostatic hyperplasia) - N40.0 N otes :He rises from sleep once and sometimes twice a night to urinate. We have discussed lifestyle modification as a way to reduce nocturia. 7 . B ack pain - M54.9 N otes :He has been to pain management in neurosurgery. He is currently going to rehabilitation medicine for physical therapy. His pain has improved. Plan: * Treatment: 2. O thers Continue Citalopram Hydrobromide Tablet, 40 MG, TAKE 1 TABLET BY MOUTH EVERY DAY; C ontinue Centrum Silver Tablet, -, Orally; C ontinue Metoprolol Succinate ER Tablet Extended [...] TABLET BY MOUTH EVERYDAY AT BEDTIME. * Labs: * L ab: PROFILE, FASTING (COMPREHENSIVE METABOLIC) L ab: CBC w DIFF L ab: Lipid Panel * Procedure Codes: * Preventive Medicine: Counseling: [...] reason not done * Follow Up: 2 Months (Reason: OV) * Images: * Sign off status: Completed true * Provider: Shira Levine MD Date: 0 12/15/2024 Generated for Doris mayer/Cassia/Daríoitting on: 04:31 PM EDT History and Physical [...] halic EYES: eomi, perrla, anicte abdelrahman, conjugate, Right cornea scarred EARS: normal NOSE: septum intact NECK/THYROID: no jugular venous di stention, no carotid bruit, thyroid normal HEART: no clicks, gallops, murmurs, or rubs, regular rhythm, S1, S2 normal, no s3, or vascular bruits LUNGS: clear to auscultatio n ABDOMEN: bowel sounds normal, no ascites, no organomegaly, no mass, centripital obesity NEUROLOGIC: alert and oriented, cranial nerves 2-12 grossly intact, deep tendon reflexes 2+ symmetrical, motor strength normal upper and lower extremities, sensory exam intact SKIN: no suspicious lesion s, anicteric PERIPHERAL PULSES: normal BREASTS: no masses palpable b ilaterally MUSCULOSKELETAL: extremities unremark able, no clubbing, cyanosis or edema, Mild muscle spasm along lumbar spine with decreased range of motion LYMPH NODES: no enlarged lymph no christa,spleen normal RECTAL EXAM: not examined PSYCH: alert, oriented ORAL CAVITY: normal, unremarkable
--- OUTSIDE RECORDS SUMMARY | 2025-03-02 05:45 | XMS_ITS ---
Author Organization Ricky Levine III, MD Address [address] [place] [address] [place] [address] Care Team Providers Care Data Control Clerk Supervisor Name Role Phone Dr. Ricky Levine III Primary Care Provider Allergies Allergen (clinical drug ingredient) Drug/Non Drug Allergy documented on EMR Reaction Allergy Type Onset Date Status No Known Drug Allergy Unknown Drug Allergy Active REASON FOR VISIT Left hip pain, Low back pain, Benign prostatic hypertrophy, Obesity, Scarring right cornea, Depression Medications Medication SIG (Take, Route, Frequency, Duration) Notes Start Date End Date Status Meloxicam 15 MG TAKE 1 TABLET BY HIRAL TH EVERY MORNING WITH BREAKFAST Oral Active Citalopram Hydrobromide 40 MG TAKE 1 TABLET BY MOUTH EVERY DAY Active Metoprolol Succinate ER 25 MG TAKE 1 TABLET BY MOUTH EVERY DAY Active Simvastatin 40 MG TAKE 1 TABLET BY HIRAL TH EVERYDAY AT BEDTIME Active Centrum Silver - Orally Act nette Lansoprazole 30 MG TAKE 1 CAPSULE BY MO UTH TWICE A DAY Active Felodipine ER 10 [...] Problem Status W/U Status Risk Notes Problem [id number] Left hip pain (M25.552 ) Active confirmed His physical therapist has referred him back to the rehabilitation doctor for injections. Vital Signs Temperature 97.6 degrees Fahrenheit 03/02/20 25 Blood pressure systolic 139 mm Hg 03/02/20 25 Blood pressure diastolic 77 mm Hg 025 Heart Rate 66 /min 03/02/2025 Height 72 in 03/02/2025 Weight 290 lbs 03/02/2025 BMI 39.33 kg/m2 03/02/2025 Encounters Encounter Location Date Provider Diagnosis Ricky Levine III, MD [address] [place] [address] [place], [place] [id number] 03/02/2025 Ricky Levine Other and unspecifie d hyperlipidemia E78.5 ; Low back pain, unspecified M54.50 ; Obesity E66.9 ; Essential hypertension I10 ; Depressive disorder, not elsewhere classified F32.9 ; GERD (gastroesophageal reflux disease) K21.9 ; 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 03/02/2025 Low back pain, unspecified (ICD-10 - M54.50) His back pain is being manage. He has had surgery. It is mild to moderate at this time. 03/02/2025 Obesity (ICD-10 - E66.9) His body mass index is 39.33. We discussed diet and nutrition and made a plan to lose weight at 1 pound per week. 03/02/2025 Essential hypertension (ICD-10 - I10) His blood prressure is controlled. No change in his medication was made. I recommended aggressive weight loss and sodium restriction combined with regular physical activity and a reduced calorie diet low in sodium and animal fat. 03/02/2025 Depressive disorder, not elsewhere classified (ICD-10 - F32.9) He is tolerating citalopram well without side effects and will be continued. He feels discouraged about his difficulty losing weight and immobility. We discussed this at length today. He declined a referral to the weight loss program but I will continue in this direction. 03/02/2025 GERD (gastroesophageal reflux disease) (ICD-10 - K21.9) His reflux symptoms are well controlled with ogwt-xah-yfgihag medication and no change in his regimen as needed. 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 His vision is normal in the opposite eye and he sees the clinical informatics spec regularly. He reports today that his vision in the left eye is adequate and normal. 03/02/2025 BPH (benign prostatic hyperplasia) (ICD-10 - N40.0) He rises from sleep once and sometimes twice a night to urinate. We have discussed lifestyle modification as a way to reduce nocturia. 03/02/2025 Left hip pain (ICD-10 - M25.552) His physical therapist has referred him back to the rehabilitation doctor for injections. Plan Of Treatment Medication Medication Name Sig Start Date Stop Date Notes Meloxicam 15 MG TAKE 1 TABLET BY HIRAL TH EVERY MORNING WITH BREAKFAST Oral Citalopram Hydrobromide 40 MG TAKE 1 TAB LET BY MOUTH EVERY DAY Metoprolol Succinate ER 25 MG TAKE 1 TAB LET BY MOUTH EVERY DAY Simvastatin 40 MG TAKE 1 TABLET BY HIRAL TH EVERYDAY AT BEDTIME Centrum Silver - Orally Lansoprazole 30 MG TAKE 1 CAPSULE BY MO UTH TWICE A DAY Felodipine ER 10 MG TAKE 1 TABLET BY HIRAL TH EVERY DAY FOR 90 DAYS Pending Test Test Name Order Date PROFILE, FASTING (COMPREHENSIVE METABOLI C) 03/02/2025 CBC w DIFF 03/02/2025 Lipid Panel 03/02/2025 Microalbumin, Random 03/02/2025 Hemoglobin A1c 03/02/2025 Next Appt Details Follow Up: As Scheduled, [place] son: Annual Exam Provider Name:Ricky Levine , 07/29/2025 10:00:00 AM, [address] [place] [address] , [place] [address], [place], [address], Progress Notes * Lev CHAMPION SrDOB: [birth year] (74 yo M)Acc No.[id number]:03/02/2025 Progress Notes Patient: Lev HILARIO Sr Provider: Shira Levine MD :1950 A ge:74 Y S ex:Male Date:03/02/2025 Address:[address] [place], [place] [id number] Subjective: * Chief Complaints: * L eft hip painLow back painBenign prostatic hypertrophyObesityScarring right corneaDepression * HPI: C OVID-19 Screening: Zoila mederos returns for medical management. His main complaint is left pain. He has finished physical therapy at [facility] spine [facility]. The physical therapist recommended that he receive hip injections as physical therapy was ineffective. He says his back is no better.The vision in his left eye remains adequate. He sees only light and dark in the right eye. Questions H ave you had any new onset fever, chills, cough, congestion, sore throat, shortness of breath, muscle aches? N o * ROS: G eneral/Constitutional: pain H ips knees and low back. C hills d enies.?Fatigue a dmits. F ever d enies. E [...] nce a night. M usculoskeletal: Muscle aches L ow back. P ainful joints H ips knees and lumbar spine. S ciatica d enies. W eakness [...] EVERY DAY Centrum Silver - Tablet Orally Felodipine ER 10 MG Tablet Extended Release 24 Hour TAKE 1 TABLET BY MOUTH EVERY DAY FOR 90 DAYS Lansoprazole 30 MG Capsule Delayed Release TAKE 1 CAPSULE BY MOUTH TWICE A DAY Simvastatin 40 MG Tablet TAKE 1 TABLET BY MOUTH EVERYDAY AT BEDTIME Meloxicam 15 MG Tablet TAKE 1 TABLET BY MOUTH EVERY MORNING WITH BREAKFAST Oral Metoprolol Succinate ER 25 MG Tablet Extended Release 24 Hour TAKE 1 TABLET BY MOUTH EVERY DAY Medication List reviewed and reconciled with the patientTaking Citalopram Hydrobromide 40 MG Tablet TAKE 1 TABLET BY MOUTH EVERY DAY Taking Centrum Silver - Tablet Orally Taking Felodipine ER 10 MG Tablet Extended [...] MOUTH EVERY MORNING WITH BREAKFAST Oral Taking Metoprolol Succinate ER 25 MG Tablet Extended Release 24 Hour TAKE 1 TABLET BY MOUTH EVERY DAY Medication List reviewed and reconciled with the patient * Allergies: N o Known Drug Allergyno[Allergies Verified] Objective: * Vitals: H t: 72, Wt:290, BMI:39.33, BP:139/77, HR:66, Temp:97.6, Ht-cm: 182.88, Wt-k.54. * P ast Orders: Lab:Joey calder[facility] Fast * Collection Date 02/25/2025 07/28/2024 07/20/2024 Collection Time 01:20 PM 11:42 AM 08:17 AM Order Date 02/25/2025 07/28/2024 07/20/2024 Sodium 143 (Ref Range: 135-145 mmol/L) 142 (Ref Range: 135-145 mmol/L) 141 (Ref Range: 135-145 mmol/L) Bilirubin Total 0.5 (Ref Range: 0.0-1.0 mg/dL) 0.7 (Ref Range: 0.0-1.0 mg/dL) 0.7 (Ref Range: 0.0-1.0 mg/dL) Aspartate Amino Transferase 24 (Ref Range: 5-37 U/L) 29 (Ref Range: 5-37 U/L) 22 (Ref Range: 5-37 U/L) Alanine Aminotransferase 23 (Ref Range: 0-40 U/L) 14 (Ref Range: 0-40 U/L) 14 (Ref Range: 0-40 U/L) Total Protein 6.4 L (Ref Range: 6.5-8.0 g/dL) 6.4 L (Ref Range: 6.5-8.0 g/dL) 6.4 L (Ref Range: 6.5-8.0 g/dL) Albumin Level 4.2 (Ref Range: 3.5-5.0 g/dL) 3.9 (Ref Range: 3.5-5.0 g/dL) 4.1 (Ref Range: 3.5-5.0 g/dL) Alkaline Phosphatase 80 (Ref Range: 39-117 U/L) 68 (Ref Range: 39-117 U/L) 75 (Ref Range: 39-117 U/L) Potassium 4.2 (Ref Range: 3.3-5.1 mmol/L) 4.0 (Ref Range: 3.3-5.1 mmol/L) 4.3 (Ref Range: 3.3-5.1 mmol/L) Chloride 109 H (Ref Range: 96-108 mmol/L) 108 (Ref Range: 96-108 mmol/L) 106 (Ref Range: 96-108 mmol/L) Carbon Dioxide 27 (Ref Range: 22-29 mmol/L) 25 (Ref Range: 22-29 mmol/L) 28 (Ref Range: 22-29 mmol/L) Anion Gap 11 L (Ref Range: 12-20) 13 (Ref Range: 12-20) 11 L (Ref Range: 12-20) Blood Urea Nitrogen 13 (Ref Range: 9-16 mg/dL) 13 (Ref Range: 9-16 mg/dL) 13 (Ref Range: 9-16 mg/dL) Creatinine 0.86 (Ref Range: 0.5-1.4 mg/dL) 1.11 (Ref Range: 0.5-1.4 mg/dL) 0.92 (Ref Range: 0.5-1.4 mg/dL) Estimated Glomerular Filt Rate > 60 > 60 > 60 Glucose Fasting 97 (Ref Range: 60-99 mg/dL) 101 H (Ref Range: 60-99 mg/dL) 96 (Ref Range: 60-99 mg/dL) Calcium 9.2 (Ref Range: 8.4-10.2 mg/dL) 9.2 (Ref Range: 8.4-10.2 mg/dL) 9.5 (Ref Range: 8.4-10.2 mg/dL) * Lab:Lipid Panel * Collection Date 02/25/2025 07/28/2024 07/20/2024 Collection Time 01:20 PM 11:42 AM 08:17 AM Order Date 02/25/2025 07/24/2024 07/20/2024 Triglycerides 198 H (Ref Range: <150 mg/dL) 199 H (Ref Range: <150 mg/dL) 258 H (Ref Range: <150 mg/dL) Cholesterol 197 (Ref Range: <200 mg/dL) 194 (Ref Range: <200 mg/dL) 206 H (Ref Range: <200 mg/dL) LDL Cholesterol Calculated 118 H (Ref Range: <100 mg/dL) 120 H (Ref Range: <100 mg/dL) 117 H (Ref Range: <100 mg/dL) HDL Cholesterol 40 L (Ref Range: >40 mg/dL) 35 L (Ref Range: >40 mg/dL) 38 L (Ref Range: >40 mg/dL) Clinical Info: Please fast for 12-14 hours prior to having this labwork done. You may have black coffee or tea with no milk or sugar. May have water,PLEASE FAX COMPLETED RESULTS TO [phone] * Lab:Complete Blood Count Aut o Diff * Collection Date 02/25/2025 07/28/2024 07/20/2024 Collection Time 01:20 PM 11:18 AM 08:17 AM Order Date 02/25/2025 07/28/2024 07/20/2024 White Blood Count 5.8 (Ref Range: 4.8-10.8 X10*3/uL) 7.3 (Ref Range: 4.8-10.8 X10*3/uL) 7.1 (Ref Range: 4.8-10.8 X10*3/uL) Red Blood Count 4.38 L (Ref Range: 4.60-5.80 X10*6/uL) 4.51 L (Ref Range: 4.60-5.80 X10*6/uL) 4.40 L (Ref Range: 4.60-5.80 X10*6/uL) Hemoglobin 13.8 L (Ref Range: 14.0-18.0 g/dl) 14.2 (Ref Range: 14.0-18.0 g/dl) 13.9 L (Ref Range: 14.0-18.0 g/dl) Hematocrit 39.3 L (Ref Range: 42.0-52.0 %) 41.8 L (Ref Range: 42.0-52.0 %) 40.4 L (Ref Range: 42.0-52.0 %) Mean Corpuscular Volume 89.7 (Ref Range: 80.0-98.0 fL) 92.7 (Ref Range: 80.0-98.0 fL) 91.8 (Ref Range: 80.0-98.0 fL) Mean Corpuscular Hemoglobin 31.5 (Ref Range: 27.0-33.0 pg) 31.5 (Ref Range: 27.0-33.0 pg) 31.6 (Ref Range: 27.0-33.0 pg) Mean Corpuscular HGB Conc 35.1 (Ref Range: 31.0-36.0 g/dl) 34.0 (Ref Range: 31.0-36.0 g/dl) 34.4 (Ref Range: 31.0-36.0 g/dl) Red Cell Distribution Width 14.0 (Ref Range: 11.0-16.0 %) 14.0 (Ref Range: 11.0-16.0 %) 14.0 (Ref Range: 11.0-16.0 %) Platelet Count 204 (Ref Range: 160-400 X10*3/uL) 216 (Ref Range: 160-400 X10*3/uL) 222 (Ref Range: 160-400 X10*3/uL) Mean Platelet Volume 10.7 (Ref Range: 9.4-12.4 fL) 10.6 (Ref Range: 9.4-12.4 fL) 10.5 (Ref Range: 9.4-12.4 fL) Neutrophils Percent Auto 55.5 (Ref Range: 45-73 %) 66.5 (Ref Range: 45-73 %) 56.1 (Ref Range: 45-73 %) Imm Gran Pct Auto 0.3 (Ref Range: 0.0-0.4 %) 0.4 (Ref Range: 0.0-0.4 %) 0.4 (Ref Range: 0.0-0.4 %) Lymphocytes Percent Auto 29.1 (Ref Range: 20-40 %) 22.3 (Ref Range: 20-40 %) 30.3 (Ref Range: 20-40 %) Monocytes Percent Auto 9.0 (Ref Range: 2-11 %) 6.1 (Ref Range: 2-11 %) 7.3 (Ref Range: 2-11 %) Eosinophils Percent Auto 5.2 H (Ref Range: 0-4 %) 4.0 (Ref Range: 0-4 %) 4.9 H (Ref Range: 0-4 %) Basophils Percent Auto 0.9 (Ref Range: 0-2 %) 0.7 (Ref Range: 0-2 %) 1.0 (Ref Range: 0-2 %) NRBC Pct Auto 0.0 (Ref Range: 0.0-0.2 /100WBC) 0.0 (Ref Range: 0.0-0.2 /100WBC) 0.0 (Ref Range: 0.0-0.2 /100WBC) Neutrophils Absolute Auto 3.2 (Ref Range: 2.0-8.3 x10*3/uL) 4.8 (Ref Range: 2.0-8.3 x10*3/uL) 4.0 (Ref Range: 2.0-8.3 x10*3/uL) Imm Gran Abs Auto 0.02 (Ref Range: 0.00-0.03 X10*3/uL) 0.03 (Ref Range: 0.00-0.03 X10*3/uL) 0.03 (Ref Range: 0.00-0.03 X10*3/uL) Lymphocytes Absolute Auto 1.7 (Ref Range: 1.2-4.9 X10*3/uL) 1.6 (Ref Range: 1.2-4.9 X10*3/uL) 2.2 (Ref Range: 1.2-4.9 X10*3/uL) Monocytes Absolute Auto 0.5 (Ref Range: 0.1-1.2 X10*3/uL) 0.4 (Ref Range: 0.1-1.2 X10*3/uL) 0.5 (Ref Range: 0.1-1.2 X10*3/uL) Eosinophils Absolute Auto 0.3 (Ref Range: 0.0-0.4 X10*3/uL) 0.3 (Ref Range: 0.0-0.4 X10*3/uL) 0.4 (Ref Range: 0.0-0.4 X10*3/uL) Basophils Absolute Auto 0.1 (Ref Range: 0.0-0.2 X10*3/uL) 0.1 (Ref Range: 0.0-0.2 X10*3/uL) 0.1 (Ref Range: 0.0-0.2 X10*3/uL) NRBC Abs Auto 0.000 (Ref Range: 0.0-0.012 X10*3/uL) 0.000 (Ref Range: 0.0-0.012 X10*3/uL) 0.000 (Ref Range: 0.0-0.012 X10*3/uL) * Examination: G eneral Examination: GENERAL APPEARANCE: p leasant, well nourished, well developed, in no acute distress, calm and relaxed, obese, man. HEAD: a traumatic, normocephalic. 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 EARS: n ormal. NOSE: s eptum intact. [...] a lert, oriented. Assessment: * Assessment: 1. L ow back pain, unspecified - M54.50 (Primary) N otes :His back pain is being manage. He has had surgery. It is mild to moderate at this time. 2 . O ther and unspecified hyperlipidemia - E78.5 N otes :His lipids are well controlled and no change in his regimen was necessary today. 3 . O besity - E66.9 N otes :His body mass index is 39.33. We discussed diet and nutrition and made a plan to lose weight at 1 pound per week. 4 . E ssential hypertension - I10 N otes :His blood prressure is controlled. No change in his medication was made. I recommended aggressive weight loss and sodium restriction combined with regular physical activity and a reduced calorie diet low in sodium and animal fat. 5 . D epressive disorder, not elsewhere classified - F32.9 N otes :He is tolerating citalopram well without side effects and will be continued. He feels discouraged about his difficulty losing weight and immobility. We discussed this at length today. He declined a referral to the weight loss program but I will continue in this direction. 6 . G ERD (gastroesophageal reflux disease) - K21.9 N otes :His reflux symptoms are well controlled with wknw-nsz-wwsuzrn medication and no change in his regimen as needed. 7 . 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 His vision is normal in the opposite eye and he sees the clinical informatics spec regularly. He reports today that his vision in the left eye is adequate and normal. 8 . B PH (benign prostatic hyperplasia) - N40.0 N otes :He rises from sleep once and sometimes twice a night to urinate. We have discussed lifestyle modification as a way to reduce nocturia. 9 . L eft hip pain - M25.552 N otes :His physical therapist has referred him back to the rehabilitation doctor for injections. Plan: * Treatment: 2. O besity L AB: PROFILE, FASTING (COMPREHENSIVE METABOLIC) L AB: CBC w DIFF L AB: Lipid Panel L AB: Microalbumin, Random L AB: Hemoglobin A1c 3. O thers Continue Metoprolol Succinate ER Tablet Extended Release 24 Hour, 25 MG, TAKE 1 TABLET BY MOUTH EVERY DAY; C ontinue Citalopram Hydrobromide Tablet, 40 MG, TAKE 1 TABLET BY MOUTH EVERY DAY; C ontinue Centrum Silver Tablet, -, Orally; C ontinue Felodipine ER Tablet Extended Release [...] Other reason not done * Follow Up: A s Scheduled (Reason: Annual Exam) * Images: * Sign off status: Completed true * Provider: Shira Levine MD Date: 0 03/02/2025 Generated for Doris mayer/Cassia/Jed on: 04:32 PM [...] halic EYES: eomi, perrla, anicte abdelrahman, conjugate, Severe scarring right cornea left orbit intact EARS: normal NOSE: septum intact NECK/THYROID: no [...]
[2025-07-26 16:08] LABS: MANUAL DIFF FLAG NO
[2025-07-26 16:23] LABS: Hematocrit 45.4 % (42.0-52.0); Hemoglobin 15.1 g/dl (14.0-18.0); Imm Gran Abs Auto 0.03 X10*3/uL (0.00-0.03); Imm Gran Pct Auto 0.4 % (0.0-0.4); Lymphocytes Absolute Auto 1.8 X10*3/uL (1.2-4.9); Mean Corpuscular HGB Conc 33.3 g/dl (31.0-36.0); Mean Corpuscular Hemoglobin 30.9 pg (27.0-33.0); Mean Corpuscular Volume 92.8 fL (80.0-98.0); NRBC Abs Auto 0.000 X10*3/uL (0.0-0.012); NRBC Pct Auto 0.0 /100WBC (0.0-0.2); Platelet Count 232 X10*3/uL (160-400); Red Blood Count 4.89 X10*6/uL (4.60-5.80); White Blood Count 6.8 X10*3/uL (4.8-10.8)
[2025-07-26 16:27] LABS: Alanine Aminotransferase 18 U/L (0-40); Albumin Level 4.6 g/dL (3.5-5.0); Alkaline Phosphatase 86 U/L (39-117); Anion Gap 12 (12-20); Aspartate Amino Transferase 24 U/L (5-37); Blood Urea Nitrogen 14 mg/dL (9-16); Calcium 9.1 mg/dL (8.4-10.2); Carbon Dioxide 27 mmol/L (22-29); Chloride 107 mmol/L (96-108); Cholesterol 201 mg/dL (<200); Estimated Glomerular Filt Rate > 60; HDL Cholesterol 39 mg/dL (>40); Potassium 3.9 mmol/L (3.3-5.1); Sodium 142 mmol/L (135-145); Total Protein 6.8 g/dL (6.5-8.0); Triglycerides 235 mg/dL (<150)
--- OUTSIDE RECORDS SUMMARY | 2025-07-26 16:31 | XMS_ITS | Patient Health Record ---
Author Organization Ricky Levine III, MD Address [address] [place] [address] [place] [address] Care Team Providers Care Moss Bleacher Name Role Phone Dr. Ricky Levine III Primary Care Provider Allergies Allergen (clinical drug ingredient) Drug/Non Drug Allergy documented on EMR Reaction Allergy Type Onset Date Status No Known Drug Allergy Unknown Drug Allergy Active Results Component Value Reference Range Notes Complete Blood Count Auto Di ff Reviewed date:08/03/2024 05:36:17 AM Interpretation: Performing Lab:[facility], [address] [place] [phone] Notes/Report: White Blood Count 7.3 4.8-10.8 X10*3/uL [...] NRBC Abs Auto 0.000 0.0-0.012 X10*3/uL Comprehensive [place]. Panel Fa Reviewed date:08/03/2024 05:36:17 AM Interpretation: Performing Lab:[facility], [address] [place] [phone] Notes/Report: Sodium 142 135-145 mmol/L Potassium 4.0 3.3-5.1 mmol/L Chloride 108 96-108 mmol/L Carbon Dioxide 25 22-29 mmol/L Anion Gap 13 12-20 Blood Urea Nitrogen 13 9-16 mg/dL Creatinine 1.11 0.5-1.4 mg/dL Estimated Glomerular Filt Rate > 60 NOTE: For -[place] individuals, multiply the result by 1.210. Chronic [...] Dehydrogenase Reviewed date:08/03/2024 05:36:17 AM Interpretation: Performing Lab:[facility], [address] [place] [phone] Notes/Report: Lactate Dehydrogenase 231 118-273 U/L Creatine Kinase Total Reviewed date:08/03/2024 05:36:17 AM Interpretation: Performing Lab:[facility], [address] [place] [phone] Notes/Report: Creatine Kinase Total 69 38-174 U/L MR lumbar spine wo con Reviewed date:12/05/2024 09:21:38 AM Interpretation: Performing Lab: Notes/Report: [address] [address] Magnetic Resonance Report Signed Patient: Lev Cosme MR#: [id number] 7 : 1950 Acct:[id number] Age/Sex: 74 / M ADM Date: 10/28/24 Loc: HO.MRI Attending Dr: Ricky Levine MD Ordering Physician: Ricky Levine MD Date of Service: 10/28/24 Procedure(s): MR lumbar spine wo con Accession Number(s): [id number] cc: Ricky Levine MD EXAMINATION: MR LUMBAR [...] by: Enoch Hayes MD 10/29/2024 10:07 AM [facility] Dictated By: Enoch Webster MD Signed By: <Electronically signed by Enoch Chávez MD in OV> 10/29/24 1007 DD/ 1743 TD/TT: 10/28/24 1755 Clam Treader: [place] [address] Magnetic Resonance Report Signed Patient: Lizzette Cosme MR#: [id number] 7 : 1950 Acct:[id number] Age/Sex: 74 / M ADM Date: 10/28/24 Loc: HO.MRI Attending Dr: Ricky Levine MD Ordering Physician: Ricky Levine MD Date of Service: 10/28/24 Procedure(s): MR lum bar spine wo con Accession Number(s): [id number] cc: Ricky Levine MD EXAMINATION: MR LUMBAR [...] 10/29/24 1007 DD/ 1743 TD/TT: 10/28/24 1755 Clam Treader: XR pre mri screening Reviewed date:12/05/2024 09:21:38 AM Interpretation: Performing Lab: Notes/Report: [address] [address] XRay Report Signed Patient: Lev Cosme MR#: [id number] 7 : 1950 Acct:[id number] Age/Sex: 74 / M ADM Date: 10/22/24 Loc: HO.MRI Attending Dr: Ricky Levine MD Ordering Physician: Waqas Tucker MD Date of Service: 10/28/24 Procedure(s): XR pre mri screening Accession Number(s): [id number] cc: Ricky Levine MD; Waqas Tucker MD [...] 10/28/24 1728 DD/ 1726 TD/TT: 10/28/24 1726 Clam Treader: [address] [address] XRay Report Signed Patient: Lizzette Cosme MR#: [id number] 7 : 1950 Acct:[id number] Age/Sex: 74 / M ADM Date: 10/22/24 Loc: HO.MRI Attending Dr: Ricky Levine MD Ordering Physician: Waqas Tucker MD Date of Service: 10/28/24 Procedure(s): XR pre mri screening Accession Number(s): [id number] cc: Ricky Levine MD; Waqas Tucker MD CLINICAL HISTORY: LA E MRI ORBIT XRAYS MRI Screening XR [...] in OV> 10/28/241727 DD/ 25 TD/TT: 10/28/241725 Clam Treader: Complete Blood Count Auto Di ff Reviewed date:02/28/2025 07:56:40 PM Interpretation: Performing Lab:[facility], [address] [place] [phone] Notes/Report: White Blood Count 5.8 4.8-10.8 X10*3/uL [...] NRBC Abs Auto 0.000 0.0-0.012 X10*3/uL Comprehensive [place]. Panel Fa Reviewed date:02/28/2025 07:56:40 PM Interpretation: Performing Lab:[facility], [address] [place] [phone] Notes/Report: Sodium 143 135-145 mmol/L Potassium 4.2 [...] Panel Reviewed date:02/28/2025 07:56:40 PM Interpretation: Performing Lab:[facility], [address] [place] [phone] Notes/Report: Triglycerides 198 <150 mg/dL Desirable Triglyceride: [...] liver disease. XR hip LT w PEL1V Reviewed date:07/25/2025 09:12:37 AM Interpretation: Performing Lab: Notes/Report: [facility] [address] [place] [address] [place] [address] XRay Report Signed Patient: Lev Cosme MR#: [id number] 7 : 1950 Acct:[id number] Age/Sex: 75 / M ADM Date: 06/21/25 Loc: HO.HMGCX Attending Dr: Brissa Mendoza PA-C Ordering Physician: Brissa Mendoza PA-C Date of Service: 06/21/25 Procedure(s): XR hip LT w PEL1V Accession Number(s): [id number] cc: Ricky Levine MD; Brissa Mendoza PA-C [...] 06/21/25 1042 DD/ 1011 TD/TT: 06/21/25 1018 Clam Treader: [facility] [address] [place] [address] [place] [address] XRay Report Signed Patient: Lizzette Cosme ld MR#: [id number] 7 : 1950 Acct:[id number] Age/Sex: 75 / M ADM Date: 06/21/25 Loc: HO.HMGCX Attending Dr: Terri Mendoza PA-C Ordering Physician: Brissa Mendoza PA-C Date of Service: 06/21/25 Procedure(s): XR hip LT w PEL1V Accession Number(s): [id number] cc: Ricky Levine MD; Brissa Mendoza PA-C [...] Waqas Tucker MD 06/21/2025 10:42 AM EDT RP Dictated By: Waqas Tucker MD Signed By: <Electronically signed by Waqas Tucker MD in OV> 06/21/25 1042 DD/ 1011 TD/TT: 06/21/25 1018 Clam Treader: Complete Blood Count Auto Di ff (Not yet reviewed by provider) Interpretation: Performing Lab:[facility], [address] [place] [phone] Notes/Report: White Blood Count 6.8 4.8-10.8 X10*3/uL Red Blood Count 4.89 4.60-5.80 X10*6/uL Hemoglobin 15.1 14.0-18.0 g/dl Hematocrit 45.4 42.0-52.0 % Mean Corpuscular Volume 92.8 80.0-98.0 fL Mean Corpuscular Hemoglobin 30.9 27.0-33.0 pg Mean Corpuscular HGB Conc 33.3 31.0-36.0 g/dl Red Cell Distribution Width 13.9 11.0-16.0 % Platelet Count 232 160-400 X10*3/uL Mean Platelet Volume 10.7 9.4-12.4 fL Neutrophils Percent Auto 59.7 45-73 % Imm Gran Pct Auto 0.4 0.0-0.4 % Lymphocytes Percent Auto 27.1 20-40 % Monocytes Percent Auto 7.5 2-11 % Eosinophils Percent Auto 4.3 0-4 % Basophils Percent Auto 1.0 0-2 % NRBC Pct Auto 0.0 0.0-0.2 /100WBC Neutrophils Absolute Auto 4.0 2.0-8.3 x10*3/uL Imm Gran Abs Auto 0.03 0.00-0.03 X10*3/uL Lymphocytes Absolute Auto 1.8 1.2-4.9 X10*3/uL Monocytes Absolute Auto 0.5 0.1-1.2 X10*3/uL Eosinophils Absolute Auto 0.3 0.0-0.4 X10*3/uL Basophils Absolute Auto 0.1 0.0-0.2 X10*3/uL NRBC Abs Auto 0.000 0.0-0.012 X10*3/uL Comprehensive [place]. Panel Fa st (Not yet reviewed by provider) Interpretation: Performing Lab:[facility], [address] [place] [phone] Notes/Report: Sodium 142 135-145 mmol/L Potassium 3.9 3.3-5.1 mmol/L Chloride 107 96-108 mmol/L Carbon Dioxide 27 22-29 mmol/L Anion Gap 12 12-20 Blood Urea Nitrogen 14 9-16 mg/dL Creatinine 0.91 0.5-1.4 mg/dL Estimated Glomerular Filt Rate > 60 Chronic Kidney Disease: Estimated GFR < 60 mL/min/1.73m2 Severe Kidney Disease: Estimated GFR < 15 mL/min/1.73m2 Glucose Fasting 102 60-99 mg/dL A fasting glucose from 100-125 mg/dl is considered impaired (pre-diabetes). Calcium 9.1 8.4-10.2 mg/dL Bilirubin Total 0.6 0.0-1.0 mg/dL Aspartate Amino Transferase 24 5-37 U/L Alanine Aminotransferase 18 0-40 U/L Total Protein 6.8 6.5-8.0 g/dL Albumin Level 4.6 3.5-5.0 g/dL Alkaline Phosphatase 86 39-117 U/L Lipid Panel (Not yet reviewe d by provider) Interpretation: Performing Lab:[facility], [address] [place] [phone] Notes/Report: Triglycerides 235 <150 mg/dL Desirable Triglyceride: less than 150 mg/dL Borderline High Triglyceride 150-199 mg/dL High Triglyceride: 200-499 mg/dL Very High Triglyceride: greater than or equal to 5OO mg/dL Cholesterol 201 <200 mg/dL Desirable Cholesterol: less than 200 mg/dL Borderline High Cholesterol: 200-239 mg/dL High Cholesterol: greater than 239 mg/dL LDL Cholesterol Calculated 115 <100 mg/dL Desirable LDL: less than 100 mg/dL Near Optimal/Above Optimal LDL: 110-129 mg/dL Borderline High LDL: 130-159 mg/dL High LDL: 160-189 mg/dL Very High LDL: greater than or equal to 190 mg/dL HDL Cholesterol 39 >40 mg/dL Desirable HDL: greater than 40 mg/dL Note: This HDL assay may give artificially low results in patients with liver disease. Hemoglobin A1c (Not yet revi ewed by provider) Interpretation: Performing Lab:[facility], [address] [place] [phone] Notes/Report: Hemoglobin A1c % 5.6 <6.0 % Hemoglobin A1C Reference Range Adults: 4.8 - 6.0 % Non diabetic: < 6.0 % Goal: < 7.0 % Additional Action Suggested: > 8.0 % Note: Hemoglobin A1c results are invalid for patients with abnormal amounts of HbF. Blood transfusions may impact the HbA1c concentration in the patient sample. Estimated Average Glucose 114 eAG = Estimated average glucose which is %A1C expressed as average glucose, using the formula of the U0R-Mesrwjr Average Glucose study (ADAG), Diabetes Care, Vol.31,#8, Apr. 2007 Reason For Referral Reason Consult and Treat Bilateral Hip Pain Diagnosis 1 Hip pain (M25.559) Referral Organization Ricky Levine III, MD Referring Provider First Name Ricky Referring Provider Last Name Julianna Referring Provider Speciality Internal M edicine Referred Provider [facility], Orthopedic Surgeons Referred Provider Specialty Orthopedic S urgery General Notes D Maya 08/20/2024 10:44:43 AM [...] Last Name Julianna Referring Provider Speciality [facility] Referred Provider [facility] Referred Provider Specialty Physical Med icine General Notes Leora Lion TAX ASSISTANT 12/03 09:14:04 AM > ref/demo/x rays faxed to [facility] and pt made aware of this, Leora Lion TAX ASSISTANT 12/07/2024 09:37:02 AM > Office called patient [...] First Name Ricky Referring Provider Last Name Levine Referring Provider Speciality [facility] Referred Provider MELODY QUINONES Referred Provider Specialty [...] Problem Status W/U Status Risk Notes Problem 223515447 Obesity (E66.9) Active confirmed His body mass index is 39.33. We discussed diet and nutrition and made a plan to lose weight at 1 pound per week. Problem 450675300 Back pain (M54.9) Active confirmed He has been to pain management in neurosurgery. He is currently going to rehabilitation medicine for physical therapy. His pain has improved. Problem 416237954 GERD (gastroesophagea l reflux disease) (K21.9) Active confirmed His reflux symptoms are well controlled with udso-ntm-njomfmd medication and no change in his regimen as needed. Problem 95320723 Anxiety (F41.9) Active confirmed He continues to use clonazepam given to him by the psychiatrist. Problem 53520973 Left hip pain (M25.552) Active confirmed His physical therapist has referred him back to the rehabilitation doctor for injections. Problem 75004523 Labyrinthitis, bilateral (H83.03) Active confirmed The vertigo has resolved and this problem is no longer active. Problem Benign prostatic hyperplasia (977690325) BPH (benign prostatic hyperplasia) (N40.0) Active confirmed He rises from sleep once and sometimes twice a night to urinate. We have discussed lifestyle modification as a way to reduce nocturia. Problem 78702296 Essential hypertension (I10) Active confirmed His blood prressure is controlled. No change in his medication was made. I recommended aggressive weight loss and sodium restriction combined with regular physical activity and a reduced calorie diet low in sodium and animal fat. Problem 93040094 Other and unspecified hyperlipidemia (E78.5) Active confirmed His lipids are well controlled and no change in his regimen was necessary today. Problem 04112286 Depressive disorder, not elsewhere classified (F32.9) Active confirmed He is toleratin g citalopram well without side effects and will be continued. He feels discouraged about his difficulty losing weight and immobility. We discussed this at length today. He declined a referral to the weight loss program but I will continue in this direction. 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 His vision is normal in the opposite eye and he sees the dba regularly. He reports today that his vision in the left eye is adequate and normal. Problem 07170776 Chronic idiopathic constipation (K59.04) Active confirmed The constipatio n is well controlled with medications. At this time. Problem 646900888 Lumbar spondylosis (M47.816) Active confirmed He continues to have worsening low back pain. An MRI has shown multilevel spondylosis and degenerative changes. There are multiple levels of foraminal narrowing. He has seen a neurosurgeon who found no surgical approach. He has been referred to physiatry and pain management. 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 Problem 809110027 Low back pain, unspecified (M54.50) Active confirmed His back pain i s being manage. He has had surgery. It is mild to moderate at this time. Problem 78724274 Degeneration of intervertebral disc of lumbar region, unspecified whether pain present (M51.369) Active confirmed He has bilatera l quadriceps pain which are likely from his spine. He was given a trial of dexamethasone.Th e pain in his back has become very [...] Provider Diagnosis Ricky Levine III, MD [address] [place] [address] [place] [phone] 08/17/2024 Ricky Levine Depressive disorder, not elsewhere classified F32.9 ; Obesity E66.9 ; Essential hypertension I10 ; Other and unspecified hyperlipidemia E78.5 ; GERD (gastroesophageal reflux disease) K21.9 ; Cornea replaced by transplant Z94.7 ; Vision loss of right eye H54.61 and Thyroid nodule E04.1 Ricky Levine III, MD [address] [place] [address] [place] [phone] 10/19/2024 Ricky Levine Degeneration of intervertebral disc of lumbar region, unspecified whether pain present M51.369 ; Other and unspecified hyperlipidemia E78.5 ; Cornea replaced by transplant Z94.7 ; Depressive disorder, not elsewhere classified F32.9 ; Essential hypertension I10 ; GERD (gastroesophageal reflux disease) K21.9 ; BPH (benign prostatic hyperplasia) N40.0 and Myalgia, multiple sites M79.18 Ricky Levine III, MD [address] [place] [address] [place] [phone] 11/11/2024 Ricky Levine Lumbar spondylosis M47.816 ; Other and unspecified hyperlipidemia E78.5 ; Essential hypertension I10 ; Depressive disorder, not elsewhere classified F32.9 ; Cornea replaced by transplant Z94.7 ; GERD (gastroesophageal reflux disease) K21.9 ; Vision loss of right eye H54.61 ; Chronic idiopathic constipation K59.04 ; BPH (benign prostatic hyperplasia) N40.0 and Thyroid nodule E04.1 Ricky Levine III, MD [address] [place] [address] [place] [address] 12/01/2024 Ricky Levine Obesity E66.9 ; Depressive disorder, not elsewhere classified F32.9 ; Essential hypertension I10 ; GERD (gastroesophageal reflux disease) K21.9 ; Other and unspecified hyperlipidemia E78.5 ; Cornea replaced by transplant Z94.7 and Back pain M54.9 Ricky Levine III, MD [address] [place] [address] [place] [address] 12/15/2024 Ricky Levine Other and unspecifie d hyperlipidemia E78.5 ; Essential hypertension I10 ; Depressive disorder, not elsewhere classified F32.9 ; Cornea replaced by transplant Z94.7 ; GERD (gastroesophageal reflux disease) K21.9 ; BPH (benign prostatic hyperplasia) N40.0 and Back pain M54.9 Ricky Levine III, MD [address] [place] [address] [place] [phone] 03/02/2025 Ricky Levine Other and unspecifie d hyperlipidemia E78.5 ; Low back pain, unspecified M54.50 ; Obesity E66.9 ; Essential hypertension I10 ; Depressive disorder, not elsewhere classified F32.9 ; GERD (gastroesophageal reflux disease) K21.9 ; Cornea replaced by transplant Z94.7 ; BPH (benign prostatic hyperplasia) N40.0 and Left hip pain M25.552 Ricky Levine III, MD [address] [place] [address] [place] [address] 12/04/2024 Ricky Levine III, MD [address] [place] [address] [place] [address] 12/14/2024 Ricky Levine Assessments Encounter Date Diagnosis (ICD Code) Assessment Notes Treat ment Notes Treatment Clinical Notes 08/17/2024 Obesity (ICD-10 - E66.9) His body [...] is mild to moderate at this time. 08/17/2024 Essential hypertension (ICD-10 - I10) His [...] the opposite eye and he sees the dba regularly. He reports today that his vision [...] lose weight at 1 pound per week. 08/17/2024 Other and unspecified hyperlipidemia (ICD-10 - [...] His reflux symptoms are well controlled with kyyn-iud-nzhjifm medication and no change in his regimen as needed. 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 His vision is normal in the opposite eye and he sees the dba regularly. He reports today that his vision [...] His reflux symptoms are well controlled with tluc-hso-idhqqja medication and no change in his regimen [...] the opposite eye and he sees the dba regularly. He reports today that his vision [...] His reflux symptoms are well controlled with jobf-cyl-ljotekl medication and no change in his regimen as needed. 03/02/2025 Depressive disorder, not elsewhere classified (ICD-10 - F32.9) He is tolerating citalopram well without side effects and will be continued. He feels discouraged about his difficulty losing weight and immobility. We discussed this at length today. He declined a referral to the weight loss program but I will continue in this direction. 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 His vision is normal in the opposite eye and he sees the dba regularly. He reports today that his vision in the left eye is adequate and normal. 10/19/2024 GERD (gastroesophageal reflux disease) (ICD-10 - K21.9) His reflux symptoms are well controlled with vskm-jlh-otmlrfx medication and no change in his regimen as needed. 11/11/2024 GERD (gastroesophageal reflux disease) (ICD-10 - K21.9) His reflux symptoms are well controlled with eczx-ruf-ubiaqbi medication and no change in his regimen as needed. 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 His vision is normal in the opposite eye and he sees the dba regularly. He reports today that his vision in the left eye is adequate and normal. 12/15/2024 BPH (benign prostatic hyperplasia) (ICD-10 - N40.0) He rises from sleep once and sometimes twice a night to urinate. We have discussed lifestyle modification as a way to reduce nocturia. 03/02/2025 GERD (gastroesophageal reflux disease) (ICD-10 - K21.9) His reflux symptoms are well controlled with ukfc-tol-dapnqvn medication and no change in his regimen as needed. 08/17/2024 Vision loss of right eye (ICD-10 [...] the opposite eye and he sees the dba regularly. He reports today that his vision in the left eye is adequate and normal. 08/17/2024 Thyroid nodule (ICD-10 - E04.1) This [...] as a way to reduce nocturia. 11/11/2024 BPH (benign prostatic hyperplasia) (ICD-10 - [...] TOTAL 11/25/2020 VITAMIN D 25-OH TOTAL 07/25/2020 Complete Blood Count Auto Diff Comprehensive [place]. Panel Fast Lipid Panel 03/02/2025 Lipid Panel 07/26/2025 Lipid Panel 09/03/2022 Lipid Panel 12/15/2024 Lipid Panel 02/14/2022 Microalbumin, Random 03/02/2025 Hemoglobin A1c 07/26/2025 Hemoglobin A1c 03/02/2025 Next Appt Details Provider Name:Ricky Levine , 07/29/2025 10:00:00 AM, [address] [place] [address] DR ANILA Eileen, [place], [address], Insurance Providers Payer Name Payer Address Payer Phone Subscriber Number Group Number Insured Name Patient Relationship to Insured Coverage Start Date Coverage End Date [facility] [address] [facility] [address] [place] [address] [id number] Lev Cosme Self - patient is the insured MEDICARE N[place] [address] [place] [phone] [id number] Joo Cosmeald Self - patient is the insured Medical [...]
--- OUTSIDE RECORDS SUMMARY | 2025-07-26 16:31 | XMS_ITS | Patient Health Record ---
Author Organization [facility] Address [address] [place] [address] Care Team Providers Care Account Underwriter Name Role Phone Ricky Levine MD Primary Care Provider Unavailab olya quinteroJose LuisJerardo orellana Unavailable [phone] Reason For Referral No Information Medications Medication [...] primary osteoarthritis of the ankle and/or foot (632679167) Primary osteoarthrit is, left ankle and foot (M19.072) Active confirmed Problem Acquired hammer toe of left foot ([id number]) Other hammer toe(s) (acquired), left foot (M20.42) Active confirmed Plan Of Treatment Pending Test Test Name Order Date X ray : Foot, left 3V 12/13/2017 Insurance Providers Payer Name Payer Address Payer Phone Subscriber Number Group Number Insured Name Patient Relationship to Insured Coverage Start Date Coverage End Date [employer] [place] [employer] Advant[employer] [facility] [address] [place] [address] [id number] Lev Cosme Self - patient is the insured Medical (General) History Medical History History ICD Code Anxiety disorder Back,Hip,and Knee pain Cataracts Depression Hiatal hernia Hypertension Macular degeneration Reflux ( GERD) chronic sinusitis Stomach ulcer Warts Transfusions Surgical History Surgery Date(Month/Year) eye surgery-several
--- OUTSIDE RECORDS SUMMARY | 2025-07-26 16:32 | XMS_ITS | Patient Health Record ---
Author Organization [facility] Address [address] [place] [address] Care Team Providers Care Quiller Tender Name Role Phone Ricky Levine MD Primary Care Provider Unavailab Ricky Sheppard Unavailable [phone] Allergies No Known Allergies Reason For Referral No Information Medications Medication SIG (Take, Route, Frequency, Duration) Notes Start Date End Date Status Metoprolol Succinate ER 25 MG Oral; Duration: 90 Active Citalopram Hydrobromide 40 MG Oral; Duration: 90 Active Lansoprazole 30 MG Oral; Duration: 90 Active Felodipine ER 10mg A ctive Centrum Silver - as directed Orally Active Simvastatin 40 MG 1 tablet in the even ing Orally Once a day; Duration: 30 day(s) Active Social History Alcohol Screen [...] Problem Status W/U Status Risk Notes Problem Colon cancer screening (660878012) Colon cancer screening (Z12.11) Active confirmed Problem Diverticular disease of colon (898348347) Diverticulosis of large intestine without perforation or abscess without bleeding (K57.30) Active confirmed Problem Gastroesophageal reflux disease without esophagitis (340733246) Gastroesophageal reflux disease without esophagitis (K21.9) Active confirmed Problem Constipation (96395690) Constipation, unspecified constipation type (K59.00) Active confirmed Problem Gastroesophageal reflux disease (990535771) Gastroesophageal reflux disease, unspecified whether esophagitis present (K21.9) Active confirmed Plan Of Treatment Pending Test Test Name Order Date Pathology 12/16/2023 Future Test Test Name Order Date COLONOSCOPY 12/09/2013 UPPER GI ENDOSCOPY 09/12/2023 COLONOSCOPY 09/12/2023 Insurance Providers Payer Name Payer Address Payer Phone Subscriber Number Group Number Insured Name Patient Relationship to Insured Coverage Start Date Coverage End Date [facility] [address] [place] [phone] [id number] MARISA CHAMPION Self - patient is the insured Medical (General) History Medical History History ICD Code Hypertension Denies DC,DM,CVA,Lung disease,renal dise ase Bleeding ulcer > 30 yrs ago--treated med ically Hyperlipidemia Neg colonoscopy in 07/[address] Schulz en Negative colonoscopy in 01/2014 except fo r a hyperplastic polyp Surgical History Surgery Date(Month/Year) Several eye surgeries on the right
[2025-07-26 16:46] LABS: Microalbum/Creatinine Ratio Ur 23.7 ug/mg cr (<30)
== END 2025-07-26 13:02 | disposition home or self-care (01) ==
LOC: HO.HMGCLDS 13:01
PROVIDERS: PCP Internal Medicine Medical Oncology; Visit Provider Internal Medicine Medical Oncology
DX: R73.03 Prediabetes (principal); E78.5 Hyperlipidemia, unspecified; E66.9 Obesity, unspecified
CPT/HCPCS: 36415; 80053; 80061; 82043; 82570; 83036; 85025